=== PATIENT | female | born 1975 | race Caucasian/White ===

== ENCOUNTER 2021-09-16 17:53 | Emergency (ER) | payer OTHER, SELFPAY ==
--- NOTE | ~2021-09-16 | US_ITS ---
EXAMINATION: US ABDOMEN LIMITED CLINICAL INFORMATION: Right upper quadrant epigastric pain. COMPARISON: No recent TECHNIQUE: Real-time imaging of the right upper quadrant abdominal viscera. FINDINGS: PANCREAS: The head and body are normal. The tail is not visualized. LIVER: The liver is normal in size. The liver contour is normal. There is diffuse increased liver parenchymal echogenicity, consistent with hepatic steatosis. No focal hepatic lesion. There is no intrahepatic biliary duct dilatation seen. GALLBLADDER: The gallbladder is physiologically distended. Multiple mobile gallstones are present. No evidence of gallbladder wall thickening or pericholecystic fluid. COMMON BILE DUCT: Normal in caliber measuring 0.5 cm in diameter. RIGHT KIDNEY: There is a 0.7cm nonobstructing calculus in the lower pole. No hydronephrosis or focal parenchymal lesions. The kidney measures 11.2 cm in maximum dimension. FREE FLUID: None. US/US abdomen limited IMPRESSION: 1. 0.7 right lower pole kidney nonobstructing renal calculus. 2. Cholelithiasis. 3. Hepatic steatosis.
[2021-09-16 17:57] VITALS: BP 152/105; BP 204/154; PULSE 115; PULSE 130; RESP 18; TEMP 36.6; O2SAT 95; O2SAT 96; BMI 41.5
--- NOTE | 2021-09-16 18:04 | ECG_ITS ---
Test Reason : EPI GASTRIC Blood Pressure : / mmHG Vent. Rate : 108 BPM Atrial Rate : 108 BPM P-R Int : 130 ms QRS Dur : 082 ms QT Int : 354 ms P-R-T Axes : 031 043 066 degrees QTc Int : 474 ms Sinus tachycardia Nonspecific T wave abnormality Abnormal ECG No previous ECGs available Referred By: Shaniqua Naranjo Electronically Signed By:Gage Jaramillo
--- NOTE | 2021-09-16 18:15 | ED.ABDPAIN ---
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 It started after she ate a chicken finger, equatorial guinean fries and had 2 sips of an alcoholic beverage. The pain is intense, sharp and came on suddenly. She reports having loose stools for 4 days prior. She has nausea but has not vomited. No fever or chills. No GI bleeding. She ran out of her antidepressants 4-5 days ago and has been unable to get refills from her psychiatrist. MD elicited complaint: abdominal pain Pertinent past history: none Onset (ago): minute(s) (30) Pain Consistency: constant Location: epigastric Severity: severe Pain scale (0-10): 8 Quality: stabbing and sharp Radiation: RUQ Migration to: no migration Exacerbating factors: eating Relieving factors: medication (give Fentanyl 100 mcg en route along with 4 mg IV zofran ) Associated symptoms: nausea and diarrhea Related Data Previous Rx's Medication Instructions Recorded hydrocodone 5 mg-acetaminophen 325 1 tab PO TID PRN #7 tab 09/16/21 mg tablet ondansetron 4 mg disintegrating 4 mg PO Q8H PRN #7 tab 09/16/21 tablet sertraline 100 mg tablet 200 mg PO DAILY #30 tab 09/16/21 trazodone 300 mg tablet 300 mg PO BEDTIME #14 tab 09/16/21 Allergies Allergy/AdvReac Type Severity Reaction Status Date / Time morphine [MORPHINE] Allergy Intermediate STOMACH Verified 09/16/21 18:06 UPSET pregabalin [From LYRICA] Allergy Intermediate UNKNOWN Verified 09/16/21 18:06 sumatriptan [From IMITREX] Allergy Unknown UNKNOWN Verified 09/16/21 18:06 zolmitriptan [From ZOMIG] Allergy Unknown UNKNOWN Verified 09/16/21 18:06 From ZELNORM Allergy Intermediate UNKNOWN Uncoded 09/16/21 18:06 From IMITREX Allergy Unknown UNKNOWN Uncoded 09/16/21 18:06 Review of Systems Review of Systems Constitutional: No Fever, No Chills ENT/Mouth: No sore throat, No Rhinorrhea, No Swallowing Difficulty Cardiovascular: No Chest Pain, No SOB, No Orthopnea, No Edema Respiratory: No Cough, No Sputum, No Wheezing, No dyspnea Gastrointestinal: + Nausea, No Vomiting, + Diarrhea, + abdominal Pain, No Hematochezia, No Melena Genitourinary: No Dysuria, No Urinary Frequency, No Hematuria Musculoskeletal: No joint pain, No Myalgias Skin: No Skin Lesions, No rash Neuro: No Weakness, No Numbness, No Dizziness, No Headache Psych: + Anxiety/Panic, No Depression Heme/Lymph: No Bruising, No Lymphadenopathy, No bleeding Endocrine: No Polyuria, No Polydipsia PMFSH Social History Social History Advance Directives: No Advance Directives Information Provided: No Physical Exam ED Vital Signs: Vital Signs - 24 hr 09/16/21 17:57 09/16/21 20:27 Temperature 97.8 F Pulse Rate 115 H 93 Respiratory Rate 18 20 Blood Pressure 152/105 H 160/87 H Pulse Oximetry 95 96 BMI result Body Mass Index 41.5 Appearance: Alert. Oriented X3. Appears to be in pain Eyes: Pupils equal, round and reactive to light. ENT: Pharynx normal. Neck: Normal inspection. Neck supple. CVS: Normal heart rate and rhythm. Pulses normal. Respiratory: No respiratory distress. Breath sounds normal. Abdomen: Obese, Soft with moderate epigastric and RUQ tenderness w/ guarding, no rebound. normal +BS x4 Skin: Skin warm and dry. Normal skin color. Normal skin turgor. No rashes. Extremities: No lower extremity edema. Neuro: Oriented X 3. Grossly normal, nonfocal. Procedures EJ/Peripheral Line Arm L: Time Out Performed: No Skin Cleansed in Sterile Fashion: Yes Size (gauge): 20 IV Secured and Dressing Applied: Yes Patient Tolerated Procedure: well Course Course Course Narrative: 45 y/o female with history of HHT, HTN, depression who comes in via EMS with acute onset of epigastric and RUQ pain that started 30 mins [employer]. +tenderness on exam. Concern for biliary colic vs acute cholecystitis. Will get RUQ U/S and lab workup. IV Dilaudid ordered for ongoing severe pain after EMS gave Fentanyl. Will reassess. Reevaluation(s) Reevaluation #1: LFTs normal. Normal WBC. Troponin negative. Some flipped t-waves on her EKG with no ST segment elevation or depression. She continued to c/o RUQ pain after 0.5 mg IV dilaudid, another dose ordered. Will reassess. Reevaluation #2: US showing gallstones with no evidence acute cholecystitis. There is also a kidney stone 0.7 cm in the right kidney, no hydronephrosis. Unlikely kidney stone is causing her pain. She most likely has biliary colic due to her gallstones. Her pain is improved after Dilaudid. She is tolerating p.o.. Patient is asking for refills on her psychiatric medications sertraline and trazodone. She is in the middle of getting a new psychiatrist as her previous 1 left [facility] and her PCP will not give her her psychiatric medications. Will restart her sertraline at half dose today given she has not taken in 4-5 days. Comfortable giving her a short supply of these medications as she is actively trying to establish care elsewhere. Stable for discharge home with outpatient follow-up. Will refer to a General surgery for evaluation of possible cholecystectomy. MDM - Abdominal Pain Medical Records Attestation: I reviewed the patient's medical records. Lab Data Attestation: I reviewed the patient's lab results. Result diagrams: 09/16/21 18:54 09/16/21 18:54 Labs: Lab Results 09/16/21 09/16/21 09/16/21 Range/Units 18:28 18:54 18:54 WBC 7.6 (4.8-10.8) X10*3/uL RBC 4.94 (4.20-5.50) X10*6/uL Hgb 14.2 (12.0-16.0) g/dl Hct 43.1 (37.0-47.0) % MCV 87.2 (80.0-98.0) fL MCH 28.7 (27.0-33.0) pg MCHC 32.9 (31.0-35.0) g/dl RDW 13.1 (11.0-16.0) % Plt Count 197 (160-400) X10*3/uL MPV 11.2 (9.4-12.3) fL Immature Gran % (Auto) 0.3 (0.0-0.4) % Neut % (Auto) 62.8 (45-73) % Lymph % (Auto) 24.5 (20-40) % Zavala % (Auto) 10.2 (2-11) % Eos % (Auto) 1.7 (0-4) % Baso % (Auto) 0.5 (0-2) % Lymph # (Auto) 1.9 (1.2-4.9) X10*3/uL Zavala # (Auto) 0.8 (0.1-1.2) X10*3/uL Eos # (Auto) 0.1 (0.0-0.4) X10*3/uL Baso # (Auto) 0.0 (0.0-0.2) X10*3/uL Abs Immat Gran (auto) 0.02 (0.00-0.03) X10*3/uL Absolute Neuts (auto) 4.8 (2.0-8.3) x10*3/uL Absolute Nucleated RBC 0.000 (0.0-0.012) X10*3/uL Nucleated RBC % (auto) 0.0 (0.0-0.2) /100WBC Sodium 141 (135-145) mmol/L Potassium 3.9 (3.3-5.1) mmol/L Chloride 108 (96-108) mmol/L Carbon Dioxide 23 (22-29) mmol/L Anion Gap 14 (12-20) BUN 13 (9-16) mg/dL Creatinine 0.89 (0.5-1.4) mg/dL Estim Creat Clear Calc 99.2 Estimated GFR > 60 Random Glucose 102 (60-115) mg/dL Lactic Acid (0.5-2.0) mmol/L Calcium 9.8 (8.4-10.2) mg/dL Magnesium 2.1 (1.6-2.6) mg/dL Total Bilirubin 0.5 (0.0-1.0) mg/dL Direct Bilirubin 0.2 (0.0-0.5) mg/dL AST 18 (5-31) U/L ALT 18 (0-31) U/L Alkaline Phosphatase 78 (39-117) U/L Troponin I High Sens (<3.5-17.0) ng/L Total Protein 7.8 (6.5-8.0) g/dL Albumin 4.6 (3.5-5.0) g/dL Lipase 22 (8-78) U/L COVID-19 (GAIL) Negative (Negative) COVID-19 Clin Com See Note 09/16/21 09/16/21 Range/Units 18:54 18:54 WBC (4.8-10.8) X10*3/uL RBC (4.20-5.50) X10*6/uL Hgb (12.0-16.0) g/dl Hct (37.0-47.0) % MCV (80.0-98.0) fL MCH (27.0-33.0) pg MCHC (31.0-35.0) g/dl RDW (11.0-16.0) % Plt Count (160-400) X10*3/uL MPV (9.4-12.3) fL Immature Gran % (Auto) (0.0-0.4) % Neut % (Auto) (45-73) % Lymph % (Auto) (20-40) % Zavala % (Auto) (2-11) % Eos % (Auto) (0-4) % Baso % (Auto) (0-2) % Lymph # (Auto) (1.2-4.9) X10*3/uL Zavala # (Auto) (0.1-1.2) X10*3/uL Eos # (Auto) (0.0-0.4) X10*3/uL Baso # (Auto) (0.0-0.2) X10*3/uL Abs Immat Gran (auto) (0.00-0.03) X10*3/uL Absolute Neuts (auto) (2.0-8.3) x10*3/uL Absolute Nucleated RBC (0.0-0.012) X10*3/uL Nucleated RBC % (auto) (0.0-0.2) /100WBC Sodium (135-145) mmol/L Potassium (3.3-5.1) mmol/L Chloride (96-108) mmol/L Carbon Dioxide (22-29) mmol/L Anion Gap (12-20) BUN (9-16) mg/dL Creatinine (0.5-1.4) mg/dL Estim Creat Clear Calc Estimated GFR Random Glucose (60-115) mg/dL Lactic Acid 2.1 H* (0.5-2.0) mmol/L Calcium (8.4-10.2) mg/dL Magnesium (1.6-2.6) mg/dL Total Bilirubin (0.0-1.0) mg/dL Direct Bilirubin (0.0-0.5) mg/dL AST (5-31) U/L ALT (0-31) U/L Alkaline Phosphatase (39-117) U/L Troponin I High Sens < 3.5 (<3.5-17.0) ng/L Total Protein (6.5-8.0) g/dL Albumin (3.5-5.0) g/dL Lipase (8-78) U/L COVID-19 (GAIL) (Negative) COVID-19 Clin Com ECG Data Attestation: I personally reviewed and interpreted this ECG as follows: ECG interpretation date: 09/16/21 ECG interpretation time: 19:41 Prior ECG tracings: not available for review Interpretation: Sinus tachycardia, heart rate 108 beats per minute, nonspecific T-wave abnormality with T-wave inversions in V3 through V6. No ST segment elevations or depressions. Critical Care Time Critical Care Time Critical Care Time: Yes Total Critical Care Time: 35 Attestation: I have personally provided critical care time exclusive of time spent on separately billable procedures. Time includes review of lab data, radiology results, multiple doses of IV narcotics and frequent bedside re-evaluation, and monitoring for potential decompensation. Intervention performed as documented. Discharge Plan Discharge Clinical Impression: Gallstones Patient Disposition: Home, Self-Care Instructions: Biliary Colic (ED), Gallstones (ED) Additional Instructions: Your ultrasound showed gallstones as well as 1 kidney stone in your kidney. Your kidney itself had no swelling so the kidney stone is less likely causing your pain. Recommend dietary modifications for gallstones - no fatty or greasy foods, no dairy. Follow up with General Surgery for evaluation of possible gallbladder removal. Take the prescribed medications as directed - do not drive after taking the pain medication, it can make you drowsy. If you develop new or worsening symptoms call 911 or come back to the ER for further evaluation. Prescriptions: New hydrocodone-acetaminophen 5-325 mg tablet 1 tab PO TID PRN (Reason: severe pain (scale score 7-10)) Qty: 7 0RF ondansetron 4 mg tablet,disintegrating 4 mg PO Q8H PRN (Reason: nausea and vomiting) Qty: 7 0RF sertraline 100 mg tablet 200 mg PO DAILY Qty: 30 0RF trazodone 300 mg tablet 300 mg PO BEDTIME Qty: 14 0RF
[2021-09-16] MEDS: HYDROmorphone HCl 0.5 MG/0.5 ML SYRINGE IVPUSH (18:16)
[2021-09-16 19:03] LABS: MANUAL DIFF FLAG NO
[2021-09-16 19:05] LABS: Basophils Percent Auto 0.5 % (0-2); Eosinophils Absolute Auto 0.1 X10*3/uL (0.0-0.4); Eosinophils Percent Auto 1.7 % (0-4); Hematocrit 43.1 % (37.0-47.0); Hemoglobin 14.2 g/dl (12.0-16.0); Imm Gran Abs Auto 0.02 X10*3/uL (0.00-0.03); Imm Gran Pct Auto 0.3 % (0.0-0.4); Lymphocytes Absolute Auto 1.9 X10*3/uL (1.2-4.9); Lymphocytes Percent Auto 24.5 % (20-40); Mean Corpuscular HGB Conc 32.9 g/dl (31.0-35.0); Mean Corpuscular Hemoglobin 28.7 pg (27.0-33.0); Mean Corpuscular Volume 87.2 fL (80.0-98.0); Mean Platelet Volume 11.2 fL (9.4-12.3); Monocytes Absolute Auto 0.8 X10*3/uL (0.1-1.2); Monocytes Percent Auto 10.2 % (2-11); Neutrophils Absolute Auto 4.8 x10*3/uL (2.0-8.3); Neutrophils Percent Auto 62.8 % (45-73); Platelet Count 197 X10*3/uL (160-400); Red Blood Count 4.94 X10*6/uL (4.20-5.50); Red Cell Distribution Width 13.1 % (11.0-16.0); White Blood Count 7.6 X10*3/uL (4.8-10.8)
[2021-09-16 19:14] LABS: COVID-19 Test Negative (Negative); IDNOW Serial# 9DB6401D
[2021-09-16 19:26] LABS: Alanine Aminotransferase 18 U/L (0-31); Albumin Level 4.6 g/dL (3.5-5.0); Alkaline Phosphatase 78 U/L (39-117); Anion Gap 14 (12-20); Aspartate Amino Transferase 18 U/L (5-31); Bilirubin Direct 0.2 mg/dL (0.0-0.5); Bilirubin Total 0.5 mg/dL (0.0-1.0); Blood Urea Nitrogen 13 mg/dL (9-16); Calcium 9.8 mg/dL (8.4-10.2); Carbon Dioxide 23 mmol/L (22-29); Chloride 108 mmol/L (96-108); Creatinine Clr Calc Pharmacy 99.2; Estimated Glomerular Filt Rate > 60; Glucose Random 102 mg/dL (60-115); Lipase 22 U/L (8-78); Magnesium 2.1 mg/dL (1.6-2.6); Potassium 3.9 mmol/L (3.3-5.1); Sodium 141 mmol/L (135-145); Total Protein 7.8 g/dL (6.5-8.0)
[2021-09-16 19:28] LABS: Troponin-I High Sensitivity < 3.5 ng/L (<3.5-17.0)
[2021-09-16 19:35] LABS: Lactic Acid 2.1 mmol/L (0.5-2.0)
[2021-09-16] MEDS: 0.9 % Sodium Chloride 1,000 ML 999 ML IVCONT (19:47)
[2021-09-16] MEDS: HYDROmorphone HCl 1 MG/ML SYRINGE 0.5 MG IVPUSH (19:49)
[2021-09-16 20:27] VITALS: BP 160/87; PULSE 93; RESP 20; O2SAT 96
[2021-09-16] MEDS: Sertraline HCL 100 MG TABLET PO (20:59)
[2021-09-16] MEDS: traZODone HCL 100 MG TABLET PO (20:59)
[2021-09-16] MEDS: Ketorolac Tromethamine 30 MG/ML VIAL IVPUSH (21:01)
[2021-09-16 21:02] LABS: Reflex Lactate? Lactic Acid Added
[2021-09-16 21:12] VITALS: BP 174/69; PULSE 97; RESP 18; TEMP 36.8; O2SAT 94
[2021-09-16 21:37] LABS: ~Lactic Acid-LAB USE ONLY 1.2 mmol/L (0.5-2.0)
== END 2021-09-16 21:39 | disposition home or self-care (01) ==
PROVIDERS: Physician Assistant; Emergency Provider Emergency Medicine
DX: K80.70 Calculus of gallbladder and bile duct without cholecystitis without obstruction (principal); R10.13 Epigastric pain; N20.0 Calculus of kidney; R00.0 Tachycardia, unspecified; K76.0 Fatty (change of) liver, not elsewhere classified; Z20.822 Contact with and (suspected) exposure to COVID-19
CPT/HCPCS: 36415; 76705; 80048; 80076; 83605; 83690; 83735; 84484; 85025; 87635; 93005; 96361; 96374; 96375; 96376; 99284; J1170; J1885

== ENCOUNTER 2022-04-04 16:36 | Emergency (ER) | payer OTHER, SELFPAY ==
--- OUTSIDE RECORDS SUMMARY | 2022-04-04 18:28 | XMS_ITS | Continuity of Care Document ---
:1975 Author Organization [facility] Address [address] [place] [address]- Care Team Providers Name Role Phone Jam Del Valle Primary Care Physician [id number] Date(s): 09/29/21 - 11/11/21 [facility] [address] [place] [address]- Attending Physician: Oscar Davison MD Allergies, Adverse Reactions, Alerts Substance Reaction Severity Status morphine n/v Active Zomig chest pain Active Imitrex chest pain Active Zelnorm heart palpitations Active Lyrica difficulty breathing Active Medications amLODIPine 5 mg oral tablet 5 mg, 1, tablet, By Mouth, Daily, take one tablet daily, # 30 tablet, Refills 0, Tot. Refills 0, Maintenance, 11/02/21 10:03:00 EDT, Route to Pharmacy Electronically, [facility] #[id number], Partial fill upon patient request if the prescription i... Start Date: 11/02/21 Stop Date: 12/02/21 Status: OrderedbuPROPion 100 mg/12 hours (SR) oral tablet, extended release 1 tablet = 100 mg, By Mouth, 2 times a day, # 60 tablet, 0 Refills, Maintenance, 09/29/21 14:06:00 EDT, ER Tablet, [facility] #[id number], Partial fill upon patient request if the prescription is for a schedule II opioid drug., 165, cm, 09/29/21... Start Date: 09/29/21 Status: OrderedclonazePAM 0.5 mg oral tablet 1 tablet = 0.5 mg, By Mouth, Daily at bedtime, PRN Anxiety, 0 Refills, Maintenance, 04/13/15 11:12:29 Start Date: 04/13/15 Status: Orderedlisinopril 20 mg oral tablet 30 mg, 1.5, tablet, By Mouth, Daily, # 45 tablet, Refills 3, Tot. Refills 3, Maintenance, 09/29/21 14:07:00 EDT, Route to Pharmacy Electronically, [facility] #[id number], Partial fill upon patientrequest if the prescription is for a schedule II... Start Date: 09/29/21 Stop Date: 01/27/22 Status: OrderedtraZODone 100 mg oral tablet 300 mg, 3, tablet, By Mouth, Daily at bedtime, 2-3 tablets by mouth at bedtime daily., # 90 tablet, Refills 3, Tot. Refills 3, Maintenance, 09/29/21 14:52:00 EDT, Route to Pharmacy Electronically, [facility] #[id number], Partial fill upon patient... Start Date: 09/29/21 Stop Date: 01/27/22 Status: OrderedZoloft 100 mg oral tablet 2 tablet = 200 mg, By Mouth, Daily, # 60 tablet, 3 Refills, Maintenance, 09/29/21 14:09:00 EDT, Tablet, [facility] #[id number], Partial fill upon patient request if the prescription is for a schedule II opioid drug., 165, cm, 09/29/21 13:35:00 ED... 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
--- OUTSIDE RECORDS SUMMARY | 2022-04-04 18:28 | XMS_ITS | Continuity of Care Document ---
:1975 Author Organization [facility] Address [address] [place] [address]- Care Team Providers Name Role Phone Jma Del Valle Primary Care Physician Encounter [facility] Date(s): 01/25/22 - 02/24/22 [facility] [address] [place] [address] [place] [address]- Attending Physician: Bre Cervantes Admitting Physician: Bre Cervantes Referring Physician: AdmtrBre Allergies, Adverse Reactions, Alerts Substance Reaction Severity Status morphine n/v Active Zomig chest pain Active Lyrica difficulty breathing Active Imitrex chest pain Active Zelnorm heart palpitations Active Medications amLODIPine 10 mg oral tablet 1 tablet = 10 mg, By Mouth, Daily, pt will stop amlodipine 5 mg and increase to amlodipine 10 mg daily, # 90 tablet, 0 Refills, Maintenance, 01/25/22 15:24:00 EDT, Tablet, [facility] #[id number], Partial fill upon patient request if the prescript... Start Date: 01/25/22 Status: OrderedamLODIPine 5 mg oral tablet 5 mg, 1, tablet, By Mouth, Daily, take one tablet daily will not refill until further followup, # 30tablet, Refills 0, Tot. Refills 0, Maintenance, 01/20/22 9:29:00 EDT, Route to Pharmacy Electronically, [facility] #[id number], Partial fill u... Start Date: 01/20/22 Stop Date: 02/19/22 Status: OrderedbuPROPion 100 mg/12 hours (SR) oral tablet, extended release 1 tablet = 100 mg, By Mouth, 2 times a day, will not refill until further followup, # 60 tablet, 0 Refills, Maintenance, 01/20/22 9:30:00 EDT, ER Tablet, [facility] #[id number], Partial fill upon patient request if the prescription is for a sched... Start Date: 01/20/22 Status: OrderedclonazePAM 0.5 mg oral tablet 1 tablet = 0.5 mg, By Mouth, Daily at bedtime, PRN Anxiety, 0 Refills, Maintenance, 04/13/15 11:12:29 Start Date: 04/13/15 Status: Orderedlisinopril 20 mg oral tablet 30 mg, 1.5, tablet, By Mouth, Daily, will not refill until further followup, # 45 tablet, Refills 3,Tot. Refills 3, Maintenance, 01/27/22 14:07:00 EDT, Route to Pharmacy Electronically, [facility] #[id number], Partial fill upon patient request i... Start Date: 01/27/22 Stop Date: 05/27/22 Status: OrderedtraZODone 100 mg oral tablet 300 mg, 3, tablet, By Mouth, Daily at bedtime, 2-3 tablets by mouth at bedtime daily., # 90 tablet, Refills 2, Tot. Refills 2, Maintenance, 01/19/22 15:39:00 EDT, Route to Pharmacy Electronically, [facility] #[id number], Partial fill upon patient... Start Date: 01/19/22 Stop Date: 04/19/22 Status: OrderedZoloft 100 mg oral tablet 2 tablet = 200 mg, By Mouth, Daily, will not refill until further followup, # 60 tablet, 3 Refills, Maintenance, 01/27/22 14:09:00 EDT, Tablet, [facility] #[id number], Partial fill upon patient request if the prescription is for a schedule II opi... 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 History of kidney Confirmed Active stones Hypertension Confirmed Active IBS - Irritable bowel Confirmed Active syndrome Insomnia Confirmed Active Melasma Confirmed Active Menorrhagia Confirmed Active Migraine Confirmed Active Pulmonary Confirmed Active arteriovenous aneurysm Seasonal allergic Confirmed Active rhinitis Severe obesity Confirmed Active Arteriovenous Confirmed Active malformation Social History Social History Type Response Smoking Status Never smoker entered on: 03/15/15 Sex Patient Care team information PersonnelName: Jam Del Valle Address: Address: [address] [place] [id number]
--- OUTSIDE RECORDS SUMMARY | 2022-04-04 18:28 | XMS_ITS | Continuity of Care Document ---
:1975 Author Organization [facility] Address [address] [place] [address]- Care Team Providers Name Role Phone Jam Del Valle Primary Care Physician [id number] Date(s): 09/06/21 - 10/30/21 [facility] [address] [place] [address]- Attending Physician: Jam Del Valle Allergies, Adverse Reactions, Alerts Substance Reaction Severity Status morphine n/v Active Zomig chest pain Active Imitrex chest pain Active Zelnorm heart palpitations Active Lyrica difficulty breathing Active Medications amLODIPine 5 mg oral tablet 5 mg, 1, tablet, By Mouth, Daily, # 30 tablet, Refills 3, Tot. Refills 3, Maintenance, 09/29/21 14:04:00 EDT, Route to Pharmacy Electronically, [facility] #[id number], Partial fill upon patient request if the prescription is for a schedule II opi... Start Date: 09/29/21 Stop Date: 01/27/22 Status: OrderedbuPROPion 100 mg/12 hours (SR) oral tablet, extended release 1 tablet = 100 mg, By Mouth, 2 times a day, # 60 tablet, 0 Refills, Maintenance, 09/29/21 14:06:00 EDT, ER Tablet, [facility] #[id number], Partial fill upon patient request if the [...] 09/29/21 14:07:00 EDT, Route to Pharmacy Electronically, [facility] #[id number], Partial fill upon patientrequest if the prescription is for a schedule II... Start Date: 09/29/21 Stop Date: 01/27/22 Status: OrderedtraZODone 100 mg oral tablet 300 mg, 3, tablet, By Mouth, Daily at bedtime, 2-3 tablets by mouth at bedtime daily., # 90 tablet, Refills 3, Tot. Refills 3, Maintenance, 09/29/21 14:52:00 EDT, Route to Pharmacy Electronically, [facility] #[id number], Partial fill upon patient... Start Date: 09/29/21 Stop Date: 01/27/22 Status: OrderedZoloft 100 mg oral tablet 2 tablet = 200 mg, By Mouth, Daily, # 60 tablet, 3 Refills, Maintenance, 09/29/21 14:09:00 EDT, Tablet, [facility] #[id number], Partial fill upon patient request if the [...]
--- OUTSIDE RECORDS SUMMARY | 2022-04-04 18:28 | XMS_ITS | Continuity of Care Document ---
:1975 Author Organization [facility] Address [address] [place] [address]- Care Team Providers Name Role Phone Jam Del Valle Primary Care Physician Encounter [facility] Date(s): 01/19/22 - 02/18/22 [facility] [address] [place] [address]- Encounter Diagnosis Anxiety disorder (Discharge Diagnosis) - 01/20/22 Allergies, Adverse Reactions, Alerts Substance Reaction Severity Status morphine n/v Active Zomig chest pain Active Imitrex chest pain Active Zelnorm heart palpitations Active Lyrica difficulty breathing Active Medications amLODIPine 10 mg oral tablet 1 tablet = 10 mg, By Mouth, Daily, pt will stop amlodipine 5 mg and increase to amlodipine 10 mg daily, # 90 tablet, 0 Refills, Maintenance, 01/25/22 15:24:00 EDT, Tablet, [facility] #[id number], Partial fill upon patient request if the prescript... Start Date: 01/25/22 Status: OrderedamLODIPine 5 mg oral tablet 5 mg, 1, tablet, By Mouth, Daily, take one tablet daily will not refill until further followup, # 30tablet, Refills 0, Tot. Refills 0, Maintenance, 01/20/22 9:29:00 EDT, Route to Pharmacy Electronically, [facility] #[id number], Partial fill u... Start Date: 01/20/22 Stop Date: 02/19/22 Status: OrderedbuPROPion 100 mg/12 hours (SR) oral tablet, extended release 1 tablet = 100 mg, By Mouth, 2 times a day, will not refill until further followup, # 60 tablet, 0 Refills, Maintenance, 01/20/22 9:30:00 EDT, ER Tablet, [facility] #[id number], Partial fill upon patient request if the [...] 01/27/22 14:07:00 EDT, Route to Pharmacy Electronically, [facility] #[id number], Partial fill upon patient request i... Start Date: 01/27/22 Stop Date: 05/27/22 Status: OrderedtraZODone 100 mg oral tablet 300 mg, 3, tablet, By Mouth, Daily at bedtime, 2-3 tablets by mouth at bedtime daily., # 90 tablet, Refills 2, Tot. Refills 2, Maintenance, 01/19/22 15:39:00 EDT, Route to Pharmacy Electronically, [facility] #[id number], Partial fill upon patient... Start Date: 01/19/22 Stop Date: 04/19/22 Status: OrderedZoloft 100 mg oral tablet 2 tablet = 200 mg, By Mouth, Daily, will not refill until further followup, # 60 tablet, 3 Refills, Maintenance, 01/27/22 14:09:00 EDT, Tablet, [facility] #[id number], Partial fill upon patient request if the [...] obesity Confirmed Active Arteriovenous Confirmed Active malformation Diagnosis Diagnosis Type Effective Dates Health Status Clinical In formant Service Anxiety disorder Discharge 01/20/22 Non-Specified Diagnosis Social History Social History Type Response Smoking Status Never smoker entered on: 03/15/15 Sex Patient Care team information PersonnelName: Jam Del Valle Address: Address: [address] [place] [id number]
--- OUTSIDE RECORDS SUMMARY | 2022-04-04 18:28 | XMS_ITS | Continuity of Care Document ---
:1975 Author Organization [facility] Address [address] [place] [address]- Care Team Providers Name Role Phone Jam Del Valle Primary Care Physician [id number] Date(s): 11/02/21 - 12/03/21 [facility] [address] [place] [address]- Attending Physician: Oscar Davison MD Allergies, Adverse [...] 11/02/21 10:03:00 EDT, Route to Pharmacy Electronically, [facility] #[id number], Partial fill upon patient request if the prescription i... Start Date: 11/02/21 Stop Date: 12/02/21 Status: OrderedbuPROPion 100 mg/12 hours (SR) oral tablet, extended release 1 tablet = 100 mg, By Mouth, 2 times a day, # 60 tablet, 0 Refills, Maintenance, 09/29/21 14:06:00 EDT, ER Tablet, [facility] #[id number], Partial fill upon patient request if the [...] 09/29/21 14:07:00 EDT, Route to Pharmacy Electronically, [facility] #[id number], Partial fill upon patientrequest if the prescription is for a schedule II... Start Date: 09/29/21 Stop Date: 01/27/22 Status: OrderedtraZODone 100 mg oral tablet 300 mg, 3, tablet, By Mouth, Daily at bedtime, 2-3 tablets by mouth at bedtime daily., # 90 tablet, Refills 3, Tot. Refills 3, Maintenance, 09/29/21 14:52:00 EDT, Route to Pharmacy Electronically, [facility] #[id number], Partial fill upon patient... Start Date: 09/29/21 Stop Date: 01/27/22 Status: OrderedZoloft 100 mg oral tablet 2 tablet = 200 mg, By Mouth, Daily, # 60 tablet, 3 Refills, Maintenance, 09/29/21 14:09:00 EDT, Tablet, [facility] #[id number], Partial fill upon patient request if the [...]
--- OUTSIDE RECORDS SUMMARY | 2022-04-04 18:28 | XMS_ITS | Continuity of Care Document ---
:1975 Author Organization [facility] Address [address] [place] [address]- Care Team Providers Name Role Phone Jam Del Valle Primary Care Physician [phone] [id number] Date(s): 11/02/21 - 12/02/21 [facility] [address] [place] [address]- [place] Allergies, Adverse Reactions, Alerts Substance Reaction Severity Status morphine n/v Active Zomig chest pain Active Imitrex chest pain Active Zelnorm heart palpitations Active Lyrica difficulty breathing Active Medications amLODIPine 5 mg oral tablet 5 mg, 1, tablet, By Mouth, Daily, take one tablet daily, # 30 tablet, Refills 0, Tot. Refills 0, Maintenance, 11/02/21 10:03:00 EDT, Route to Pharmacy Electronically, [facility] #[id number], Partial fill upon patient request if the prescription i... Start Date: 11/02/21 Stop Date: 12/02/21 Status: OrderedbuPROPion 100 mg/12 hours (SR) oral tablet, extended release 1 tablet = 100 mg, By Mouth, 2 times a day, # 60 tablet, 0 Refills, Maintenance, 09/29/21 14:06:00 EDT, ER Tablet, [facility] #[id number], Partial fill upon patient request if the [...] 09/29/21 14:07:00 EDT, Route to Pharmacy Electronically, [facility] #[id number], Partial fill upon patientrequest if the prescription is for a schedule II... Start Date: 09/29/21 Stop Date: 01/27/22 Status: OrderedtraZODone 100 mg oral tablet 300 mg, 3, tablet, By Mouth, Daily at bedtime, 2-3 tablets by mouth at bedtime daily., # 90 tablet, Refills 3, Tot. Refills 3, Maintenance, 09/29/21 14:52:00 EDT, Route to Pharmacy Electronically, [facility] #[id number], Partial fill upon patient... Start Date: 09/29/21 Stop Date: 01/27/22 Status: OrderedZoloft 100 mg oral tablet 2 tablet = 200 mg, By Mouth, Daily, # 60 tablet, 3 Refills, Maintenance, 09/29/21 14:09:00 EDT, Tablet, [facility] #[id number], Partial fill upon patient request if the [...]
--- OUTSIDE RECORDS SUMMARY | 2022-04-04 18:28 | XMS_ITS | Continuity of Care Document ---
:1975 Author Organization [facility] Address [address] [place] [id number]- Care Team Providers Name Role Phone Jam Del Valle Primary Care Physician Encounter [facility] NBR [id number] Date(s): 10/03/21 - 11/02/21 [facility] [address] [place] [address]- [place] Allergies, Adverse Reactions, Alerts Substance Reaction Severity Status morphine n/v Active Zomig chest pain Active Imitrex chest pain Active Zelnorm heart palpitations Active Lyrica difficulty breathing Active Medications amLODIPine 5 mg oral tablet 5 mg, 1, tablet, By Mouth, Daily, take one tablet daily, # 30 tablet, Refills 0, Tot. Refills 0, Maintenance, 11/02/21 10:03:00 EDT, Route to Pharmacy Electronically, [facility] #[id number], Partial fill upon patient request if the prescription i... Start Date: 11/02/21 Stop Date: 12/02/21 Status: OrderedbuPROPion 100 mg/12 hours (SR) oral tablet, extended release 1 tablet = 100 mg, By Mouth, 2 times a day, # 60 tablet, 0 Refills, Maintenance, 09/29/21 14:06:00 EDT, ER Tablet, [facility] #[id number], Partial fill upon patient request if the [...] 09/29/21 14:07:00 EDT, Route to Pharmacy Electronically, [facility] #[id number], Partial fill upon patientrequest if the prescription is for a schedule II... Start Date: 09/29/21 Stop Date: 01/27/22 Status: OrderedtraZODone 100 mg oral tablet 300 mg, 3, tablet, By Mouth, Daily at bedtime, 2-3 tablets by mouth at bedtime daily., # 90 tablet, Refills 3, Tot. Refills 3, Maintenance, 09/29/21 14:52:00 EDT, Route to Pharmacy Electronically, [facility] #[id number], Partial fill upon patient... Start Date: 09/29/21 Stop Date: 01/27/22 Status: OrderedZoloft 100 mg oral tablet 2 tablet = 200 mg, By Mouth, Daily, # 60 tablet, 3 Refills, Maintenance, 09/29/21 14:09:00 EDT, Tablet, [facility] #[id number], Partial fill upon patient request if the [...]
--- OUTSIDE RECORDS SUMMARY | 2022-04-04 18:28 | XMS_ITS | Continuity of Care Document ---
:1975 Author Organization [facility] Address [address] [place] [id number]- Care Team Providers Name Role Phone Jam Del Valle Primary Care Physician [phone] Encounter [facility] NBR [id number] Date(s): 09/29/21 - 10/06/21 [facility] [address] [place] [address]- Encounter Diagnosis UTI symptoms (Discharge Diagnosis) - 09/29/21 History of kidney stones (Discharge Diagnosis) - 09/29/21 Hypertension (Discharge Diagnosis) - 09/29/21 Anxiety disorder (Discharge Diagnosis) - 09/29/21 History of depression (Discharge Diagnosis) - 09/29/21 Insomnia (Discharge Diagnosis) - 09/29/21 Arteriovenous malformation (Discharge Diagnosis) - 09/29/21 Attending Physician: Jam Del Valle Allergies, Adverse Reactions, Alerts Substance Reaction Severity Status morphine n/v Active Zomig chest pain Active Lyrica difficulty breathing Active Zelnorm heart palpitations Active Imitrex chest pain Active Medications amLODIPine 5 mg oral tablet 5 mg, 1, tablet, By Mouth, Daily, # 30 tablet, Refills 3, Tot. Refills 3, Maintenance, 09/29/21 14:04:00 EDT, Route to Pharmacy Electronically, [facility] #[id number], Partial fill upon patient request if the prescription is for a schedule II opi... Start Date: 09/29/21 Stop Date: 01/27/22 Status: OrderedbuPROPion 100 mg/12 hours (SR) oral tablet, extended release 1 tablet = 100 mg, By Mouth, 2 times a day, # 60 tablet, 0 Refills, Maintenance, 09/29/21 14:06:00 EDT, ER Tablet, [facility] #[id number], Partial fill upon patient request if the [...] 09/29/21 14:07:00 EDT, Route to Pharmacy Electronically, [facility] #[id number], Partial fill upon patientrequest if the prescription is for a schedule II... Start Date: 09/29/21 Stop Date: 01/27/22 Status: OrderedMacrobid macrocrystals-monohydrate 100 mg oral capsule 1 capsule = 100 mg, By Mouth, 2 times a day, for 10 days, # 20 capsule, 0 Refills, Acute 10/09/21 13:57:00 EDT, 09/29/21 13:57:00 EDT, Capsule, [facility] #[id number], Partial fill upon patient request if the prescription is for a schedule II opi... Start Date: 09/29/21 Stop Date: 10/09/21 Status: OrderedtraZODone 100 mg oral tablet 300 mg, 3, tablet, By Mouth, Daily at bedtime, 2-3 tablets by mouth at bedtime daily., # 90 tablet, Refills 3, Tot. Refills 3, Maintenance, 09/29/21 14:52:00 EDT, Route to Pharmacy Electronically, [facility] #[id number], Partial fill upon patient... Start Date: 09/29/21 Stop Date: 01/27/22 Status: OrderedZoloft 100 mg oral tablet 2 tablet = 200 mg, By Mouth, Daily, # 60 tablet, 3 Refills, Maintenance, 09/29/21 14:09:00 EDT, Tablet, [facility] #[id number], Partial fill upon patient request if the [...] Active Severe obesity(Confirmed) Active Arteriovenous malformation(Confirmed) Active Diagnosis Diagnosis Type Effective Dates Health Clinical Infor mant Status Service UTI symptoms Discharge 09/29/21 Diagnosis History of kidney Discharge 09/29/21 stones Diagnosis Hypertension Discharge 09/29/21 Diagnosis Anxiety disorder Discharge 09/29/21 Diagnosis History of Discharge 09/29/21 depression Diagnosis Insomnia Discharge 09/29/21 Diagnosis Arteriovenous Discharge 09/29/21 malformation Diagnosis Vital Signs Most recent to oldest [Reference Range]: 1 2 Height 165 cm 165 cm (09/29/21 1:35 PM) (09/29/21 1:27 PM) Weight 125 kg (09/29/21 1:27 PM) Oxygen Saturation [94-100 %] 94 % (09/29/21 1:27 PM) Pulse Rate [55-90 bpm] 107 bpm *H* (09/29/21 1:27 PM) Body Mass Index [18.5-24.99] 45.91 *>HHI* (09/29/21 1:27 PM) Blood Pressure [90-138/55-84 mm Hg] 168/108 mm Hg 176/ 112 mm Hg *H* *H* (09/29/21 1:35 PM) (09/29/21 1:27 PM) Respiratory Rate [16-30 br/min] 18 br/min (09/29/21 1:27 PM) Temperature [96.8-100.4 DegF] 98.6 DegF (09/29/21 1:27 PM) Blood pressure sites Arm, left Arm, left (09/29/21 1:35 PM) (09/29/21 1:27 PM) Social History Social History Type Response Smoking Status Never smoker entered on: 03/15/15 Sex
--- OUTSIDE RECORDS SUMMARY | 2022-04-04 18:28 | XMS_ITS | Continuity of Care Document ---
:1975 Author Organization [facility] Address [address] [place] [address]- Care Team Providers Name Role Phone Jam Del Valle Primary Care Physician [phone] Encounter [facility] NBR [id number] Date(s): 11/03/21 - 12/03/21 [facility] [address] [place] [address]- Attending Physician: Bre Cervantes Admitting Physician: AdmBre duke Referring Physician: AdmtrBre Allergies, Adverse Reactions, Alerts Substance Reaction Severity Status morphine n/v Active Zomig chest pain Active Lyrica difficulty breathing Active Imitrex chest pain Active Zelnorm heart palpitations Active Medications amLODIPine 5 mg oral tablet 5 mg, 1, tablet, By Mouth, Daily, take one tablet daily, # 30 tablet, Refills 0, Tot. Refills 0, Maintenance, 11/02/21 10:03:00 EDT, Route to Pharmacy Electronically, [facility] #[id number], Partial fill upon patient request if the prescription i... Start Date: 11/02/21 Stop Date: 12/02/21 Status: OrderedbuPROPion 100 mg/12 hours (SR) oral tablet, extended release 1 tablet = 100 mg, By Mouth, 2 times a day, # 60 tablet, 0 Refills, Maintenance, 09/29/21 14:06:00 EDT, ER Tablet, [facility] #[id number], Partial fill upon patient request if the [...] 09/29/21 14:07:00 EDT, Route to Pharmacy Electronically, [facility] #[id number], Partial fill upon patientrequest if the prescription is for a schedule II... Start Date: 09/29/21 Stop Date: 01/27/22 Status: OrderedtraZODone 100 mg oral tablet 300 mg, 3, tablet, By Mouth, Daily at bedtime, 2-3 tablets by mouth at bedtime daily., # 90 tablet, Refills 3, Tot. Refills 3, Maintenance, 09/29/21 14:52:00 EDT, Route to Pharmacy Electronically, [facility] #[id number], Partial fill upon patient... Start Date: 09/29/21 Stop Date: 01/27/22 Status: OrderedZoloft 100 mg oral tablet 2 tablet = 200 mg, By Mouth, Daily, # 60 tablet, 3 Refills, Maintenance, 09/29/21 14:09:00 EDT, Tablet, [facility] #[id number], Partial fill upon patient request if the [...]
--- OUTSIDE RECORDS SUMMARY | 2022-04-04 18:28 | XMS_ITS | Continuity of Care Document ---
:1975 Author Organization [facility] Address [address] [place] [address]- Care Team Providers Name Role Phone Jam Del Valle Primary Care Physician [facility] [id number] Date(s): 10/31/21 - 11/30/21 [facility] [address] [place] [id number]- [place] Allergies, Adverse Reactions, Alerts Substance Reaction Severity Status morphine n/v Active Zomig chest pain Active Imitrex chest pain Active Zelnorm heart palpitations Active Lyrica difficulty breathing Active Medications amLODIPine 5 mg oral tablet 5 mg, 1, tablet, By Mouth, Daily, take one tablet daily, # 30 tablet, Refills 0, Tot. Refills 0, Maintenance, 11/02/21 10:03:00 EDT, Route to Pharmacy Electronically, [facility] #[id number], Partial fill upon patient request if the prescription i... Start Date: 11/02/21 Stop Date: 12/02/21 Status: OrderedbuPROPion 100 mg/12 hours (SR) oral tablet, extended release 1 tablet = 100 mg, By Mouth, 2 times a day, # 60 tablet, 0 Refills, Maintenance, 09/29/21 14:06:00 EDT, ER Tablet, [facility] #[id number], Partial fill upon patient request if the [...] 09/29/21 14:07:00 EDT, Route to Pharmacy Electronically, [facility] #[id number], Partial fill upon patientrequest if the prescription is for a schedule II... Start Date: 09/29/21 Stop Date: 01/27/22 Status: OrderedtraZODone 100 mg oral tablet 300 mg, 3, tablet, By Mouth, Daily at bedtime, 2-3 tablets by mouth at bedtime daily., # 90 tablet, Refills 3, Tot. Refills 3, Maintenance, 09/29/21 14:52:00 EDT, Route to Pharmacy Electronically, [facility] #[id number], Partial fill upon patient... Start Date: 09/29/21 Stop Date: 01/27/22 Status: OrderedZoloft 100 mg oral tablet 2 tablet = 200 mg, By Mouth, Daily, # 60 tablet, 3 Refills, Maintenance, 09/29/21 14:09:00 EDT, Tablet, [facility] #[id number], Partial fill upon patient request if the [...]
== END 2022-04-04 19:02 | disposition left against medical advice (07) ==
PROVIDERS: Emergency Provider Emergency Medicine
DX: R10.10 Upper abdominal pain, unspecified (principal)

== ENCOUNTER 2022-04-12 07:50 | Day surgery (SDC) | payer OTHER, SELFPAY ==
[2022-04-12] VITALS (18 sets, daily range): BP systolic 132–163; BP diastolic 80–97; PULSE 101–130; RESP 12–20; TEMP 36.8–38.1; O2SAT 92–97; BMI 43.9
--- NOTE | ~2022-04-12 | FL_ITS ---
EXAMINATION: XR FLUOROSCOPY WITH IMAGES CLINICAL INFORMATION: Urinary tract calculi, right hydronephrosis. COMPARISON: CT abdomen and pelvis 04/12/2022. TECHNIQUE: Fluoroscopy Supervised By: Dr. Leandro Hyatt. Fluoroscopy Time: 17 seconds. Cumulative Dose: 8.75 mGy. Images: 4. FINDINGS: There is guidewire seen in the right urinary tract. Subsequent images show lower right ureteral stent in position. FL/FL guidance in OR IMPRESSION: Fluoroscopy for urologic procedure.
--- NOTE | ~2022-04-12 | CT_ITS ---
EXAMINATION: CT ABDOMEN AND PELVIS WITH CONTRAST CLINICAL INFORMATION: Right upper quadrant right flank pain. Possible pyelonephritis. History renal calculi. COMPARISON: Ultrasound abdomen Limited 09/16/2021, CT abdomen and pelvis noncontrast 10/30/2014. TECHNIQUE: Multidetector volumetric images were obtained from the superior aspect of the liver through the pubic symphysis following administration 85 mL of Omnipaque 350 intravenous contrast. Sagittal and coronal reformatted images were obtained on the technologist's workstation. Oral contrast: No This CT examination was performed using dose optimization techniques as appropriate, variously including the following: *Automated exposure control *Adjustment of mA and/or kV according to patient size (this includes techniques or standardized protocols for targeted exams where dose is matched to indication/reason for exam; i.e. extremities or head) *Use of iterative reconstruction technique DLP: 1042 mGy-cm FINDINGS: LUNG BASES: The visualized lung bases are unremarkable. LIVER, GALLBLADDER, AND BILIARY TREE: The liver is normal in size, shape, and attenuation. No focal hepatic lesion or biliary ductal dilatation is present. The gallbladder is unremarkable with no evidence of radiopaque gallstones, gallbladder wall thickening, or obvious pericholecystic inflammatory changes. PANCREAS: Unremarkable. SPLEEN: Mild splenomegaly, sagittal dimension 14.2, similar to prior CT 2015. ADRENAL GLANDS: Unremarkable. KIDNEYS AND URETERS: Right: There is right hydronephrosis and hydroureter secondary to a 6 mm calculus right pelvic ureter, approximately 5 cm proximal to the bladder, 581 HU attenuation. There is an 8 x 4 mm nonobstructing right lower pole intrarenal calculus, 708 HU and 14 cm from the flank. Mild right perinephric stranding is present. Left: Left kidney shows no hydronephrosis or hydroureter or perinephric stranding. There are punctate nonobstructing calculi left upper pole and left lower pole both under 3 mm. BLADDER: Unremarkable. GASTROINTESTINAL TRACT: No bowel obstruction or focal inflammatory changes in bowel or mesentery. Moderate stool throughout colon. Appendix not seen with certainty. No inflammatory changes around cecum or terminal ileum. No ascites or fluid collection. No pneumatosis or free air. ABDOMINAL WALL: No significant hernia is appreciated. LYMPH NODES: No lymphadenopathy. VASCULAR: Unremarkable. PELVIC VISCERA: Unremarkable. OSSEOUS STRUCTURES: No acute bony abnormality. Degenerative disc changes lumbosacral junction. CT/CT abdomen pelvis w IV con IMPRESSION: 1. Right hydronephrosis and hydroureter secondary to a 6 mm calculus right pelvic ureter, approximately 5 cm proximal to the bladder. Mild perinephric stranding. 2. Bilateral nonobstructing intrarenal calculi. 3. No bowel obstruction or inflammatory changes in bowel or mesentery. No ascites or fluid collection.
[2022-04-12 08:29] LABS: UPreg QC Valid YES; Urine Pregnancy NEGATIVE (NEGATIVE)
[2022-04-12 08:30] LABS: Appearance Urine Clear; Color Urine Yellow; Glucose Urine UA Negative (Negative); Leukocyte Esterase Urine Large (3+) (Negative); Nitrite Urine Negative (Negative); PH 7.5 (5.0-9.0); UMIC TRIGGER UACC YES; Urine Blood Trace (Negative); Urine Ketones Negative (Negative); Urine Protein Trace mg/dL (Neg-Trace)
[2022-04-12 08:33] LABS: Bacteria Urine None Seen (None Seen); Hyaline Casts Urine 0-2 /LPF (0-2); Squamous Epithelial Cell Urine 0-2 /HPF (0-2); UACC Culture Trigger YES; WBC Urine >50 /HPF (0-5)
[2022-04-12 09:07] LABS: Influenza A PCR NEGATIVE (Negative); Influenza B PCR NEGATIVE (Negative); Resp Syncy Virus RNA Qual PCR NEGATIVE (Negative); SARS COV2 PCR INHOUSE NEGATIVE (Negative)
[2022-04-12 09:15] LABS: MANUAL DIFF FLAG NO
[2022-04-12 09:17] LABS: Basophils Percent Auto 0.4 % (0-2); Eosinophils Absolute Auto 0.2 X10*3/uL (0.0-0.4); Eosinophils Percent Auto 1.7 % (0-4); Hematocrit 39.2 % (37.0-47.0); Hemoglobin 12.8 g/dl (12.0-16.0); Imm Gran Abs Auto 0.02 X10*3/uL (0.00-0.03); Imm Gran Pct Auto 0.2 % (0.0-0.4); Lymphocytes Absolute Auto 0.8 X10*3/uL (1.2-4.9); Lymphocytes Percent Auto 8.1 % (20-40); Mean Corpuscular HGB Conc 32.7 g/dl (31.0-35.0); Mean Corpuscular Hemoglobin 29.4 pg (27.0-33.0); Mean Corpuscular Volume 89.9 fL (80.0-98.0); Mean Platelet Volume 10.9 fL (9.4-12.3); Monocytes Absolute Auto 0.7 X10*3/uL (0.1-1.2); Monocytes Percent Auto 7.9 % (2-11); Neutrophils Absolute Auto 7.5 x10*3/uL (2.0-8.3); Neutrophils Percent Auto 81.7 % (45-73); Platelet Count 164 X10*3/uL (160-400); Red Blood Count 4.36 X10*6/uL (4.20-5.50); Red Cell Distribution Width 13.1 % (11.0-16.0); White Blood Count 9.2 X10*3/uL (4.8-10.8)
[2022-04-12 09:27] LABS: Lactic Acid 0.7 mmol/L (0.5-2.0)
--- NOTE | 2022-04-12 09:28 | PC.NURSE ---
patient a&ox3, c/o 7-11/30 rt flank pain, vitals stable, awaiting provider orders, will continue to monitor.
[2022-04-12 09:32] LABS: Alanine Aminotransferase 13 U/L (0-31); Albumin Level 4.5 g/dL (3.5-5.0); Alkaline Phosphatase 80 U/L (39-117); Anion Gap 12 (12-20); Aspartate Amino Transferase 15 U/L (5-31); Bilirubin Total 0.6 mg/dL (0.0-1.0); Blood Urea Nitrogen 10 mg/dL (9-16); Calcium 9.3 mg/dL (8.4-10.2); Carbon Dioxide 26 mmol/L (22-29); Chloride 104 mmol/L (96-108); Creatinine Clr Calc Pharmacy 87.5; Estimated Glomerular Filt Rate 57; Glucose Random 114 mg/dL (60-115); Potassium 4.3 mmol/L (3.3-5.1); Sodium 138 mmol/L (135-145); Total Protein 7.2 g/dL (6.5-8.0)
--- NOTE | 2022-04-12 09:38 | ED.ABDPAIN ---
HPI - Abdominal Pain General Chief Complaint: Abdominal Pain Stated Complaint: R Side Pain Time Seen by Provider: 04/12/22 08:45 Source: patient Mode of arrival: ambulatory History of Present Illness HPI narrative: 46-year-old female presents with significant right flank pain that radiates down into the right groin area and has worsened with initially experiencing a urinary frequency and now has associated nausea but denies any vomiting and has had chills. Patient denies any shortness of breath, chest pain/palpitations Related Data Previous Rx's Medication Instructions Recorded hydrocodone 5 mg-acetaminophen 325 1 tab PO TID PRN severe pain 09/16/21 mg tablet (scale score 7-10) #7 tabs ondansetron 4 mg disintegrating 4 mg PO Q8H PRN nausea and 09/16/21 tablet vomiting #7 tabs sertraline 100 mg tablet 200 mg PO DAILY #30 tabs 09/16/21 trazodone 300 mg tablet 300 mg PO BEDTIME #14 tabs 09/16/21 hydrocodone 5 mg-acetaminophen 325 1 tab PO Q4-6H PRN pain #7 tabs 09/17/21 mg tablet Allergies Allergy/AdvReac Type Severity Reaction Status Date / Time morphine [MORPHINE] Allergy Intermediate STOMACH Verified 09/16/21 18:06 UPSET pregabalin [From LYRICA] Allergy Intermediate UNKNOWN Verified 09/16/21 18:06 sumatriptan [From IMITREX] Allergy Unknown UNKNOWN Verified 09/16/21 18:06 zolmitriptan [From ZOMIG] Allergy Unknown UNKNOWN Verified 09/16/21 18:06 From ZELNORM Allergy Intermediate UNKNOWN Uncoded 09/16/21 18:06 From IMITREX Allergy Unknown UNKNOWN Uncoded 09/16/21 18:06 Review of Systems Review of Systems Pertinent positives and negatives as stated in HPI 10 point review of systems otherwise negative. [facility] Past Medical History Source: nursing notes reviewed Medical History Depression Hypertension Kidney stone Migraines Pulmonary arteriovenous malformation Surgical History H/O lithotripsy H/O: hysterectomy History of ankle surgery History of appendectomy Social History Social History Alcohol intake: current Alcohol intake frequency: holidays/special occasions only Smoked in Last 30 Days: No Use of substances other than those prescribed or required for medical reasons: No Advance Directives: No Patient : No Physical Exam ED Vital Signs: Vital Signs - 24 hr 04/12/22 08:01 04/12/22 09:27 04/12/22 11:30 Temperature 98.6 F 98.9 F 99.2 F Pulse Rate 130 H 113 H 114 H Respiratory Rate 18 20 20 Blood Pressure 150/81 H 150/91 H 139/97 H Pulse Oximetry 95 96 96 Oxygen Delivery Method Room Air Room Air Room Air 04/12/22 13:50 Temperature 99.1 F Pulse Rate 105 H Respiratory Rate 18 Blood Pressure 163/87 H Pulse Oximetry 94 Oxygen Delivery Method Room Air BMI result Body Mass Index 43.9 VITAL SIGNS: Reviewed. GENERAL: Well developed, well nourished, in no acute distress. HEAD: Normocephalic/atraumatic EYES: PERRLA, EOMI EARS: Ext canals without abnormality OROPHARYNX: no oral lesions noted, posterior pharynx clear LUNGS: Normal breath sounds. No adventitious sounds or accessory muscle use. SpO2<96> CARDIOVASCULAR: Regular rate and rhythm without noted murmurs ABDOMEN: Soft, non-tender, non-distended with bowel sounds, right CVA tenderness MUSCULOSKELETAL: No tenderness, deformities, or effusions noted on gross inspection. EXTREMITIES: No cyanosis, clubbing or edema. SKIN: Inspection of the skin reveals no rashes NEUROLOGIC: Alert and oriented x 4. Strength and sensation to light touch were grossly intact x 4. Course Reevaluation(s) Reevaluation #1: Patient continues to be in pain, 0.5 mg of Dilaudid administered and I placed a consultation with Urology since I a got for official CT scan which demonstrates hydro with 6 mm stone in mid right ureter. Time: 14:20 Reevaluation #2: I discussed the case with Urology who confirms that patient needs a stent and will be an add on for the OR tonight. I made the patient NPO and start her on maintenance IV fluids. Time: 15:11 Medical Decision Making Medical Decision Making MDM Narrative: 46-year-old female with history and clinical presentation of right flank pain and a positive history of renal colic, I see no documentation regarding cholecystectomy. Differential Diagnosis Differential Diagnoses: The differential diagnosis associated with the presentation includes Renal colic, cholecystitis, pancreatitis Consult Healthcare Provider Management of the patient was discussed with: Medical Record Administrator See course for conversation Lab Data MDM Lab Attestation statement: I reviewed the patient's lab results. Urinalysis demonstrates WBC greater than 50 with no squamous epithelial cells. Result Diagrams: 04/12/22 09:10 04/12/22 09:10 Labs: Lab Results 04/12/22 04/12/22 04/12/22 Range/Units 08:10 08:10 08:10 WBC (4.8-10.8) X10*3/uL RBC (4.20-5.50) X10*6/uL Hgb (12.0-16.0) g/dl Hct (37.0-47.0) % MCV (80.0-98.0) fL MCH (27.0-33.0) pg MCHC (31.0-35.0) g/dl RDW (11.0-16.0) % Plt Count (160-400) X10*3/uL MPV (9.4-12.3) fL Immature Gran % (Auto) (0.0-0.4) % Neut % (Auto) (45-73) % Lymph % (Auto) (20-40) % Collier % (Auto) (2-11) % Eos % (Auto) (0-4) % Baso % (Auto) (0-2) % Lymph # (Auto) (1.2-4.9) X10*3/uL Collier # (Auto) (0.1-1.2) X10*3/uL Eos # (Auto) (0.0-0.4) X10*3/uL Baso # (Auto) (0.0-0.2) X10*3/uL Abs Immat Gran (auto) (0.00-0.03) X10*3/uL Absolute Neuts (auto) (2.0-8.3) x10*3/uL Absolute Nucleated RBC (0.0-0.012) X10*3/uL Nucleated RBC % (auto) (0.0-0.2) /100WBC Sodium (135-145) mmol/L Potassium (3.3-5.1) mmol/L Chloride (96-108) mmol/L Carbon Dioxide (22-29) mmol/L Anion Gap (12-20) BUN (9-16) mg/dL Creatinine (0.5-1.4) mg/dL Estim Creat Clear Calc Estimated GFR Random Glucose (60-115) mg/dL Lactic Acid (0.5-2.0) mmol/L Calcium (8.4-10.2) mg/dL Total Bilirubin (0.0-1.0) mg/dL AST (5-31) U/L ALT (0-31) U/L Alkaline Phosphatase (39-117) U/L Total Protein (6.5-8.0) g/dL Albumin (3.5-5.0) g/dL Urine Color Yellow Urine Appearance Clear Urine pH 7.5 (5.0-9.0) Ur Specific Stanton 1.010 (1.005-1.025) Urine Protein Trace (Neg-Trace) mg/dL Urine Glucose (UA) Negative (Negative) mg/dL Urine Ketones Negative (Negative) mg/dL Urine Blood Trace H (Negative) Urine Nitrite Negative (Negative) Ur Leukocyte Esterase Large (3+) H (Negative) Urine RBC 3-5 H (0-2) /HPF Urine WBC >50 H (0-5) /HPF Ur Squamous Epith Cells 0-2 (0-2) /HPF Urine Bacteria None Seen (None Seen) Hyaline Casts 0-2 (0-2) /LPF Urine Test NEGATIVE (NEGATIVE) Influenza Type A (PCR) NEGATIVE (Negative) Influenza Type B (PCR) NEGATIVE (Negative) RSV RNA Qual (PCR) NEGATIVE (Negative) SARS-CoV-2 RNA (RT-PCR) NEGATIVE (Negative) 04/12/22 04/12/22 04/12/22 Range/Units 09:10 09:10 09:10 WBC 9.2 (4.8-10.8) X10*3/uL RBC 4.36 (4.20-5.50) X10*6/uL Hgb 12.8 (12.0-16.0) g/dl Hct 39.2 (37.0-47.0) % MCV 89.9 (80.0-98.0) fL MCH 29.4 (27.0-33.0) pg MCHC 32.7 (31.0-35.0) g/dl RDW 13.1 (11.0-16.0) % Plt Count 164 (160-400) X10*3/uL MPV 10.9 (9.4-12.3) fL Immature Gran % (Auto) 0.2 (0.0-0.4) % Neut % (Auto) 81.7 H (45-73) % Lymph % (Auto) 8.1 L (20-40) % Collier % (Auto) 7.9 (2-11) % Eos % (Auto) 1.7 (0-4) % Baso % (Auto) 0.4 (0-2) % Lymph # (Auto) 0.8 L (1.2-4.9) X10*3/uL Collier # (Auto) 0.7 (0.1-1.2) X10*3/uL Eos # (Auto) 0.2 (0.0-0.4) X10*3/uL Baso # (Auto) 0.0 (0.0-0.2) X10*3/uL Abs Immat Gran (auto) 0.02 (0.00-0.03) X10*3/uL Absolute Neuts (auto) 7.5 (2.0-8.3) x10*3/uL Absolute Nucleated RBC 0.000 (0.0-0.012) X10*3/uL Nucleated RBC % (auto) 0.0 (0.0-0.2) /100WBC Sodium 138 (135-145) mmol/L Potassium 4.3 (3.3-5.1) mmol/L Chloride 104 (96-108) mmol/L Carbon Dioxide 26 (22-29) mmol/L Anion Gap 12 (12-20) BUN 10 (9-16) mg/dL Creatinine 1.03 (0.5-1.4) mg/dL Estim Creat Clear Calc 87.5 Estimated GFR 57 Random Glucose 114 (60-115) mg/dL Lactic Acid 0.7 (0.5-2.0) mmol/L Calcium 9.3 (8.4-10.2) mg/dL Total Bilirubin 0.6 (0.0-1.0) mg/dL AST 15 (5-31) U/L ALT 13 (0-31) U/L Alkaline Phosphatase 80 (39-117) U/L Total Protein 7.2 (6.5-8.0) g/dL Albumin 4.5 (3.5-5.0) g/dL Urine Color Urine Appearance Urine pH (5.0-9.0) Ur Specific Stanton (1.005-1.025) Urine Protein (Neg-Trace) mg/dL Urine Glucose (UA) (Negative) mg/dL Urine Ketones (Negative) mg/dL Urine Blood (Negative) Urine Nitrite (Negative) Ur Leukocyte Esterase (Negative) Urine RBC (0-2) /HPF Urine WBC (0-5) /HPF Ur Squamous Epith Cells (0-2) /HPF Urine Bacteria (None Seen) Hyaline Casts (0-2) /LPF Urine Test (NEGATIVE) Influenza Type A (PCR) (Negative) Influenza Type B (PCR) (Negative) RSV RNA Qual (PCR) (Negative) SARS-CoV-2 RNA (RT-PCR) (Negative) Radiology Impression Discussion of test interpretation with radiology: I have reviewed the radiologist's reading. Medications Administered Discontinued Medications Generic Name Dose Route Start Last Admin Trade Name Fidel PRN Reason Stop Dose Admin Fentanyl 25 mcg 04/12/22 12:42 04/12/22 12:54 Fentanyl Citrate/Pf 100 Mcg/2 Ml Vial IVPUSH 04/12/22 12:43 25 mcg ONCE ONE Administration Protocol Hydromorphone HCl 0.5 mg 04/12/22 14:10 04/12/22 14:15 Hydromorphone Hcl 0.5 Mg/0.5 Ml Syringe IVPUSH 04/12/22 14:11 0.5 mg ONCE ONE Administration Protocol Sodium Chloride 1,000 mls @ 999 mls/hr 04/12/22 09:45 04/12/22 14:04 Ns IV 04/12/22 10:45 Infused .Q1H1M MARIANGEL Infusion Sodium Chloride 1,000 mls @ 999 mls/hr 04/12/22 11:45 04/12/22 14:04 Ns IV 04/12/22 12:45 Infused .Q1H1M MARIANGEL Infusion Iohexol 100 ml 04/12/22 13:13 04/12/22 13:14 Iohexol 350 Mg/Ml 100 Ml Infus..Btl IV 04/12/22 13:14 85 ml ONCE ONE Administration Ketorolac Tromethamine 15 mg 04/12/22 09:43 04/12/22 11:58 Ketorolac Tromethamine 30 Mg/Ml Vial IVPUSH 04/12/22 09:44 15 mg ONCE ONE Administration Ondansetron HCl 4 mg 04/12/22 14:08 04/12/22 14:15 Ondansetron Hcl 4 Mg/2 Ml Vial IVPUSH 04/12/22 14:09 4 mg ONCE ONE Administration Critical Care Time Critical Care Time Critical Care Time: Yes Total Critical Care Time: 30 Attestation: I personally attest to this time spent taking care of the patient. Discharge Plan Discharge Clinical Impression: Obstructed, uropathy, Hydronephrosis, Renal colic Patient Disposition: Admitted As Inpatient Prescriptions: No Action hydrocodone-acetaminophen 5-325 mg tablet 1 tab PO TID PRN (Reason: severe pain (scale score 7-10)) Qty: 7 0RF ondansetron 4 mg tablet,disintegrating 4 mg PO Q8H PRN (Reason: nausea and vomiting) Qty: 7 0RF sertraline 100 mg tablet 200 mg PO DAILY Qty: 30 0RF trazodone 300 mg tablet 300 mg PO BEDTIME Qty: 14 0RF hydrocodone-acetaminophen 5-325 mg tablet 1 tab PO Q4-6H PRN (Reason: pain) Qty: 7 0RF
--- NOTE | 2022-04-12 11:01 | PC.NURSE ---
this nurse had attempted to obtain iv access, pt has poor access, nursing program manager candy has attempted as well without success, provider was notified as pt is unable to get ct scan until she has access, ultrasound trained RN- jeevan will attempt to get access. will continue to monitor.
--- NOTE | 2022-04-12 11:31 | PC.NURSE ---
patient a&ox3, pt c/o 12/31 rt flank pain, vitals otherwise stable, pt awaiting US guided IV.
[2022-04-12] MEDS: Ketorolac Tromethamine 30 MG/ML VIAL 15 MG IVPUSH (11:58)
[2022-04-12] MEDS: 0.9 % Sodium Chloride 1,000 ML 999 ML IV ×2 (11:59)
--- NOTE | 2022-04-12 12:03 | PC.NURSE ---
ultrasound guided iv inserted, second set of blood cultures obtained, pt medicated per order, will continue to monitor
--- NOTE | 2022-04-12 12:42 | PC.NURSE ---
pt c/o 12/31 pain states her medication has not worked, provider notified
[2022-04-12] MEDS: fentaNYL citrate/PF 100 MCG/2 ML VIAL 25 MCG IVPUSH (12:54)
--- NOTE | 2022-04-12 12:56 | PC.NURSE ---
pt medicated per order
--- NOTE | 2022-04-12 13:04 | PC.NURSE ---
ivf continue to run
[2022-04-12] MEDS: iohexoL 350 MG/ML 100 ML INFUS..BTL IV (13:14)
--- NOTE | 2022-04-12 14:04 | PC.NURSE ---
patient a&ox3, vss, pt states her pain initially decreased to a 6/10 with the medication, pt states it is now at an 8. will notify provider.
[2022-04-12] MEDS: HYDROmorphone HCl 0.5 MG/0.5 ML SYRINGE IVPUSH ×3 (14:15→19:33)
[2022-04-12] MEDS: ondansetron HCL 4 MG/2 ML VIAL IVPUSH (14:15)
--- NOTE | 2022-04-12 14:18 | PC.NURSE ---
pt medicated for 11/30 rt flank pain
[2022-04-12] MEDS: 0.9 % Sodium Chloride 1,000 ML 125 ML IVCONT (15:39)
--- NOTE | 2022-04-12 15:40 | PC.NURSE ---
patient a&ox3, ivf started per order, pt states her pain is 7/10 to rt flank/back at this time, pt given warm blankets per her request, call pérez within reach, will continue to monitor
--- NOTE | 2022-04-12 16:06 | PHA.MEDREC ---
Pharmacy Consult ? Medication Reconciliation Pharmacy has completed the medication reconciliation. Pt able to name all medications and strengths, noted she takes everything at night.
--- NOTE | 2022-04-12 16:22 | P.CNUR_ITS ---
History of Present Illness Consult details Consult date: 04/12/22 Narrative: Consulting complaint : Distal right ureteric stone with hydroureteronephrosis Lizabeth is a 46-year-old female Presents to emergency room with persistent right-sided flank pain and nausea Denies vomiting or chills, shortness of breath, dysuria hematuria CT Scan - There is right hydronephrosis and hydroureter secondary to a 6 mm calculus right pelvic ureter, approximately 5 cm proximal to the bladder, 581 HU at tenuation. There is an 8 x 4 mm nonobstructing right lower pole intrarenal calculus, 708 HU and 14 cm from the flank. Mild right perinephric stranding is present. Recommend ureteroscopy with laser lithotripsy on right side Review of Systems Constitutional: Constitutional: Reports as per HPI and Reports no additional constitutional complaints Cardiovascular: Cardiovascular: Reports as per HPI and Reports no additional cardiovascular complaints Respiratory: Respiratory: Reports as per HPI and Reports no additional respiratory complaints Gastrointestinal: Gastrointestinal: Reports as per HPI and Reports no additional gastrointestinal complaints Genitourinary: Genitourinary: Reports as per HPI Musculoskeletal: Musculoskeletal: Reports no additional musculoskeletal complaints and Reports as per HPI Neurologic: Reports system reviewed and no additional complaints, except as documented and Reports as per HPI PMFSH Past Medical History Medical History Depression Hypertension Kidney stone Migraines Pulmonary arteriovenous malformation Surgical History Surgical History H/O lithotripsy H/O: hysterectomy History of ankle surgery History of appendectomy Social History Social History Alcohol intake: current Alcohol intake frequency: holidays/special occasions only Smoked in Last 30 Days: No Use of substances other than those prescribed or required for medical reasons: No Advance Directives: No Patient : No Meds Allergies Allergy/AdvReac Type Severity Reaction Status Date / Time morphine [MORPHINE] Allergy Intermediate STOMACH Verified 09/16/21 18:06 UPSET pregabalin [From LYRICA] Allergy Intermediate UNKNOWN Verified 09/16/21 18:06 sumatriptan [From IMITREX] Allergy Unknown UNKNOWN Verified 09/16/21 18:06 zolmitriptan [From ZOMIG] Allergy Unknown UNKNOWN Verified 09/16/21 18:06 From ZELNORM Allergy Intermediate UNKNOWN Uncoded 09/16/21 18:06 From IMITREX Allergy Unknown UNKNOWN Uncoded 09/16/21 18:06 Active Medications: Current Medications Sodium Chloride (Ns) 1,000 mls @ 125 mls/hr IVCONT .Q8H MARIANGEL Last Admin: 04/12/22 15:39 Dose: 125 mls/hr Home Medications Medication Instructions Recorded Confirmed Last Taken Type amlodipine 10 mg tablet 1 tab PO BEDTIME 04/12/22 04/12/22 04/11/22 History lisinopril 20 mg tablet 1.5 tab PO BEDTIME 04/12/22 04/12/22 04/11/22 History sertraline 100 mg tablet 200 mg PO BEDTIME 04/12/22 04/12/22 04/11/22 History Physical Exam Vital Signs: Vital Signs: Last Vital Signs Temp 98.3 F 04/12/22 16:00 Pulse 114 H 04/12/22 16:00 Resp 16 04/12/22 16:00 BP 154/82 H 04/12/22 16:00 Pulse Ox 96 04/12/22 16:00 O2 Del Method 04/12/22 16:00 BMI result Body Mass Index 43.9 Const: General: cooperative, healthy appearing, comfortable and no acute distress Orientation/consciousness: patient oriented x3 HEENT: Face and sinus: Yes normal facial exam Mouth: moist mucous membranes Neck: Neck: Yes normal visual inspection, Yes full ROM and Yes trachea midline Chest: Chest palpation & inspection: normal inspection of the chest Resp: Effort & Inspection: normal respiratory effort, able to speak in complete sentences and no respiratory distress GI: Inspection: Yes normal to inspection Back/Spine/Pelvis: Cervical Spine: normal cervical lordosis Thoracic/Lumbar Spine: thoracic and lumbar spine normal to inspection Skin: General skin exam: no rashes or lesions noted Neuro: General: patient oriented x3, tone normal and moves all extremities Extrem: General: Yes normal to inspection and Yes capillary refill normal Results Labs Result diagrams: 04/12/22 09:10 04/12/22 09:10 Labs: Abnormal lab results 04/12/22 04/12/22 Range/Units 08:10 09:10 Neut % (Auto) 81.7 H (45-73) % Lymph % (Auto) 8.1 L (20-40) % Lymph # (Auto) 0.8 L (1.2-4.9) X10*3/uL Urine Blood Trace H (Negative) Ur Leukocyte Esterase Large (3+) H (Negative) Urine RBC 3-5 H (0-2) /HPF Urine WBC >50 H (0-5) /HPF Short CBC 04/12/22 Range/Units 09:10 WBC 9.2 (4.8-10.8) X10*3/uL Hgb 12.8 (12.0-16.0) g/dl Hct 39.2 (37.0-47.0) % Plt Count 164 (160-400) X10*3/uL BMP 04/12/22 09:10 Sodium 138 Potassium 4.3 Chloride 104 Carbon Dioxide 26 BUN 10 Creatinine 1.03 Calcium 9.3 Liver Function 04/12/22 Range/Units 09:10 Total Bilirubin 0.6 (0.0-1.0) mg/dL AST 15 (5-31) U/L ALT 13 (0-31) U/L Alkaline Phosphatase 80 (39-117) U/L Albumin 4.5 (3.5-5.0) g/dL Urine 04/12/22 04/12/22 Range/Units 08:10 08:10 Urine Color Yellow Urine Appearance Clear Urine pH 7.5 (5.0-9.0) Ur Specific Chandler 1.010 (1.005-1.025) Urine Protein Trace (Neg-Trace) mg/dL Urine Glucose (UA) Negative (Negative) mg/dL Urine Test NEGATIVE (NEGATIVE) All other labs normal. Assessment and Plan (1) Renal colic: Status: Acute (2) Hydronephrosis: Status: Acute Plan Ureteroscopy We discussed the nature of the decision and reasonable alternatives for perfor jessica ureteroscopy. Options such as medical therapy were discussed. Interventions include chemical dissolution, ESWL, ureteroscopy with laser lithotripsy and stent placement, PCNL. The relative uncertainties and benefits related to each alternate procedure were adequately discussed. General surgical risks including, but not limited to - pain, bleeding, infection, myocardial infarction, pulmonary embolus, deep vein thrombosis and cerebrovascular accident which may result in further hospitalization were discussed. Full disclosure of the procedure as well as all major risks, benefits and compl ications were discussed including but not limited to damage to the urethra, bladder and kidney infection, damage to the ureter, stent migration or malposition, scarring to the renal pelvis, remnant stone fragments, subsequent stone passage with need for secondary procedures. The overall secondary pr ocedure rate is approximately 10-15%. The overall clearance rate is approximately 90-95%. Success of the procedure in the short-term does not necessarily guarantee that long-term success will be maintained. Suitable follow up will need to be maintained. The patient showed understanding of discussion and wishes to proceed with - cystoscopy, retrograde, ureteroscopy, possible lithotripsy/stone basketing and stent on the right side Time Spent With Patient Time: Total time managing care of this patient today ____ minutes. Procedures Date of Service Date of Service: 04/12/22
--- NOTE | 2022-04-12 17:01 | HO.ANESPROP2 ---
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 at [facility] [place] few years ago , Obesity PMFSH Active Problems Active Problems: All Active Problems (Updated 04/12/22 @ 15:35 by Goldie Ceron MD) Obstructed, uropathy (Acute) Hydronephrosis (Acute) Renal colic (Acute) Past Medical History Medical History Depression Hypertension Kidney stone Migraines Pulmonary arteriovenous malformation Functional capacity: independent ambulation Family History Family history of problems with anesthesia: No Surgical History Surgical History H/O lithotripsy H/O: hysterectomy History of ankle surgery History of appendectomy History of Problems with Anesthesia: No Social History Social History Alcohol intake: current Alcohol intake frequency: holidays/special occasions only Smoked in Last 30 Days: No Use of substances other than those prescribed or required for medical reasons: No Advance Directives: No Patient : No Meds Allergies Allergy/AdvReac Type Severity Reaction Status Date / Time morphine [MORPHINE] Allergy Intermediate STOMACH Verified 09/16/21 18:06 UPSET pregabalin [From LYRICA] Allergy Intermediate UNKNOWN Verified 09/16/21 18:06 sumatriptan [From IMITREX] Allergy Unknown UNKNOWN Verified 09/16/21 18:06 zolmitriptan [From ZOMIG] Allergy Unknown UNKNOWN Verified 09/16/21 18:06 From ZELNORM Allergy Intermediate UNKNOWN Uncoded 09/16/21 18:06 From IMITREX Allergy Unknown UNKNOWN Uncoded 09/16/21 18:06 Active Medications: Current Medications Sodium Chloride (Ns) 1,000 mls @ 125 mls/hr IVCONT .Q8H MARIANGEL Last Admin: 04/12/22 15:39 Dose: 125 mls/hr Pharmacy Consult (Consult Rx Perform Med Rec) 1 each MISCELLANE ONCE PRN PRN Reason: Consult order Home Medications Medication Instructions Recorded Confirmed Last Taken Type amlodipine 10 mg tablet 1 tab PO BEDTIME 04/12/22 04/12/22 04/11/22 History lisinopril 20 mg tablet 1.5 tab PO BEDTIME 1204/12/22 04/11/22 History sertraline 100 mg tablet 200 mg PO BEDTIME 04/12/22 04/12/22 04/11/22 History Exam Exam Date and Time: April 12, 20221700 Height,Weight and Vital Signs: Height 5 ft 5 in Weight 119.8 kg Last Vital Signs Temp 98.3 F 04/12/22 16:00 Pulse 114 H 04/12/22 16:00 Resp 16 04/12/22 16:00 BP 154/82 H 04/12/22 16:00 Pulse Ox 96 04/12/22 16:00 O2 Del Method 04/12/22 16:00 Pertinent Lab Results Pertinent Lab Results: Laboratory Tests 04/12/22 04/12/22 04/12/22 08:10 08:10 08:10 WBC RBC Hgb Hct MCV MCH MCHC RDW Plt Count MPV Immature Gran % (Auto) Neut % (Auto) Lymph % (Auto) [place] % (Auto) Eos % (Auto) Baso % (Auto) Lymph # (Auto) [place] # (Auto) Eos # (Auto) Baso # (Auto) Abs Immat Gran (auto) Absolute Neuts (auto) Absolute Nucleated RBC Nucleated RBC % (auto) Sodium Potassium Chloride Carbon Dioxide Anion Gap BUN Creatinine Estim Creat Clear Calc Estimated GFR Random Glucose Lactic Acid Calcium Total Bilirubin AST ALT Alkaline Phosphatase Total Protein Albumin Urine Color Yellow Urine Appearance Clear Urine pH 7.5 Ur Specific [place] 1.010 Urine Protein Trace Urine Glucose (UA) Negative Urine Ketones Negative Urine Blood Trace H Urine Nitrite Negative Ur Leukocyte Esterase Large (3+) H Urine RBC 3-5 H Urine WBC >50 H Ur Squamous Epith Cells 0-2 Urine Bacteria None Seen Hyaline Casts 0-2 Urine Test NEGATIVE Influenza Type A (PCR) NEGATIVE Influenza Type B (PCR) NEGATIVE RSV RNA Qual (PCR) NEGATIVE SARS-CoV-2 RNA (RT-PCR) NEGATIVE 04/12/22 04/12/22 04/12/22 09:10 09:10 09:10 WBC 9.2 RBC 4.36 Hgb 12.8 Hct 39.2 MCV 89.9 MCH 29.4 MCHC 32.7 RDW 13.1 Plt Count 164 MPV 10.9 Immature Gran % (Auto) 0.2 Neut % (Auto) 81.7 H Lymph % (Auto) 8.1 L [place] % (Auto) 7.9 Eos % (Auto) 1.7 Baso % (Auto) 0.4 Lymph # (Auto) 0.8 L [place] # (Auto) 0.7 Eos # (Auto) 0.2 Baso # (Auto) 0.0 Abs Immat Gran (auto) 0.02 Absolute Neuts (auto) 7.5 Absolute Nucleated RBC 0.000 Nucleated RBC % (auto) 0.0 Sodium 138 Potassium 4.3 Chloride 104 Carbon Dioxide 26 Anion Gap 12 BUN 10 Creatinine 1.03 Estim Creat Clear Calc 87.5 Estimated GFR 57 Random Glucose 114 Lactic Acid 0.7 Calcium 9.3 Total Bilirubin 0.6 AST 15 ALT 13 Alkaline Phosphatase 80 Total Protein 7.2 Albumin 4.5 Urine Color Urine Appearance Urine pH Ur Specific [place] Urine Protein Urine Glucose (UA) Urine Ketones Urine Blood Urine Nitrite Ur Leukocyte Esterase Urine RBC Urine WBC Ur Squamous Epith Cells Urine Bacteria Hyaline Casts Urine Test Influenza Type A (PCR) Influenza Type B (PCR) RSV RNA Qual (PCR) SARS-CoV-2 RNA (RT-PCR) Airway Mallampati Class: IV (narrow mouth opening ) TM Dist: <=3cm Neck ROM: Full Loose/Missing/Broken Teeth: Yes (poor dentition ) Heart: Sinus tacycardia Lungs: distant breath sounds Assessment and Plan Assessment Anesthesia Assessment: Anesthesia Plan Discussed and Chart Reviewed Final Anesthetic Review Family History of Problems with Anesthesia: No History of Problems with Anesthesia: No NPO: Yes ASA Class: III and Emergency Final Preanesthetic Review: Meds/Allgs Chart Reviewed, Consent Obtained/Reviewed and Anes Risks/Benef Reviewed Patient Risk: High Procedure Risk: Intermediate Anesthetic Plan Anesthetic Plan: GA Disposition: Standard PACU
--- NOTE | 2022-04-12 17:12 | MHC.SHP ---
Pre-Procedural Eval Section A Date of Service: 04/12/22 The patient is an INPATIENT: No Changes since office visit: No Cold of Flu in the past 2 weeks, No New Medical Problems, No Changes in Medication and No Patient answered all questions The History & Physical has been completed within 30 days and I have reviewed it.: Yes Section B Chief Complaint: R Side Pain Details of Present Illness: distal right ureteric stone Relevant Family History (Specify if Yes): No Relevant Social History: None Present Medications: see Short Stay Collaborative assessment Medical History: No relevant PMH History of Previous Operations: Relevant previous surgery/procedure and date(s) Allergies: Allergies Allergy/AdvReac Type Severity Reaction Status Date / Time morphine [MORPHINE] Allergy Intermediate STOMACH Verified 09/16/21 18:06 UPSET pregabalin [From LYRICA] Allergy Intermediate UNKNOWN Verified 09/16/21 18:06 sumatriptan [From IMITREX] Allergy Unknown UNKNOWN Verified 09/16/21 18:06 zolmitriptan [From ZOMIG] Allergy Unknown UNKNOWN Verified 09/16/21 18:06 From ZELNORM Allergy Intermediate UNKNOWN Uncoded 09/16/21 18:06 From IMITREX Allergy Unknown UNKNOWN Uncoded 09/16/21 18:06 Review of Systems Sugical H&P ROS: Negative: Constitution, Cardiovascular, Respiratory, Neurological, Psychiatric, Hem-Onc, Allergic/Immunologic, Gastrointestinal, Genitourinary, Musculoskeletal, Integumentary, Endocrine and Eyes/Ears/Nose/Throat Exam Surgical H&P Exam: Normal: HEENT, Normal: Heart, Normal: Lungs, Normal: Extremities, Normal: Abdomen, Normal: Skin and Normal: Neurological Plan Diagnosis/Plan: Unchanged (cysto, right retro, USR, laser, stent placement) I have reviewed the history and physical and performed a pertinent physical examination on my patient. No changes have occurred unless specified. Time Spent With Patient Time: Total time managing care of this patient today ____ minutes.
--- NOTE | 2022-04-12 17:53 | P.OP_ITS ---
Operative Note Operative Note Date of Service: 04/12/22 Narrative: PreOperative Diagnosis: Distal right ureteric stone with hydronephrosis Post Operative Diagnosis: distal right ureteric stone with hydronephrosis Procedure: - cystoscopy, right retrograde - right dilatation of ureteric orifice under fluoroscopy - right ureteroscopy, laser lithotripsy, stone basketing - right stent placement Surgeon: Dr Leandro Hyatt Anesthesia: General Indications for procedure: distal right ureteric stone with hydronephrosis persistent pain unable to tolerate oral intake. 8 mm distal stone on CT Procedure: After informed consent was verified patient was brought to the operating placed in supine position. Anesthesia was administered per protocol. Patient was placed in modified dorsal lithotomy position and prepped and draped in a sterile fashion. Safety pause time-out and side of surgery confirmed. Antibiotics co nfirmed. A 22 Slovenian cystoscope was inserted per urethra. Bladder was normal in its entirety. Both ureteric orifices were in normal position. The right ureteric orifice was cannulated and a retrograde examination was performed. filling defects seen proximally 8 cm from the UVJ . A Sensor guidewire was placed up to the level of the renal pelvis under fluoroscopy. The rigid cystoscope was removed. A Jamel dilator was placed over the Sensor guidewire and used to dilate the ureteric orifice under fluoroscopy. The dilator was removed. The semi rigid ureteral scope was placed alongside the Sensor guidewire. stone was encountered within the right ureter. Using a 350 micron holmium laser the stone was broken into small pieces. Using a sure catch basket these pieces were removed from the ureter using multiple passes. A 6 Sloven[place] by Twenty-six cm double-J stent was placed into the renal pelvis and bladder under a combination of fluoroscopy and direct visualization. The bladder was emptied. The patient tolerated the procedure well and was extubated in the operating room, and transferred in stable condition to the recovery area. Pathology: stones Drains: 6 [place] by 26 cm double-J stent for 5 ft 5 female.
--- NOTE | 2022-04-12 18:35 | PC.NURSE ---
Dr. Cho and anesthesia made aware of patients vital signs.
[2022-04-12] MEDS: Phenazopyridine HCL 100 MG TABLET PO (19:11)
[2022-04-12] MEDS: traMADoL HCL 50 MG TABLET PO (19:11)
[2022-04-18 19:24] LABS: Stone Source RIGHT URETERAL STONE
== END 2022-04-12 20:15 | disposition home or self-care (01) ==
LOC: HO.ED 16:50 → HO.SSS 17:29
PROVIDERS: Emergency Provider Student in an Organized Health Care Education/Training Program; Visit Provider Urology
PROC: (CPT 52356; principal; 2022-04-12 16:30)
DX: N13.2 Hydronephrosis with renal and ureteral calculous obstruction (principal); Z87.442 Personal history of urinary calculi; N23 Unspecified renal colic; I10 Essential (primary) hypertension; Q25.72 Congenital pulmonary arteriovenous malformation; Z79.899 Other long term (current) drug therapy; Z88.8 Allergy status to other drugs, medicaments and biological substances; Z20.828 Contact with and (suspected) exposure to other viral communicable diseases
CPT/HCPCS: 52356; 52352; 0241U; 36415; 74177; 80053; 81001; 81025; 82365; 83605; 85025; 87040; 87077; 87086; 87186; 87205; 88300; 96361; 96374; 96375; 96376; 99285; C1758; C1769; C2617; J0131; J1170; J1885; J1956; J2405; J3010; Q9967

== ENCOUNTER → 2022-04-20 10:11 | Outpatient (BNVA) | payer OTHER, SELFPAY | PROVIDERS: Visit Provider Urology | DX: N20.0 Calculus of kidney (principal) ==

== ENCOUNTER 2022-05-01 10:21 | Day surgery (SDC) | payer OTHER, SELFPAY ==
[2022-04-26 14:41] VITALS: BMI 45.8
--- NOTE | 2022-04-27 14:07 | HO.ANESPROP2 ---
HPI - Anesthesia Eval Consult details Narrative: 46yo F for Right Cystoscopy, Ureteroroscopy, Retro, Laser,with poss stent exchange pulmonary AV malformation s/p repair [place] [facility] [place] s/p cysto etc 03/2022 with GA-LMA 5 PMFSH Active Problems Active Problems: All Active Problems (Updated 04/26/22 @ 15:27 by Vania Leos, RN) Obstructed, uropathy (Acute) Hydronephrosis (Acute) Renal colic (Acute) Nephrolithiasis (Acute) Past Medical History Medical History ADD (attention deficit disorder) Depression Hereditary hemorrhagic telangiectasia Hypertension IBS (irritable bowel syndrome) Kidney stone Migraines Pulmonary arteriovenous malformation Family History Family history of problems with anesthesia: No Surgical History Surgical History H/O lithotripsy H/O: hysterectomy History of ankle surgery History of appendectomy Hx of cystoscopy History of Problems with Anesthesia: No Social History Social History Household Members Other:: mother Are you a primary daycare worker to a significant other at home: No Do you presently have visiting nurse or other home services: No Alcohol intake: unknown Patient Tobacco Use Status: Never used Tobacco Meds Allergies Allergy/AdvReac Type Severity Reaction Status Date / Time pregabalin [From LYRICA] Allergy Severe Difficulty Verified 05/03/22 10:30 Breathing sumatriptan [From IMITREX] Allergy Severe Chest Pain Verified 05/03/22 10:30 zolmitriptan [From ZOMIG] Allergy Severe Chest Pain Verified 05/03/22 10:30 morphine [MORPHINE] Allergy Intermediate STOMACH Verified 05/03/22 10:30 UPSET From ZELNORM Allergy Severe Palpitation Uncoded 04/26/22 14:32 s Home Medications Medication Instructions Recorded Confirmed Last Taken Type amlodipine 10 mg tablet 1 tab PO BEDTIME 04/12/22 04/26/22 04/11/22 History lisinopril 20 mg tablet 1.5 tab PO BEDTIME 04/12/22 04/26/22 04/11/22 History sertraline 100 mg tablet 200 mg PO BEDTIME 04/12/22 04/26/2222 History Exam Exam Date and Time: April 27, 2022 1407 Height,Weight and Vital Signs: Height 5 ft 5 in Weight 125 kg Pertinent Lab Results Pertinent Lab Results: Laboratory Tests 04/12/22 04/12/22 04/12/22 08:10 08:10 08:10 WBC RBC Hgb Hct MCV MCH MCHC RDW Plt Count MPV Immature Gran % (Auto) Neut % (Auto) Lymph % (Auto) [place] % (Auto) Eos % (Auto) Baso % (Auto) Lymph # (Auto) [place] # (Auto) Eos # (Auto) Baso # (Auto) Abs Immat Gran (auto) Absolute Neuts (auto) Absolute Nucleated RBC Nucleated RBC % (auto) Sodium Potassium Chloride Carbon Dioxide Anion Gap BUN Creatinine Estim Creat Clear Calc Estimated GFR Random Glucose Lactic Acid Calcium Total Bilirubin AST ALT Alkaline Phosphatase Total Protein Albumin Urine Color Yellow Urine Appearance Clear Urine pH 7.5 Ur Specific [place] 1.010 Urine Protein Trace Urine Glucose (UA) Negative Urine Ketones Negative Urine Blood Trace H Urine Nitrite Negative Ur Leukocyte Esterase Large (3+) H Urine RBC 3-5 H Urine WBC >50 H Ur Squamous Epith Cells 0-2 Urine Bacteria None Seen Hyaline Casts 0-2 Urine Test NEGATIVE Influenza Type A (PCR) NEGATIVE Influenza Type B (PCR) NEGATIVE RSV RNA Qual (PCR) NEGATIVE SARS-CoV-2 RNA (RT-PCR) NEGATIVE 04/12/22 04/12/22 04/12/22 09:10 09:10 09:10 WBC 9.2 RBC 4.36 Hgb 12.8 Hct 39.2 MCV 89.9 MCH 29.4 MCHC 32.7 RDW 13.1 Plt Count 164 MPV 10.9 Immature Gran % (Auto) 0.2 Neut % (Auto) 81.7 H Lymph % (Auto) 8.1 L [place] % (Auto) 7.9 Eos % (Auto) 1.7 Baso % (Auto) 0.4 Lymph # (Auto) 0.8 L [place] # (Auto) 0.7 Eos # (Auto) 0.2 Baso # (Auto) 0.0 Abs Immat Gran (auto) 0.02 Absolute Neuts (auto) 7.5 Absolute Nucleated RBC 0.000 Nucleated RBC % (auto) 0.0 Sodium 138 Potassium 4.3 Chloride 104 Carbon Dioxide 26 Anion Gap 12 BUN 10 Creatinine 1.03 Estim Creat Clear Calc 87.5 Estimated GFR 57 Random Glucose 114 Lactic Acid 0.7 Calcium 9.3 Total Bilirubin 0.6 AST 15 ALT 13 Alkaline Phosphatase 80 Total Protein 7.2 Albumin 4.5 Urine Color Urine Appearance Urine pH Ur Specific [place] Urine Protein Urine Glucose (UA) Urine Ketones Urine Blood Urine Nitrite Ur Leukocyte Esterase Urine RBC Urine WBC Ur Squamous Epith Cells Urine Bacteria Hyaline Casts Urine Test Influenza Type A (PCR) Influenza Type B (PCR) RSV RNA Qual (PCR) SARS-CoV-2 RNA (RT-PCR) Narrative Narrative: EKG 08/2021 Vent. Rate : 108 BPM ? ? Atrial Rate : 108 BPM ?? P-R Int : 130 ms? QRS Dur : 082 ms ? ? QT Int : 354 ms ? ? ? P-R-T Axes : 031 043 066 degrees ?? QTc Int : 474 ms ? Sinus tachycardia Nonspecific T wave abnormality Abnormal ECG No previous ECGs available Assessment and Plan Assessment Anesthesia Assessment: Chart Reviewed Final Anesthetic Review Family History of Problems with Anesthesia: No History of Problems with Anesthesia: No
[2022-05-01] VITALS (15 sets, daily range): BP systolic 123–191; BP diastolic 87–109; PULSE 74–109; RESP 13–22; TEMP 36.6; O2SAT 95–99; BMI 40.9
--- NOTE | ~2022-05-01 | FL_ITS ---
EXAMINATION: XR FLUOROSCOPY WITH IMAGES CLINICAL INFORMATION: Urinary tract calculi COMPARISON: CT abdomen and pelvis 05/03/2022 TECHNIQUE: Fluoroscopy Supervised By: Dr. Leandro Hyatt. Fluoroscopy Time: 9 seconds. Cumulative Dose: 4.29 mGy. Images: 3. FINDINGS: There is a guidewire in the right urinary tract. Proximal and catheter/stent seen in the overlying the right renal fossa. FL/FL guidance in OR IMPRESSION: Fluoroscopy for urologic procedures.
--- NOTE | 2022-05-01 12:49 | HO.ANESPROP2 ---
[facility] Active Problems Active Problems: All Active Problems (Updated 04/28/22 @ 00:03 by Background Daemon) Nephrolithiasis (Acute) Past Medical History Medical History (Updated 04/28/22 @ 00:03 by Background Daemon) ADD (attention deficit disorder) Depression Hereditary hemorrhagic telangiectasia Hypertension IBS (irritable bowel syndrome) Kidney stone Migraines Pulmonary arteriovenous malformation Family History Family history of problems with anesthesia: No Surgical History Surgical History (Updated 04/26/22 @ 15:26 by Vania Leos RN) H/O lithotripsy H/O: hysterectomy History of ankle surgery History of appendectomy Hx of cystoscopy History of Problems with Anesthesia: No Social History Social History Household Members Other:: mother Are you a primary inpatient care manager rn to a significant other at home: No Do you presently have visiting nurse or other home services: No Alcohol intake: current Alcohol intake frequency: holidays/special occasions only Patient Tobacco Use Status: Never used Tobacco Use of substances other than those prescribed or required for medical reasons: No Have you been hit, kicked, punched, or otherwise hurt by someone within the past year? If so, by whom?: No Are you DNR?: No Advance Directives: No Advance Directives Information Provided: Yes Advance Directives on File: No Recently lost weight without trying: Unsure Nutrition Risks: No Nutritional Risk Patient : No : No Poor oral hygiene: No Meds Allergies Allergy/AdvReac Type Severity Reaction Status Date / Time pregabalin [From LYRICA] Allergy Severe Difficulty Verified 04/26/22 14:32 Breathing sumatriptan [From IMITREX] Allergy Severe Chest Pain Verified 04/26/22 14:32 zolmitriptan [From ZOMIG] Allergy Severe Chest Pain Verified 04/26/22 14:32 morphine [MORPHINE] Allergy Intermediate STOMACH Verified 04/26/22 14:32 UPSET From ZELNORM Allergy Severe Palpitation Uncoded 04/26/22 14:32 s Active Medications: Current Medications Lactated Ringer's (Lr) 1,000 mls @ 100 mls/hr IVCONT .Q10H [facility] Home Medications Medication Instructions Recorded Confirmed Last Taken Type amlodipine 10 mg tablet 1 tab PO BEDTIME 04/12/22 04/26/22 04/11/22 History lisinopril 20 mg tablet 1.5 tab PO BEDTIME 04/12/22 04/26/22 04/11/22 History sertraline 100 mg tablet 200 mg PO BEDTIME 04/12/22 04/26/22 04/11/22 History Exam Exam Date and Time: May 01, 2022 1249 Height,Weight and Vital Signs: Height 5 ft 5 in Weight 111.584 kg Last Vital Signs Temp 97.9 F 05/01/22 12:31 Pulse 93 05/01/22 12:31 Resp 18 05/01/22 12:31 BP 123/88 05/01/22 12:31 Pulse Ox 99 05/01/22 12:31 O2 Del Method 05/01/22 12:31 Airway Mallampati Class: III Neck ROM: Full Assessment and Plan Assessment Anesthesia Assessment: Anesthesia Plan Discussed and Chart Reviewed Final Anesthetic Review Family History of Problems with Anesthesia: No History of Problems with Anesthesia: No NPO: Yes ASA Class: II Final Preanesthetic Review: No Changes in Pt Med Stat, Meds/Allgs Chart Reviewed, Consent Obtained/Reviewed and Anes Risks/Benef Reviewed Patient Risk: Intermediate Procedure Risk: Intermediate Anesthetic Plan Anesthetic Plan: GA Disposition: Standard PACU
[2022-05-01] MEDS: Lactated Ringers 1,000 ML 100 ML IVCONT (13:00)
--- NOTE | 2022-05-01 14:13 | MHC.SHP ---
Pre-Procedural Eval Section A Date of Service: 05/01/22 Section B Chief Complaint: Calculus of kidney Details of Present Illness: right renal stone Relevant Family History (Specify if Yes): No Relevant Social History: None Present Medications: see Short Stay Collaborative assessment Medical History: No relevant PMH History of Previous Operations: Relevant previous surgery/procedure and date(s) Allergies: Allergies Allergy/AdvReac Type Severity Reaction Status Date / Time pregabalin [From LYRICA] Allergy Severe Difficulty Verified 04/26/22 14:32 Breathing sumatriptan [From IMITREX] Allergy Severe Chest Pain Verified 04/26/22 14:32 zolmitriptan [From ZOMIG] Allergy Severe Chest Pain Verified 04/26/22 14:32 morphine [MORPHINE] Allergy Intermediate STOMACH Verified 04/26/22 14:32 UPSET From ZELNORM Allergy Severe Palpitation Uncoded 04/26/22 14:32 s Review of Systems Sugical H&P ROS: Negative: Constitution, Cardiovascular, Respiratory, Neurological, Psychiatric, Hem-Onc, Allergic/Immunologic, Gastrointestinal, Genitourinary, Musculoskeletal, Integumentary, Endocrine and Eyes/Ears/Nose/Throat Exam Surgical H&P Exam: Normal: HEENT, Normal: Heart, Normal: Lungs, Normal: Extremities, Normal: Abdomen, Normal: Skin and Normal: Neurological Plan Diagnosis/Plan: Unchanged ( cystoscopy, right stent removal, right ureteroscopy with laser lithotripsy and stone basket) I have reviewed the history and physical and performed a pertinent physical examination on my patient. No changes have occurred unless specified. Time Spent With Patient Time: Total time managing care of this patient today ____ minutes.
--- NOTE | 2022-05-01 14:40 | MHC.SHP ---
Pre-Procedural Eval Section A Date of Service: 05/01/22 The patient is an INPATIENT: No Section B Chief Complaint: Calculus of kidney Allergies: Allergies Allergy/AdvReac Type Severity Reaction Status Date / Time pregabalin [From LYRICA] Allergy Severe Difficulty Verified 04/26/22 14:32 Breathing sumatriptan [From IMITREX] Allergy Severe Chest Pain Verified 04/26/22 14:32 zolmitriptan [From ZOMIG] Allergy Severe Chest Pain Verified 04/26/22 14:32 morphine [MORPHINE] Allergy Intermediate STOMACH Verified 04/26/22 14:32 UPSET From ZELNORM Allergy Severe Palpitation Uncoded 04/26/22 14:32 s Plan I have reviewed the history and physical and performed a pertinent physical examination on my patient. No changes have occurred unless specified. Time Spent With Patient Time: Total time managing care of this patient today ____ minutes.
--- NOTE | 2022-05-01 15:52 | W.PM.OPN ---
Operative Note Operative Note Date of Service: 05/01/22 Narrative: PreOperative Diagnosis: right renal stone Post Operative Diagnosis: right renal stone with indwelling right renal stent Procedure: - cystoscopy, removal right renal stent - right ureteroscopy, laser lithotripsy, stone basketing Surgeon: Dr Leandro Hyatt Anesthesia: General Indications for procedure: 8 mm right renal stone. Had prior distal ureteric stone which was previously treated and right stent is in place. Plan for stent removal with treatment of right renal stone Procedure: After informed consent was verified patient was brought to the operating placed in supine position. Anesthesia was administered per protocol. Patient was placed in modified dorsal lithotomy position and prepped and draped in a sterile fashion. Safety pause time-out and side of surgery confirmed. Antibiotics confirmed. 22 [place] cystoscope was inserted per urethra. Bladder was normal in its entirety. Both ureteric orifices were in normal position. stent emerging from right renal orifice. Stent was grasped and removed. Cystoscope replaced. A Sensor guidewire was placed up to the level of the renal pelvis under fluoroscopy. The rigid cystoscope was removed and the inner cannula of ureteric access sheath was used under fluoroscopy to dilate the ureteric orifice. The vacuum ureteric access sheath was placed and the inner cannula with access wire removed. The digital flexible ureteral scope was placed. stone was encountered in the lower pole. Using a 0 tip basket we attempted to grasp stone so it could be moved. We were unable to get to the stone. Using a 272 micron holmium laser fiber we were able to break the stone into a major fragment into smaller fragments. Major fragment was then positioned with the basket in the upper pole. This was then broken to small pieces using the dusting settings. The 0 tip basket was then used to remove approximately 6 fragments. The renal pelvis was washed free. At the completion of the ston procedure a Decision was made not to leave a stent. The sheath and flexible ureteral scope was removed. The bladder was emptied. The patient tolerated the procedure well and was extubated in the operating room, and transferred in stable condition to the recovery area. 3 month follow-up with renal ultrasound Pathology: Stones Drains: none
[2022-05-01] MEDS: fentaNYL citrate/PF 100 MCG/2 ML VIAL 50 MCG IVPUSH ×4 (16:16→17:15)
[2022-05-01] MEDS: Phenazopyridine HCL 100 MG TABLET PO (16:17)
[2022-05-01] MEDS: oxyCODONE HCl Immed Release 5 MG TABLET PO (16:58)
[2022-05-01] MEDS: Ketorolac Tromethamine 15 MG/ML VIAL IVPUSH (17:17)
[2022-05-05 21:09] LABS: Stone Source RENAL STONE
== END 2022-05-01 18:29 | disposition home or self-care (01) ==
PROVIDERS: Visit Provider Urology
PROC: (CPT 52353; principal; 2022-05-01 12:20)
DX: N20.0 Calculus of kidney (principal); Z87.442 Personal history of urinary calculi; Z46.6 Encounter for fitting and adjustment of urinary device; I10 Essential (primary) hypertension; G43.909 Migraine, unspecified, not intractable, without status migrainosus; Q25.72 Congenital pulmonary arteriovenous malformation; Z79.899 Other long term (current) drug therapy; Z88.8 Allergy status to other drugs, medicaments and biological substances
CPT/HCPCS: 52353; 52352; 82365; 88300; C1758; C1769; J0131; J1170; J1885; J1956; J2250; J2405; J3010; Q9967

== ENCOUNTER 2022-05-03 10:14 | Emergency (ER) | payer OTHER, SELFPAY ==
--- NOTE | 2022-05-03 | ECG_ITS ---
Test Reason : ABD PAIN Blood Pressure : / mmHG Vent. Rate : 124 BPM Atrial Rate : 124 BPM P-R Int : 118 ms QRS Dur : 076 ms QT Int : 292 ms P-R-T Axes : 040 020 122 degrees QTc Int : 419 ms Sinus tachycardia Nonspecific ST and T wave abnormality Abnormal ECG When compared with ECG of 16-SEP-2021 18:03, No significant change was found Referred By: Generic ED Physician Electronically Signed By:Gage Jaramillo
--- NOTE | ~2022-05-03 | CT_ITS ---
EXAMINATION: CT ABDOMEN AND PELVIS WITHOUT CONTRAST CLINICAL INFORMATION: Right-sided abdominal pain COMPARISON: CT abdomen and pelvis 04/12/2022 TECHNIQUE: Multidetector volumetric imaging was performed from the superior aspect of the liver through the pubic symphysis. Sagittal and coronal reformatted images were obtained on the technologist's workstation. This CT examination was performed using dose optimization techniques as appropriate, variously including the following: *Automated exposure control *Adjustment of mA and/or kV according to patient size (this includes techniques or standardized protocols for targeted exams where dose is matched to indication/reason for exam; i.e. extremities or head) *Use of iterative reconstruction technique DLP: 1266 mGy-cm FINDINGS: LUNG BASES: Minimal bibasilar atelectasis. LIVER, GALLBLADDER, AND BILIARY TREE: Liver is enlarged measuring 19.2 cm in craniocaudal dimension. Normal hepatic attenuation. No liver lesion or biliary ductal dilation. The gallbladder is unremarkable with no evidence of radiopaque gallstones, gallbladder wall thickening, or obvious pericholecystic inflammatory changes. PANCREAS: Unremarkable. SPLEEN: Unremarkable. ADRENAL GLANDS: Unremarkable. KIDNEYS AND URETERS: Both kidneys contain a few small nonobstructing calculi, largest measuring up to 3 mm in size. Minimal fullness of the right renal collecting system and right ureter. No significant hydronephrosis. No ureteral calculi. No renal lesion. No perinephric stranding or collection. BLADDER: Decompressed, but grossly unremarkable. GASTROINTESTINAL TRACT: No dilated bowel loops or bowel wall thickening. Moderate amount of formed stool in the right transverse colon. Appendix is not definitely seen. No inflammatory change at the base of the cecum. No free air or ascites. ABDOMINAL WALL: Small fat-containing umbilical hernia. LYMPH NODES: No lymphadenopathy. VASCULAR: Normal caliber abdominal aorta. Mild vascular calcifications. PELVIC VISCERA: The patient appears to be status post hysterectomy. No free pelvic fluid. OSSEOUS STRUCTURES: No acute fracture or suspicious osseous lesion. Moderate degenerative disc disease at L5-S1. CT/CT abdomen pelvis wo IV con IMPRESSION: 1. No evidence of acute appendicitis or other acute intra-abdominal process. 2. Small nonobstructing bilateral renal calculi. No ureteral calculi. The previously seen right distal ureteral calculus is no longer identified. 3. Minimal residual asymmetric fullness/dilation of the right renal collecting system and right ureter. 4. Mild hepatomegaly.
--- NOTE | ~2022-05-03 | US_ITS ---
EXAMINATION: US ABDOMEN LIMITED CLINICAL INFORMATION: Right upper quadrant pain. COMPARISON: CT abdomen pelvis 04/12/2022, ultrasound abdomen 09/16/2021 TECHNIQUE: Real-time imaging of the right upper quadrant abdominal viscera. FINDINGS: PANCREAS: Pancreas could not be seen as it was obscured by bowel gas. LIVER: Liver is mildly enlarged at 17.3 cm in greatest dimension and demonstrates increased echogenicity consistent with hepatic steatosis. The liver contour is normal. No focal hepatic lesion. There is no intrahepatic biliary duct dilatation seen. GALLBLADDER: The gallbladder is quite distended measuring 10 cm in length. Gallstones are present the largest measuring just under 1.4 cm. No wall thickening or pericholecystic fluid. On July to ascertain if Sanderson's sign is positive as the patient complained of overall constant pain. COMMON BILE DUCT: Normal in caliber measuring 0.5 cm in diameter. RIGHT KIDNEY: Normal. No hydronephrosis. No renal calculi or focal parenchymal lesions. The kidney measures 10.1 cm in maximum dimension. FREE FLUID: None. US/US abdomen limited IMPRESSION: 1. Enlarged fatty liver. 2. Cholelithiasis with gallbladder distention but no wall thickening or pericholecystic fluid.
--- NOTE | ~2022-05-03 | XR_ITS ---
EXAMINATION: XR CHEST CLINICAL INFORMATION: Shortness of breath COMPARISON: 07/28/2019 TECHNIQUE: 2 views of the chest were obtained. FINDINGS: The large AV malformation in the right upper lobe seen on the 07/28/2019 study is barely visible and embolic devices are present in the region of the malformation. Heart size normal. No evidence of CHF. No infiltrates or pleural effusions are seen. XR/XR chest 2V IMPRESSION: No acute intrathoracic disease. Large right upper lobe AV malformation has significantly decreased in size status post status post embolization
[2022-05-03 10:26] VITALS: BP 105/64; PULSE 143; RESP 21; TEMP 36.7; O2SAT 90; BMI 25.0
[2022-05-03 11:06] LABS: MANUAL DIFF FLAG NO
[2022-05-03 11:13] LABS: Basophils Percent Auto 0.3 % (0-2); Eosinophils Absolute Auto 0.1 X10*3/uL (0.0-0.4); Eosinophils Percent Auto 0.8 % (0-4); Hematocrit 38.9 % (37.0-47.0); Hemoglobin 12.3 g/dl (12.0-16.0); Imm Gran Abs Auto 0.04 X10*3/uL (0.00-0.03); Imm Gran Pct Auto 0.4 % (0.0-0.4); Lymphocytes Absolute Auto 0.5 X10*3/uL (1.2-4.9); Mean Corpuscular HGB Conc 31.6 g/dl (31.0-35.0); Mean Corpuscular Hemoglobin 28.8 pg (27.0-33.0); Mean Corpuscular Volume 91.1 fL (80.0-98.0); Mean Platelet Volume 10.8 fL (9.4-12.3); Monocytes Absolute Auto 0.6 X10*3/uL (0.1-1.2); Monocytes Percent Auto 7.1 % (2-11); Neutrophils Absolute Auto 7.8 x10*3/uL (2.0-8.3); Neutrophils Percent Auto 85.4 % (45-73); Platelet Count 181 X10*3/uL (160-400); Red Blood Count 4.27 X10*6/uL (4.20-5.50); Red Cell Distribution Width 13.9 % (11.0-16.0); White Blood Count 9.1 X10*3/uL (4.8-10.8)
--- NOTE | 2022-05-03 11:17 | PC.NURSE ---
Per pt Baseline SPo2 is 86-92% ra.
[2022-05-03] MEDS: fentaNYL citrate/PF 100 MCG/2 ML VIAL 25 MCG IVPUSH (11:25)
[2022-05-03 11:26] LABS: IDNOW Serial# 9DB6401D; Influenza A Negative (Negative); Influenza B2 Negative (Negative)
[2022-05-03 11:27] LABS: COVID-19 Test Negative (Negative); IDNOW Serial# BCCEAD1C
[2022-05-03 11:34] LABS: D Dimer High Sensitivity < 150 NG/ML
--- NOTE | 2022-05-03 11:35 | ED_ITS ---
HPI - Abdominal Pain General Chief Complaint: Abdominal Pain Stated Complaint: sent by doctor for kidney stone Time Seen by Provider: 05/03/22 10:39 Source: patient Mode of arrival: ambulatory History of Present Illness HPI narrative: 46-year-old female with a history renal colic presents with onset right upper quadrant/flank pain since last night with nausea, chills but no fevers or vomiting. Patient also denies any diarrhea and states that she has been unable to urinate since early this morning. Related Data Home Medications Medication Instructions Recorded Confirmed amlodipine 10 mg tablet 1 tab PO BEDTIME 04/12/22 04/26/22 lisinopril 20 mg tablet 1.5 tab PO BEDTIME 04/12/22 04/26/22 sertraline 100 mg tablet 200 mg PO BEDTIME 04/12/22 04/26/22 Previous Rx's Medication Instructions Recorded trazodone 300 mg tablet 300 mg PO BEDTIME #14 tabs 09/16/21 tamsulosin 0.4 mg capsule 0.4 mg PO BEDTIME 14 days #14 caps 04/12/22 levofloxacin 500 mg tablet 500 mg PO DAILY 10 days #10 tabs 04/19/22 naproxen 500 mg tablet 500 mg PO BID PRN pain 7 days #14 05/01/22 tabs phenazopyridine 100 mg tablet 100 mg PO TID PRN Spasm 4 days #12 05/01/22 (Pyridium) tabs tamsulosin 0.4 mg capsule 0.4 mg PO BEDTIME 14 days #14 caps 05/01/22 oxycodone-acetaminophen 5 mg-325 1 tab PO Q8H PRN pain 7 days #7 05/02/22 mg tablet (Percocet) tabs ondansetron HCl 4 mg tablet 4 mg PO Q8H PRN nausea and 05/03/22 vomiting #10 tabs Allergies Allergy/AdvReac Type Severity Reaction Status Date / Time pregabalin [From LYRICA] Allergy Severe Difficulty Verified 05/03/22 10:30 Breathing sumatriptan [From IMITREX] Allergy Severe Chest Pain Verified 05/03/22 10:30 zolmitriptan [From ZOMIG] Allergy Severe Chest Pain Verified 05/03/22 10:30 morphine [MORPHINE] Allergy Intermediate STOMACH Verified 05/03/22 10:30 UPSET From ZELNORM Allergy Severe Palpitation Uncoded 04/26/22 14:32 s Review of Systems Review of Systems Pertinent positives and negatives as stated in HPI PMFSH Past Medical History Source: nursing notes reviewed Medical History ADD (attention deficit disorder) Depression Hereditary hemorrhagic telangiectasia Hypertension IBS (irritable bowel syndrome) Kidney stone Migraines Pulmonary arteriovenous malformation Surgical History H/O lithotripsy H/O: hysterectomy History of ankle surgery History of appendectomy Hx of cystoscopy Social History Social History Household Members Other:: mother Are you a primary career development counselor to a significant other at home: No Do you presently have visiting nurse or other home services: No Alcohol intake: unknown Patient Tobacco Use Status: Never used Tobacco Physical Exam ED Vital Signs: Vital Signs - 24 hr 05/03/22 10:26 05/03/22 12:00 05/03/22 13:13 Temperature 98.0 F 98.8 F Pulse Rate 143 H 123 H 121 H Respiratory Rate 21 H 16 18 Blood Pressure 105/64 105/66 104/68 Pulse Oximetry 90 L 92 Oxygen Delivery Method Room Air Room Air 05/03/22 14:00 05/03/22 16:18 Temperature 99.8 F Pulse Rate 120 H 114 H Respiratory Rate 16 12 Blood Pressure 148/78 H Pulse Oximetry 92 92 Oxygen Delivery Method Room Air Room Air BMI result Body Mass Index 25.0 VITAL SIGNS: Reviewed. GENERAL: Well developed, well nourished, in moderate to severe distress. HEAD: Normocephalic/atraumatic EYES: PERRLA, EOMI EARS: Ext canals without abnormality OROPHARYNX: no oral lesions noted, posterior pharynx clear LUNGS: Normal breath sounds, tachypnea but no wheeze/rhonchi/rales SpO2<90> this has improved to 93% CARDIOVASCULAR: Tachycardic rate and rhythm without noted murmurs, no JVD or lower extremity edema. ABDOMEN: Soft, tenderness in the right upper quadrant, non-distended with bowel sounds. MUSCULOSKELETAL: No tenderness, deformities, or effusions noted on gross inspection. EXTREMITIES: No cyanosis, clubbing or edema. SKIN: Inspection of the skin reveals no rashes NEUROLOGIC: Alert and oriented x 4. Strength and sensation to light touch were grossly intact x 4. Medical Decision Making Medical Decision Making MDM Narrative: 46-year-old female who presents with right upper quadrant/flank pain suspicious for possible renal colic, however patient is noted to be significantly tachycardic and was noted to be 90% oxygenation on room air in triage which has mildly improved to 93% but patient has no chronic respiratory issues raising concerns for alternative etiology such as PE. Will order labs, pain medications, EKG and imaging studies to ascertain gallbladder versus renal colic and the possibility PE. 1706: I reviewed the entire workup and my interpretation is that patient has back pain related abdominal discomfort and/or possible residual discomfort from urologic procedure. There is no evidence of acute bacterial infection, no anemia, D-dimer is undetectable, patient has an JANAE but has received IV fluids and will repeat BMP. Viral testing is negative and patient's heart rate and oxygenation have gradually improved. Chest x-ray negative for any acute find ings. All results discussed with the patient at bedside and on repeat BMP she will be discharged home in stable condition. Signed out to JAJA Andres. Differential Diagnosis Please see the discussion above Lab Data Please see the discussion above 05/03/22 11:01 05/03/22 11:01 Labs: Lab Results 05/03/22 05/03/22 05/03/22 Range/Units 11:01 11:01 11:01 WBC 9.1 (4.8-10.8) X10*3/uL RBC 4.27 (4.20-5.50) X10*6/uL Hgb 12.3 (12.0-16.0) g/dl Hct 38.9 (37.0-47.0) % MCV 91.1 (80.0-98.0) fL MCH 28.8 (27.0-33.0) pg MCHC 31.6 (31.0-35.0) g/dl RDW 13.9 (11.0-16.0) % Plt Count 181 (160-400) X10*3/uL MPV 10.8 (9.4-12.3) fL Immature Gran % (Auto) 0.4 (0.0-0.4) % Neut % (Auto) 85.4 H (45-73) % Lymph % (Auto) 6.0 L (20-40) % Christian % (Auto) 7.1 (2-11) % Eos % (Auto) 0.8 (0-4) % Baso % (Auto) 0.3 (0-2) % Lymph # (Auto) 0.5 L (1.2-4.9) X10*3/uL Christian # (Auto) 0.6 (0.1-1.2) X10*3/uL Eos # (Auto) 0.1 (0.0-0.4) X10*3/uL Baso # (Auto) 0.0 (0.0-0.2) X10*3/uL Abs Immat Gran (auto) 0.04 H (0.00-0.03) X10*3/uL Absolute Neuts (auto) 7.8 (2.0-8.3) x10*3/uL Absolute Nucleated RBC 0.000 (0.0-0.012) X10*3/uL Nucleated RBC % (auto) 0.0 (0.0-0.2) /100WBC D-Dimer High Sensitivty < 150 NG/ML Sodium 138 (135-145) mmol/L Potassium 4.0 (3.3-5.1) mmol/L Chloride 106 (96-108) mmol/L Carbon Dioxide 20 L (22-29) mmol/L Anion Gap 16 (12-20) BUN 19 H (9-16) mg/dL Creatinine 2.11 H (0.5-1.4) mg/dL Estim Creat Clear Calc 29.6 Estimated GFR 25 Random Glucose 156 H (60-115) mg/dL Calcium 9.2 (8.4-10.2) mg/dL Total Bilirubin 0.4 (0.0-1.0) mg/dL Direct Bilirubin 0.2 (0.0-0.5) mg/dL AST 31 (5-31) U/L ALT 32 H (0-31) U/L Alkaline Phosphatase 96 (39-117) U/L Total Protein 7.2 (6.5-8.0) g/dL Albumin 4.3 (3.5-5.0) g/dL Lipase 24 (8-78) U/L COVID-19 (GAIL) (Negative) COVID-19 Clin Com Influenza Type A (TONY) (Negative) Influenza Type B (TONY) (Negative) Influenza A & B Note 05/03/22 05/03/22 Range/Units 11:01 11:01 WBC (4.8-10.8) X10*3/uL RBC (4.20-5.50) X10*6/uL Hgb (12.0-16.0) g/dl Hct (37.0-47.0) % MCV (80.0-98.0) fL MCH (27.0-33.0) pg MCHC (31.0-35.0) g/dl RDW (11.0-16.0) % Plt Count (160-400) X10*3/uL MPV (9.4-12.3) fL Immature Gran % (Auto) (0.0-0.4) % Neut % (Auto) (45-73) % Lymph % (Auto) (20-40) % Christian % (Auto) (2-11) % Eos % (Auto) (0-4) % Baso % (Auto) (0-2) % Lymph # (Auto) (1.2-4.9) X10*3/uL Christian # (Auto) (0.1-1.2) X10*3/uL Eos # (Auto) (0.0-0.4) X10*3/uL Baso # (Auto) (0.0-0.2) X10*3/uL Abs Immat Gran (auto) (0.00-0.03) X10*3/uL Absolute Neuts (auto) (2.0-8.3) x10*3/uL Absolute Nucleated RBC (0.0-0.012) X10*3/uL Nucleated RBC % (auto) (0.0-0.2) /100WBC D-Dimer High Sensitivty NG/ML Sodium (135-145) mmol/L Potassium (3.3-5.1) mmol/L Chloride (96-108) mmol/L Carbon Dioxide (22-29) mmol/L Anion Gap (12-20) BUN (9-16) mg/dL Creatinine (0.5-1.4) mg/dL Estim Creat Clear Calc Estimated GFR Random Glucose (60-115) mg/dL Calcium (8.4-10.2) mg/dL Total Bilirubin (0.0-1.0) mg/dL Direct Bilirubin (0.0-0.5) mg/dL AST (5-31) U/L ALT (0-31) U/L Alkaline Phosphatase (39-117) U/L Total Protein (6.5-8.0) g/dL Albumin (3.5-5.0) g/dL Lipase (8-78) U/L COVID-19 (GAIL) Negative (Negative) COVID-19 Clin Com See Note Influenza Type A (TONY) Negative (Negative) Influenza Type B (TONY) Negative (Negative) Influenza A & B Note See Note Independent Interpretation I performed an independent interpretation of an: EKG Interpretation: Sinus tachycardia, HR-124, no STEMI, CA/QRS/QTC is within normal limits. Radiology Impression Radiologist Impression: My interpretation is in agreement with radiology's impression imaging study. External Record Review External record reviewed: Outpatient record and Prior outpatient labs Medications Administered Generic Name Dose Route Start Last Admin Trade Name Freq PRN Reason Stop Dose Admin Sodium Chloride 1,000 mls @ 999 mls/hr 05/03/22 17:15 05/03/22 17:23 Ns IV 05/03/22 18:15 999 mls/hr .Q1H1M MARIANGEL Administration Discontinued Medications Generic Name Dose Route Start Last Admin Trade Name Freq PRN Reason Stop Dose Admin Fentanyl 25 mcg 05/03/22 11:14 05/03/22 11:25 Fentanyl Citrate/Pf 100 Mcg/2 Ml Vial IVPUSH 05/03/22 11:15 25 mcg ONCE ONE Administration Protocol Hydromorphone HCl 0.25 mg 05/03/22 12:40 05/03/22 12:49 Hydromorphone Hcl 0.5 Mg/0.5 Ml Syringe IVPUSH 05/03/22 12:41 0.25 mg ONCE ONE Administration Protocol Hydromorphone HCl 0.25 mg 05/03/22 14:16 05/03/22 14:50 Hydromorphone Hcl 0.5 Mg/0.5 Ml Syringe IVPUSH 05/03/22 14:17 0.25 mg ONCE ONE Administration Protocol Critical Care Time Critical Care Time Critical Care Time: Yes Total Critical Care Time: 45 Attestation: I personally attest to this time spent taking care of the patient. Discharge Plan Discharge Clinical Impression: Right flank pain, JANAE (acute kidney injury) Patient Disposition: Home, Self-Care Instructions: Flank Pain (ED) Additional Instructions: 1. Resume all home medications as prescribed. Recommend [id number] Tylenol/ibuprofen as needed for pain control. 2. Please follow-up with urology and your primary care provider in the next 1-2 days. Return to the ER for any worsening symptoms. Prescriptions: New ondansetron HCl 4 mg tablet 4 mg PO Q8H PRN (Reason: nausea and vomiting) Qty: 10 0RF No Action levofloxacin 500 mg tablet 500 mg PO DAILY 10 Days Qty: 10 0RF oxycodone-acetaminophen [Percocet] 5-325 mg tablet 1 tab PO Q8H PRN (Reason: pain) 7 Days Qty: 7 0RF Rx Instructions: Partial Fill upon patient request. trazodone 300 mg tablet 300 mg PO BEDTIME Qty: 14 0RF tamsulosin 0.4 mg capsule 0.4 mg PO BEDTIME 14 Days Qty: 14 0RF phenazopyridine [Pyridium] 100 mg tablet 100 mg PO TID PRN (Reason: Spasm) 4 Days Qty: 12 0RF naproxen 500 mg tablet 500 mg PO BID PRN (Reason: pain) 7 Days Qty: 14 0RF lisinopril 20 mg tablet 1.5 tab PO BEDTIME amlodipine 10 mg tablet 1 tab PO BEDTIME sertraline 100 mg tablet 200 mg PO BEDTIME tamsulosin 0.4 mg capsule 0.4 mg PO BEDTIME 14 Days Qty: 14 0RF Referrals: Jam Cárdenas PA [Primary Care Provider] -
[2022-05-03 11:49] LABS: Alanine Aminotransferase 32 U/L (0-31); Albumin Level 4.3 g/dL (3.5-5.0); Anion Gap 16 (12-20); Aspartate Amino Transferase 31 U/L (5-31); Bilirubin Direct 0.2 mg/dL (0.0-0.5); Bilirubin Total 0.4 mg/dL (0.0-1.0); Blood Urea Nitrogen 19 mg/dL (9-16); Calcium 9.2 mg/dL (8.4-10.2); Carbon Dioxide 20 mmol/L (22-29); Chloride 106 mmol/L (96-108); Creatinine Clr Calc Pharmacy 29.6; Estimated Glomerular Filt Rate 25; Glucose Random 156 mg/dL (60-115); Lipase 24 U/L (8-78); Sodium 138 mmol/L (135-145); Total Protein 7.2 g/dL (6.5-8.0)
[2022-05-03 11:58] LABS: Alkaline Phosphatase 96 U/L (39-117)
[2022-05-03 12:00] VITALS: BP 105/66; PULSE 123; RESP 16
[2022-05-03] MEDS: HYDROmorphone HCl 0.5 MG/0.5 ML SYRINGE 0.25 MG IVPUSH ×2 (12:49→14:50)
[2022-05-03 13:13] VITALS: BP 104/68; PULSE 121; RESP 18; TEMP 37.1; O2SAT 92
[2022-05-03 14:00] VITALS: PULSE 120; RESP 16; O2SAT 92
--- NOTE | 2022-05-03 14:24 | PC.NURSE ---
pt to ct at this time.
[2022-05-03 16:18] VITALS: BP 148/78; PULSE 114; RESP 12; TEMP 37.7; O2SAT 92
[2022-05-03] MEDS: 0.9 % Sodium Chloride 1,000 ML 999 ML IV (17:23)
[2022-05-03 18:41] LABS: Anion Gap 13 (12-20); Blood Urea Nitrogen 15 mg/dL (9-16); Calcium 8.7 mg/dL (8.4-10.2); Carbon Dioxide 21 mmol/L (22-29); Chloride 108 mmol/L (96-108); Creatinine Clr Calc Pharmacy 50.1; Estimated Glomerular Filt Rate 46; Glucose Random 104 mg/dL (60-115); Potassium 4.2 mmol/L (3.3-5.1); Sodium 138 mmol/L (135-145)
== END 2022-05-03 19:15 | disposition home or self-care (01) ==
PROVIDERS: Emergency Provider Student in an Organized Health Care Education/Training Program; PCP Physician Assistant Medical
DX: R10.11 Right upper quadrant pain (principal); N17.9 Acute kidney failure, unspecified; R30.0 Dysuria; Z79.899 Other long term (current) drug therapy; Z20.828 Contact with and (suspected) exposure to other viral communicable diseases; Z20.822 Contact with and (suspected) exposure to COVID-19
CPT/HCPCS: 36415; 51798; 71046; 74176; 76705; 80048; 80076; 83690; 85025; 85379; 87502; 87635; 93005; 96361; 96374; 96375; 96376; 99284; 99285; J1170; J3010

== ENCOUNTER 2022-07-14 13:29 | Outpatient (REF) | payer OTHER, SELFPAY ==
--- NOTE | ~2022-07-14 | US_ITS ---
EXAMINATION: US RETROPERITONEAL LIMITED (RENAL ONLY) CLINICAL INFORMATION: Calculus of kidney. COMPARISON: CT abdomen and pelvis and ultrasound abdomen limited 05/03/2022. Ultrasound abdomen limited 09/16/2021. TECHNIQUE: Real-time imaging of the kidneys. FINDINGS: RIGHT KIDNEY: 10.0 x 4.6 x 6.3 cm (SAG x AP x TRV). The kidney is normal in size, contour, and echogenicity. Renal cortical thickness is normal. No focal parenchymal lesions or hydronephrosis. There is a 5 x 4 mm lower pole echogenic focus consistent with a nonobstructing stone. LEFT KIDNEY: 12.3 x 4.5 x 4.8 cm (SAG x AP x TRV). The kidney is normal in size, contour, and echogenicity. Renal cortical thickness is normal. No calculi or focal parenchymal lesions. No hydronephrosis. ADDITIONAL FINDINGS: Incidental note made of cholelithiasis. US/US renal BI IMPRESSION: Nonobstructing 5 mm right lower pole renal calculus. More calculi including some left-sided calculi were seen on the prior CT scan
== END 2022-07-14 13:30 | disposition home or self-care (01) ==
LOC: HO.US 13:29
PROVIDERS: Visit Provider Urology
DX: N20.0 Calculus of kidney (principal)
CPT/HCPCS: 76775

== ENCOUNTER → 2022-08-02 14:05 | Outpatient (BNVA) | payer OTHER, SELFPAY | PROVIDERS: PCP Physician Assistant Medical; Visit Provider Urology | DX: Z13.89 Encounter for screening for other disorder (principal) ==

== ENCOUNTER 2023-11-01 00:33 | Emergency (ER) | payer OTHER, SELFPAY ==
[2023-11-01] VITALS (12 sets, daily range): BP systolic 130–178; BP diastolic 72–98; PULSE 80–105; RESP 14–28; TEMP 36.6–37.3; O2SAT 83–93; BMI 45.3
--- NOTE | ~2023-11-01 | NM_ITS ---
EXAMINATION: HIDA scan with CCK. CLINICAL INFORMATION: Right upper quadrant pain. COMPARISON: Ultrasound of abdomen and CT scan abdomen November 01, 2023 TECHNIQUE: 5 mCi of technetium 99m mebrofenin was administered and imaging obtained over the right upper quadrant through 60 minutes. 2.5 mcg cholecystokinin given intravenously over 30 minutes with imaging of the right upper quadrant. FINDINGS: The isotope is taken up by the liver and is normally excreted Into the biliary tree by about 4 minutes. Activity evident within the gallbladder by 8 minutes. Activity progressively flows into the gallbladder and the bowel through the 60 minutes. Cholecystokinin was then injected. Images obtained over 30 minutes show normal gallbladder ejection fraction. Ejection fraction at 10 minutes is 81%. Ejection fraction at 20 minutes is 93%. Ejection fraction at 30 minutes is 95%. NM/NM hepatobiliary w pharm IMPRESSION: Normal HIDA scan, normal visualization of gallbladder. Normal gallbladder ejection fraction. No evidence of biliary dyskinesia.
--- NOTE | ~2023-11-01 | US_ITS ---
EXAMINATION: US PELVIS CLINICAL INFORMATION: Right lower quadrant pain COMPARISON: CT abdomen pelvis 10/02/2023 TECHNIQUE: Ultrasound of the pelvis is performed using both transabdominal probes only. The patient was unable to cooperate for an endovaginal scanning. FINDINGS: Uterus: The uterus is surgically absent. Adnexa: The left ovary is surgically absent. The right ovary measures 4.5 x 5.3 x 3.6 cm for a volume of 45 mL which includes a 2.4 x 3.0 x 3.6 cm benign simple appearing ovarian cyst corresponding to the ovarian cyst seen on the CT scan earlier today. Normal arterial and venous flow is seen to the right ovary. No free fluid is seen. US/US pelvic complete IMPRESSION: 1. Status post hysterectomy and left oophorectomy. 2. Benign-appearing 3.6 cm right ovarian cyst. No follow-up is needed.
--- NOTE | ~2023-11-01 | XR_ITS ---
EXAMINATION: XR CHEST CLINICAL INFORMATION: Pain. COMPARISON: Chest radiograph dated 05/03/2022. Chest radiograph dated 07/28/2019. TECHNIQUE: 2 views of the chest were obtained. FINDINGS: The heart is normal in size. There is no consolidation within either lung. The known AV malformation in the right mid lung remains unchanged in appearance. Embolic material is present within the region of the malformation, unchanged in appearance. No pleural effusion. No pneumothorax. No acute osseous abnormality. XR/XR chest 2V IMPRESSION: Stable appearance of the heart and lungs. No active disease.
--- NOTE | ~2023-11-01 | US_ITS ---
EXAMINATION: US PELVIS CLINICAL INFORMATION: Right lower quadrant pain COMPARISON: CT abdomen pelvis 10/02/2023 TECHNIQUE: Ultrasound of the pelvis is performed using both transabdominal probes only. The patient was unable to cooperate for an endovaginal scanning. FINDINGS: Uterus: The uterus is surgically absent. Adnexa: The left ovary is surgically absent. The right ovary measures 4.5 x 5.3 x 3.6 cm for a volume of 45 mL which includes a 2.4 x 3.0 x 3.6 cm benign simple appearing ovarian cyst corresponding to the ovarian cyst seen on the CT scan earlier today. Normal arterial and venous flow is seen to the right ovary. No free fluid is seen. US/US pelvic ovarian doppler IMPRESSION: 1. Status post hysterectomy and left oophorectomy. 2. Benign-appearing 3.6 cm right ovarian cyst. No follow-up is needed.
--- NOTE | ~2023-11-01 | CT_ITS ---
EXAMINATION: CT ABDOMEN AND PELVIS WITHOUT CONTRAST CLINICAL INFORMATION: Flank pain. History of stones. COMPARISON: Renal ultrasound from 07/14/2022. Abdomen CT from 05/03/2022. TECHNIQUE: Multidetector volumetric imaging was performed from the superior aspect of the liver through the pubic symphysis. Sagittal and coronal reformatted images were obtained on the technologist's workstation. This CT examination was performed using dose optimization techniques as appropriate, variously including the following: *Automated exposure control *Adjustment of mA and/or kV according to patient size (this includes techniques or standardized protocols for targeted exams where dose is matched to indication/reason for exam; i.e. extremities or head) *Use of iterative reconstruction technique DLP: 1119 mGy-cm FINDINGS: No acute abnormalities in the lung bases. There is an old tortuous vessel in the medial basal segment right lower lobe. This could represent a venous varix or arteriovenous malformation. Obese body habitus and mild hepatomegaly. Liver has density in the range of 33-40 Hounsfield units consistent with steatosis. There appears to be a small 0.7 cm cyst in the posterior right hepatic lobe. Gallbladder is unremarkable on this CT imaging exam, although gallstones were present on ultrasound from 05/03/2022. No dilated bile ducts. Minimal pneumobilia in the left lobe. Query if there is any remote history of sphincterotomy. Pancreas is normal. Mild splenomegaly; spleen measures up to 14 cm maximum dimension. Adrenal glands are normal. Kidneys are normal in size. There appears to be a punctate calyceal stone of the mid right kidney. 0.5 cm calyceal stone in the right lower pole is too small for acquisition of a reliable density measurement. It has a stable appearance compared to 05/03/2022. It has a density of at least 1050 Hounsfield units, maximum pixel value of 1253 Hounsfield units, and this is seen approximately 15.6 cm deep from the skin surface at the posterior axillary line. The right ureter is grossly normal. No ureteral calculi. No hydroureter or hydronephrosis. The left kidney is normal in size. Small 0.3 cm calyceal stone is present in the left upper pole and this is too small for acquisition of a reliable density measurement. The maximum pixel value is approximately 840 Hounsfield units and this stone is located approximately 15.3 cm deep from the skin surface at the posterior axillary line. The left ureter is unremarkable. No ureteral stones, hydroureter or hydronephrosis. Urinary bladder is normal. No dilated bowel loops. The appendix is not definitively seen. No inflammatory changes in the right lower quadrant. No abdominal free fluid or free air. There is atherosclerotic calcification of the abdominal aorta without aneurysm. No pathologic sized lymph nodes in the abdomen or pelvis. Status post hysterectomy. 4 cm cyst of the right ovary has a simple appearance. No follow-up imaging recommended (if asymptomatic). No pelvic free fluid. No acute osseous abnormality. At L5-S1, chronic severe loss of disc height, vacuum disc phenomenon, endplate sclerosis, disc bulge and vertebral osteophyte formation. CT/CT abdomen pelvis wo IV con IMPRESSION: * No acute imaging abnormalities. Obese body habitus, hepatic steatosis and mild hepatosplenomegaly. * Bilateral nephrolithiasis. However, no evidence of ureteral stones or hydroureteronephrosis. * There appears to be minimal pneumobilia in the left lobe of the liver. Query if there is any remote history of sphincterotomy. * Abnormal tortuous vessel in the medial basal segment of the right lower lobe could represent an arteriovenous malformation. * 4 cm cyst of the right ovary has a simple appearance. No follow-up imaging recommended (if asymptomatic).
--- NOTE | ~2023-11-01 | US_ITS ---
EXAMINATION: US ABDOMEN LIMITED CLINICAL INFORMATION: Right upper quadrant pain. COMPARISON: Ultrasound exam from 07/14/2022. Abdomen CT from 11/01/2023. TECHNIQUE: Real-time imaging of the right upper quadrant abdominal viscera. remote sensing technologist reports examination limited by patient body habitus. FINDINGS: PANCREAS: The pancreatic tail is obscured by bowel gas. The visualized pancreas is normal. LIVER: Normal. GALLBLADDER: The gallbladder is physiologically distended and has a few calculi. No gallbladder wall thickening or pericholecystic fluid. COMMON BILE DUCT: Normal in caliber measuring 0.6 cm diameter. RIGHT KIDNEY: Not visualized/evaluated. FREE FLUID: None. US/US abdomen limited IMPRESSION: * No acute sonographic abnormalities in the right upper quadrant. * Cholelithiasis without evidence of cholecystitis or biliary tract obstruction.
[2023-11-01 01:10] LABS: Basophils Percent Auto 0.3 % (0-2); Eosinophils Absolute Auto 0.3 X10*3/uL (0.0-0.4); Eosinophils Percent Auto 2.3 % (0-4); Hematocrit 40.1 % (37.0-47.0); Imm Gran Abs Auto 0.03 X10*3/uL (0.00-0.03); Imm Gran Pct Auto 0.3 % (0.0-0.4); Lymphocytes Absolute Auto 1.2 X10*3/uL (1.2-4.9); Lymphocytes Percent Auto 11.5 % (20-40); MANUAL DIFF FLAG NO; Mean Corpuscular HGB Conc 32.4 g/dl (31.0-35.0); Mean Corpuscular Hemoglobin 29.4 pg (27.0-33.0); Mean Corpuscular Volume 90.7 fL (80.0-98.0); Mean Platelet Volume 10.9 fL (9.4-12.3); Monocytes Absolute Auto 0.6 X10*3/uL (0.1-1.2); Monocytes Percent Auto 5.4 % (2-11); Neutrophils Absolute Auto 8.6 x10*3/uL (2.0-8.3); Neutrophils Percent Auto 80.2 % (45-73); Platelet Count 206 X10*3/uL (160-400); Red Blood Count 4.42 X10*6/uL (4.20-5.50); Red Cell Distribution Width 15.4 % (11.0-16.0); White Blood Count 10.7 X10*3/uL (4.8-10.8)
[2023-11-01 01:22] LABS: Anion Gap 14 (12-20); Blood Urea Nitrogen 24 mg/dL (9-16); Calcium 9.4 mg/dL (8.4-10.2); Carbon Dioxide 21 mmol/L (22-29); Chloride 107 mmol/L (96-108); Creatinine Clr Calc Pharmacy 43.5; Estimated Glomerular Filt Rate 26; Glucose Random 137 mg/dL (60-115); Potassium 4.3 mmol/L (3.3-5.1); Sodium 138 mmol/L (135-145)
[2023-11-01 04:26] LABS: Appearance Urine Cloudy; Color Urine Yellow; Glucose Urine UA Negative (Negative); Leukocyte Esterase Urine Negative (Negative); Nitrite Urine Negative (Negative); PH 5.5 (5.0-9.0); Specific Gravity - Urine 1.025 (1.005-1.025); UMIC TRIGGER UACC YES; Urine Blood Negative (Negative); Urine Ketones Negative (Negative); Urine Protein 30 (1+) mg/dL (Neg-Trace)
[2023-11-01 04:34] LABS: Bacteria Urine 3+ (None Seen); Calcium Oxalate Crystals Urine Present; Hyaline Casts Urine >20 /LPF (0-2); RBC Urine 0-2 /HPF (0-2); WBC Urine 0-5 /HPF (0-5)
--- NOTE | 2023-11-01 06:49 | ED_ITS ---
HPI - General Adult General Chief complaint: Abdominal Pain Stated complaint: Kidney Stones Time Seen by Provider: 11/01/23 06:33 Source: patient Mode of arrival: ambulatory Limitations: no limitations History of Present Illness ED Provider: Kim Black PA-C HPI narrative: The patient is a 48 year old assigned at female with a PMHx of IBS, ADD, kidney stones (H/o lithotripsy and ureteral stents), depression, HTN, migraines, pulmonary arteriovenous malformation presents to the ER due to severe RLQ pain that radiates to RUQ and towards umbilicus with right sided flank pain since 11:30 pm last night. States that the pain has been constant and 9/10. Reports that she was sleeping and constantly woke up due to the urge to urinate. Denies dysuria, hematuria, fever, chills. Feels nauseous, had one episode of vomiting last night, and diarrhea for the past few days. Denies constipation. She also has a headache for couple weeks. Denies dizziness, vision changes, chest pain, palpitations, and dyspnea. Related Data Home Medications ?Medication ?Instructions ?Recorded ?Confirmed amlodipine 10 mg tablet 1 tab PO BEDTIME 04/12/22 08/02/22 lisinopril 20 mg tablet 1.5 tab PO BEDTIME 04/12/22 08/02/22 sertraline 100 mg tablet 200 mg PO BEDTIME 04/12/22 08/02/22 bupropion HCl 100 mg tablet,12 hr 100 mg PO BID 08/02/22 08/02/22 sustained-release sertraline 50 mg tablet 50 mg PO DAILY 08/02/22 08/02/22 trazodone 100 mg tablet 0 mg PO 08/02/22 08/02/22 Previous Rx's ?Medication ?Instructions ?Recorded trazodone 300 mg tablet 300 mg PO BEDTIME #14 tabs 09/16/21 levofloxacin 500 mg tablet 500 mg PO DAILY 10 days #10 tabs 04/19/22 naproxen 500 mg tablet 500 mg PO BID PRN pain 7 days #14 05/01/22 tabs oxycodone-acetaminophen 5 mg-325 1 tab PO Q8H PRN pain 7 days #7 05/02/22 mg tablet (Percocet) tabs ondansetron HCl 4 mg tablet 4 mg PO Q8H PRN nausea and 05/03/22 vomiting #10 tabs phenazopyridine 100 mg tablet 100 mg PO TID PRN Spasm 7 days #20 05/09/22 (Pyridium) tabs Allergies Allergy/AdvReac Type Severity Reaction Status Date / Time pregabalin [From LYRICA] Allergy Severe Difficulty Verified 11/01/23 00:47 Breathing sumatriptan [From IMITREX] Allergy Severe Chest Pain Verified 11/01/23 00:47 zolmitriptan [From ZOMIG] Allergy Severe Chest Pain Verified 11/01/23 00:47 morphine [MORPHINE] Allergy Intermediate STOMACH Verified 11/01/23 00:47 UPSET From ZELNORM Allergy Severe Palpitation Uncoded 11/01/23 00:47 s Review of Systems 2 Constitutional: Constitutional: Reports no additional constitutional complaints, Denies chills, Denies fever(s) and Denies night sweats Eyes: Eyes: Reports no additional eye complaints, Denies blurry vision, Denies change in vision, Denies diplopia, Denies eye discharge, Denies loss of vision and Denies eye pain ENT: Denies dizziness Cardiovascular: Cardiovascular: Reports no additional cardiovascular complaints, Denies chest pain, Denies lightheadedness, Denies Loss of Consciousness and Denies dyspnea Respiratory: Respiratory: Reports no additional respiratory complaints and Denies dyspnea Gastrointestinal: Gastrointestinal: Reports no additional gastrointestinal complaints, Reports abdominal pain, Denies melena, Denies hematochezia, Denies change in bowel habits, Denies change in stool character, Denies constipation and Reports diarrhea Genitourinary: Genitourinary: Denies hematuria, Denies urinary frequency, Denies dysuria, Denies urinary incontinence, Denies urinary hesitancy and Reports urinary urgency Musculoskeletal: Musculoskeletal: Reports no additional musculoskeletal complaints, Denies numbness and Denies tingling Neurologic: Denies dizziness, Denies loss of vision, Denies numbness and Denies tingling Psychiatric: Psychiatric: Reports no additional psychiatric complaints Endocrine: Endocrine: Reports no additional endocrine complaints Hematologic/Lymphatic: Hematologic/Lymphatic: Reports no additional hematologic/lymphatic complaints Allergic/Immunologic: Allergic/Immunologic: Reports no additional allergic/immunologic complaints PMFSH Past Medical History Attestation statement: The following information was validated with the patient. Source: old records reviewed and nursing notes reviewed Medical History IBS (irritable bowel syndrome) Hereditary hemorrhagic telangiectasia ADD (attention deficit disorder) Kidney stone Depression Hypertension Migraines Pulmonary arteriovenous malformation Surgical History Hx of cystoscopy H/O lithotripsy History of ankle surgery History of appendectomy H/O: hysterectomy Social History Social History Household Members Other:: mother Are you a primary field care manager to a significant other at home: No Do you presently have visiting nurse or other home services: No Alcohol intake: unknown Patient Tobacco Use Status: Never used Tobacco Smoked in Last 30 Days: No Use of substances other than those prescribed or required for medical reasons: No Advance Directives: No Advance Directives Information Provided: Yes Do you have a plan to hurt others: No Plan Patient : No Physical Exam ED Vital Signs: Vital Signs - 24 hr 11/01/23 00:44 11/01/23 05:25 11/01/23 07:30 Temperature 98.5 F 98.4 F 98.8 F Pulse Rate 88 85 80 Respiratory Rate 18 18 18 Blood Pressure 154/90 H 149/72 H 155/85 H Pulse Oximetry 93 92 93 Oxygen Delivery Method Room Air Room Air Room Air 11/01/23 08:00 11/01/23 10:21 11/01/23 12:14 Temperature 97.8 F 98.0 F Pulse Rate 89 93 Respiratory Rate 17 19 14 Blood Pressure 143/76 H 130/78 Pulse Oximetry 92 92 Oxygen Delivery Method Room Air Room Air 11/01/23 14:00 Temperature 99.1 F Pulse Rate 105 H Respiratory Rate 28 H Blood Pressure 158/92 H Pulse Oximetry 89 L Oxygen Delivery Method Room Air BMI result Body Mass Index 45.3 Const General: cooperative, no acute distress, alert and awake Nutritional Appearance: well nourished Orientation/consciousness: patient oriented x3 Limitations: no limitations HENMT Head: Yes normal to inspection and Yes atraumatic Ears: hearing grossly normal bilaterally and external ears normal General nose exam: Normal external nose present, no nasal discharge noted and no epistaxis Face and sinus: Yes normal facial exam, No abrasion and No laceration Mouth: Normal oral and palatal mucosa present, no drooling and no muffled voice Eyes General: appearance normal, both eyes and all related structures Periorbital: periorbital findings normal Eyelids: Yes eyelids normal Conjunctivae: conjunctivae normal Pupils: Equal, round and reactive pupils present EOM: EOMs intact bilaterally Neck Neck: Yes normal visual inspection, Yes full ROM and Yes no lymphadenopathy Chest Chest palpation & inspection: normal inspection of the chest Resp Effort & Inspection: normal respiratory effort and able to speak in complete sentences Auscultation: clear to auscultation bilaterally Cardio Rate: regular rate Rhythm: regular rhythm GI Inspection: Yes normal to inspection Palpation (GI): Soft to palpation, Tenderness to palpation present (GI), no guarding and No Rebound tenderness present Auscultation: normal bowel sounds Neuro General: patient oriented x3 and moves all extremities Cranial nerves: Yes Equal, round and reactive pupils present Cognition (Neuro): normal cognition Extrem General: Yes normal to inspection, Yes full ROM and Yes capillary refill normal Psych Appearance: grossly normal Mental Status: mental status grossly normal Affect: normal affect Attitude: cooperative Thought process: Normal thought process present Thought content: Normal thought content present Insight: Good insight present (Psych) Medications Administered Discontinued Medications Generic Name Dose Route Start Last Admin Trade Name Freq PRN Reason Stop Dose Admin Hydromorphone HCl 1 mg 11/01/23 08:24 11/01/23 09:12 Hydromorphone Hcl 1 Mg/Ml Syringe IVPUSH 11/01/23 08:25 1 mg ONCE ONE Administration Protocol Hydromorphone HCl 1 mg 11/01/23 13:49 11/01/23 13:57 Hydromorphone Hcl 1 Mg/Ml Syringe IVPUSH 11/01/23 13:50 1 mg ONCE ONE Administration Protocol Sodium Chloride 1,000 mls @ 999 mls/hr 11/01/23 07:00 11/01/23 09:46 Ns IV 11/01/23 08:00 Infused .Q1H1M MARIANGEL Infusion Ketorolac Tromethamine 15 mg 11/01/23 06:50 11/01/23 07:46 Ketorolac Tromethamine 15 Mg/Ml Vial IVPUSH 11/01/23 06:51 15 mg ONCE ONE Administration Ondansetron HCl 4 mg 11/01/23 06:50 11/01/23 07:46 Ondansetron Hcl 4 Mg/2 Ml Vial IVPUSH 11/01/23 06:51 4 mg ONCE ONE Administration Ondansetron HCl 4 mg 11/01/23 14:07 11/01/23 14:35 Ondansetron Hcl 4 Mg/2 Ml Vial IVPUSH 11/01/23 14:08 4 mg ONCE ONE Administration Medical Decision Making Medical Decision Making [facility] Narrative: The patient is a 48 year old assigned at female with a PMHx of IBS, ADD, kidney stones (H/o lithotripsy and ureteral stents), depression, HTN, migraines, pulmonary arteriovenous malformation, appendectomy and hysterectomy presents to the ER due to severe RLQ pain that radiates to RUQ and towards umbilicus with right sided flank pain since 11:30 pm last night. On arrival to the ER, the patient is hemodynamically stable. Examination portrays a soft abd, obese, normal bowel sounds, diffuse severe tenderness to palpation, right upper and lower quadrant abdominal tenderness to palpation, no ecchymosis. Heme labs are unremarkable, CMP portrays elevated BUN 24 and creatine of 2.06 otherwise, unremarkable. Patient had a non-contrast CT scan of the abdomen/pelvis done that showed minimal pneumobilia of the left liver lobe as well as a known AVM of the right lower lung lobe, and a right sided 4cm ovarian cyst. I obtained an US of the RUQ which showed cholelithiasis without cholecystitis. Given the patient's pain, I consulted with general surgery for concern of an acute courtney not found on imaging. They evaluated the patient and recommended a HIDA scan. If negative, patient will not be considered a surgical case. Given patient's history of a necrotizing ovarian cyst, will also obtain a pelvic US. Patient will be signed out to the evening JEFF pending imaging reads. Differential Diagnosis Differential Diagnoses: The differential diagnosis associated with the presentation includes nephrolithiasis, hydronephrosis, pyelonephritis, cystitis, cholecystitis, choledocolithiasis, ovarian torsion, necortizing ovarian cyst Admission/Observation Consideration of admission/observation: Escalation of care including admission/observation considered Patient's disposition will be determined after imaging results. Consult Healthcare Provider Management of the patient was discussed with: Roll Forming Supervisor (spoke to the surgical team as noted in the MDM Rationale portion of this note.) Lab Data [facility] Lab Attestation statement: I reviewed the patient's lab results. My interpretation of these results are in the MDM Rationale portion of this note. 11/01/23 01:02 11/01/23 01:02 Labs: Lab Results 11/01/23 11/01/23 Range/Units 01:02 04:14 WBC 10.7 (4.8-10.8) X10*3/uL RBC 4.42 (4.20-5.50) X10*6/uL Hgb 13.0 (12.0-16.0) g/dl Hct 40.1 (37.0-47.0) % MCV 90.7 (80.0-98.0) fL MCH 29.4 (27.0-33.0) pg MCHC 32.4 (31.0-35.0) g/dl RDW 15.4 (11.0-16.0) % Plt Count 206 (160-400) X10*3/uL MPV 10.9 (9.4-12.3) fL Immature Gran % (Auto) 0.3 (0.0-0.4) % Neut % (Auto) 80.2 H (45-73) % Lymph % (Auto) 11.5 L (20-40) % Dukes % (Auto) 5.4 (2-11) % Eos % (Auto) 2.3 (0-4) % Baso % (Auto) 0.3 (0-2) % Lymph # (Auto) 1.2 (1.2-4.9) X10*3/uL Dukes # (Auto) 0.6 (0.1-1.2) X10*3/uL Eos # (Auto) 0.3 (0.0-0.4) X10*3/uL Baso # (Auto) 0.0 (0.0-0.2) X10*3/uL Abs Immat Gran (auto) 0.03 (0.00-0.03) X10*3/uL Absolute Neuts (auto) 8.6 H (2.0-8.3) x10*3/uL Absolute Nucleated RBC 0.000 (0.0-0.012) X10*3/uL Nucleated RBC % (auto) 0.0 (0.0-0.2) /100WBC Sodium 138 (135-145) mmol/L Potassium 4.3 (3.3-5.1) mmol/L Chloride 107 (96-108) mmol/L Carbon Dioxide 21 L (22-29) mmol/L Anion Gap 14 (12-20) BUN 24 H (9-16) mg/dL Creatinine 2.06 H (0.5-1.4) mg/dL Estim Creat Clear Calc 43.5 Estimated GFR 26 Random Glucose 137 H (60-115) mg/dL Calcium 9.4 D (8.4-10.2) mg/dL Total Bilirubin 0.3 (0.0-1.0) mg/dL Direct Bilirubin 0.1 (0.0-0.5) mg/dL AST 13 (5-31) U/L ALT 8 (0-31) U/L Alkaline Phosphatase 96 (39-117) U/L Total Protein 7.9 (6.5-8.0) g/dL Albumin 4.6 (3.5-5.0) g/dL Urine Color Yellow Urine Appearance Cloudy Urine pH 5.5 (5.0-9.0) Ur Specific [place] 1.025 (1.005-1.025) Urine Protein 30 (1+) H (Neg-Trace) mg/dL Urine Glucose (UA) Negative (Negative) mg/dL Urine Ketones Negative (Negative) mg/dL Urine Blood Negative (Negative) Urine Nitrite Negative (Negative) Ur Leukocyte Esterase Negative (Negative) Urine RBC 0-2 (0-2) /HPF Urine WBC 0-5 (0-5) /HPF Ur Squamous Epith Cells 11-20 (0-2) /HPF Calcium Oxalate Crystal Present Urine Bacteria 3+ (None Seen) Hyaline Casts >20 (0-2) /LPF Independent Interpretation I performed an independent interpretation of an: Ultrasound and CT Scan Interpretation: My interpretation is in agreement with the radiologist's impression of these imaging studies. - EXAMINATION: CT ABDOMEN AND PELVIS WITHOUT CONTRAST CLINICAL INFORMATION: Flank pain. History of stones. COMPARISON: Renal ultrasound from 07/14/2022. Abdomen CT from 05/03/2022. TECHNIQUE: Multidetector volumetric imaging was performed from the superior aspect of the liver through the pubic symphysis. Sagittal and coronal reformatted images were obtained on the technologist's workstation. This CT examination was performed using dose optimization techniques as appropriate, variously including the following: *Automated exposure control *Adjustment of mA and/or kV according to patient size (this includes techniques or standardized protocols for targeted exams where dose is matched to indication/reason for exam; i.e. extremities or head) *Use of iterative reconstruction technique DLP: 1119 mGy-cm FINDINGS: No acute abnormalities in the lung bases. There is an old tortuous vessel in the medial basal segment right lower lobe. This could represent a venous varix or arteriovenous malformation. Obese body habitus and mild hepatomegaly. Liver has density in the range of 33-40 Hounsfield units consistent with steatosis. There appears to be a small 0.7 cm cyst in the posterior right hepatic lobe. Gallbladder is unremarkable on this CT imaging exam, although gallstones were present on ultrasound from 05/03/2022. No dilated bile ducts. Minimal pneumobilia in the left lobe. Query if there is any remote history of sphincterotomy. Pancreas is normal. Mild splenomegaly; spleen measures up to 14 cm maximum dimension. Adrenal glands are normal. Kidneys are normal in size. There appears to be a punctate calyceal stone of the mid right kidney. 0.5 cm calyceal stone in the right lower pole is too small for acquisition of a reliable density measurement. It has a stable appearance compared to 05/03/2022. It has a density of at least 1050 Hounsfield units, maximum pixel value of 1253 Hounsfield units, and this is seen approximately 15.6 cm deep from the skin surface at the posterior axillary line. The right ureter is grossly normal. No ureteral calculi. No hydroureter or hydronephrosis. The left kidney is normal in size. Small 0.3 cm calyceal stone is present in the left upper pole and this is too small for acquisition of a reliable density measurement. The maximum pixel value is approximately 840 Hounsfield units and this stone is located approximately 15.3 cm deep from the skin surface at the posterior axillary line. The left ureter is unremarkable. No ureteral stones, hydroureter or hydronephrosis. Urinary bladder is normal. No dilated bowel loops. The appendix is not definitively seen. No inflammatory changes in the right lower quadrant. No abdominal free fluid or free air. There is atherosclerotic calcification of the abdominal aorta without aneurysm. No pathologic sized lymph nodes in the abdomen or pelvis. Status post hysterectomy. 4 cm cyst of the right ovary has a simple appearance. No follow-up imaging recommended (if asymptomatic). No pelvic free fluid. No acute osseous abnormality. At L5-S1, chronic severe loss of disc height, vacuum disc phenomenon, endplate sclerosis, disc bulge and vertebral osteophyte formation. CT/CT abdomen pelvis wo IV con IMPRESSION: * No acute imaging abnormalities. Obese body habitus, hepatic steatosis and mild hepatosplenomegaly. * Bilateral nephrolithiasis. However, no evidence of ureteral stones or hydroureteronephrosis. * There appears to be minimal pneumobilia in the left lobe of the liver. Query if there is any remote history of sphincterotomy. * Abnormal tortuous vessel in the medial basal segment of the right lower lobe could represent an arteriovenous malformation. * 4 cm cyst of the right ovary has a simple appearance. No follow-up imaging recommended (if asymptomatic). Dictated By: Justin Kohli MD Signed By: Electronically signed by Justin Kohli MD 11/01/23 0909 - EXAMINATION: US ABDOMEN LIMITED CLINICAL INFORMATION: Right upper quadrant pain. COMPARISON: Ultrasound exam from 07/14/2022. Abdomen CT from 11/01/2023. TECHNIQUE: Real-time imaging of the right upper quadrant abdominal viscera. certified neurodiagnostic technologist reports examination limited by patient body habitus. FINDINGS: PANCREAS: The pancreatic tail is obscured by bowel gas. The visualized pancreas is normal. LIVER: Normal. GALLBLADDER: The gallbladder is physiologically distended and has a few calculi. No gallbladder wall thickening or pericholecystic fluid. COMMON BILE DUCT: Normal in caliber measuring 0.6 cm diameter. RIGHT KIDNEY: Not visualized/evaluated. FREE FLUID: None. US/US abdomen limited IMPRESSION: * No acute sonographic abnormalities in the right upper quadrant. * Cholelithiasis without evidence of cholecystitis or biliary tract obstruction. Dictated By: Justin Kohli MD Signed By: Electronically signed by Justin Kohli MD 11/01/23 1152 Radiology Impression Discussion of test interpretation with radiology: I have reviewed the radiologist's reading. Critical Care Time Critical Care Time Critical Care Time: Yes Total Critical Care Time: 38 Attestation: I spent 38 minutes of Critical Care Time with this patient. This does not include time spent on separately reported billable procedures. Discharge Plan Discharge Clinical Impression: Abdominal pain Patient Disposition: Still a Patient Prescriptions: No Action levofloxacin 500 mg tablet 500 mg PO DAILY 10 Days Qty: 10 0RF oxycodone-acetaminophen [Percocet] 5-325 mg tablet 1 tab PO Q8H PRN (Reason: pain) 7 Days Qty: 7 0RF Rx Instructions: Partial Fill upon patient request. phenazopyridine [Pyridium] 100 mg tablet 100 mg PO TID PRN (Reason: Spasm) 7 Days Qty: 20 0RF trazodone 300 mg tablet 300 mg PO BEDTIME Qty: 14 0RF naproxen 500 mg tablet 500 mg PO BID PRN (Reason: pain) 7 Days Qty: 14 0RF lisinopril 20 mg tablet 1.5 tab PO BEDTIME amlodipine 10 mg tablet 1 tab PO BEDTIME sertraline 100 mg tablet 200 mg PO BEDTIME ondansetron HCl 4 mg tablet 4 mg PO Q8H PRN (Reason: nausea and vomiting) Qty: 10 0RF trazodone 100 mg tablet 0 mg PO bupropion HCl 100 mg tablet sustained-release 12 hr 100 mg PO BID sertraline 50 mg tablet 50 mg PO DAILY Print Language: Georgian
[2023-11-01] MEDS: 0.9 % Sodium Chloride 1,000 ML 999 ML IV ×2 (07:46→18:04)
[2023-11-01] MEDS: Ketorolac Tromethamine 15 MG/ML VIAL IVPUSH (07:46)
[2023-11-01] MEDS: ondansetron HCL 4 MG/2 ML VIAL IVPUSH ×2 (07:46→14:35)
[2023-11-01] MEDS: HYDROmorphone HCl 1 MG/ML SYRINGE IVPUSH ×2 (09:12→13:57)
[2023-11-01 09:41] LABS: Alanine Aminotransferase 8 U/L (0-31); Albumin Level 4.6 g/dL (3.5-5.0); Alkaline Phosphatase 96 U/L (39-117); Aspartate Amino Transferase 13 U/L (5-31); Bilirubin Direct 0.1 mg/dL (0.0-0.5); Bilirubin Total 0.3 mg/dL (0.0-1.0); Total Protein 7.9 g/dL (6.5-8.0)
--- NOTE | 2023-11-01 14:31 | PM.CNGS ---
History of Present Illness Consult details Consult date: 11/01/23 Requesting physician: Kim Black Narrative: The patient is a 48 year old female with PMH of nephrolithiasis, depression, HTN, pulmonary AVM who presented to the ED with complaints of abdominal pain. The pain started last night and awoke her out of sleep. She reports the pain is most significant in the RLQ/right flank and wraps around her back and into her RUQ. The pain has been sharp and constant. She vomited once last night. Due to the severity of the pain she presented to the ED for evaluation. She reports a history of gallstones and one gallbladder attack diagnosed at [facility] [place] however this feels significantly different. She had diarrhea a few days ago. She denies sick contacts, new meds. She denies fever, chills, constipation, dysuria, hematuria. Work up in the ED included CBC, BMP, LFTs which was significant for an elevated BUN/Cr. CT scan abd pelvis and ABD US were obtained which showed gallstones without pericholecystitic fluid or wall thickening. There was note of minimal pneumobilia in the left lobe of the liver and 4 cm cyst of the right ovary. She has a history of appendectomy about 30 years ago and hysterectomy with unilateral oophorectomy. Shes been passing flatus and having normal bowel movements. Review of Systems Constitutional: Constitutional: Denies chills and Denies fever(s) ENT: Denies dizziness Cardiovascular: Cardiovascular: Denies chest pain and Denies dyspnea Respiratory: Respiratory: Denies cough and Denies dyspnea Gastrointestinal: Gastrointestinal: Reports as per HPI Genitourinary: Genitourinary: Denies hematuria, Denies dysuria and Denies vaginal discharge Integumentary/Breasts: Skin/Breast: Denies rash and Denies jaundice Neurologic: Denies dizziness PMFSH Past Medical History Medical History ADD (attention deficit disorder) Depression Hereditary hemorrhagic telangiectasia Hypertension IBS (irritable bowel syndrome) Kidney stone Migraines Pulmonary arteriovenous malformation Surgical History Surgical History H/O lithotripsy H/O: hysterectomy History of ankle surgery History of appendectomy Hx of cystoscopy Social History Social History Household Members Other:: mother Are you a primary anesthesiologist and critical care to a significant other at home: No Do you presently have visiting nurse or other home services: No Alcohol intake: unknown Patient Tobacco Use Status: Never used Tobacco Smoked in Last 30 Days: No Use of substances other than those prescribed or required for medical reasons: No Advance Directives: No Advance Directives Information Provided: Yes Do you have a plan to hurt others: No Plan Patient : No Meds Allergies Allergy/AdvReac Type Severity Reaction Status Date / Time pregabalin [From LYRICA] Allergy Severe Difficulty Verified 11/01/23 00:47 Breathing sumatriptan [From IMITREX] Allergy Severe Chest Pain Verified 11/01/23 00:47 zolmitriptan [From ZOMIG] Allergy Severe Chest Pain Verified 11/01/23 00:47 morphine [MORPHINE] Allergy Intermediate STOMACH Verified 11/01/23 00:47 UPSET From ZELNORM Allergy Severe Palpitation Uncoded 11/01/23 00:47 s Home Medications ?Medication ?Instructions ?Recorded ?Confirmed ?Last Taken ?Type amlodipine 10 mg tablet 1 tab PO BEDTIME 04/12/22 08/02/22 04/11/22 History lisinopril 20 mg tablet 1.5 tab PO BEDTIME 04/12/22 08/02/22 04/11/22 History sertraline 100 mg tablet 200 mg PO BEDTIME 04/12/22 08/02/22 04/11/22 History bupropion HCl 100 mg tablet,12 hr 100 mg PO BID 08/02/22 08/02/22 Unknown History sustained-release sertraline 50 mg tablet 50 mg PO DAILY 08/02/22 08/02/22 Unknown History trazodone 100 mg tablet 0 mg PO 08/02/22 08/02/22 Unknown History Physical Exam Vital Signs: Vital Signs: Last Vital Signs Temp 99.1 F 11/01/23 14:00 Pulse 105 H 11/01/23 14:00 Resp 28 H 11/01/23 14:00 BP 158/92 H 11/01/23 14:00 Pulse Ox 89 L 11/01/23 14:00 O2 Del Method Room Air 11/01/23 14:00 BMI result Body Mass Index 45.3 Const: Other: uncomfortable appearing General: alert Orientation/consciousness: patient oriented x3 Resp: Effort & Inspection: normal respiratory effort GI: Inspection: No distended and Yes obesity Palpation (GI): Soft to palpation, Tenderness to palpation present (GI) (mild diffuse tenderness, moderate RLQ and RUQ tenderness ), no guarding and not rigid Percussion: Yes normal to percussion Skin: General skin exam: rashes and/or lesions noted and no jaundice Neuro: General: patient oriented x3 and moves all extremities Results Labs 11/01/23 01:02 11/01/23 01:02 Labs: Abnormal lab results 11/01/23 11/01/23 Range/Units 01:02 04:14 Neut % (Auto) 80.2 H (45-73) % Lymph % (Auto) 11.5 L (20-40) % Absolute Neuts (auto) 8.6 H (2.0-8.3) x10*3/uL Carbon Dioxide 21 L (22-29) mmol/L BUN 24 H (9-16) mg/dL Creatinine 2.06 H (0.5-1.4) mg/dL Random Glucose 137 H (60-115) mg/dL Urine Protein 30 (1+) H (Neg-Trace) mg/dL Short CBC 11/01/23 Range/Units 01:02 WBC 10.7 (4.8-10.8) X10*3/uL Hgb 13.0 (12.0-16.0) g/dl Hct 40.1 (37.0-47.0) % Plt Count 206 (160-400) X10*3/uL BMP 11/01/23 01:02 Sodium 138 Potassium 4.3 Chloride 107 Carbon Dioxide 21 L BUN 24 H Creatinine 2.06 H Calcium 9.4 D Liver Function 11/01/23 Range/Units 01:02 Total Bilirubin 0.3 (0.0-1.0) mg/dL Direct Bilirubin 0.1 (0.0-0.5) mg/dL AST 13 (5-31) U/L ALT 8 (0-31) U/L Alkaline Phosphatase 96 (39-117) U/L Albumin 4.6 (3.5-5.0) g/dL Urine 11/01/23 Range/Units 04:14 Urine Color Yellow Urine Appearance Cloudy Urine pH 5.5 (5.0-9.0) Ur Specific [place] 1.025 (1.005-1.025) Urine Protein 30 (1+) H (Neg-Trace) mg/dL Urine Glucose (UA) Negative (Negative) mg/dL All other labs normal. Imaging Abdomen CT scan report/results: report reviewed and image reviewed Assessment and Plan (1) Abdominal pain: Status: Acute Plan 48 year old female PMH of nephrolithiasis, depression, HTN, pulmonary AVM with acute onset RLQ abdominal pain. General surgery was consulted for possible acute cholecystitis however clinical picture and exam is not suggestive of this. She is mildly tender diffusely with increased in the RLQ and RUQ but no peritoneal signs. She has a history of appendectomy. Imaging not suggestive of acute cholecystitis and shows no acute pathology. Furthermore she has no leukocytosis. There is small amount of pneumobilia and she denies hx of ERCP but LFTs are normal. Unclear etiology of pain. Given the RUQ tenderness, recommend obtaining HIDA scan to r/o acute cholecystitis. If negative, no surgical intervention needed. Procedures Date of Service Date of Service: 11/01/23
--- NOTE | 2023-11-01 15:54 | PC.NURSE ---
pt off unit to hida scan
--- NOTE | 2023-11-01 16:42 | PC.NURSE ---
[facility] INFORMED THIS RN THAT PT WAS HAVING A LOT OF ANXIETY R/T RLQ PAIN AND BACK PAIN WHILE GETTING SCAN, THIS RN REQUESTED ATIVAN FROM PROVIDER AND ADMINISTERED 1MG IVP aTIVAN IN [facility]
[2023-11-01] MEDS: LORazepam 2 MG/ML VIAL 1 MG IVPUSH (16:43)
--- NOTE | 2023-11-01 18:40 | PC.NURSE ---
previous O2 sat 88% - this RN went to assess pt and she was sleeping, woke pt to place o2 probe on finger, o2 reading 83%, placed pt on 3L NC. pt reports having a pulmonary AVM and having normally low O2 but not that low . pt presents with no complaints of SOB or chest pain, David WILKINSON made aware - CXR ordered
== END 2023-11-01 19:55 | disposition home or self-care (01) ==
PROVIDERS: Physician Assistant Medical; Emergency Provider Emergency Medicine
DX: R10.31 Right lower quadrant pain (principal); R10.11 Right upper quadrant pain; N20.0 Calculus of kidney; N83.201 Unspecified ovarian cyst, right side; F41.9 Anxiety disorder, unspecified; Z90.710 Acquired absence of both cervix and uterus; Z79.899 Other long term (current) drug therapy; I10 Essential (primary) hypertension; Z87.442 Personal history of urinary calculi
CPT/HCPCS: 36415; 71046; 74176; 76705; 76856; 78227; 80048; 80076; 81001; 85025; 93975; 96361; 96374; 96375; 96376; 99285; A9537; J1170; J1885; J2060; J2405; J2805

== ENCOUNTER → 2023-11-01 06:27 | Outpatient (BNV) | payer OTHER, SELFPAY | PROVIDERS: Emergency Provider Emergency Medicine; Visit Provider Physician Assistant Surgical | DX: R10.9 Unspecified abdominal pain (principal) | CPT/HCPCS: 99283 ==

== ENCOUNTER 2023-11-02 15:30 | Inpatient (IN) | payer OTHER, SELFPAY ==
--- NOTE | ~2023-11-02 | XR_ITS ---
EXAMINATION: XR HIP, LEFT CLINICAL INFORMATION: Pain. COMPARISON: CT abdomen/pelvis 11/01/2023. TECHNIQUE: Two views of the left hip. FINDINGS: No acute fracture or subluxation. 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 Symmetric SI joints. Pubic symphysis and pelvic rim are maintained. No significant soft tissue abnormality. XR/XR hip LT min 2V IMPRESSION: 1. No acute fracture or subluxation. 2. 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
--- NOTE | ~2023-11-02 | US_ITS ---
EXAMINATION: ULTRASOUND RENAL WITH DOPPLER CLINICAL INFORMATION: Hypertension COMPARISON: Renal ultrasound 07/14/2022. TECHNIQUE: Real-time grayscale, color Doppler, and duplex Doppler evaluation of the kidneys and renal vasculature was performed. FINDINGS: RENAL MEASUREMENTS: Right: 12.0 x 6.0 x 5.9 cm (Sag x AP x TV) Left: 11.7 x 5.6 x 5.8 cm (Sag x AP x TV) The renal parenchyma appears normal. 6 mm nonobstructing calculus in the right lower pole. No hydronephrosis. DOPPLER INTERROGATION: AORTA: Mid aorta: 99 cm/sec RIGHT MAIN RENAL ARTERY: Proximal: 83 cm/sec Mid: 89 cm/sec Distal: 46 cm/sec LEFT MAIN RENAL ARTERY: Proximal: 144 cm/sec Mid: 69 cm/sec Distal: 30 cm/sec RENAL-AORTIC RATIO (RAR): Right: 0.9 Left: 1.5 SEGMENTAL RESISTIVE INDICES: Right: 0.69-0.74 Left: 0.71-0.77 RENAL VEINS: Right: Patent with normal waveform. Left: Patent with normal waveform. US/US renal doppler IMPRESSION: No evidence of hemodynamically significant renal artery stenosis. Nonobstructing 6 mm calculus in the right lower kidney. No hydronephrosis.
--- NOTE | ~2023-11-02 | MR_ITS ---
EXAMINATION: MR ANGIOGRAPHY ABDOMEN WITHOUT AND WITH CONTRAST CLINICAL INFORMATION: Evaluate for ischemic colitis. COMPARISON: CT abdomen and pelvis on 11/08/2023. TECHNIQUE: MR angiography of the abdomen following the administration of 20 mL Gadavist. FINDINGS: Limited evaluation of the abdominal solid organs demonstrates wall thickening of the ascending colon and possibly the distal descending colon, though this area is not completely imaged. The aorta is normal in caliber. No evidence of atherosclerotic disease. Patient motion limits evaluation of patency aside from the aorta and proximal mesenteric vessels which are all patent. MR/MR angio abdomen wo/w con IMPRESSION: 1. Limited evaluation of the abdomen demonstrates wall thickening of the ascending colon and possibly the distal descending colon, though this area is not completely imaged. 2. No evidence of hemodynamically significant stenosis of the abdominal aorta or proximal mesenteric vessels.
--- NOTE | ~2023-11-02 | US_ITS ---
EXAMINATION: US ABDOMEN LIMITED CLINICAL INFORMATION: Elevated LFTs.. COMPARISON: Ultrasound abdomen November 01, 2023 TECHNIQUE: Real-time imaging of the right upper quadrant abdominal viscera.: Doppler exam used. FINDINGS: PANCREAS: Obscured by bowel gas LIVER: Right lower liver measures 19 cm superior-inferior. The liver contour is normal. There is diffuse increased liver parenchymal echogenicity, consistent with hepatic steatosis. No focal hepatic lesion. There is no intrahepatic biliary duct dilatation seen. GALLBLADDER: Gallstones within the gallbladder. No gallbladder wall thickening or pericholecystic fluid. Negative ultrasound Sanderson's sign. COMMON BILE DUCT: Normal in caliber measuring 0.4 cm in diameter. RIGHT KIDNEY: Normal. No hydronephrosis. No renal calculi or focal parenchymal lesions. The kidney measures 10.8 cm in maximum dimension. FREE FLUID: None. US/US abdomen limited IMPRESSION: 1. Cholelithiasis. No acute change of gallbladder wall. No bile duct dilatation. 2. Diffuse fatty change of liver.
--- NOTE | ~2023-11-02 | US_ITS ---
EXAMINATION: ULTRASOUND RENAL WITH DOPPLER CLINICAL INFORMATION: Hypertension COMPARISON: Renal ultrasound 07/14/2022. TECHNIQUE: Real-time grayscale, color Doppler, and duplex Doppler evaluation of the kidneys and renal vasculature was performed. FINDINGS: RENAL MEASUREMENTS: Right: 12.0 x 6.0 x 5.9 cm (Sag x AP x TV) Left: 11.7 x 5.6 x 5.8 cm (Sag x AP x TV) The renal parenchyma appears normal. 6 mm nonobstructing calculus in the right lower pole. No hydronephrosis. DOPPLER INTERROGATION: AORTA: Mid aorta: 99 cm/sec RIGHT MAIN RENAL ARTERY: Proximal: 83 cm/sec Mid: 89 cm/sec Distal: 46 cm/sec LEFT MAIN RENAL ARTERY: Proximal: 144 cm/sec Mid: 69 cm/sec Distal: 30 cm/sec RENAL-AORTIC RATIO (RAR): Right: 0.9 Left: 1.5 SEGMENTAL RESISTIVE INDICES: Right: 0.69-0.74 Left: 0.71-0.77 RENAL VEINS: Right: Patent with normal waveform. Left: Patent with normal waveform. US/US renal BI IMPRESSION: No evidence of hemodynamically significant renal artery stenosis. Nonobstructing 6 mm calculus in the right lower kidney. No hydronephrosis.
--- NOTE | ~2023-11-02 | CT_ITS ---
EXAMINATION: CT ABDOMEN AND PELVIS WITHOUT CONTRAST CLINICAL INFORMATION: Abdominal pain/rectal bleeding, diarrhea COMPARISON: CT abdomen pelvis 05/03/2022 TECHNIQUE: Multidetector volumetric imaging was performed from the superior aspect of the liver through the pubic symphysis. Sagittal and coronal reformatted images were obtained on the technologist's workstation. This CT examination was performed using dose optimization techniques as appropriate, variously including the following: *Automated exposure control *Adjustment of mA and/or kV according to patient size (this includes techniques or standardized protocols for targeted exams where dose is matched to indication/reason for exam; i.e. extremities or head) *Use of iterative reconstruction technique DLP: 1563 mGy-cm FINDINGS: Evaluation of solid organs, vascular structures, and bowel wall limited in the absence of intravenous contrast. LUNG BASES: Posterior basilar right lower lobe intrapulmonary arteriovenous malformation. Lung bases otherwise unremarkable. LIVER AND BILIARY TREE: Unremarkable. GALLBLADDER: Unremarkable. PANCREAS: Unremarkable. SPLEEN: Unremarkable. ADRENAL GLANDS: Unremarkable. KIDNEYS AND URETERS: Nonobstructing bilateral renal calculi, measuring up to 7 mm at the right inferior pole and 3 mm at the left superior pole. No hydronephrosis.. GASTROINTESTINAL TRACT: Mild long segment circumferential wall thickening extending from the cecum through the ascending colon to the hepatic flexure, with mild pericolonic fat stranding. No extraluminal fluid collections or gas identified. High density intraluminal material measuring to 200 HU within the cecum and proximal ascending colon on noncontrast images (series 3, image 57). Scattered other small foci of high density material throughout the bowel, including the small bowel left midabdomen (series 3, image 58), and within loops of ileum in the right lower abdomen (series 3, image 52). VASCULAR: Mild aortoiliac calcific atherosclerosis. LYMPH NODES: No lymphadenopathy. PERITONEUM: No ascites. BLADDER: Unremarkable. PELVIC VISCERA: Status post hysterectomy. Right adnexal 4.4 cm simple appearing cystic lesion, unchanged from 11/01/2023 for which, if patient is asymptomatic, no follow-up imaging is recommended. ABDOMINAL AND PELVIC WALL: Unremarkable. OSSEOUS STRUCTURES: Redemonstrated moderate to severe L5-S1 disc space height loss with endplate osteophytes and vacuum phenomenon. CT/CT abdomen pelvis wo IV con IMPRESSION: 1. Mild long segment circumferential wall thickening extending from the cecum through the ascending colon to the hepatic flexure, with mild pericolonic fat stranding, suspicious for colitis, which may be infectious or inflammatory. 2. Limited assessment for active GI bleeding in the absence of intravenous contrast, though no definite evidence identified. High density intraluminal material within the cecum, proximal ascending colon, and scattered in loops of small bowel, favored to represent ingested material, as it would be denser than expected for acute blood product. 3. Incidental posterior basilar right lower lobe intrapulmonary arteriovenous malformation/fistula.
[2023-11-02 15:35] VITALS: BP 176/127; PULSE 87; O2SAT 94
--- NOTE | 2023-11-02 15:36 | ED.ABDPAIN ---
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 Mother noted patient was not answering her phone she went to patient's house and she was overdosed on a recliner. EMS gave intranasal Narcan 4 mg with good response. Patient reports she took the prescribed pain medicine that she was given here yesterday unclear how many she took because she was having significant right lower quadrant pain w/o radiation of pain. Also having severe left sided hip pain. She reports she has never had pain like this in the past. Reports no si or hi but does report severe pain that is not tollerable. Denies nausea, vomiting, headache, vision changes, dizziness, weakness, cp, sob Related Data Home Medications ?Medication ?Instructions ?Recorded ?Confirmed sertraline 100 mg tablet 200 mg PO DAILY 04/12/22 11/02/23 bupropion HCl 100 mg tablet,12 hr 100 mg PO BID 08/02/22 11/02/23 sustained-release Previous Rx's ?Medication ?Instructions ?Recorded trazodone 300 mg tablet 300 mg PO BEDTIME #14 tabs 09/16/21 oxycodone 5 mg tablet 5 mg PO Q6H PRN severe pain (scale 11/01/23 score 7-10) #12 tabs Allergies Allergy/AdvReac Type Severity Reaction Status Date / Time pregabalin [From LYRICA] Allergy Severe Difficulty Verified 11/02/23 15:44 Breathing sumatriptan [From IMITREX] Allergy Severe Chest Pain Verified 11/02/23 15:44 zolmitriptan [From ZOMIG] Allergy Severe Chest Pain Verified 11/02/23 15:44 morphine [MORPHINE] Allergy Intermediate STOMACH Verified 11/02/23 15:44 UPSET From ZELNORM Allergy Severe Palpitation Uncoded 11/01/23 00:47 s Review of Systems Review of Systems Yes all other systems are reviewed and are negative [facility] Past Medical History Attestation statement: The following information was validated with the patient. Source: old records reviewed and nursing notes reviewed Medical History (Updated 11/02/23 @ 23:36 by Zulema Allred MD) Morbid obesity IBS (irritable bowel syndrome) Hereditary hemorrhagic telangiectasia ADD (attention deficit disorder) Kidney stone Depression Hypertension Migraines Pulmonary arteriovenous malformation Surgical History Hx of cystoscopy H/O lithotripsy History of ankle surgery History of appendectomy H/O: hysterectomy Social History Social History Household Members Other:: mother Are you a primary child caregiver private home to a significant other at home: No Do you presently have visiting nurse or other home services: No Alcohol intake: unknown Patient Tobacco Use Status: Never used Tobacco Advance Directives: No Advance Directives Information Provided: No Do you have a plan to hurt others: No Plan Physical Exam ED Vital Signs: Vital Signs - 24 hr 11/02/23 15:42 11/02/23 17:44 11/02/23 18:00 Temperature 97.4 F 97.8 F Pulse Rate 87 83 86 Respiratory Rate 16 10 L 10 L Blood Pressure 107/69 119/66 140/77 H Pulse Oximetry 96 92 91 L Oxygen Delivery Method Room Air Room Air Room Air 11/02/23 20:28 Temperature 98.2 F Pulse Rate 93 Respiratory Rate 17 Blood Pressure 188/91 H Pulse Oximetry 92 Oxygen Delivery Method Room Air BMI result Body Mass Index 45.7 vss Appearance: Alert.? Oriented X3.? No acute distress.? Head: Normocephalic, atraumatic, no step-offs or deformities Eyes: Pupils equal, round and reactive to light.? Neck: Normal inspection.? Neck supple.? CVS: Normal heart rate and rhythm.? Pulses normal.? Respiratory: No respiratory distress.? Breath sounds normal.? Abdomen: Soft and RLQ pain on palpation.? Skin: Skin warm and dry.? Normal skin color.? Normal skin turgor.? Extremities: No lower extremity edema.? No calf ttp. 5/5 strength to bilateral upper and lower extremities Neuro: Oriented X 3.? No motor deficit.? No sensory deficit. CN 2-12 intact Course Reevaluation(s) Reevaluation #1: Noted significant JANAE yesterday, added CPK, acetaminophen, salicylates. Repeat labs are pending. Signed out to Dr. Caicedo. If JANAE still present I suspect patient to be admitted. Time: 16:10 Reevaluation #2: I received sign-out on this patient - accidental overdose on oxycodone and received 4 mg of intranasal Narcan with good effect - patient found to have JANAE yesterday when she presented for pain secondary to ovarian cyst - pending lab work Time: 16:17 Reevaluation #3: poison control contacted due to elevated LFTs and concerns for acetominophen toxicity - recommended Mag level at awaiting acetaminophen level Due to significantly elevated LFTs I ordered acetylcysteine for patient Time: 16:59 Additional Reevaluation(s): I spoke with Dr. Harden from GI who agreed with acetylcysteine administration and recommended admission for serial LFT checks Poison control called back and recommended continuation of acetylcysteine Patient admitted to medicine I spoke with pharmacist who ordered last dose of acetylcysteine Consultations Consultation #1: Gastroenterology Medical Decision Making Medical Decision Making MDM Narrative: 48-year-old female presents status post unintentional overdose likely on Percocet. Reports she took it due to severe right lower quadrant abdominal pain. Was seen here in this emergency department yesterday. Also complaing of left hip pain today. Upon chart review it appears as though patient had the following tests done with the listed results: - CT abdomen and pelvis: CT/CT abdomen pelvis wo IV con IMPRESSION: * No acute imaging abnormalities. Obese body habitus, hepatic steatosis and mild hepatosplenomegaly. * Bilateral nephrolithiasis. However, no evidence of ureteral stones or hydroureteronephrosis. * There appears to be minimal pneumobilia in the left lobe of the liver. Query if there is any remote history of sphincterotomy. * Abnormal tortuous vessel in the medial basal segment of the right lower lobe could represent an arteriovenous malformation. * 4 cm cyst of the right ovary has a simple appearance. No follow-up imaging recommended (if asymptomatic). -US abdomen : US/US abdomen limited IMPRESSION: * No acute sonographic abnormalities in the right upper quadrant. * Cholelithiasis without evidence of cholecystitis or biliary tract obstruction. -ultrasound pelvic ovarian Doppler: US/US pelvic ovarian doppler IMPRESSION: 1. Status post hysterectomy and left oophorectomy. 2. Benign-appearing 3.6 cm right ovarian cyst. No follow-up is needed. -NM Hepatobilliary w/ pharm: IMPRESSION: Normal HIDA scan, normal visualization of gallbladder. Normal gallbladder ejection fraction. No evidence of biliary dyskinesia. -Chest xray: XR/XR chest 2V IMPRESSION: Stable appearance of the heart and lungs. No active disease. On exam patient has significant discomfort to the right lower quadrant. History and physical exam concerning for ovarian cyst versus viral illness versus musculoskeletal pain. Unlikely acute abdomen obstruction, cholecystitis, cholangitis, pancreatitis, diverticulitis or necrotizing infection. I do not suspect ectopic or torsion. Hip pain likely osteoarthritis unlikely fracture, dislocation, necrosis. Plan- labs, urine Differential Diagnosis Differential Diagnoses: The differential diagnosis associated with the presentation includes History and physical exam concerning for ovarian cyst versus viral illness versus musculoskeletal pain. Unlikely acute abdomen obstruction, cholecystitis, cholangitis, pancreatitis, diverticulitis or necrotizing infection. I do not suspect ectopic or torsion. Hip pain likely osteoarthritis unlikely fracture, dislocation, necrosis. Given elevated LFTs there are also concerns for acetaminophen toxicity, liver failure Admission/Observation Consideration of admission/observation: Escalation of care including admission/observation considered Consult Healthcare Provider Management of the patient was discussed with: Non Licensed Operator Lab Data MDM Lab Attestation statement: I reviewed the patient's lab results. 11/02/23 16:00 11/02/23 19:52 Labs: Lab Results 11/02/23 11/02/23 11/02/23 Range/Units 16:00 19:52 19:58 WBC 14.4 H (4.8-10.8) X10*3/uL RBC 4.44 (4.20-5.50) X10*6/uL Hgb 13.0 (12.0-16.0) g/dl Hct 41.4 (37.0-47.0) % MCV 93.2 (80.0-98.0) fL MCH 29.3 (27.0-33.0) pg MCHC 31.4 (31.0-35.0) g/dl RDW 15.0 (11.0-16.0) % Plt Count 222 (160-400) X10*3/uL MPV 10.8 (9.4-12.3) fL Immature Gran % (Auto) Cancelled Neut % (Auto) Cancelled Lymph % (Auto) Cancelled [place] % (Auto) Cancelled Eos % (Auto) Cancelled Baso % (Auto) Cancelled Lymph # (Auto) Cancelled [place] # (Auto) Cancelled Eos # (Auto) Cancelled Baso # (Auto) Cancelled Abs Immat Gran (auto) Cancelled Absolute Neuts (auto) Cancelled Absolute Nucleated RBC 0.000 (0.0-0.012) X10*3/uL Nucleated RBC % (auto) 0.0 (0.0-0.2) /100WBC Neutrophils % (Manual) 82 H (45-73) % Band Neutrophils % 9 H (3-5) % Lymphocytes % (Manual) 2 L (20-40) % Monocytes % (Manual) 5 (2-11) % Metamyelocytes % 2 % Abs Neuts (Manual) 13.1 H (2.0-8.3) X10*3/uL Lymphocytes # (Manual) 0.3 L (1.2-4.9) X10*3/uL Monocytes # (Manual) 0.7 (0.1-1.2) X10*3/uL Metamyelocytes # 0.3 X10*3/uL Platelet Estimate NORMAL (NORMAL) Plt Morphology Comment NORMAL RBC Morphology NOTED Polychromasia 1+ (0-2) /OIF Tear Drop Cells 1+ (0-2) /OIF Henley Cells 1+ (0-2) /OIF Smear Tech's Comments MANUAL DIFF PT Cancelled INR Cancelled APTT Cancelled VBG pH 7.25 L (7.32-7.43) VBG pCO2 45 mmHg VBG pO2 39 mmHg VBG HCO3 20 L (22-26) mmol/L VBG O2 Saturation 62.0 % VBG Base Excess -6.6 mmol/L Sodium 140 144 (135-145) mmol/L Potassium 5.5 H D 4.8 (3.3-5.1) mmol/L Chloride 108 111 H (96-108) mmol/L Carbon Dioxide 22 22 (22-29) mmol/L Anion Gap 16 16 (12-20) BUN 16 19 H (9-16) mg/dL Creatinine 1.72 H 1.50 H (0.5-1.4) mg/dL Estim Creat Clear Calc 52.4 60.1 Estimated GFR 32 37 Random Glucose 153 H 130 H (60-115) mg/dL Lactic Acid 1.2 (0.5-2.0) mmol/L Calcium 8.9 8.2 L D (8.4-10.2) mg/dL Magnesium 2.3 (1.6-2.6) mg/dL Total Bilirubin 1.1 H 0.5 (0.0-1.0) mg/dL AST 1794 H > 4202 H (5-31) U/L ALT 1263 H 2582 H (0-31) U/L Alkaline Phosphatase 94 84 (39-117) U/L Ammonia 104 H (13-55) umol/L Total Creatine Kinase 66 (26-140) U/L Total Protein 7.4 7.1 (6.5-8.0) g/dL Albumin 4.1 3.9 (3.5-5.0) g/dL Lipase 19 (8-78) U/L Beta HCG, Quant < 2 < 2 mIU/mL Urine Color Urine Appearance Urine pH (5.0-9.0) Ur Specific [place] (1.005-1.025) Urine Protein (Neg-Trace) mg/dL Urine Glucose (UA) (Negative) mg/dL Urine Ketones (Negative) mg/dL Urine Blood (Negative) Urine Nitrite (Negative) Ur Leukocyte Esterase (Negative) Urine RBC (0-2) /HPF Urine WBC (0-5) /HPF Ur Squamous Epith Cells (0-2) /HPF Urine Bacteria (None Seen) Hyaline Casts (0-2) /LPF Ur Random Sodium mmol/L Ur Random Potassium mmol/L Ur Random Chloride mmol/L Salicylates < 5.0 L (15-30) mg/dL Urine Opiates Screen (Not Detect) Ur Buprenorphine Scrn (Not Detect) ng/mL Ur Oxycodone Screen (Not Detect) ng/mL Urine Methadone Screen (Not Detect) ng/mL Urine Fentanyl Screen (Not Detect) Acetaminophen 6 (<30) mcg/mL Ur Barbiturates Screen (Not Detect) Ur Phencyclidine Scrn (Not Detect) Ur Amphetamines Screen (Not Detect) U Benzodiazepines Scrn (Not Detect) Urine Cocaine Screen (Not Detect) U Marijuana (THC) Screen (Not Detect) 11/02/23 Range/Units 21:22 WBC (4.8-10.8) X10*3/uL RBC (4.20-5.50) X10*6/uL Hgb (12.0-16.0) g/dl Hct (37.0-47.0) % MCV (80.0-98.0) fL MCH (27.0-33.0) pg MCHC (31.0-35.0) g/dl RDW (11.0-16.0) % Plt Count (160-400) X10*3/uL MPV (9.4-12.3) fL Immature Gran % (Auto) Neut % (Auto) Lymph % (Auto) [place] % (Auto) Eos % (Auto) Baso % (Auto) Lymph # (Auto) [place] # (Auto) Eos # (Auto) Baso # (Auto) Abs Immat Gran (auto) Absolute Neuts (auto) Absolute Nucleated RBC (0.0-0.012) X10*3/uL Nucleated RBC % (auto) (0.0-0.2) /100WBC Neutrophils % (Manual) (45-73) % Band Neutrophils % (3-5) % Lymphocytes % (Manual) (20-40) % Monocytes % (Manual) (2-11) % Metamyelocytes % % Abs Neuts (Manual) (2.0-8.3) X10*3/uL Lymphocytes # (Manual) (1.2-4.9) X10*3/uL Monocytes # (Manual) (0.1-1.2) X10*3/uL Metamyelocytes # X10*3/uL Platelet Estimate (NORMAL) Plt Morphology Comment RBC Morphology Polychromasia /OIF Tear Drop Cells /OIF [place] Cells /OIF Smear Tech's Comments PT INR APTT VBG pH (7.32-7.43) VBG pCO2 mmHg VBG pO2 mmHg VBG HCO3 (22-26) mmol/L VBG O2 Saturation % VBG Base Excess mmol/L Sodium (135-145) mmol/L Potassium (3.3-5.1) mmol/L Chloride (96-108) mmol/L Carbon Dioxide (22-29) mmol/L Anion Gap (12-20) BUN (9-16) mg/dL Creatinine (0.5-1.4) mg/dL Estim Creat Clear Calc Estimated GFR Random Glucose (60-115) mg/dL Lactic Acid (0.5-2.0) mmol/L Calcium (8.4-10.2) mg/dL Magnesium (1.6-2.6) mg/dL Total Bilirubin (0.0-1.0) mg/dL AST (5-31) U/L ALT (0-31) U/L Alkaline Phosphatase (39-117) U/L Ammonia (13-55) umol/L Total Creatine Kinase (26-140) U/L Total Protein (6.5-8.0) g/dL Albumin (3.5-5.0) g/dL Lipase (8-78) U/L Beta HCG, Quant mIU/mL Urine Color Dark Yellow Urine Appearance Turbid Urine pH 5.5 (5.0-9.0) Ur Specific [place] 1.015 (1.005-1.025) Urine Protein 300 (3+) H (Neg-Trace) mg/dL Urine Glucose (UA) Negative (Negative) mg/dL Urine Ketones Trace (Negative) mg/dL Urine Blood Large (3+) H (Negative) Urine Nitrite Negative (Negative) Ur Leukocyte Esterase Trace H (Negative) Urine RBC 6-10 H (0-2) /HPF Urine WBC 11-20 H (0-5) /HPF Ur Squamous Epith Cells >20 (0-2) /HPF Urine Bacteria 2+ (None Seen) Hyaline Casts >20 (0-2) /LPF Ur Random Sodium 75.0 mmol/L Ur Random Potassium 55.2 mmol/L Ur Random Chloride 79.0 mmol/L Salicylates (15-30) mg/dL Urine Opiates Screen Not Detected (Not Detect) Ur Buprenorphine Scrn Not Detected (Not Detect) ng/mL Ur Oxycodone Screen Not Detected (Not Detect) ng/mL Urine Methadone Screen Not Detected (Not Detect) ng/mL Urine Fentanyl Screen POSITIVE H (Not Detect) Acetaminophen (<30) mcg/mL Ur Barbiturates Screen Not Detected (Not Detect) Ur Phencyclidine Scrn Not Detected (Not Detect) Ur Amphetamines Screen Not Detected (Not Detect) U Benzodiazepines Scrn Not Detected (Not Detect) Urine Cocaine Screen Not Detected (Not Detect) U Marijuana (THC) Screen Not Detected (Not Detect) Independent Interpretation I performed an independent interpretation of an: Plain X-Ray, Ultrasound and CT Scan Interpretation: Reviewed all imaging from yesterday Radiology Impression Discussion of test interpretation with radiology: I have reviewed the radiologist's reading. External Record Review External record reviewed: Office record, Outpatient record, Prior outpatient labs, Prior outpatient radiology and Outside ED record Prescription Management I considered prescription management with: Pain Medication (currently taking percoet ) Chronic Conditions Patient?s care impacted by: Hypertension and Other (obesity, ovarian cyst, ibs, add, kidney stones, migranes, depression, ) Medications Administered Generic Name Dose Route Start Last Admin Trade Name Freq PRN Reason Stop Dose Admin Enoxaparin Sodium 40 mg 11/02/23 22:00 11/02/23 22:41 Enoxaparin Sodium 40 Mg/0.4 Ml Syringe SUBCUT 40 mg Q24H MARIANGEL Administration Lactated Ringer's 1,000 mls @ 125 mls/hr 11/02/23 22:00 11/02/23 23:22 Lr IVCONT 125 mls/hr .Q8H MARIANGEL Administration Discontinued Medications Generic Name Dose Route Start Last Admin Trade Name Freq PRN Reason Stop Dose Admin Sodium Chloride 1,000 mls @ 999 mls/hr 11/02/23 16:00 11/02/23 19:00 Ns IV 11/02/23 17:00 Infused .Q1H1M MARIANGEL Infusion Sodium Chloride 1,000 mls @ 999 mls/hr 11/02/23 16:00 11/02/23 21:01 Ns IV 11/02/23 17:00 Infused .Q1H1M MARIANGEL Infusion Acetylcysteine 15,000 mg/ 275 mls @ 275 mls/hr 11/02/23 17:30 11/02/23 19:47 Dextrose IV 11/02/23 18:29 Infused ONCE ONE Infusion Acetylcysteine 5,000 mg/ 525 mls @ 125 mls/hr 11/02/23 19:33 11/02/23 20:17 Dextrose IV 11/02/23 23:47 125 mls/hr ONCE ONE Administration Ketorolac Tromethamine 30 mg 11/02/23 21:53 11/02/23 22:41 Ketorolac Tromethamine 30 Mg/Ml Vial IVPUSH 11/02/23 21:54 30 mg ONCE STA Administration Pantoprazole Sodium 40 mg 11/02/23 21:53 11/02/23 22:41 Pantoprazole Sodium 40 Mg/10 Ml Vial IVPUSH 11/02/23 21:54 40 mg ONCE STA Administration Discharge Plan Discharge Clinical Impression: Abdominal pain Qualifiers: Abdominal location: right upper quadrant Qualified Code(s): R10.11 - Right upper quadrant pain Drug overdose Qualifiers: Encounter type: initial encounter Injury intent: undetermined intent Qualified Code(s): T50.904A - Poisoning by unspecified drugs, medicaments and biological substances, undetermined, initial encounter Patient Disposition: Admitted As Inpatient
[2023-11-02 15:42] VITALS: BP 107/69; PULSE 87; RESP 16; TEMP 36.3; O2SAT 96; BMI 45.7
--- NOTE | 2023-11-02 16:04 | PC.NURSE ---
IV established, labs obtained and sent. patient unable to lay on her back d/t left hip pain. refusing rectal temperature at this time
[2023-11-02 16:08] LABS: Hematocrit 41.4 % (37.0-47.0); Mean Corpuscular HGB Conc 31.4 g/dl (31.0-35.0); Mean Corpuscular Hemoglobin 29.3 pg (27.0-33.0); Mean Corpuscular Volume 93.2 fL (80.0-98.0); Mean Platelet Volume 10.8 fL (9.4-12.3); Platelet Count 222 X10*3/uL (160-400); Red Blood Count 4.44 X10*6/uL (4.20-5.50); White Blood Count 14.4 X10*3/uL (4.8-10.8)
[2023-11-02 16:20] LABS: Alanine Aminotransferase 1263 U/L (0-31); Albumin Level 4.1 g/dL (3.5-5.0); Alkaline Phosphatase 94 U/L (39-117); Anion Gap 16 (12-20); Aspartate Amino Transferase 1794 U/L (5-31); Bilirubin Total 1.1 mg/dL (0.0-1.0); Blood Urea Nitrogen 16 mg/dL (9-16); Calcium 8.9 mg/dL (8.4-10.2); Carbon Dioxide 22 mmol/L (22-29); Chloride 108 mmol/L (96-108); Creatinine Clr Calc Pharmacy 52.4; Estimated Glomerular Filt Rate 32; Glucose Random 153 mg/dL (60-115); Lipase 19 U/L (8-78); Potassium 5.5 mmol/L (3.3-5.1); Sodium 140 mmol/L (135-145); Total Protein 7.4 g/dL (6.5-8.0)
[2023-11-02 16:30] LABS: HCG Quantitative < 2 mIU/mL
[2023-11-02] MEDS: 0.9 % Sodium Chloride 1,000 ML 999 ML IV ×2 (16:36→19:42)
--- NOTE | 2023-11-02 16:36 | PC.NURSE ---
parents at bedside, mom reports she is the one who found her. states that she spoke to her approx 10 am this morning and found her on the ground foaming at the mouth at approx 1500 unable to arouse her when she called PD.
[2023-11-02 16:52] LABS: SLIDE REVIEW MANUAL DIFF
--- NOTE | 2023-11-02 16:53 | ECG_ITS ---
Test Reason : TOX EVAL Blood Pressure : / mmHG Vent. Rate : 083 BPM Atrial Rate : 083 BPM P-R Int : 134 ms QRS Dur : 082 ms QT Int : 414 ms P-R-T Axes : 012 057 005 degrees QTc Int : 486 ms Normal sinus rhythm Nonspecific T wave changes Prolonged QT Abnormal ECG When compared with ECG of 03-MAY-2022 11:07, Vent. rate has decreased BY 41 BPM T wave inversion now evident in Inferior leads T wave inversion no longer evident in Lateral leads Referred By: Blaine Caicedo Electronically Signed By:Gage Jaramillo
[2023-11-02 16:54] LABS: Acetaminophen LAB 6 mcg/mL (<30); Salicylate < 5.0 mg/dL (15-30)
--- NOTE | 2023-11-02 16:56 | PC.NURSE ---
spoke with poison control who recommend pt/inr and magnesium, will follow up in approx an hour for results
[2023-11-02 17:01] LABS: Band Neutrophils Percent 9 % (3-5); Lymphocytes Absolute Manual 0.3 X10*3/uL (1.2-4.9); Lymphocytes Percent Manual 2 % (20-40); Metamyelocytes Absolute 0.3 X10*3/uL; Metamyelocytes Percent 2 %; Monocytes Absolute Manual 0.7 X10*3/uL (0.1-1.2); Monocytes Percent Manual 5 % (2-11); Neutrophils Absolute Manual 13.1 X10*3/uL (2.0-8.3); Neutrophils Percent Manual 82 % (45-73)
[2023-11-02 17:02] LABS: RBC Morphology NOTED
[2023-11-02 17:03] LABS: Burr Cells 1+ (0-2) /OIF; Tear Drop Cells 1+ (0-2) /OIF
[2023-11-02 17:04] LABS: Polychromasia 1+ (0-2) /OIF
[2023-11-02 17:05] LABS: Platelet Estimate NORMAL (NORMAL); Platelet Morphology Comment NORMAL
--- NOTE | 2023-11-02 17:42 | PC.NURSE ---
patient states that she also has been taking tylenol to help with pain control, unsure of amount or dose. states that she feels fine, is requesting water.
[2023-11-02 17:44] VITALS: BP 119/66; PULSE 83; RESP 10; O2SAT 92
[2023-11-02 18:00] VITALS: BP 140/77; PULSE 86; RESP 10; TEMP 36.6; O2SAT 91
[2023-11-02] MEDS: Acetylcysteine 15,000 MG in Dextrose 5 % 200 ML 275 MG IV (18:07)
--- NOTE | 2023-11-02 19:08 | PC.NURSE ---
per poison control, total of 3 bags acetylcysteine to be given first bag 50mg/kg in 500mL d5w over 4 hours second bag 200mg/kg in 1000mL d5w over 16 hours
--- NOTE | 2023-11-02 19:48 | PC.NURSE ---
CALLED PHARMACY THEY WILL BRING MEDICATION
[2023-11-02 20:06] LABS: VBG Base Excess -6.6 mmol/L; VBG HCO3 20 mmol/L (22-26); VBG pCO2 45 mmHg; VBG pH 7.25 (7.32-7.43); VBG pO2 39 mmHg
[2023-11-02 20:06] LABS: Venous Blood Gas Refer to POC result
[2023-11-02 20:15] LABS: Ammonia 104 umol/L (13-55)
[2023-11-02] MEDS: Acetylcysteine 5,000 MG in Dextrose 5 % 500 ML 125 MG IV (20:17)
[2023-11-02 20:18] LABS: Lactic Acid 1.2 mmol/L (0.5-2.0)
[2023-11-02 20:27] LABS: Albumin Level 3.9 g/dL (3.5-5.0); Alkaline Phosphatase 84 U/L (39-117); Anion Gap 16 (12-20); Bilirubin Total 0.5 mg/dL (0.0-1.0); Blood Urea Nitrogen 19 mg/dL (9-16); Calcium 8.2 mg/dL (8.4-10.2); Carbon Dioxide 22 mmol/L (22-29); Chloride 111 mmol/L (96-108); Creatinine Clr Calc Pharmacy 60.1; Estimated Glomerular Filt Rate 37; Glucose Random 130 mg/dL (60-115); Potassium 4.8 mmol/L (3.3-5.1); Sodium 144 mmol/L (135-145); Total Protein 7.1 g/dL (6.5-8.0)
[2023-11-02 20:28] VITALS: BP 188/91; PULSE 93; RESP 17; TEMP 36.8; O2SAT 92
[2023-11-02 20:28] LABS: Magnesium 2.3 mg/dL (1.6-2.6)
[2023-11-02 20:31] LABS: HCG Quantitative < 2 mIU/mL
[2023-11-02 20:42] LABS: Aspartate Amino Transferase > 4202 U/L (5-31)
[2023-11-02 20:43] LABS: Alanine Aminotransferase 2582 U/L (0-31)
--- NOTE | 2023-11-02 21:24 | PC.NURSE ---
spoke to poison control would like 3rd dose to be run at 12.5 mcg/kg/hr - 200 mg/kg in 1L of D5W TO RUN OVER 16 HOURS
[2023-11-02 21:31] LABS: Appearance Urine Turbid; Color Urine Dark Yellow; Glucose Urine UA Negative (Negative); Leukocyte Esterase Urine Trace (Negative); Nitrite Urine Negative (Negative); PH 5.5 (5.0-9.0); Specific Gravity - Urine 1.015 (1.005-1.025); UMIC TRIGGER UACC YES; Urine Blood Large (3+) (Negative); Urine Ketones Trace mg/dL (Negative); Urine Protein 300 (3+) mg/dL (Neg-Trace)
[2023-11-02 21:37] LABS: Potassium Urine Random 55.2 mmol/L
[2023-11-02 21:45] LABS: Bacteria Urine 2+ (None Seen); Hyaline Casts Urine >20 /LPF (0-2); Squamous Epithelial Cell Urine >20 /HPF (0-2); UACC Culture Trigger YES
[2023-11-02 21:46] LABS: Amphetamine Screen Urine Not Detected (Not Detect); Barbiturates, Urine Not Detected (Not Detect); Benzodiazepines Screen Urine Not Detected (Not Detect); Buprenorphine Scr Not Detected (Not Detect); Cannabinoid Screen Urine Not Detected (Not Detect); Cocaine Screen Urine Not Detected (Not Detect); Fentanyl, urine POSITIVE (Not Detect); Opiate Screen Urine Not Detected (Not Detect); Oxycodone Screen Urine Not Detected (Not Detect); Phencyclidine Screen Urine Not Detected (Not Detect)
--- NOTE | 2023-11-02 22:18 | PHA.MEDREC ---
Pharmacy Consult ? Medication Reconciliation Pharmacy has completed the medication reconciliation. Spoke to patient to confirm med list. Patient states she is no longer taking Amlodipine 10 mg at bedtime, Lisinopril 30 mg daily, Naproxen 500 mg bid prn, Ondansetron 4 mg q 8 h prn, and Phenazopyridine 100 mg tid. Patient states she was Taking Oxycodone 5 mg q 6 h prior to visit.
[2023-11-02 22:23] VITALS: BP 176/95; PULSE 90; RESP 18; TEMP 36.8; O2SAT 92
--- NOTE | 2023-11-02 22:26 | P.HPHOSP_ITS ---
History of Present Illness Date of Service: 11/02/23 Attending physician on admission: Zulema Allred Chief Complaint: Persistent right upper quadrant pain Lizabeth Cardenas is a 48 years old woman with past medical history significant for obesity, hypertension, nephrolithiasis, hysterectomy, left oophorectomy, pulmonary AVM and mood disorder presents to the emergency department for 2nd time for persistent right upper quadrant pain over the last few days associated with watery diarrhea that has been going on since Sunday. She also have nausea and vomiting. Patient mentioned that she attended a libertarian on Sunday. People who also attended the libertarian also has been having diarrhea. She reported suggestive fever. Yesterday at the emergency department she had an extensive GI evaluation including HIDA scan, abdominal CT scan and pelvic ultrasound. These studies were remarkable for cholelithiasis without cholecystitis and right ovary cyst. Her blood workup was unremarkable including LFTs. The patient was subsequently discharged home with a prescription for oxycodone. Patient denied alcohol abuse, illicit drug use or tobacco smoking. Today, around 3 PM, patient was found by her mother unconscious in her recliner. Mother noted foamy saliva, and coming out of the patient's mouth. No seizure- like activity was reported. Mother called EMS for assistance who treated her with Narcan with good response. Patient denied overdose with oxycodone or any suicide attempt. She also denied taking an overdose of acetaminophen but is not quite sure. She believes she only took 4 tablets in the last 24 hours. In the ED today, she was found stable vital signs. Her blood workup was remarkable for marked transaminitis, minimal evaluation of bilirubin and normal alk-phos. There is also leukocytosis of 14.4. Hemoglobin and platelets remain normal. Venous gas: pH of 7.24, pCO2 45 and bicarb 20. Her creatinine is 1.72 (yesterday it was 2.06) and BUN 19. AST is > 4,202, ALT 2,582, bilirubin 1.1 --> 0.5 and alk-phos of 84. Ammonia is 104. Total CK, lipase and albumin are normal. His urine drug screen is positive for fentanyl. Acetaminophen level 6. Abdominal ultrasound showed cholelithiasis without cholecystitis, no CBD dilatation and hepatic steatosis changes. ECG showed normal rate and rhythm, heart rate 83 bpm, prolonged QT 486 milliseconds no acute ischemic changes. ED tx: Mucomyst IV per poison control recommendations, NS 1 L bolus. Review of Systems 2 Review of Systems: All 12 systems were reviewed and normal except as noted in HPI. [facility] Medical History (Updated 11/02/23 @ 23:36 by Zulema Allred MD) Morbid obesity IBS (irritable bowel syndrome) Hereditary hemorrhagic telangiectasia ADD (attention deficit disorder) Kidney stone Depression Hypertension Migraines Pulmonary arteriovenous malformation Surgical History Hx of cystoscopy H/O lithotripsy History of ankle surgery History of appendectomy H/O: hysterectomy Social History Household Members Other:: mother Are you a primary critical care registered nurse to a significant other at home: No Do you presently have visiting nurse or other home services: No Alcohol intake: unknown Patient Tobacco Use Status: Never used Tobacco Advance Directives: No Advance Directives Information Provided: No Do you have a plan to hurt others: No Plan Meds Allergies Allergy/AdvReac Type Severity Reaction Status Date / Time pregabalin [From LYRICA] Allergy Severe Difficulty Verified 11/02/23 15:44 Breathing sumatriptan [From IMITREX] Allergy Severe Chest Pain Verified 11/02/23 15:44 zolmitriptan [From ZOMIG] Allergy Severe Chest Pain Verified 11/02/23 15:44 morphine [MORPHINE] Allergy Intermediate STOMACH Verified 11/02/23 15:44 UPSET From ZELNORM Allergy Severe Palpitation Uncoded 11/01/23 00:47 s Active Medications: Current Medications Enoxaparin Sodium (Enoxaparin Sodium 40 Mg/0.4 Ml Syringe) 40 mg SUBCUT Q24H MARIANGEL Acetylcysteine 5,000 mg/ (Dextrose) 525 mls @ 125 mls/hr IV ONCE ONE Stop: 11/02/23 23:47 Last Admin: 11/02/23 20:17 Dose: 125 mls/hr Lactated Ringer's (Lr) 1,000 mls @ 125 mls/hr IVCONT .Q8H MARIANGEL Acetylcysteine 10,000 mg/ (Dextrose) 1,050 mls @ 62.5 mls/hr IV ONCE ONE Stop: 11/03/23 15:01 Ibuprofen (Ibuprofen 400 Mg Tablet) 400 mg PO Q6H PRN PRN Reason: Pain, Severe (Pain Scale 7-10) Melatonin (Melatonin 3 Mg Tablet) 6 mg PO BEDTIME PRN PRN Reason: Insomnia Ondansetron HCl (Ondansetron Hcl 4 Mg/2 Ml Vial) 4 mg IVPUSH Q8H PRN PRN Reason: Nausea and Vomiting Sodium Chloride (0.9 % Sodium Chloride Flush 3 Ml Syringe) 3 ml IVFLUSH QSHIFT [facility] Home Medications ?Medication ?Instructions ?Recorded ?Confirmed ?Last Taken ?Type sertraline 100 mg tablet 200 mg PO DAILY 04/12/22 11/02/23 10/31/23 History bupropion HCl 100 mg tablet,12 hr 100 mg PO BID 08/02/22 11/02/23 10/31/23 History sustained-release Physical Exam 2 Vital Signs and Narrative: Vital Signs: Last Vital Signs Temp 98.3 F 11/02/23 22:23 Pulse 90 11/02/23 22:23 Resp 18 11/02/23 22:23 BP 176/95 H 11/02/23 22:23 Pulse Ox 92 11/02/23 22:23 O2 Del Method Room Air 11/02/23 22:23 BMI result Body Mass Index 45.7 Constitutional - Awake and Alert, No apparent distress. Looks uncomfortable due to pain. Obese. Cooperative. Pleasant. HEENT - PERRL, EOMI Heart - S1S2, RRR, No edema Lungs - Normal lung expansion, Normal respiratory effort, No respiratory distress, CTA bilaterally Abdomen - NT / ND; +BS; No rebound or guarding Extremities - no calf tenderness bilaterally, no swelling Musculoskeletal - Normal inspection, normal ROM Skin - Warm/Dry Neurological - Alert & oriented x3. No focal weakness grossly noted. Normal speech. Psychological - Depression affect Results Labs 11/02/23 16:00 11/02/23 19:52 Labs: Laboratory Results - last 24 hr 11/02/23 11/02/23 11/02/23 16:00 19:52 19:58 MCV 93.2 MCH 29.3 MCHC 31.4 RDW 15.0 Plt Count 222 MPV 10.8 Immature Gran % (Auto) Cancelled Neut % (Auto) Cancelled Lymph % (Auto) Cancelled [place] % (Auto) Cancelled Eos % (Auto) Cancelled Baso % (Auto) Cancelled Lymph # (Auto) Cancelled [place] # (Auto) Cancelled Eos # (Auto) Cancelled Baso # (Auto) Cancelled Abs Immat Gran (auto) Cancelled Absolute Neuts (auto) Cancelled Absolute Nucleated RBC 0.000 Nucleated RBC % (auto) 0.0 Neutrophils % (Manual) 82 H Band Neutrophils % 9 H Lymphocytes % (Manual) 2 L Monocytes % (Manual) 5 Metamyelocytes % 2 Abs Neuts (Manual) 13.1 H Lymphocytes # (Manual) 0.3 L Monocytes # (Manual) 0.7 Metamyelocytes # 0.3 Platelet Estimate NORMAL Plt Morphology Comment NORMAL RBC Morphology NOTED Polychromasia 1+ (0-2) Tear Drop Cells 1+ (0-2) [place] Cells 1+ (0-2) Smear Tech's Comments MANUAL DIFF VBG pH 7.25 L VBG pCO2 45 VBG pO2 39 VBG HCO3 20 L VBG O2 Saturation 62.0 VBG Base Excess -6.6 Anion Gap 16 16 Estim Creat Clear Calc 52.4 60.1 Estimated GFR 32 37 Random Glucose 153 H 130 H Lactic Acid 1.2 Calcium 8.9 8.2 L D Magnesium 2.3 Total Bilirubin 1.1 H 0.5 AST 1794 H > 4202 H ALT 1263 H 2582 H Alkaline Phosphatase 94 84 Ammonia 104 H Total Creatine Kinase 66 Total Protein 7.4 7.1 Albumin 4.1 3.9 Lipase 19 Beta HCG, Quant < 2 < 2 Urine Color Urine Appearance Urine pH Ur Specific [place] Urine Protein Urine Glucose (UA) Urine Ketones Urine Blood Urine Nitrite Ur Leukocyte Esterase Urine RBC Urine WBC Ur Squamous Epith Cells Urine Bacteria Hyaline Casts Ur Random Sodium Ur Random Potassium Ur Random Chloride Salicylates < 5.0 L Urine Opiates Screen Ur Buprenorphine Scrn Ur Oxycodone Screen Urine Fentanyl Screen Acetaminophen 6 Ur Barbiturates Screen Ur Phencyclidine Scrn Ur Amphetamines Screen U Benzodiazepines Scrn Urine Cocaine Screen U Marijuana (THC) Screen 11/02/23 21:22 MCV MCH MCHC RDW Plt Count MPV Immature Gran % (Auto) Neut % (Auto) Lymph % (Auto) [place] % (Auto) Eos % (Auto) Baso % (Auto) Lymph # (Auto) [place] # (Auto) Eos # (Auto) Baso # (Auto) Abs Immat Gran (auto) Absolute Neuts (auto) Absolute Nucleated RBC Nucleated RBC % (auto) Neutrophils % (Manual) Band Neutrophils % Lymphocytes % (Manual) Monocytes % (Manual) Metamyelocytes % Abs Neuts (Manual) Lymphocytes # (Manual) Monocytes # (Manual) Metamyelocytes # Platelet Estimate Plt Morphology Comment RBC Morphology Polychromasia Tear Drop Cells [place] Cells Smear Tech's Comments VBG pH VBG pCO2 VBG pO2 VBG HCO3 VBG O2 Saturation VBG Base Excess Anion Gap Estim Creat Clear Calc Estimated GFR Random Glucose Lactic Acid Calcium Magnesium Total Bilirubin AST ALT Alkaline Phosphatase Ammonia Total Creatine Kinase Total Protein Albumin Lipase Beta HCG, Quant Urine Color Dark Yellow Urine Appearance Turbid Urine pH 5.5 Ur Specific [place] 1.015 Urine Protein 300 (3+) H Urine Glucose (UA) Negative Urine Ketones Trace Urine Blood Large (3+) H Urine Nitrite Negative Ur Leukocyte Esterase Trace H Urine RBC 6-10 H Urine WBC 11-20 H Ur Squamous Epith Cells >20 Urine Bacteria 2+ Hyaline Casts >20 Ur Random Sodium 75.0 Ur Random Potassium 55.2 Ur Random Chloride 79.0 Salicylates Urine Opiates Screen Not Detected Ur Buprenorphine Scrn Not Detected Ur Oxycodone Screen Not Detected Urine Fentanyl Screen POSITIVE H Acetaminophen Ur Barbiturates Screen Not Detected Ur Phencyclidine Scrn Not Detected Ur Amphetamines Screen Not Detected U Benzodiazepines Scrn Not Detected Urine Cocaine Screen Not Detected U Marijuana (THC) Screen Not Detected Imaging Radiologist's Impressions: Impressions Hip X-Ray 11/02/23 16:05 IMPRESSION: 1. No acute fracture or subluxation. 2. 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 Abdomen Ultrasound 11/02/23 18:09 IMPRESSION: 1. Cholelithiasis. No acute change of gallbladder wall. No bile duct dilatation. 2. Diffuse fatty change of liver. Assessment and Plan (1) Drug overdose: Qualifiers: Encounter type: initial encounter Injury intent: undetermined intent Q ualified Code(s): T50.904A - Poisoning by unspecified drugs, medicaments and biological substances, undetermined, initial encounter Status: Acute (2) Abdominal pain: Qualifiers: Abdominal location: right upper quadrant Qualified Code(s): R10.11 - Right upper quadrant pain Status: Acute (3) Nausea vomiting and diarrhea: Status: Acute (4) Transaminitis: Status: Acute (5) JANAE (acute kidney injury): Status: Acute (6) Prolonged QT interval: Status: Acute Plan Lizabeth Cardenas is a 48 years old woman admitted with: * Elevated transaminase, normal bilirubin and alk-phos, RUQ pain, nausea, vomiting and diarrhea. ?Acetaminophen and/or oxycodone overdose (however, patient denied this). Urine drug screen positive for fentanyl (but negative to opiate or oxycodone; and other drugs). Shock/hypoxic liver after possible event of hypotension secondary to overdose? Admit to hospitalist service. Start IV fluids. Check hepatitis panel and GI panel (food poisoning?). Continue Mucomyst IV over 60 minutes hours per poison control recommendations. Continue to monitor Tylenol levels and LFTs service 6 hours. Check LDH and total CK Check INR. GI consult. * Acute kidney injury. Hypoperfusion due to possible hypotension? Start IV fluids. Continue to monitor renal function. Avoid nephrotoxic agents. * Decreased level of consciousness, resolved. Venous blood gases remarkable for respiratory acidosis. Suspecting depressed respiratory drive to oxycodone? Fentanyl use? Possible underlying obstructive sleep apnea due to obesity. Recheck venous gas. * Essential hypertension. Not currently taking antihypertensive meds. Continue to monitor BP. * Mood disorder. Sertraline, trazodone bupropion on hold due to prolonged QT (mild) and inability transaminases. * Obesity; class III. BMI 45.7 kg/m2. Weight loss. * History of pulmonary AVM. s/p portal vein embolization in 2019. DVT prophylaxis: Lovenox Code status: Full Patient will need hospitalization for at least 2 midnights for elevated transaminase, abdominal pain and possible acetaminophen overdose management with IV fluids, IV Mucomyst, further investigation and evaluation by subspecialty. Quality Stroke Does the patient have a stroke diagnosis?: No VTE Prior VTE?: No VTE Risk Level:: Medical - moderate - high VTE Device Contraindication: N/A - Device Ordered VTE Drug Contraindication: N/A - Med Ordered
[2023-11-02] MEDS: Enoxaparin Sodium 40 MG/0.4 ML SYRINGE SUBCUT (22:41)
[2023-11-02] MEDS: Pantoprazole Sodium 40 MG/10 ML VIAL IVPUSH (22:41)
[2023-11-02] MEDS: Ketorolac Tromethamine 30 MG/ML VIAL IVPUSH (22:41)
[2023-11-02 22:59] LABS: Methadone Screen, Urine Not Detected (Not Detect)
[2023-11-02 23:07] LABS: Venous Blood Gas Refer to POC result
[2023-11-02 23:08] LABS: VBG Base Excess -6.3 mmol/L; VBG HCO3 19 mmol/L (22-26); VBG pCO2 36 mmHg; VBG pH 7.32 (7.32-7.43); VBG pO2 63 mmHg
[2023-11-02 23:17] LABS: INTERNATIONAL NORM RATIO 1.2 (0.9-1.1); Prothrombin Time 15.1 SEC (11.1-13.3)
[2023-11-02] MEDS: Lactated Ringers 1,000 ML 125 ML IVCONT (23:22)
[2023-11-02 23:24] LABS: Partial Thromboplastin Time 29.4 SEC (26.0-36.8)
[2023-11-03] VITALS (13 sets, daily range): BP systolic 146–205; BP diastolic 79–110; PULSE 81–101; RESP 14–18; TEMP 36.8–37.3; O2SAT 90–95
[2023-11-03] MEDS: Acetylcysteine 10,000 MG in Dextrose 5 % 1,000 ML 62.5 MG IV ×2 (01:47→10:50)
[2023-11-03 02:18] LABS: Acetaminophen LAB < 3 mcg/mL (<30); Alanine Aminotransferase 2350 U/L (0-31); Albumin Level 3.6 g/dL (3.5-5.0); Alkaline Phosphatase 87 U/L (39-117); Anion Gap 19 (12-20); Aspartate Amino Transferase > 4202 U/L (5-31); Bilirubin Total 0.3 mg/dL (0.0-1.0); Blood Urea Nitrogen 25 mg/dL (9-16); Calcium 8.4 mg/dL (8.4-10.2); Carbon Dioxide 15 mmol/L (22-29); Chloride 110 mmol/L (96-108); Creatinine Clr Calc Pharmacy 47.7; Estimated Glomerular Filt Rate 28; Glucose Random 133 mg/dL (60-115); Potassium 4.7 mmol/L (3.3-5.1); Sodium 139 mmol/L (135-145); Total Protein 6.9 g/dL (6.5-8.0)
[2023-11-03] MEDS: Labetalol HCL 100 MG/20 ML VIAL 10 MG IVPUSH ×2 (03:08→07:25)
[2023-11-03] MEDS: amLODIPine Besylate 5 MG TABLET PO (04:11)
--- NOTE | 2023-11-03 04:56 | PC.NURSE ---
Pt A&Ox3, technical account representative reported patient's BP @ 2:25am 201/110- second check 207/100. Pt reports having a headache no chest pain-or in other areas. Notified , Labetatol 10mg and Norvasc 5mg administered BP taken at 4:44am 182/ 105. Patient reports KLEIN went away a little, I feel a little better Notified ordered to recheck BP in 2 hrs. will continue monitoring patient.
[2023-11-03] MEDS: diphenhydrAMINE HCL 50 MG/ML VIAL IVPUSH (06:18)
[2023-11-03] MEDS: hydrALAZINE HCl 25 MG TABLET PO ×2 (07:16→15:45)
[2023-11-03] MEDS: Lactated Ringers 1,000 ML 125 ML IVCONT ×3 (07:22→23:39)
[2023-11-03 08:02] LABS: MANUAL DIFF FLAG NO
[2023-11-03 08:09] LABS: Basophils Percent Auto 0.3 % (0-2); Eosinophils Percent Auto 0.1 % (0-4); Hematocrit 35.9 % (37.0-47.0); Hemoglobin 11.6 g/dl (12.0-16.0); Imm Gran Abs Auto 0.14 X10*3/uL (0.00-0.03); Imm Gran Pct Auto 1.2 % (0.0-0.4); Lymphocytes Absolute Auto 1.1 X10*3/uL (1.2-4.9); Lymphocytes Percent Auto 9.6 % (20-40); Mean Corpuscular HGB Conc 32.3 g/dl (31.0-35.0); Mean Corpuscular Hemoglobin 29.1 pg (27.0-33.0); Monocytes Absolute Auto 0.7 X10*3/uL (0.1-1.2); Monocytes Percent Auto 6.1 % (2-11); Neutrophils Absolute Auto 9.6 x10*3/uL (2.0-8.3); Neutrophils Percent Auto 82.7 % (45-73); Red Blood Count 3.99 X10*6/uL (4.20-5.50); Red Cell Distribution Width 14.6 % (11.0-16.0); White Blood Count 11.7 X10*3/uL (4.8-10.8)
[2023-11-03 08:39] LABS: Acetaminophen LAB < 3 mcg/mL (<30)
[2023-11-03 08:40] LABS: Alanine Aminotransferase 2100 U/L (0-31); Albumin Level 3.7 g/dL (3.5-5.0); Alkaline Phosphatase 90 U/L (39-117); Anion Gap 18 (12-20); Aspartate Amino Transferase > 4202 U/L (5-31); Bilirubin Total 0.4 mg/dL (0.0-1.0); Blood Urea Nitrogen 29 mg/dL (9-16); Calcium 8.2 mg/dL (8.4-10.2); Carbon Dioxide 17 mmol/L (22-29); Chloride 108 mmol/L (96-108); Creatinine Clr Calc Pharmacy 40.2; Estimated Glomerular Filt Rate 23; Glucose Random 113 mg/dL (60-115); Sodium 139 mmol/L (135-145); Total Protein 6.6 g/dL (6.5-8.0)
[2023-11-03 09:43] LABS: Mean Platelet Volume 11.6 fL (9.4-12.3); Platelet Count 126 X10*3/uL (160-400)
--- NOTE | 2023-11-03 10:01 | PC.NURSE ---
transferred from overflow, nsr on monitor, reports abd pain and headache, message sent to provider
[2023-11-03 10:03] LABS: INTERNATIONAL NORM RATIO 1.1 (0.9-1.1); Prothrombin Time 13.6 SEC (11.1-13.3)
--- NOTE | 2023-11-03 10:03 | PC.NURSE ---
provider placed pt on tele, pt moving back to main ed for tele monitoring. charge aware, report given
--- NOTE | 2023-11-03 10:28 | HO.SUDE ---
Attempted to engage pt in SUDE but she declined. Mother was at bedside. Pt also declined me leaving resource folder. I gave report to pt's nurse Dottie and left resource folder along with my contact information with her in the case that pt. changes her mind.
[2023-11-03 10:31] LABS: Gamma Glutamyl Transpeptidase 102 U/L (7-33)
[2023-11-03] MEDS: Morphine Sulfate 2 MG/ML CARTRIDGE IVPUSH ×3 (10:50→20:35)
--- NOTE | 2023-11-03 11:01 | P.PNIM_ITS ---
Subjective Subjective Date of Service: 11/03/23 Interval History: seen and examined reports headache and lower abd pain related to her ovarian cyst states that she did not intentionally overdose Review of Systems Negative except HPI/interval history. Physical Exam 2 Vital Signs: Vital Signs: Last Vital Signs Temp 98.6 F 11/03/23 06:56 Pulse 91 11/03/23 08:33 Resp 16 11/03/23 08:33 BP 157/83 H 11/03/23 08:33 Pulse Ox 92 11/03/23 08:33 O2 Del Method Room Air 11/03/23 08:33 BMI result Body Mass Index 45.7 Const: Other: General - no acute distress, appears comfortable Cardiovascular - regular rate and rhythm, S1-S2 Lungs - normal respiratory effort, clear to auscultation bilaterally, no wheezing Abdomen - soft, nontender, no rebound or guarding; no asterixis Extremities - no edema bilaterally Neuro - awake and alert, no focal deficits Objective Data Active Medications Amlodipine Besylate (Amlodipine Besylate 5 Mg Tablet) 5 mg PO DAILY [facility]; Protocol Last Admin: 11/03/23 04:11 Dose: 5 mg Documented By: LOYDA Enoxaparin Sodium (Enoxaparin Sodium 40 Mg/0.4 Ml Syringe) 40 mg SUBCUT Q24H [facility]ANGEL Last Admin: 11/02/23 22:41 Dose: 40 mg Documented By: MARIA VICTORIA Hydralazine HCl (Hydralazine Hcl 25 Mg Tablet) 25 mg PO TID [facility]; Protocol Last Admin: 11/03/23 07:16 Dose: 25 mg Documented By: LOYDA Lactated Ringer's (Lr) 1,000 mls @ 125 mls/hr IVCONT .Q8H [facility]EL Last Admin: 11/03/23 07:22 Dose: 125 mls/hr Documented By: LOYDA Acetylcysteine 10,000 mg/ (Dextrose) 800 mls @ 62.5 mls/hr IV ONCE ONE Stop: 11/03/23 22:17 Last Admin: 11/03/23 10:50 Dose: 62.5 mls/hr Documented By: YAMILEX Melatonin (Melatonin 3 Mg Tablet) 6 mg PO BEDTIME PRN PRN Reason: Insomnia Morphine Sulfate (Morphine Sulfate 2 Mg/Ml Cartridge) 2 mg IVPUSH Q6H PRN; Protocol PRN Reason: Pain, Severe (Pain Scale 7-10) Last Admin: 11/03/23 10:50 Dose: 2 mg Documented By: YAMILEX Ondansetron HCl (Ondansetron Hcl 4 Mg/2 Ml Vial) 4 mg IVPUSH Q8H PRN PRN Reason: Nausea and Vomiting Sodium Chloride (0.9 % Sodium Chloride Flush 3 Ml Syringe) 3 ml IVFLUSH QSHIFT [facility]EL Last Admin: 11/03/23 06:56 Dose: Not Given Documented By: LOYDA Non-Admin Reason: IV Running Labs 11/03/23 07:54 11/03/23 07:54 Labs: Laboratory Results - last 24 hr 11/02/23 11/02/23 11/02/23 16:00 19:52 19:58 MCV 93.2 MCH 29.3 MCHC 31.4 RDW 15.0 Plt Count 222 MPV 10.8 Immature Gran % (Auto) Cancelled Neut % (Auto) Cancelled Lymph % (Auto) Cancelled [place] % (Auto) Cancelled Eos % (Auto) Cancelled Baso % (Auto) Cancelled Lymph # (Auto) Cancelled [place] # (Auto) Cancelled Eos # (Auto) Cancelled Baso # (Auto) Cancelled Abs Immat Gran (auto) Cancelled Absolute Neuts (auto) Cancelled Absolute Nucleated RBC 0.000 Nucleated RBC % (auto) 0.0 Neutrophils % (Manual) 82 H Band Neutrophils % 9 H Lymphocytes % (Manual) 2 L Monocytes % (Manual) 5 Metamyelocytes % 2 Abs Neuts (Manual) 13.1 H Lymphocytes # (Manual) 0.3 L Monocytes # (Manual) 0.7 Metamyelocytes # 0.3 Platelet Estimate NORMAL Plt Morphology Comment NORMAL RBC Morphology NOTED Polychromasia 1+ (0-2) Tear Drop Cells 1+ (0-2) [place] Cells 1+ (0-2) Smear Tech's Comments MANUAL DIFF Hold Purple Top PT Cancelled INR Cancelled APTT Cancelled VBG pH 7.25 L VBG pCO2 45 VBG pO2 39 VBG HCO3 20 L VBG O2 Saturation 62.0 VBG Base Excess -6.6 Anion Gap 16 16 Estim Creat Clear Calc 52.4 60.1 Estimated GFR 32 37 Random Glucose 153 H 130 H Lactic Acid 1.2 Calcium 8.9 8.2 L D Magnesium 2.3 Total Bilirubin 1.1 H 0.5 GGT AST 1794 H > 4202 H ALT 1263 H 2582 H Alkaline Phosphatase 94 84 Ammonia 104 H Lactate Dehydrogenase Total Creatine Kinase 66 Total Protein 7.4 7.1 Albumin 4.1 3.9 Lipase 19 Beta HCG, Quant < 2 < 2 Hold Red Top Urine Color Urine Appearance Urine pH Ur Specific [place] Urine Protein Urine Glucose (UA) Urine Ketones Urine Blood Urine Nitrite Ur Leukocyte Esterase Urine RBC Urine WBC Ur Squamous Epith Cells Urine Bacteria Hyaline Casts Ur Random Sodium Ur Random Potassium Ur Random Chloride Salicylates < 5.0 L Urine Opiates Screen Ur Buprenorphine Scrn Ur Oxycodone Screen Urine Methadone Screen Urine Fentanyl Screen Acetaminophen 6 Ur Barbiturates Screen Ur Phencyclidine Scrn Ur Amphetamines Screen U Benzodiazepines Scrn Urine Cocaine Screen U Marijuana (THC) Screen 11/02/23 11/02/23 11/02/23 21:22 22:56 23:00 MCV MCH MCHC RDW Plt Count MPV Immature Gran % (Auto) Neut % (Auto) Lymph % (Auto) [place] % (Auto) Eos % (Auto) Baso % (Auto) Lymph # (Auto) [place] # (Auto) Eos # (Auto) Baso # (Auto) Abs Immat Gran (auto) Absolute Neuts (auto) Absolute Nucleated RBC Nucleated RBC % (auto) Neutrophils % (Manual) Band Neutrophils % Lymphocytes % (Manual) Monocytes % (Manual) Metamyelocytes % Abs Neuts (Manual) Lymphocytes # (Manual) Monocytes # (Manual) Metamyelocytes # Platelet Estimate Plt Morphology Comment RBC Morphology Polychromasia Tear Drop Cells [place] Cells Smear Tech's Comments Hold Purple Top SEE NOTE PT 15.1 H INR 1.2 H APTT 29.4 VBG pH 7.32 VBG pCO2 36 VBG pO2 63 VBG HCO3 19 L VBG O2 Saturation 89.0 VBG Base Excess -6.3 Anion Gap Estim Creat Clear Calc Estimated GFR Random Glucose Lactic Acid Calcium Magnesium Total Bilirubin GGT AST ALT Alkaline Phosphatase Ammonia Lactate Dehydrogenase > 78168 H Total Creatine Kinase 1157 H Total Protein Albumin Lipase Beta HCG, Quant Hold Red Top See Note Urine Color Dark Yellow Urine Appearance Turbid Urine pH 5.5 Ur Specific [place] 1.015 Urine Protein 300 (3+) H Urine Glucose (UA) Negative Urine Ketones Trace Urine Blood Large (3+) H Urine Nitrite Negative Ur Leukocyte Esterase Trace H Urine RBC 6-10 H Urine WBC 11-20 H Ur Squamous Epith Cells >20 Urine Bacteria 2+ Hyaline Casts >20 Ur Random Sodium 75.0 Ur Random Potassium 55.2 Ur Random Chloride 79.0 Salicylates Urine Opiates Screen Not Detected Ur Buprenorphine Scrn Not Detected Ur Oxycodone Screen Not Detected Urine Methadone Screen Not Detected Urine Fentanyl Screen POSITIVE H Acetaminophen Ur Barbiturates Screen Not Detected Ur Phencyclidine Scrn Not Detected Ur Amphetamines Screen Not Detected U Benzodiazepines Scrn Not Detected Urine Cocaine Screen Not Detected U Marijuana (THC) Screen Not Detected 11/03/23 11/03/23 11/03/23 01:20 07:54 09:53 MCV 90.0 MCH 29.1 MCHC 32.3 RDW 14.6 Plt Count 126 L D MPV 11.6 Immature Gran % (Auto) 1.2 H Neut % (Auto) 82.7 H Lymph % (Auto) 9.6 L [place] % (Auto) 6.1 Eos % (Auto) 0.1 Baso % (Auto) 0.3 Lymph # (Auto) 1.1 L [place] # (Auto) 0.7 Eos # (Auto) 0.0 Baso # (Auto) 0.0 Abs Immat Gran (auto) 0.14 H Absolute Neuts (auto) 9.6 H Absolute Nucleated RBC 0.000 Nucleated RBC % (auto) 0.0 Neutrophils % (Manual) Band Neutrophils % Lymphocytes % (Manual) Monocytes % (Manual) Metamyelocytes % Abs Neuts (Manual) Lymphocytes # (Manual) Monocytes # (Manual) Metamyelocytes # Platelet Estimate Plt Morphology Comment RBC Morphology Polychromasia Tear Drop Cells [place] Cells Smear Tech's Comments Hold Purple Top PT 13.6 H INR 1.1 APTT VBG pH VBG pCO2 VBG pO2 VBG HCO3 VBG O2 Saturation VBG Base Excess Anion Gap 19 18 Estim Creat Clear Calc 47.7 40.2 Estimated GFR 28 23 Random Glucose 133 H 113 Lactic Acid Calcium 8.4 8.2 L Magnesium Total Bilirubin 0.3 0.4 GGT 102 H AST > 4202 H > 4202 H ALT 2350 H 2100 H Alkaline Phosphatase 87 90 Ammonia Lactate Dehydrogenase Total Creatine Kinase Total Protein 6.9 6.6 Albumin 3.6 3.7 Lipase Beta HCG, Quant Hold Red Top Urine Color Urine Appearance Urine pH Ur Specific [place] Urine Protein Urine Glucose (UA) Urine Ketones Urine Blood Urine Nitrite Ur Leukocyte Esterase Urine RBC Urine WBC Ur Squamous Epith Cells Urine Bacteria Hyaline Casts Ur Random Sodium Ur Random Potassium Ur Random Chloride Salicylates Urine Opiates Screen Ur Buprenorphine Scrn Ur Oxycodone Screen Urine Methadone Screen Urine Fentanyl Screen Acetaminophen < 3 < 3 Ur Barbiturates Screen Ur Phencyclidine Scrn Ur Amphetamines Screen U Benzodiazepines Scrn Urine Cocaine Screen U Marijuana (THC) Screen Microbiology Microbiology Results: Microbiology 11/02/23 Unknown Urine Culture - Preliminary Urine clean catch - Clean Catch Midstream Culture too young to evaluate. Assessment and Plan (1) JANAE (acute kidney injury): Status: Acute (2) Acute liver failure: Status: Acute Plan 48 yo F with admitted for 1. Acute liver failure question related to tylenol - on mucomyst protocol per poison control recs GI consulted monitor LFTs and coags + cbc -- will repeat this afternoon check CPK 2. JANAE SCr continues to rise will repeat chem later today check CPK continue IVF, may need to involve nephrology if continues to rise 3. Decreased level of consciousness like related to overdose now resolved 4. HTN significantly elevated and s/p IV meds at the time of admission now improved and baseline antihypertensives 5. Obesity, class III diet and weight loss is encouraged 6. Hx of pulmonary avm s/p ablation in 2019 Full Code DVT pptx -- stop lovenox for now (platelets dropping and will need monitoring of INR) Quality Stroke Does the patient have a stroke diagnosis?: No VTE Prior VTE?: No VTE Risk Level:: Medical - moderate - high VTE Device Contraindication: N/A - Device Ordered VTE Drug Contraindication: N/A - Med Ordered
--- NOTE | 2023-11-03 12:45 | PC.NURSE ---
Patient arrived to floor at 12;45, upon arrival acetylcysteine was running at 62.5 ml/hr. There was a second order for acetylcysteine that had been discontinued that was still charted as running at 155 ml/hr. The discontinued ordered for 155 ml/hr was wasted in the MAR by this RN. Bag is currently running at 62.5 ml/hr
[2023-11-03] MEDS: ondansetron HCL 4 MG/2 ML VIAL IVPUSH (13:00)
--- NOTE | 2023-11-03 14:03 | CONS_ITS ---
DATE OF SERVICE: 11/03/2023 REFERRING PHYSICIAN: Zulema Allred MD REASON FOR CONSULTATION: Elevated liver function tests. HISTORY OF PRESENT ILLNESS: The patient is a pleasant 48-year-old woman, who was admitted to the hospital after presenting to the emergency department with complaints of right upper quadrant pain and watery diarrhea. The symptoms began several days prior to admission and she reports being at the event where other people had similar symptoms. She thought she might have had a fever, but did not have chills. She was seen in the emergency department the day before admission and had evaluation with HIDA scan, CT scan and pelvic ultrasound and lab work which showed cholelithiasis without cholecystitis and right ovary cyst. Initial liver function tests the day before admission were normal and the day of admission when she re-presented after being found by her mother unconscious at home, she was noted to have marked elevation in LFTs. She reports taking a pain pill, though she was given by a friend. She was given Narcan in the field and denied overdose of acetaminophen. In the emergency department her acetaminophen level was 6 and she was treated with Mucomyst. Tox screen was positive for fentanyl. Liver function tests were markedly elevated with transaminases in the thousands range, but normal total bilirubin and alkaline phosphatase. These have been persistently elevated, but her INR has improved and her ALT is starting to come down from 2500 to 2100. AST is still greater than 4000. GGT was obtained today, which was elevated at 102. She also had marked elevations of her LDH and CPK. PAST MEDICAL HISTORY: 1. Hypertension. 2. Nephrolithiasis. 3. Hysterectomy with left oophorectomy. 4. Pulmonary AVMs. 5. Mood disorder. 6. Depression. 7. Elevated BMI. 8. Irritable bowel syndrome. 9. Hereditary hemorrhagic telangiectasia. CURRENT MEDICATIONS: List is reviewed in the chart. ALLERGIES: MULTIPLE MEDICATION ALLERGIES ARE REVIEWED. FAMILY HISTORY: This is reviewed with the patient and is noncontributory. SOCIAL HISTORY: There is no current substance abuse prior to this episode by her report. She denies suicidal ideology. REVIEW OF SYSTEMS: SKIN: No pruritus. HEENT: Negative. CARDIOPULMONARY: She denies shortness of breath or chest pain. GASTROINTESTINAL: As above. GENITOURINARY: Negative. NEUROPSYCHIATRIC: Negative. PHYSICAL EXAMINATION: GENERAL: Shows a pleasant female, in no acute distress. VITAL SIGNS: Reviewed in electronic medical record and are stable. SKIN: Anicteric. HEENT shows no scleral icterus. NECK: Without lymphadenopathy or thyromegaly. LUNGS: Clear. HEART: Shows a regular rate and rhythm. S1, S2. No murmur. ABDOMEN: Soft without focal masses or tenderness. Bowel sounds are present. No organomegaly is noted. EXTREMITIES: Without edema. LABORATORY DATA AND IMAGING STUDIES: Reviewed. There is increased hepatic echogenicity on ultrasound consistent with hepatic steatosis. IMPRESSION: Elevated liver function tests. Her elevated liver function tests may be related to her underlying use of substances in the setting of fatty liver. There appears to be improvement in her transaminases, although the AST is still quite high. ALT seems to be improving. She has mild elevation of her GGT suggesting that there may be another source for this too and her elevated LDH and CPK suggests she may have some underlying rhabdomyolysis from being found unresponsive. I discussed with her the need to avoid substances and I would continue supportive care. She has been treated with Mucomyst for possible acetaminophen toxicity and I would continue supportive care with monitoring her transaminases as well as her INR. Thanks for asking me to see her. I will follow her in the hospital with you. MD ELIZABETH Paulino/NOLBERTO / [id number]
[2023-11-03 15:19] LABS: Hematocrit 34.3 % (37.0-47.0); Hemoglobin 11.3 g/dl (12.0-16.0); Mean Corpuscular HGB Conc 32.9 g/dl (31.0-35.0); Mean Corpuscular Volume 87.9 fL (80.0-98.0); Mean Platelet Volume 11.6 fL (9.4-12.3); Platelet Count 135 X10*3/uL (160-400); Red Cell Distribution Width 14.7 % (11.0-16.0); White Blood Count 10.6 X10*3/uL (4.8-10.8)
[2023-11-03 15:34] LABS: Alanine Aminotransferase 1915 U/L (0-31); Albumin Level 3.7 g/dL (3.5-5.0); Alkaline Phosphatase 97 U/L (39-117); Anion Gap 18 (12-20); Aspartate Amino Transferase 3242 U/L (5-31); Bilirubin Total 0.4 mg/dL (0.0-1.0); Blood Urea Nitrogen 30 mg/dL (9-16); Calcium 8.8 mg/dL (8.4-10.2); Carbon Dioxide 19 mmol/L (22-29); Chloride 107 mmol/L (96-108); Creatinine Clr Calc Pharmacy 37.9; Estimated Glomerular Filt Rate 22; Glucose Random 97 mg/dL (60-115); Potassium 3.8 mmol/L (3.3-5.1); Sodium 140 mmol/L (135-145); Total Protein 6.5 g/dL (6.5-8.0)
[2023-11-03 15:40] LABS: INTERNATIONAL NORM RATIO 1.1 (0.9-1.1); Prothrombin Time 13.2 SEC (11.1-13.3)
[2023-11-03 20:03] LABS: Alanine Aminotransferase 1716 U/L (0-31); Albumin Level 3.4 g/dL (3.5-5.0); Alkaline Phosphatase 93 U/L (39-117); Anion Gap 19 (12-20); Aspartate Amino Transferase 2409 U/L (5-31); Bilirubin Total 0.4 mg/dL (0.0-1.0); Blood Urea Nitrogen 32 mg/dL (9-16); Calcium 8.4 mg/dL (8.4-10.2); Carbon Dioxide 15 mmol/L (22-29); Chloride 110 mmol/L (96-108); Creatinine Clr Calc Pharmacy 35.1; Estimated Glomerular Filt Rate 20; Glucose Random 101 mg/dL (60-115); Potassium 4.2 mmol/L (3.3-5.1); Sodium 140 mmol/L (135-145); Total Protein 6.2 g/dL (6.5-8.0)
[2023-11-03] MEDS: 0.9 % Sodium Chloride Flush 3 ML SYRINGE IVFLUSH (20:30)
[2023-11-03] MEDS: hydrALAZINE HCl 50 MG TABLET PO ×2 (20:34→20:35)
[2023-11-04] VITALS (12 sets, daily range): BP systolic 134–201; BP diastolic 62–100; PULSE 81–96; RESP 17–20; TEMP 36.2–37.4; O2SAT 93–96
[2023-11-04] MEDS: Acetylcysteine 10,000 MG in Dextrose 5 % 1,000 ML 65.63 MG IV (00:44)
[2023-11-04] MEDS: Morphine Sulfate 2 MG/ML CARTRIDGE IVPUSH ×3 (01:01→10:33)
[2023-11-04] MEDS: 0.9 % Sodium Chloride Flush 3 ML SYRINGE IVFLUSH ×2 (01:01→23:35)
[2023-11-04] MEDS: amLODIPine Besylate 10 MG TABLET PO ×2 (01:30→20:24)
[2023-11-04 07:01] LABS: Hemoglobin 11.1 g/dl (12.0-16.0); Mean Corpuscular HGB Conc 33.6 g/dl (31.0-35.0); Mean Corpuscular Hemoglobin 29.8 pg (27.0-33.0); Mean Corpuscular Volume 88.5 fL (80.0-98.0); Mean Platelet Volume 11.6 fL (9.4-12.3); Platelet Count 123 X10*3/uL (160-400); Red Blood Count 3.73 X10*6/uL (4.20-5.50); Red Cell Distribution Width 14.6 % (11.0-16.0); White Blood Count 9.1 X10*3/uL (4.8-10.8)
[2023-11-04 07:11] LABS: Ammonia 84 umol/L (13-55)
[2023-11-04 07:20] LABS: Alanine Aminotransferase 1466 U/L (0-31); Albumin Level 3.6 g/dL (3.5-5.0); Alkaline Phosphatase 101 U/L (39-117); Anion Gap 18 (12-20); Aspartate Amino Transferase 1405 U/L (5-31); Bilirubin Total 0.6 mg/dL (0.0-1.0); Blood Urea Nitrogen 30 mg/dL (9-16); Calcium 8.6 mg/dL (8.4-10.2); Carbon Dioxide 17 mmol/L (22-29); Chloride 110 mmol/L (96-108); Creatinine Clr Calc Pharmacy 31.7; Estimated Glomerular Filt Rate 18; Glucose Random 111 mg/dL (60-115); Potassium 3.6 mmol/L (3.3-5.1); Sodium 141 mmol/L (135-145); Total Protein 6.4 g/dL (6.5-8.0)
[2023-11-04] MEDS: Lactated Ringers 1,000 ML 125 ML IVCONT (07:40)
[2023-11-04] MEDS: hydrALAZINE HCl 50 MG TABLET PO (08:45)
[2023-11-04] MEDS: ondansetron HCL 4 MG/2 ML VIAL IVPUSH ×2 (10:35→18:35)
--- NOTE | 2023-11-04 10:58 | P.PNIM_ITS ---
Subjective Subjective Date of Service: 11/04/23 Interval History: seen and examined still with right sided pain poor appetite Review of Systems Negative except HPI/interval history. Physical Exam 2 Vital Signs: Vital Signs: Last Vital Signs Temp 98.7 F 11/04/23 08:00 Pulse 90 11/04/23 08:00 Resp 18 11/04/23 08:00 BP 199/100 H 11/04/23 08:00 Pulse Ox 94 11/04/23 08:00 O2 Del Method Room Air 11/04/23 08:00 BMI result Body Mass Index 45.7 Const: Other: General - no acute distress, appears comfortable Cardiovascular - regular rate and rhythm, S1-S2 Lungs - normal respiratory effort, clear to auscultation bilaterally, no wheezing Abdomen - soft, RUQ TTP, no rebound or guarding; no asterixis Extremities - no edema bilaterally Neuro - awake and alert, no focal deficits Objective Data Active Medications Amlodipine Besylate (Amlodipine Besylate 10 Mg Tablet) 10 mg PO BEDTIME [facility]; Protocol Last Admin: 11/04/23 01:30 Dose: 10 mg Documented By: JULIO Hydralazine HCl (Hydralazine Hcl 50 Mg Tablet) 50 mg PO TID [facility]; Protocol Last Admin: 11/04/23 08:45 Dose: 50 mg Documented By: MICHELLE Lactated Ringer's (Lr) 1,000 mls @ 125 mls/hr IVCONT .Q8H [facility]ANGEL Last Admin: 11/04/23 07:40 Dose: 125 mls/hr Documented By: MICHELLE Acetylcysteine 10,000 mg/ (Dextrose) 1,050 mls @ 65.625 mls/hr IV ONCE ONE Stop: 11/04/23 15:44 Last Admin: 11/04/23 00:44 Dose: 65.63 mls/hr Documented By: JULIO Melatonin (Melatonin 3 Mg Tablet) 6 mg PO BEDTIME PRN PRN Reason: Insomnia Morphine Sulfate (Morphine Sulfate 2 Mg/Ml Cartridge) 2 mg IVPUSH Q4H PRN; Protocol PRN Reason: Pain, Severe (Pain Scale 7-10) Last Admin: 11/04/23 10:33 Dose: 2 mg Documented By: MICHELLE Ondansetron HCl (Ondansetron Hcl 4 Mg/2 Ml Vial) 4 mg IVPUSH Q8H PRN PRN Reason: Nausea and Vomiting Last Admin: 11/04/23 10:35 Dose: 4 mg Documented By: MICHELLE Sodium Chloride (0.9 % Sodium Chloride Flush 3 Ml Syringe) [facility] Last Admin: 11/04/23 01:01 Dose: 3 ml Documented By: JULIO Labs 11/04/23 06:43 11/04/23 06:43 Labs: Laboratory Results - last 24 hr 11/03/23 11/03/23 11/03/23 01:20 14:42 14:45 MCV 87.9 MCH 29.0 MCHC 32.9 RDW 14.7 Plt Count 135 L MPV 11.6 Absolute Nucleated RBC 0.000 Nucleated RBC % (auto) 0.0 PT 13.2 INR 1.1 Anion Gap 18 Estim Creat Clear Calc 37.9 Estimated GFR 22 Random Glucose 97 Calcium 8.8 D Total Bilirubin 0.4 AST 3242 H ALT 1915 H Alkaline Phosphatase 97 Ammonia Total Creatine Kinase 1399 H Total Protein 6.5 Albumin 3.7 11/03/23 11/04/23 19:23 06:43 MCV 88.5 MCH 29.8 MCHC 33.6 RDW 14.6 Plt Count 123 L MPV 11.6 Absolute Nucleated RBC 0.000 Nucleated RBC % (auto) 0.0 PT INR Anion Gap 19 18 Estim Creat Clear Calc 35.1 31.7 Estimated GFR 20 18 Random Glucose 101 111 Calcium 8.4 8.6 Total Bilirubin 0.4 0.6 AST 2409 H 1405 H ALT 1716 H 1466 H Alkaline Phosphatase 93 101 Ammonia 84 H Total Creatine Kinase Total Protein 6.2 L 6.4 L Albumin 3.4 L 3.6 Microbiology Microbiology Results: Microbiology 11/02/23 Unknown Urine Culture - Final Urine clean catch - Clean Catch Midstream Assessment and Plan (1) Acute liver failure: Status: Acute (2) JANAE (acute kidney injury): Status: Acute Plan 48 yo F with admitted for 1. Acute liver failure question related to tylenol - on mucomyst protocol per poison control recs d/w with poison control -- plan for repeat labs this afternoon and may need to continue mucomyst further pending results (typically continued until INR below 2, tylenol level negative, AST/ALT at half their peak) GI consult appreicated 2. JANAE SCr continues to rise; casts noted on initial UA -- ? ATN at this point continue IVF will consult nephrology 3. Decreased level of consciousness like related to overdose now resolved 4. HTN significantly elevated and s/p IV meds at the time of admission still significantly elevated -- d/w the patient, she was on lisinopril 40mg and norvasc 10mg, but has been intermittently complaint for now, continue norvasc, will uptitrate hydralazine to 75mg TID 5. Obesity, class III diet and weight loss is encouraged 6. Hx of pulmonary avm s/p ablation in 2019 7. Right sided abd pain initially felt secondary to recently diagnosed ovarian cyst, but pain is more pronounced in the RUQ; question related to her acute liver injury; otherwise, no evidence of a specific cause noted on imaging Full Code DVT pptx -- mechanical for now until liver stabilizes Quality Stroke Does the patient have a stroke diagnosis?: No VTE Prior VTE?: No VTE Risk Level:: Medical - moderate - high VTE Device Contraindication: N/A - Device Ordered VTE Drug Contraindication: N/A - Med Ordered
[2023-11-04] MEDS: HYDROmorphone HCl 0.5 MG/0.5 ML SYRINGE IVPUSH ×4 (12:24→23:36)
--- NOTE | 2023-11-04 12:25 | P.PNGI_ITS ---
Subjective Subjective Date of Service: 11/04/23 Interval History: some abd discomfort Critical Care Time (minutes): 0 Physical Exam 2 Vital Signs: Vital Signs: Last Vital Signs Temp 97.2 F 11/04/23 12:00 Pulse 93 11/04/23 12:00 Resp 18 11/04/23 12:00 BP 201/100 H 11/04/23 12:00 Pulse Ox 94 11/04/23 12:00 O2 Del Method Room Air 11/04/23 12:00 BMI result Body Mass Index 45.7 GI: Other: abdomen is soft and nontender Objective Data Labs 11/04/23 06:43 11/04/23 06:43 Labs: Laboratory Results - last 24 hr 11/03/23 11/03/23 11/03/23 14:42 14:45 19:23 WBC 10.6 RBC 3.90 L Hgb 11.3 L Hct 34.3 L MCV 87.9 MCH 29.0 MCHC 32.9 RDW 14.7 Plt Count 135 L MPV 11.6 Absolute Nucleated RBC 0.000 Nucleated RBC % (auto) 0.0 PT 13.2 INR 1.1 Sodium 140 140 Potassium 3.8 4.2 Chloride 107 110 H Carbon Dioxide 19 L 15 L Anion Gap 18 19 BUN 30 H 32 H Creatinine 2.38 H 2.57 H Estim Creat Clear Calc 37.9 35.1 Estimated GFR 22 20 Random Glucose 97 101 Calcium 8.8 D 8.4 Total Bilirubin 0.4 0.4 AST 3242 H 2409 H ALT 1915 H 1716 H Alkaline Phosphatase 97 93 Ammonia Total Protein 6.5 6.2 L Albumin 3.7 3.4 L 11/04/23 06:43 WBC 9.1 RBC 3.73 L Hgb 11.1 L Hct 33.0 L MCV 88.5 MCH 29.8 MCHC 33.6 RDW 14.6 Plt Count 123 L MPV 11.6 Absolute Nucleated RBC 0.000 Nucleated RBC % (auto) 0.0 PT INR Sodium 141 Potassium 3.6 Chloride 110 H Carbon Dioxide 17 L Anion Gap 18 BUN 30 H Creatinine 2.84 H Estim Creat Clear Calc 31.7 Estimated GFR 18 Random Glucose 111 Calcium 8.6 Total Bilirubin 0.6 AST 1405 H ALT 1466 H Alkaline Phosphatase 101 Ammonia 84 H Total Protein 6.4 L Albumin 3.6 Microbiology Microbiology Results: Microbiology 11/02/23 Unknown Urine clean catch - Clean Catch Midstream Urine Culture - Final Procedures Date of Service Date of Service: 11/04/23 Progress Note: A&P Assessment and plan (1) Transaminitis: Status: Acute Plan lfts improving continue supportive care Time Spent With Patient Time: Total time managing care of this patient today ____ minutes. Quality Stroke Does the patient have a stroke diagnosis?: No VTE Prior VTE?: No VTE Risk Level:: Medical - moderate - high VTE Device Contraindication: N/A - Device Ordered VTE Drug Contraindication: N/A - Med Ordered
[2023-11-04] MEDS: Lactated Ringers 1,000 ML 100 ML IVCONT (13:17)
[2023-11-04 13:23] LABS: INTERNATIONAL NORM RATIO 1.1 (0.9-1.1); Prothrombin Time 13.9 SEC (11.1-13.3)
[2023-11-04] MEDS: Labetalol HCL 100 MG/20 ML VIAL 10 MG IVPUSH (13:43)
[2023-11-04 13:54] LABS: Alanine Aminotransferase 1291 U/L (0-31); Albumin Level 3.6 g/dL (3.5-5.0); Alkaline Phosphatase 103 U/L (39-117); Anion Gap 17 (12-20); Aspartate Amino Transferase 951 U/L (5-31); Bilirubin Total 0.7 mg/dL (0.0-1.0); Blood Urea Nitrogen 29 mg/dL (9-16); Calcium 9.3 mg/dL (8.4-10.2); Carbon Dioxide 18 mmol/L (22-29); Chloride 110 mmol/L (96-108); Creatinine Clr Calc Pharmacy 33.7; Estimated Glomerular Filt Rate 19; Glucose Random 108 mg/dL (60-115); Potassium 3.6 mmol/L (3.3-5.1); Sodium 141 mmol/L (135-145); Total Protein 6.3 g/dL (6.5-8.0)
[2023-11-04] MEDS: hydrALAZINE HCl 25 MG TABLET 75 MG PO ×2 (15:05→20:22)
--- NOTE | 2023-11-04 15:16 | PM.EVENT ---
Event Note Date of Service: 11/04/23 Event Note: 48 yr old woman with JANAE over CKD Full consult to follow Time Spent With Patient Time: Total time managing care of this patient today ____ minutes.
--- NOTE | 2023-11-04 16:20 | MHC.CM.PN ---
PT REPORTS SHE LIVES WITH HER MOTHER AND IS INDEPENDENT WITH CARE SHE HAS NO DME AND NO SERVICES SHE SAYS HER PCP IS AT [facility], SHE DOES NOT KNOW THE NAME COPY OF HCP REQUESTED, SHE REPORTS HER MOTHER IS HER [facility] DCP: HOME NO SERVICES VIA PRIVATE TRANSPORT
[2023-11-05] VITALS (11 sets, daily range): BP systolic 146–200; BP diastolic 71–100; PULSE 88–107; RESP 18–20; TEMP 36.4–36.9; O2SAT 92–96
[2023-11-05] MEDS: Lactated Ringers 1,000 ML 100 ML IVCONT (01:23)
[2023-11-05] MEDS: HYDROmorphone HCl 0.5 MG/0.5 ML SYRINGE IVPUSH ×7 (02:23→21:26)
[2023-11-05] MEDS: Labetalol HCL 100 MG TABLET PO ×2 (04:01→20:31)
[2023-11-05 05:06] LABS: HBS Num1 0.12 mIU/mL (0-7.99); HBc Num1 0.24 S/CO (0.00-0.79); HBsAGNum1 0.36 S/CO (0.00-0.99); Hepatitis A Antibody IgM 0.11 Index (0-0.79); Hepatitis B Core Antibody Nonreactive (Nonreactive); Hepatitis B Surface Antigen Negative (Negative); ~HepC Num1 0.14 S/CO (0.00-0.79); ~Hepatitis A Antibody IgM Nonreactive (Nonreactive); ~Hepatitis B Surface Antibody NONREACTIVE (Nonreactive); ~Hepatitis C Antibody Nonreactive (Nonreactive)
--- NOTE | 2023-11-05 06:43 | PC.NURSE ---
Pt with elevated BP 200/94 and c/o headache. Dr Fraser notified, order for 100mg PO labetalol. Labetalol administered with positive effect, BP 151/71.
[2023-11-05 07:07] LABS: Hematocrit 33.4 % (37.0-47.0); Hemoglobin 11.3 g/dl (12.0-16.0); Mean Corpuscular HGB Conc 33.8 g/dl (31.0-35.0); Mean Corpuscular Hemoglobin 29.4 pg (27.0-33.0); Mean Platelet Volume 11.3 fL (9.4-12.3); Platelet Count 153 X10*3/uL (160-400); Red Blood Count 3.84 X10*6/uL (4.20-5.50); Red Cell Distribution Width 14.6 % (11.0-16.0); White Blood Count 7.2 X10*3/uL (4.8-10.8)
[2023-11-05 07:11] LABS: INTERNATIONAL NORM RATIO 1.1 (0.9-1.1); Prothrombin Time 13.7 SEC (11.1-13.3)
[2023-11-05 07:19] LABS: Alanine Aminotransferase 893 U/L (0-31); Albumin Level 3.5 g/dL (3.5-5.0); Alkaline Phosphatase 99 U/L (39-117); Anion Gap 15 (12-20); Aspartate Amino Transferase 326 U/L (5-31); Blood Urea Nitrogen 27 mg/dL (9-16); Calcium 9.1 mg/dL (8.4-10.2); Carbon Dioxide 20 mmol/L (22-29); Chloride 111 mmol/L (96-108); Creatinine Clr Calc Pharmacy 34.4; Estimated Glomerular Filt Rate 19; Glucose Random 106 mg/dL (60-115); Potassium 3.4 mmol/L (3.3-5.1); Sodium 143 mmol/L (135-145); Total Protein 6.2 g/dL (6.5-8.0)
[2023-11-05] MEDS: hydrALAZINE HCl 25 MG TABLET 75 MG PO ×3 (08:37→20:31)
--- NOTE | 2023-11-05 10:38 | HO.PM.IMPN ---
Subjective Subjective Date of Service: 11/05/23 Interval History: seen and examined still with right sided pain poor appetite Review of Systems Negative except HPI/interval history. Physical Exam Vital Signs: Vital Signs: Last Vital Signs Temp 97.5 F 11/05/23 07:50 Pulse 89 11/05/23 07:50 Resp 18 11/05/23 07:50 BP 180/80 H 11/05/23 07:50 Pulse Ox 94 11/05/23 07:50 O2 Del Method Room Air 11/05/23 07:50 BMI result Body Mass Index 45.7 Appearing in no acute distress lung sounds are clear to auscultation heart regular rate rhythm, clear S1, S2 positive bowel sounds, abdomen is soft, nontender neuro patient is alert x3, no focal deficits Objective Data Active Medications Amlodipine Besylate (Amlodipine Besylate 10 Mg Tablet) 10 mg PO BEDTIME [facility]; Protocol Last Admin: 11/04/23 20:24 Dose: 10 mg Documented By: LOYDA Hydralazine HCl (Hydralazine Hcl 25 Mg Tablet) 75 mg PO TID [facility]; Protocol Last Admin: 11/05/23 08:37 Dose: 75 mg Documented By: MALATHI Hydromorphone HCl (Hydromorphone Hcl 0.5 Mg/0.5 Ml Syringe) 0.5 mg IVPUSH Q3H PRN; Protocol PRN Reason: Pain, Severe (Pain Scale 7-10) Last Admin: 11/05/23 09:03 Dose: 0.5 mg Documented By: MALATHI Labetalol HCl (Labetalol Hcl 100 Mg Tablet) 100 mg PO BID [facility]; Protocol Last Admin: 11/05/23 04:01 Dose: 100 mg Documented By: ALETHEA Melatonin (Melatonin 3 Mg Tablet) 6 mg PO BEDTIME PRN PRN Reason: Insomnia Ondansetron HCl (Ondansetron Hcl 4 Mg/2 Ml Vial) 4 mg IVPUSH Q8H PRN PRN Reason: Nausea and Vomiting Last Admin: 11/04/23 18:35 Dose: 4 mg Documented By: MICHELLE Sodium Chloride (0.9 % Sodium Chloride Flush 3 Ml Syringe) [address] [facility] Last Admin: 11/05/23 08:36 Dose: Not Given Documented By: HO.PHANLYM Non-Admin Reason: IV Running Labs 11/05/23 06:46 11/05/23 06:46 Labs: Laboratory Results - last 24 hr 11/02/23 11/04/23 11/05/23 16:00 13:09 06:46 MCV 87.0 MCH 29.4 MCHC 33.8 RDW 14.6 Plt Count 153 L MPV 11.3 Absolute Nucleated RBC 0.000 Nucleated RBC % (auto) 0.0 PT 13.9 H 13.7 H INR 1.1 1.1 Anion Gap 17 15 Estim Creat Clear Calc 33.7 34.4 Estimated GFR 19 19 Random Glucose 108 106 Calcium 9.3 D 9.1 Total Bilirubin 0.7 1.0 AST 951 H 326 H ALT 1291 H 893 H Alkaline Phosphatase 103 99 Total Protein 6.3 L 6.2 L Albumin 3.6 3.5 Hepatitis A IgM Ab Nonreactive Hep Bs Antigen Negative Hep Bs Antibody NONREACTIVE Hep B Core Total Ab Nonreactive Hepatitis C Ab (EIA) Nonreactive Microbiology Microbiology Results: Microbiology 11/02/23 Unknown Urine Culture - Final Urine clean catch - Clean Catch Midstream Assessment and Plan (1) Acute liver failure: Status: Acute (2) JANAE (acute kidney injury): Status: Acute Plan 48 year old women admitted with Acute liver failure unlcear etiology at this time diff includes, tylenol, other substance, rhabdo, shock liver pt stated she took one fentanyl pill, but pt not clear with hx s/p mucomyst as per poison control AST/ALT trending down normal INR GI following JANAE, ATN creat slowly trending down continue IVF nephro consult HTN still significantly elevated, was on lisinopril 40mg and norvasc 10mg, but has been intermittently complaint for now, continue norvasc uptitrated hydralazine to 75mg TID check renal us with doppler to r/o EMMA Obesity, class III diet and weight loss is encouraged Decreased level of consciousness like related to overdose now resolved Hx of pulmonary avm s/p ablation in 2019 Right sided abd pain initially felt secondary to recently diagnosed ovarian cyst but pain is more pronounced in the RUQ question related to her acute liver injury; otherwise, no evidence of a specific cause noted on imaging Full Code DVT pptx mechanical for now until liver stabilizes Attending Dr. Matamoros Quality Stroke Does the patient have a stroke diagnosis?: No VTE Prior VTE?: No VTE Risk Level:: Medical - moderate - high VTE Device Contraindication: N/A - Device Ordered VTE Drug Contraindication: N/A - Med Ordered
--- NOTE | 2023-11-05 10:48 | MHC.CM.PN ---
Per ROUNDS discussion, Patient is not yet medically cleared for dc (monitoring LFTs); home is the goal and CM will continue to follow.
[2023-11-05] MEDS: Heparin Sodium,Porcine 5,000 UNIT/ML VIAL 5000 UNIT SUBCUT ×2 (11:15→22:07)
[2023-11-05 11:45] LABS: Adenovirus F 40/41 Not Detected (Not Detect.); Astrovirus Not Detected (Not Detect.); Campylobacter Not Detected (Not Detect.); Cryptosporidium Not Detected (Not Detect.); Cyclospora cayetanensis Not Detected (Not Detect.); E. coli EAEC Not Detected (Not Detect.); E. coli EPEC Not Detected (Not Detect.); E. coli ETEC Not Detected (Not Detect.); E. coli STEC Not Detected (Not Detect.); Entamoeba histolytica Not Detected (Not Detect.); Giardia lamblia Not Detected (Not Detect.); Norovirus GI/GII Not Detected (Not Detect.); Plesiomonas shigelloides Not Detected (Not Detect.); Rotavirus A Not Detected (Not Detect.); Salmonella Not Detected (Not Detect.); Sapovirus Not Detected (Not Detect.); Shigella sp./EIEC Not Detected (Not Detect.); Vibrio Not Detected (Not Detect.); Vibrio Cholerae Not Detected (Not Detect.); Yersinia enterocolitica Not Detected (Not Detect.)
--- NOTE | 2023-11-05 12:48 | MHC.RECOVRN ---
Received Addiction Medicine consult for substance use. Pt continues to decline meeting with Addiction/Recovery.
[2023-11-05] MEDS: 0.9 % Sodium Chloride Flush 3 ML SYRINGE IVFLUSH ×2 (14:55→20:31)
[2023-11-05] MEDS: hydrALAZINE HCl 20 MG/ML VIAL 10 MG IVPUSH (16:38)
--- NOTE | 2023-11-05 18:45 | P.CONNP_ITS ---
History of Present Illness Reason for Consult Consult date: 11/05/23 Chief Complaint Chief complaint: RUQ pain, elevated transaminitis, diarrhea History of Present Illness Narrative: Lizabeth Cardenas is a 48 year old with H/O obesity, hypertension, nephrolithiasis presentsedto the emergency department for 2nd time for persistent right upper quadrant pain over the last few days associated with watery diarrhea that has been going on since Sunday with associated nausea and vomiting. she had an extensive GI evaluation including HIDA scan, abdominal CT scan and pelvic ultrasound. These studies were remarkable for cholelithiasis without cholecystitis and right ovary cyst. Her blood workup was unremarkable including LFTs. The patient was subsequently discharged home with a prescription for oxycodone. Patient denied alcohol abuse, illicit drug use or tobacco smoking. At home around 3 PM, patient was found by her mother unconscious in her recliner. Mother noted foamy saliva, and coming out of the patient's mouth. No seizure-like activity was reported. Mother called EMS for assistance who treated her with Narcan with good response. Patient denied overdose with oxycodone or any suicide attempt. She also denied taking an overdose of acetaminophen but is not quite sure. She believes she only took 4 tablets.Her blood workup was remarkable for marked transaminitis, minimal evaluation of bilirubin and normal alk-phos. There is also leukocytosis of 14.4. Hemoglobin and platelets remain normal but had JANAE. His urine drug screen is positive for fentanyl. Acetaminophen level 6. Abdominal ultrasound showed cholelithiasis without cholecystitis, no CBD dilatation and hepatic steatosis changes. ECG showed normal rate and rhythm, heart rate 83 bpm, prolonged QT 486 milliseconds no acute ischemic changes. Mucomyst IV was given per poison control recommendations. Nephrology has been consulted to assist in her clinical care during her current hospital stay Review of Systems Review of Systems Yes all other systems are reviewed and are negative PMFSH Past Medical History Medical History (Updated 11/03/23 @ 11:18 by Juanjose Matamoros MD) Morbid obesity IBS (irritable bowel syndrome) Hereditary hemorrhagic telangiectasia ADD (attention deficit disorder) Kidney stone Depression Hypertension Migraines Pulmonary arteriovenous malformation Surgical History Surgical History Hx of cystoscopy H/O lithotripsy History of ankle surgery History of appendectomy H/O: hysterectomy Social History Social History Household Members: Family Household Members Other:: mother Housing: House Are you a primary college and career counselor to a significant other at home: No Do you presently have visiting nurse or other home services: No Alcohol intake: unknown Patient Tobacco Use Status: Never used Tobacco service: No Meds Allergies Allergy/AdvReac Type Severity Reaction Status Date / Time pregabalin [From LYRICA] Allergy Severe Difficulty Verified 11/02/23 15:44 Breathing sumatriptan [From IMITREX] Allergy Severe Chest Pain Verified 11/02/23 15:44 zolmitriptan [From ZOMIG] Allergy Severe Chest Pain Verified 11/02/23 15:44 morphine [MORPHINE] Allergy Intermediate STOMACH Verified 11/02/23 15:44 UPSET From ZELNORM Allergy Severe Palpitation Uncoded 11/01/23 00:47 s Active Medications: Current Medications Amlodipine Besylate (Amlodipine Besylate 10 Mg Tablet) 10 mg PO BEDTIME [facility]; Protocol Last Admin: 11/04/23 20:24 Dose: 10 mg Heparin Sodium (Porcine) (Heparin Sodium,Porcine 5,000 Unit/Ml Vial) 5,000 unit SUBCUT Q12H [facility] Last Admin: 11/05/23 11:15 Dose: 5,000 unit Hydralazine HCl (Hydralazine Hcl 25 Mg Tablet) 75 mg PO TID [facility]; Protocol Last Admin: 11/05/23 16:36 Dose: 75 mg Hydromorphone HCl (Hydromorphone Hcl 0.5 Mg/0.5 Ml Syringe) 0.5 mg IVPUSH Q3H PRN; Protocol PRN Reason: Pain, Severe (Pain Scale 7-10) Last Admin: 11/05/23 18:07 Dose: 0.5 mg Labetalol HCl (Labetalol Hcl 100 Mg Tablet) 100 mg PO BID [facility]; Protocol Last Admin: 11/05/23 04:01 Dose: 100 mg Melatonin (Melatonin 3 Mg Tablet) 6 mg PO BEDTIME PRN PRN Reason: Insomnia Ondansetron HCl (Ondansetron Hcl 4 Mg/2 Ml Vial) 4 mg IVPUSH Q8H PRN PRN Reason: Nausea and Vomiting Last Admin: 11/04/23 18:35 Dose: 4 mg Sodium Chloride (0.9 % Sodium Chloride Flush 3 Ml Syringe) 3 ml IVFLUSH QSHIFT [facility] Last Admin: 11/05/23 14:55 Dose: 3 ml Home Medications ?Medication ?Instructions ?Recorded ?Confirmed ?Last Taken ?Type sertraline 100 mg tablet 200 mg PO DAILY 04/12/22 11/02/23 10/31/23 History bupropion HCl 100 mg tablet,12 hr 100 mg PO BID 08/02/22 11/02/23 10/31/23 History sustained-release Physical Exam Vital Signs: Last Vital Signs Temp 97.8 F 11/05/23 17:46 Pulse 88 11/05/23 17:46 Resp 19 11/05/23 17:46 BP 170/80 H 11/05/23 17:46 Pulse Ox 96 11/05/23 17:46 O2 Del Method Room Air 11/05/23 17:46 BMI result Body Mass Index 45.7 Const General: no acute distress Eyes EOM: EOMs intact bilaterally Neck Neck: Yes supple Resp Auscultation: diminished lung sounds Cardio Rate: regular rate GI Palpation (GI): Soft to palpation Neuro General: moves all extremities Results Lab Results 11/05/23 06:46 11/05/23 06:46 Lab results: Chemistry 11/02/23 11/03/23 11/03/23 19:52 01:20 07:54 Sodium 144 139 139 Potassium 4.8 4.7 4.0 Carbon Dioxide 22 15 L 17 L BUN 19 H 25 H 29 H Creatinine 1.50 H 1.89 H 2.24 H Calcium 8.2 L D 8.4 8.2 L 11/03/23 11/03/23 11/04/23 14:45 19:23 06:43 Sodium 140 140 141 Potassium 3.8 4.2 3.6 Carbon Dioxide 19 L 15 L 17 L BUN 30 H 32 H 30 H Creatinine 2.38 H 2.57 H 2.84 H Calcium 8.8 D 8.4 8.6 11/04/23 11/05/23 13:09 06:46 Sodium 141 143 Potassium 3.6 3.4 Carbon Dioxide 18 L 20 L BUN 29 H 27 H Creatinine 2.68 H 2.62 H Calcium 9.3 D 9.1 Hematology 11/03/23 11/03/23 11/04/23 07:54 14:45 06:43 WBC 11.7 H 10.6 9.1 Hgb 11.6 L 11.3 L 11.1 L Plt Count 126 L D 135 L 123 L 11/05/23 06:46 WBC 7.2 Hgb 11.3 L Plt Count 153 L Urinalysis 11/02/23 21:22 Urine Color Dark Yellow Urine Appearance Turbid Urine pH 5.5 Ur Specific Hope 1.015 Urine Protein 300 (3+) H Urine Glucose (UA) Negative Urine Ketones Trace Urine Blood Large (3+) H Urine Nitrite Negative Ur Leukocyte Esterase Trace H Urine RBC 6-10 H Urine WBC 11-20 H Ur Squamous Epith Cells >20 Hyaline Casts >20 Assessment and Plan (1) JANAE (acute kidney injury): Status: Acute Plan JANAE likely due to tubular injury Serum creatinine not plateaued yet Work up in progress No indication for renal replacement May need renal biopsy if renal function worsen Labs AM; Shall closely follow up Procedures Date of Service Date of Service: 11/05/23
[2023-11-05] MEDS: amLODIPine Besylate 10 MG TABLET PO (20:31)
[2023-11-06] VITALS (9 sets, daily range): BP systolic 136–205; BP diastolic 78–100; PULSE 86–100; RESP 16–20; TEMP 36.1–37.1; O2SAT 94–96
[2023-11-06] MEDS: HYDROmorphone HCl 0.5 MG/0.5 ML SYRINGE IVPUSH ×8 (00:30→23:23)
[2023-11-06] MEDS: 0.9 % Sodium Chloride Flush 3 ML SYRINGE IVFLUSH ×3 (07:14→20:19)
[2023-11-06 07:15] LABS: Rheumatoid Factor < 13.0 IU/mL (<15.0)
[2023-11-06 07:17] LABS: Alanine Aminotransferase 606 U/L (0-31); Albumin Level 3.7 g/dL (3.5-5.0); Alkaline Phosphatase 101 U/L (39-117); Anion Gap 16 (12-20); Aspartate Amino Transferase 104 U/L (5-31); Bilirubin Direct 0.5 mg/dL (0.0-0.5); Bilirubin Total 1.1 mg/dL (0.0-1.0); Blood Urea Nitrogen 24 mg/dL (9-16); Calcium 9.1 mg/dL (8.4-10.2); Carbon Dioxide 20 mmol/L (22-29); Chloride 110 mmol/L (96-108); Creatinine Clr Calc Pharmacy 38.8; Estimated Glomerular Filt Rate 22; Glucose Random 107 mg/dL (60-115); Potassium 3.2 mmol/L (3.3-5.1); Sodium 143 mmol/L (135-145); Total Protein 6.5 g/dL (6.5-8.0)
[2023-11-06] MEDS: Labetalol HCL 100 MG TABLET PO ×2 (07:48→20:29)
[2023-11-06] MEDS: Potassium Chloride ER 20 MEQ TAB.ER.PRT 40 MEQ PO (07:48)
[2023-11-06] MEDS: hydrALAZINE HCl 25 MG TABLET 75 MG PO ×3 (07:49→20:29)
--- NOTE | 2023-11-06 09:16 | P.PNIM_ITS ---
Subjective Subjective Date of Service: 11/06/23 Interval History: seen and examined still with right sided pain poor appetite Review of Systems Negative except HPI/interval history. Physical Exam 2 Vital Signs: Vital Signs: Last Vital Signs Temp 97.9 F 11/06/23 07:39 Pulse 91 11/06/23 07:39 Resp 20 11/06/23 07:39 BP 140/78 H 11/06/23 07:39 Pulse Ox 95 11/06/23 07:39 O2 Del Method Room Air 11/06/23 07:39 BMI result Body Mass Index 45.7 Appearing in no acute distress lung sounds are clear to auscultation heart regular rate rhythm, clear S1, S2 positive bowel sounds, abdomen is soft, nontender neuro patient is alert x3, no focal deficits Objective Data Active Medications Amlodipine Besylate (Amlodipine Besylate 10 Mg Tablet) 10 mg PO BEDTIME [facility]; Protocol Last Admin: 11/05/23 20:31 Dose: 10 mg Documented By: TACHO Heparin Sodium (Porcine) (Heparin Sodium,Porcine 5,000 Unit/Ml Vial) 5,000 unit SUBCUT Q12H [facility] Last Admin: 11/05/23 22:07 Dose: 5,000 unit Documented By: TACHO Hydralazine HCl (Hydralazine Hcl 25 Mg Tablet) 75 mg PO TID [facility]; Protocol Last Admin: 11/06/23 07:49 Dose: 75 mg Documented By: MALATHI Hydromorphone HCl (Hydromorphone Hcl 0.5 Mg/0.5 Ml Syringe) 0.5 mg IVPUSH Q3H PRN; Protocol PRN Reason: Pain, Severe (Pain Scale 7-10) Last Admin: 11/06/23 07:14 Dose: 0.5 mg Documented By: MALATHI Labetalol HCl (Labetalol Hcl 100 Mg Tablet) 100 mg PO BID [facility]; Protocol Last Admin: 11/06/23 07:48 Dose: 100 mg Documented By: MALATHI Melatonin (Melatonin 3 Mg Tablet) 6 mg PO BEDTIME PRN PRN Reason: Insomnia Ondansetron HCl (Ondansetron Hcl 4 Mg/2 Ml Vial) 4 mg IVPUSH Q8H PRN PRN Reason: Nausea and Vomiting Last Admin: 11/04/23 18:35 Dose: 4 mg Documented By: MICHELLE Sodium Chloride (0.9 % Sodium Chloride Flush 3 Ml Syringe) 3 ml IVFLUSH QSHIFT [facility] Last Admin: 11/06/23 07:14 Dose: 3 ml Documented By: MALATHI Labs 11/05/23 06:46 11/06/23 06:29 Labs: Laboratory Results - last 24 hr 11/05/23 11/06/23 11/06/23 01:29 06:29 06:30 Hold Purple Top SEE NOTE Anion Gap 16 Estim Creat Clear Calc 38.8 Estimated GFR 22 Random Glucose 107 Calcium 9.1 Total Bilirubin 1.1 H Direct Bilirubin 0.5 AST 104 H ALT 606 H Alkaline Phosphatase 101 Total Protein 6.5 Albumin 3.7 Stl C. cayetanensis PCR Not Detected Stool Rotavirus A PCR Not Detected Stl Adenov F 40/41 PCR Not Detected Stool Astrovirus (PCR) Not Detected Stool Campylobacter PCR Not Detected Stool Cryptosporidium PCR Not Detected Stl Sh Tox Pr E STEC PCR Not Detected Stool E coli O157 PCR Not applicable Stl Enterotoxigenic E PCR Not Detected Stool EPEC (PCR) Not Detected Stool EAEC (PCR) Not Detected Stl E. histolytica PCR Not Detected Stool Giardia Lamblia PCR Not Detected Stl P. shigelloides PCR Not Detected Stool Salmonella PCR Not Detected Stool Sapovirus (PCR) Not Detected Stl Shigella/EIEC PCR Not Detected St Y.enterocolitica PCR Not Detected Stool Vibrio (PCR) Not Detected Stl Vibrio cholerae PCR Not Detected Stl Norovirus GI/GII PCR Not Detected Rheumatoid Factor < 13.0 Assessment and Plan (1) Acute liver failure: Status: Acute (2) JANAE (acute kidney injury): Status: Acute Plan 48 year old women admitted with Acute liver failure unclear etiology at this time diff includes, other substance, rhabdo, shock liver pt stated she took one fentanyl pill, but pt not clear with hx s/p mucomyst as per poison control AST/ALT trending down normal INR GI following immunology panel pending JANAE, ATN creat slowly trending down continue IVF nephro consult>no indication for renal replacement, renal biopsy if no improvment Right sided abd pain, chronic continues to have pain to ruq question related to her acute liver injury; otherwise, no evidence of a specific cause noted on any imaging will discuss with GI Hypokalemia replete and monitor HTN BP better, was on lisinopril 40mg (stopped due to janae) and norvasc 10mg, but has been intermittently compliant for now, continue norvasc hydralazine to 75mg TID check renal us with doppler to r/o EMMA Obesity, class III. BMI 45.7 diet and weight loss is encouraged Decreased level of consciousness like related to overdose now resolved Hx of pulmonary avm s/p ablation in 2019 Full Code DVT pptx heparin sc Attending Dr. Matamoros Quality Stroke Does the patient have a stroke diagnosis?: No VTE Prior VTE?: No VTE Risk Level:: Medical - moderate - high VTE Device Contraindication: N/A - Device Ordered VTE Drug Contraindication: N/A - Med Ordered
[2023-11-06] MEDS: Heparin Sodium,Porcine 5,000 UNIT/ML VIAL 5000 UNIT SUBCUT ×2 (10:57→22:24)
--- NOTE | 2023-11-06 12:14 | P.PNGI_ITS ---
Subjective Subjective Date of Service: 11/06/23 Interval History: c/o dairrhea and some r side pain Critical Care Time (minutes): 0 Physical Exam 2 Vital Signs: Vital Signs: Last Vital Signs Temp 97.9 F 11/06/23 07:39 Pulse 91 11/06/23 07:39 Resp 20 11/06/23 07:39 BP 140/78 H 11/06/23 07:39 Pulse Ox 95 11/06/23 07:39 O2 Del Method Room Air 11/06/23 07:39 BMI result Body Mass Index 45.7 Const: General: cooperative GI: Other: abdomen is soft and nontender Objective Data Labs 11/05/23 06:46 11/06/23 06:29 Labs: Laboratory Results - last 24 hr 11/06/23 11/06/23 06:29 06:30 Hold Purple Top SEE NOTE Sodium 143 Potassium 3.2 L Chloride 110 H Carbon Dioxide 20 L Anion Gap 16 BUN 24 H Creatinine 2.32 H Estim Creat Clear Calc 38.8 Estimated GFR 22 Random Glucose 107 Calcium 9.1 Total Bilirubin 1.1 H Direct Bilirubin 0.5 AST 104 H ALT 606 H Alkaline Phosphatase 101 Total Protein 6.5 Albumin 3.7 Rheumatoid Factor < 13.0 Microbiology Microbiology Results: Microbiology 11/02/23 Unknown Urine clean catch - Clean Catch Midstream Urine Culture - Final Procedures Date of Service Date of Service: 11/06/23 Progress Note: A&P Assessment and plan (1) Acute liver failure: Status: Acute Assessment and Plan: lifer function improving trial of bentyl for abd symptoms advance diet as tolerated Time Spent With Patient Time: Total time managing care of this patient today ____ minutes. Quality Stroke Does the patient have a stroke diagnosis?: No VTE Prior VTE?: No VTE Risk Level:: Medical - moderate - high VTE Device Contraindication: N/A - Device Ordered VTE Drug Contraindication: N/A - Med Ordered
--- NOTE | 2023-11-06 13:28 | P.PNNP_ITS ---
Subjective Subjective Date of Service: 11/06/23 Interval history: Events noted. All recent data reviewed; D/W hospitalist Physical Exam 2 Vital Signs: Vital Signs: Last Vital Signs Temp 96.9 F 11/06/23 12:00 Pulse 90 11/06/23 12:00 Resp 20 11/06/23 12:00 BP 160/100 H 11/06/23 12:00 Pulse Ox 95 11/06/23 12:00 O2 Del Method Room Air 11/06/23 12:00 BMI result Body Mass Index 45.7 Const: General: no acute distress Orientation/consciousness: patient oriented x3 Eyes: EOM: EOMs intact bilaterally Resp: Auscultation: diminished lung sounds Cardio: Rate: regular rate GI: Palpation (GI): Soft to palpation Neuro: General: patient oriented x3 and moves all extremities Objective Data Labs 11/05/23 06:46 11/06/23 06:29 Labs: Laboratory Results - last 24 hr 11/06/23 11/06/23 06:29 06:30 Hold Purple Top SEE NOTE Sodium 143 Potassium 3.2 L Chloride 110 H Carbon Dioxide 20 L Anion Gap 16 BUN 24 H Creatinine 2.32 H Estim Creat Clear Calc 38.8 Estimated GFR 22 Random Glucose 107 Calcium 9.1 Total Bilirubin 1.1 H Direct Bilirubin 0.5 AST 104 H ALT 606 H Alkaline Phosphatase 101 Total Protein 6.5 Albumin 3.7 Rheumatoid Factor < 13.0 Microbiology Microbiology Results: Microbiology 11/02/23 Unknown Urine clean catch - Clean Catch Midstream Urine Culture - Final Procedures Date of Service Date of Service: 11/06/23 Assessment & Plan Assessment and plan (1) JANAE (acute kidney injury): Status: Acute Plan JANAE likely due to tubular injury Serum creatinine plateaued Work up in progress No indication for renal replacement May need renal biopsy if renal function worsen Labs AM; Shall closely follow up Progress Note: Quality Stroke Does the patient have a stroke diagnosis?: No
[2023-11-06] MEDS: Dicyclomine HCl 10 MG CAPSULE 20 MG PO (17:06)
[2023-11-06] MEDS: amLODIPine Besylate 10 MG TABLET PO (20:30)
[2023-11-06] MEDS: Nystatin Ointment 15 GM TUBE 1 APPL TOPICAL (22:24)
[2023-11-07] VITALS: BP 165/78; PULSE 89; RESP 18; TEMP 36.7; O2SAT 96
[2023-11-07] MEDS: HYDROmorphone HCl 0.5 MG/0.5 ML SYRINGE IVPUSH ×7 (02:28→22:06)
[2023-11-07 03:45] VITALS: BP 182/75; PULSE 100; RESP 20; TEMP 36.3; O2SAT 95
[2023-11-07 07:06] LABS: Alanine Aminotransferase 384 U/L (0-31); Albumin Level 3.7 g/dL (3.5-5.0); Alkaline Phosphatase 92 U/L (39-117); Anion Gap 17 (12-20); Aspartate Amino Transferase 46 U/L (5-31); Bilirubin Direct 0.4 mg/dL (0.0-0.5); Bilirubin Total 0.9 mg/dL (0.0-1.0); Blood Urea Nitrogen 21 mg/dL (9-16); Calcium 8.8 mg/dL (8.4-10.2); Carbon Dioxide 20 mmol/L (22-29); Chloride 109 mmol/L (96-108); Creatinine Clr Calc Pharmacy 45.1; Estimated Glomerular Filt Rate 26; Glucose Random 103 mg/dL (60-115); Potassium 3.2 mmol/L (3.3-5.1); Sodium 143 mmol/L (135-145); Total Protein 6.4 g/dL (6.5-8.0)
[2023-11-07 07:54] VITALS: BP 160/80; PULSE 91; RESP 20; TEMP 36.2; O2SAT 97
[2023-11-07] MEDS: Dicyclomine HCl 10 MG CAPSULE 20 MG PO ×3 (08:05→15:46)
[2023-11-07] MEDS: hydrALAZINE HCl 25 MG TABLET 75 MG PO ×3 (08:05→20:24)
[2023-11-07] MEDS: Labetalol HCL 100 MG TABLET PO ×2 (08:05→20:24)
[2023-11-07] MEDS: Nystatin Ointment 15 GM TUBE 1 APPL TOPICAL ×2 (08:06→20:24)
[2023-11-07] MEDS: 0.9 % Sodium Chloride Flush 3 ML SYRINGE IVFLUSH ×3 (08:10→20:25)
--- NOTE | 2023-11-07 11:28 | P.PNIM_ITS ---
Subjective Subjective Date of Service: 11/07/23 Interval History: Being followed for elevated LFTs and right upper quadrant abdominal pain. Complaining of persistent right sided abdominal pain, chills and headache, denies not see a vomiting has not pain taking clear liquid diet, does feel hungry has been ambulating to bathroom unsteady gait, no acute events overnight. Review of Systems All other system are reviewed and are negative. Physical Exam 2 Vital Signs: Vital Signs: Last Vital Signs Temp 97.1 F 11/07/23 07:54 Pulse 91 11/07/23 07:54 Resp 20 11/07/23 07:54 BP 160/80 H 11/07/23 07:54 Pulse Ox 97 11/07/23 07:54 O2 Del Method Room Air 11/07/23 07:54 BMI result Body Mass Index 45.7 Const: Other: General awake alert x3, in no acute distress. Anicteric sclera Neck no JVD. CVS regular rate rhythm, Respiratory lungs clear to auscultation, no respiratory distress, no wheeze, no rhonchi. Gastrointestinal abdomen soft, mild right upper quadrant tenderness, bowel sounds audible, no guarding , no rigidity. Extremities no edema. Neuro non focal Skin no rash Psych appropriate affect Objective Data Active Medications Amlodipine Besylate (Amlodipine Besylate 10 Mg Tablet) 10 mg PO BEDTIME [facility]; Protocol Last Admin: 11/06/23 20:30 Dose: 10 mg Documented By: MELA Dicyclomine HCl (Dicyclomine Hcl 10 Mg Capsule) 20 mg PO TIDAC [facility] Last Admin: 11/07/23 08:05 Dose: 20 mg Documented By: MALATHI Heparin Sodium (Porcine) (Heparin Sodium,Porcine 5,000 Unit/Ml Vial) 5,000 unit SUBCUT Q12H [facility] Last Admin: 11/06/23 22:24 Dose: 5,000 unit Documented By: MELA Hydralazine HCl (Hydralazine Hcl 25 Mg Tablet) 75 mg PO TID [facility]; Protocol Last Admin: 11/07/23 08:05 Dose: 75 mg Documented By: MALATHI Hydromorphone HCl (Hydromorphone Hcl 0.5 Mg/0.5 Ml Syringe) 0.5 mg IVPUSH Q3H PRN; Protocol PRN Reason: Pain, Severe (Pain Scale 7-10) Last Admin: 11/07/23 09:44 Dose: 0.5 mg Documented By: MALATHI Labetalol HCl (Labetalol Hcl 100 Mg Tablet) 100 mg PO BID [facility]; Protocol Last Admin: 11/07/23 08:05 Dose: 100 mg Documented By: MALATHI Melatonin (Melatonin 3 Mg Tablet) 6 mg PO BEDTIME PRN PRN Reason: Insomnia Nystatin (Nystatin Ointment 15 Gm Tube) 1 appl TOPICAL BID [facility]; Protocol Last Admin: 11/07/23 08:06 Dose: 1 appl Documented By: MALATHI Ondansetron HCl (Ondansetron Hcl 4 Mg/2 Ml Vial) 4 mg IVPUSH Q8H PRN PRN Reason: Nausea and Vomiting Last Admin: 11/04/23 18:35 Dose: 4 mg Documented By: MICHELLE Sodium Chloride (0.9 % Sodium Chloride Flush 3 Ml Syringe) 3 ml IVFLUSH QSHIFT [facility] Last Admin: 11/07/23 08:10 Dose: 3 ml Documented By: MALATHI Labs 11/05/23 06:46 11/07/23 06:20 Labs: Laboratory Results - last 24 hr 11/07/23 06:20 Anion Gap 17 Estim Creat Clear Calc 45.1 Estimated GFR 26 Random Glucose 103 Calcium 8.8 Total Bilirubin 0.9 Direct Bilirubin 0.4 AST 46 H ALT 384 H Alkaline Phosphatase 92 Total Protein 6.4 L Albumin 3.7 Assessment and Plan (1) Acute liver failure: Status: Acute (2) JANAE (acute kidney injury): Status: Acute Plan 48 year old women admitted with Acute liver failure unclear etiology at this time diff includes, other substance, rhabdo, shock liver pt stated she took one fentanyl pill, but pt not clear with hx s/p mucomyst as per poison control AST/ALT gradually trending down normal INR immunology panel pending Seen by Dr. Harden he recommend to advance diet as tolerated and added Bentyl for abdominal symptoms Advance to regular diet recommend ambulation JANAE, ATN creat slowly trending down dc IVF nephro consult>no indication for renal replacement, outpatient renal follow-up Right sided abd pain, chronic continues to have pain to ruq question related to her acute liver injury; otherwise, no evidence of a specific cause noted on any imaging Hypokalemia replete and monitor HTN BP elevated on Norvasc 10 mg, labetalol 100 mg b.i.d. and hydralazine 75 mg t.i.d., was on lisinopril 40mg (stopped due to janae) renal us with doppler to r/o EMMA report pending Follow BP and adjust blood pressure medications Obesity, class III. BMI 45.7 diet and weight loss is encouraged Decreased level of consciousness like related to overdose now resolved Hx of pulmonary avm s/p ablation in 2019 Full Code DVT pptx heparin sc Patient need continued inpatient hospitalization for close monitoring of renal function and electrolytes, and waiting to tolerate diet Quality Stroke Does the patient have a stroke diagnosis?: No VTE Prior VTE?: No VTE Risk Level:: Medical - moderate - high VTE Device Contraindication: N/A - Device Ordered VTE Drug Contraindication: N/A - Med Ordered
[2023-11-07 11:43] VITALS: BP 160/70; PULSE 90; RESP 16; TEMP 36.7; O2SAT 95
--- NOTE | 2023-11-07 13:33 | P.PNNP_ITS ---
Subjective Subjective Date of Service: 11/07/23 Interval history: no acute events overnight. Serum creatinine improved Physical Exam 2 Vital Signs: Vital Signs: Last Vital Signs Temp 98.1 F 11/07/23 11:43 Pulse 90 11/07/23 11:43 Resp 16 11/07/23 11:43 BP 160/70 H 11/07/23 11:43 Pulse Ox 95 11/07/23 11:43 O2 Del Method Room Air 11/07/23 11:43 BMI result Body Mass Index 45.7 Const: General: no acute distress Orientation/consciousness: patient oriented x3 Eyes: EOM: EOMs intact bilaterally Neck: Neck: Yes supple Resp: Auscultation: diminished lung sounds Cardio: Rate: regular rate GI: Palpation (GI): Soft to palpation Neuro: General: patient oriented x3 and moves all extremities Objective Data Labs 11/05/23 06:46 11/07/23 06:20 Labs: Laboratory Results - last 24 hr 11/07/23 06:20 Sodium 143 Potassium 3.2 L Chloride 109 H Carbon Dioxide 20 L Anion Gap 17 BUN 21 H Creatinine 2.00 H Estim Creat Clear Calc 45.1 Estimated GFR 26 Random Glucose 103 Calcium 8.8 Total Bilirubin 0.9 Direct Bilirubin 0.4 AST 46 H ALT 384 H Alkaline Phosphatase 92 Total Protein 6.4 L Albumin 3.7 Microbiology Microbiology Results: Microbiology 11/02/23 Unknown Urine clean catch - Clean Catch Midstream Urine Culture - Final Procedures Date of Service Date of Service: 11/07/23 Assessment & Plan Assessment and plan (1) JANAE (acute kidney injury): Status: Acute Plan JANAE likely due to tubular injury Serum creatinine improved Work up in progress No indication for renal replacement Labs AM; Shall closely follow up Progress Note: Quality Stroke Does the patient have a stroke diagnosis?: No
[2023-11-07 15:39] LABS: Leukocytes Stool Qualitative NEGATIVE (NEGATIVE)
[2023-11-07 16:00] VITALS: BP 160/90; PULSE 82; RESP 16; TEMP 36.1; O2SAT 96
[2023-11-07 20:00] VITALS: BP 172/88; PULSE 88; RESP 22; TEMP 36.8; O2SAT 98
[2023-11-07] MEDS: amLODIPine Besylate 10 MG TABLET PO (20:24)
[2023-11-07] MEDS: Melatonin 3 MG TABLET 6 MG PO (22:11)
[2023-11-08] VITALS (7 sets, daily range): BP systolic 172–187; BP diastolic 68–87; PULSE 82–95; RESP 18–20; TEMP 36–36.8; O2SAT 95–97
[2023-11-08] MEDS: HYDROmorphone HCl 0.5 MG/0.5 ML SYRINGE IVPUSH ×6 (01:17→20:11)
[2023-11-08] MEDS: Loperamide HCl 2 MG CAPSULE PO (01:43)
[2023-11-08 07:29] LABS: Alanine Aminotransferase 258 U/L (0-31); Albumin Level 3.8 g/dL (3.5-5.0); Alkaline Phosphatase 86 U/L (39-117); Anion Gap 18 (12-20); Aspartate Amino Transferase 31 U/L (5-31); Bilirubin Direct 0.3 mg/dL (0.0-0.5); Bilirubin Total 0.8 mg/dL (0.0-1.0); Blood Urea Nitrogen 20 mg/dL (9-16); Carbon Dioxide 19 mmol/L (22-29); Chloride 107 mmol/L (96-108); Creatinine Clr Calc Pharmacy 47.2; Estimated Glomerular Filt Rate 28; Glucose Random 116 mg/dL (60-115); Sodium 141 mmol/L (135-145); Total Protein 6.4 g/dL (6.5-8.0)
[2023-11-08 07:34] LABS: Potassium 2.8 mmol/L (3.3-5.1)
[2023-11-08] MEDS: Potassium Chloride ER 20 MEQ TAB.ER.PRT 60 MEQ PO (08:12)
[2023-11-08] MEDS: hydrALAZINE HCl 25 MG TABLET 75 MG PO ×2 (08:13→20:08)
[2023-11-08] MEDS: Labetalol HCL 100 MG TABLET PO ×2 (08:13→20:08)
[2023-11-08] MEDS: Dicyclomine HCl 10 MG CAPSULE 20 MG PO ×2 (08:13→12:02)
[2023-11-08] MEDS: 0.9 % Sodium Chloride Flush 3 ML SYRINGE IVFLUSH ×2 (08:15→15:58)
[2023-11-08] MEDS: Nystatin Ointment 15 GM TUBE 1 APPL TOPICAL ×2 (08:15→20:21)
--- NOTE | 2023-11-08 09:01 | P.PNNP_ITS ---
Subjective Subjective Date of Service: 11/08/23 Interval history: no acute events overnight. Serum creatinine improved Physical Exam 2 Vital Signs: Vital Signs: Last Vital Signs Temp 98.2 F 11/08/23 07:57 Pulse 82 11/08/23 07:57 Resp 19 11/08/23 07:57 BP 172/84 H 11/08/23 07:57 Pulse Ox 97 11/08/23 07:57 O2 Del Method Room Air 11/08/23 07:57 BMI result Body Mass Index 45.7 Const: General: no acute distress Orientation/consciousness: patient oriented x3 Eyes: EOM: EOMs intact bilaterally Neck: Neck: Yes supple Resp: Auscultation: diminished lung sounds Cardio: Rate: regular rate GI: Palpation (GI): Soft to palpation Neuro: General: patient oriented x3 and moves all extremities Objective Data Labs 11/05/23 06:46 11/08/23 05:56 Labs: Laboratory Results - last 24 hr 11/07/23 11/08/23 12:34 05:56 Sodium 141 Potassium 2.8 L* Chloride 107 Carbon Dioxide 19 L Anion Gap 18 BUN 20 H Creatinine 1.91 H Estim Creat Clear Calc 47.2 Estimated GFR 28 Random Glucose 116 H Calcium 9.0 Total Bilirubin 0.8 Direct Bilirubin 0.3 AST 31 ALT 258 H Alkaline Phosphatase 86 Total Protein 6.4 L Albumin 3.8 Stool Leukocytes, Qual NEGATIVE Microbiology Microbiology Results: Microbiology 11/02/23 Unknown Urine clean catch - Clean Catch Midstream Urine Culture - Final Procedures Date of Service Date of Service: 11/08/23 Assessment & Plan Assessment and plan (1) JANAE (acute kidney injury): Status: Acute Plan JANAE likely due to tubular injury Serum creatinine improved No indication for renal replacement Shall closely follow up in the office if D/Jovan Progress Note: Quality Stroke Does the patient have a stroke diagnosis?: No
--- NOTE | 2023-11-08 10:36 | P.PNGI_ITS ---
Subjective Subjective Date of Service: 11/08/23 Interval History: c/o diarrhea Critical Care Time (minutes): 0 Physical Exam 2 Vital Signs: Vital Signs: Last Vital Signs Temp 98.2 F 11/08/23 07:57 Pulse 82 11/08/23 07:57 Resp 19 11/08/23 07:57 BP 172/84 H 11/08/23 07:57 Pulse Ox 97 11/08/23 07:57 O2 Del Method Room Air 11/08/23 07:57 BMI result Body Mass Index 45.7 GI: Other: abdomen is soft and nontender Objective Data Labs 11/05/23 06:46 11/08/23 05:56 Microbiology Microbiology Results: Microbiology 11/02/23 Unknown Urine clean catch - Clean Catch Midstream Urine Culture - Final Procedures Date of Service Date of Service: 11/08/23 Progress Note: A&P Assessment and plan (1) Acute liver failure: Status: Acute Assessment and Plan: liver tests improved stool testing negative advised imodium and probiotics for diarrhea outpatient colonoscopy to be arranged. Time Spent With Patient Time: Total time managing care of this patient today ____ minutes. Quality Stroke Does the patient have a stroke diagnosis?: No VTE Prior VTE?: No VTE Risk Level:: Medical - moderate - high VTE Device Contraindication: N/A - Device Ordered VTE Drug Contraindication: N/A - Med Ordered
[2023-11-08 10:59] LABS: Complement C3 107 mg/dL (83-193)
[2023-11-08] MEDS: Potassium Chloride ER 20 MEQ TAB.ER.PRT 40 MEQ PO (12:02)
[2023-11-08] MEDS: LORazepam 0.5 MG TABLET PO ×2 (13:06→21:07)
--- NOTE | 2023-11-08 13:09 | HO.PM.IMPN ---
Subjective Subjective Date of Service: 11/08/23 Interval History: Being followed for elevated LFTs, right upper quadrant abdominal pain and JANAE. Complaining of persistent diarrhea black color stool 3-4 per day, around 13:00 noted to have bright red blood per rectum, with persistent right upper quadrant and now left lower quadrant abdominal pain Denies fever, no chills complaining of decreased appetite, no prior history of rectal bleed, denies nausea, no vomiting, no hematemesis, not on NSAIDs. Feels anxious. Review of Systems All other systems are reviewed and negative. Physical Exam Vital Signs: Vital Signs: Last Vital Signs Temp 98.2 F 11/08/23 07:57 Pulse 82 11/08/23 07:57 Resp 19 11/08/23 07:57 BP 172/84 H 11/08/23 07:57 Pulse Ox 97 11/08/23 07:57 O2 Del Method Room Air 11/08/23 07:57 BMI result Body Mass Index 45.7 Const: Other: General awake alert x3, anxious, in no acute distress. Anicteric sclera Neck no JVD. CVS regular rate rhythm, Respiratory lungs clear to auscultation, no respiratory distress, no wheeze, no rhonchi. Gastrointestinal abdomen soft, right upper quadrant tenderness with palpation, left lower quadrant abdominal tenderness to palpation, no masses, bowel sounds audible, no guarding , no rigidity. Extremities no edema. Neuro non focal Skin no rash Psych anxious Objective Data Active Medications Amlodipine Besylate (Amlodipine Besylate 10 Mg Tablet) 10 mg PO BEDTIME [facility]; Protocol Last Admin: 11/07/23 20:24 Dose: 10 mg Documented By: MELA Dicyclomine HCl (Dicyclomine Hcl 10 Mg Capsule) 20 mg PO TIDAC [facility] Last Admin: 11/08/23 12:02 Dose: 20 mg Documented By: LEONOR Heparin Sodium (Porcine) (Heparin Sodium,Porcine 5,000 Unit/Ml Vial) 5,000 unit SUBCUT Q12H [facility] Last Admin: 11/08/23 12:05 Dose: Not Given Documented By: LEONOR Non-Admin Reason: Patient Refused Hydralazine HCl (Hydralazine Hcl 25 Mg Tablet) 75 mg PO TID [facility]; Protocol Last Admin: 11/08/23 08:13 Dose: 75 mg Documented By: LEONOR Hydromorphone HCl (Hydromorphone Hcl 0.5 Mg/0.5 Ml Syringe) 0.5 mg IVPUSH Q3H PRN; Protocol PRN Reason: Pain, Severe (Pain Scale 7-10) Last Admin: 11/08/23 12:01 Dose: 0.5 mg Documented By: LEONOR Labetalol HCl (Labetalol Hcl 100 Mg Tablet) 100 mg PO BID [facility]; Protocol Last Admin: 11/08/23 08:13 Dose: 100 mg Documented By: LEONOR Lorazepam (Lorazepam 0.5 Mg Tablet) 0.5 mg PO Q8H PRN PRN Reason: anxiety Last Admin: 11/08/23 13:06 Dose: 0.5 mg Documented By: LEONOR Melatonin (Melatonin 3 Mg Tablet) 6 mg PO BEDTIME PRN PRN Reason: Insomnia Last Admin: 11/07/23 22:11 Dose: 6 mg Documented By: MELA Nystatin (Nystatin Ointment 15 Gm Tube) 1 appl TOPICAL BID [facility]; Protocol Last Admin: 11/08/23 08:15 Dose: 1 appl Documented By: LEONOR Ondansetron HCl (Ondansetron Hcl 4 Mg/2 Ml Vial) 4 mg IVPUSH Q8H PRN PRN Reason: Nausea and Vomiting Last Admin: 11/04/23 18:35 Dose: 4 mg Documented By: MICHELLE Sodium Chloride (0.9 % Sodium Chloride Flush 3 Ml Syringe) [facility] Last Admin: 11/08/23 08:15 Dose: 3 ml Documented By: LEONOR Labs 11/05/23 06:46 11/08/23 12:46 Labs: Laboratory Results - last 24 hr 11/06/23 11/07/23 11/08/23 06:30 12:34 05:56 Anion Gap 18 Estim Creat Clear Calc 47.2 Estimated GFR 28 Random Glucose 116 H Calcium 9.0 Total Bilirubin 0.8 Direct Bilirubin 0.3 AST 31 ALT 258 H Alkaline Phosphatase 86 Total Protein 6.4 L Albumin 3.8 Stool Leukocytes, Qual NEGATIVE Complement C3 107 Complement C4 28 Assessment and Plan (1) Acute liver failure: Status: Acute (2) Abdominal pain: Status: Acute Plan 48 year old women admitted with Acute on chronic abdominal pain Persistent pain now in left lower quadrant as well as right upper quadrant with persistent diarrhea, black stools One episode of bright red blood per rectum Seen by RN no evidence of a specific cause noted on any imaging Due to rectal bleed and now left lower abdominal pain will obtain CT abdomen and pelvis without contrast Notified Dr. Harden Keep her NPO start IV fluids Follow CBC/BMP Acute liver failure unclear etiology at this time diff includes, other substance, rhabdo, shock liver pt stated she took one fentanyl pill, but pt not clear with hx s/p mucomyst as per poison control AST normalized/ALT gradually trending down normal INR immunology panel pending On regular diet but patient with poor by mouth intake, due to persistent diarrhea and bright red blood per rectum will make patient NPO. JANAE, ATN creat slowly trending down nephro consult>no indication for renal replacement, outpatient renal follow-up Hypokalemia Likely due to GI loss, replete and monitor HTN BP elevated on Norvasc 10 mg, labetalol 100 mg b.i.d. and hydralazine 75 mg t.i.d., was on lisinopril 40mg (stopped due to janae) renal us with doppler showed no renal artery stenosis Follow BP and adjust blood pressure medications Obesity, class III. BMI 45.7 diet and weight loss is encouraged Hx of pulmonary avm s/p ablation in 2019 Full Code. DVT pptx DC heparin due to GI bleed will place on compression boots Patient need continued inpatient hospitalization for close monitoring of renal function and electrolytes, and further workup for persistent abdominal pain black stools and bright red blood per rectum. Quality Stroke Does the patient have a stroke diagnosis?: No VTE Prior VTE?: No VTE Risk Level:: Medical - moderate - high VTE Device Contraindication: N/A - Device Ordered VTE Drug Contraindication: N/A - Med Ordered
[2023-11-08 13:21] LABS: Anion Gap 18 (12-20); Blood Urea Nitrogen 19 mg/dL (9-16); Calcium 8.9 mg/dL (8.4-10.2); Carbon Dioxide 17 mmol/L (22-29); Chloride 109 mmol/L (96-108); Creatinine Clr Calc Pharmacy 43.5; Estimated Glomerular Filt Rate 25; Glucose Random 118 mg/dL (60-115); Potassium 3.3 mmol/L (3.3-5.1); Sodium 141 mmol/L (135-145)
[2023-11-08] MEDS: Pantoprazole Sodium 40 MG/10 ML VIAL IVPUSH (14:09)
[2023-11-08] MEDS: KCl 20 mEq in 5 % Dex/Lact Rin 20 MEQ/1,000 ML IV.SOLN 80 MEQ IVCONT (14:09)
[2023-11-08 15:46] LABS: Hematocrit 34.1 % (37.0-47.0); Hemoglobin 11.6 g/dl (12.0-16.0); Mean Corpuscular Hemoglobin 29.1 pg (27.0-33.0); Mean Corpuscular Volume 85.5 fL (80.0-98.0); Mean Platelet Volume 11.2 fL (9.4-12.3); PLT CLUMP 1; Red Blood Count 3.99 X10*6/uL (4.20-5.50); Red Cell Distribution Width 14.8 % (11.0-16.0)
[2023-11-08 16:50] LABS: Platelet Count 169 X10*3/uL (160-400); White Blood Count 8.9 X10*3/uL (4.8-10.8)
[2023-11-08 20:04] LABS: Myeloperoxidase Antibody <1.0 AI; Proteinase 3 PR3 Antibodies <1.0 AI
[2023-11-08] MEDS: amLODIPine Besylate 10 MG TABLET PO (20:08)
[2023-11-09] VITALS (10 sets, daily range): BP systolic 133–180; BP diastolic 64–95; PULSE 79–99; RESP 17–20; TEMP 36.2–36.8; O2SAT 94–98
[2023-11-09] MEDS: KCl 20 mEq in 5 % Dex/Lact Rin 20 MEQ/1,000 ML IV.SOLN 80 MEQ IVCONT ×2 (04:01→17:37)
[2023-11-09] MEDS: LORazepam 0.5 MG TABLET PO ×3 (05:12→20:14)
[2023-11-09] MEDS: Pantoprazole Sodium 40 MG/10 ML VIAL IVPUSH (05:12)
[2023-11-09 06:58] LABS: Hematocrit 31.2 % (37.0-47.0); Hemoglobin 10.5 g/dl (12.0-16.0); Mean Corpuscular HGB Conc 33.7 g/dl (31.0-35.0); Mean Corpuscular Hemoglobin 29.4 pg (27.0-33.0); Mean Corpuscular Volume 87.4 fL (80.0-98.0); Mean Platelet Volume 11.2 fL (9.4-12.3); Platelet Count 172 X10*3/uL (160-400); Red Blood Count 3.57 X10*6/uL (4.20-5.50); Red Cell Distribution Width 15.3 % (11.0-16.0); White Blood Count 7.4 X10*3/uL (4.8-10.8)
[2023-11-09 07:05] LABS: INTERNATIONAL NORM RATIO 1.1 (0.9-1.1); Prothrombin Time 13.2 SEC (11.1-13.3)
[2023-11-09 07:42] LABS: Chloride 111 mmol/L (96-108); Potassium 3.4 mmol/L (3.3-5.1); Sodium 144 mmol/L (135-145)
[2023-11-09 07:43] LABS: Anion Gap 18 (12-20); Blood Urea Nitrogen 18 mg/dL (9-16); Calcium 8.6 mg/dL (8.4-10.2); Carbon Dioxide 18 mmol/L (22-29); Creatinine Clr Calc Pharmacy 46.8; Estimated Glomerular Filt Rate 28; Glucose Random 125 mg/dL (60-115)
[2023-11-09] MEDS: HYDROmorphone HCl 0.5 MG/0.5 ML SYRINGE IVPUSH ×5 (07:46→20:32)
[2023-11-09] MEDS: Dicyclomine HCl 10 MG CAPSULE 20 MG PO ×2 (07:47→10:41)
[2023-11-09] MEDS: Labetalol HCL 100 MG TABLET PO ×2 (07:47→20:15)
[2023-11-09] MEDS: 0.9 % Sodium Chloride Flush 3 ML SYRINGE IVFLUSH ×3 (07:47→20:15)
[2023-11-09] MEDS: hydrALAZINE HCl 25 MG TABLET 75 MG PO ×3 (07:47→20:14)
[2023-11-09] MEDS: Nystatin Ointment 15 GM TUBE 1 APPL TOPICAL (07:48)
[2023-11-09 10:33] LABS: IgA 250 mg/dL (47-310); IgG 854 mg/dL (600-1640); IgM 78 mg/dL (50-300)
--- NOTE | 2023-11-09 11:01 | MHC.CM.PN ---
EMR reviewed and per MD rounds, pt is not medically cleared for discharge due to ongoing management of GI bleed, and monitoring of renal function and electrolytes.
--- NOTE | 2023-11-09 13:02 | P.PNGI_ITS ---
Subjective Subjective Date of Service: 11/09/23 Interval History: c/o bloody stools and r side abd pain Critical Care Time (minutes): 0 Physical Exam 2 Vital Signs: Vital Signs: Last Vital Signs Temp 98.1 F 11/09/23 11:15 Pulse 79 11/09/23 11:15 Resp 20 11/09/23 11:15 BP 160/64 H 11/09/23 11:15 Pulse Ox 98 11/09/23 11:15 O2 Del Method Room Air 11/09/23 11:15 BMI result Body Mass Index 45.7 abdomen is soft and nontender Objective Data Labs 11/09/23 06:26 11/09/23 06:26 Labs: Laboratory Results - last 24 hr 11/06/23 11/08/23 11/08/23 06:30 12:46 15:38 WBC 8.9 RBC 3.99 L Hgb 11.6 L Hct 34.1 L MCV 85.5 MCH 29.1 MCHC 34.0 RDW 14.8 Plt Count 169 MPV 11.2 Absolute Nucleated RBC 0.000 Nucleated RBC % (auto) 0.0 PT INR Sodium 141 Potassium 3.3 Chloride 109 H Carbon Dioxide 17 L Anion Gap 18 BUN 19 H Creatinine 2.07 H Estim Creat Clear Calc 43.5 Estimated GFR 25 Random Glucose 118 H Calcium 8.9 IgG Total 854 IgA Total 250 IgM 78 SUZE Interpretation SEE NOTE Proteinase 3 (PR3) Ab <1.0 Myeloperoxidase Ab <1.0 11/09/23 11/09/23 06:25 06:26 WBC 7.4 RBC 3.57 L Hgb 10.5 L Hct 31.2 L MCV 87.4 MCH 29.4 MCHC 33.7 RDW 15.3 Plt Count 172 MPV 11.2 Absolute Nucleated RBC 0.000 Nucleated RBC % (auto) 0.0 PT 13.2 INR 1.1 Sodium 144 Potassium 3.4 Chloride 111 H Carbon Dioxide 18 L Anion Gap 18 BUN 18 H Creatinine 1.93 H Estim Creat Clear Calc 46.8 Estimated GFR 28 Random Glucose 125 H Calcium 8.6 IgG Total IgA Total IgM SUZE Interpretation Proteinase 3 (PR3) Ab Myeloperoxidase Ab Microbiology Microbiology Results: Microbiology 11/02/23 Unknown Urine clean catch - Clean Catch Midstream Urine Culture - Final Procedures Date of Service Date of Service: 11/09/23 Progress Note: A&P Assessment and plan (1) GI bleeding: Status: Acute Assessment and Plan: Discussed EGD and colonoscopy with Lizabeth for further evaluation of bleeding. She is added onto the OR schedule for sunday. If the bleeding stops and she is discharged, she should call the office on sunday to reschedule as an outpatient. Time Spent With Patient Time: Total time managing care of this patient today ____ minutes. Quality Stroke Does the patient have a stroke diagnosis?: No VTE Prior VTE?: No VTE Risk Level:: Medical - moderate - high VTE Device Contraindication: N/A - Device Ordered VTE Drug Contraindication: N/A - Med Ordered
[2023-11-09 13:53] LABS: Hematocrit 32.7 % (37.0-47.0); Hemoglobin 10.9 g/dl (12.0-16.0)
--- NOTE | 2023-11-09 14:49 | HO.PM.IMPN ---
Subjective Subjective Date of Service: 11/10/23 Interval History: Complaining of frequent bloody bowel movements, persistent right upper quadrant abdominal pain, left lower quadrant abdominal pain resolved, no nausea, no vomiting, no fevers, no chills no other acute events overnight. H&H dropped but above transfusion threshold. Review of Systems All other systems are reviewed and are negative. Physical Exam Vital Signs: Vital Signs: Last Vital Signs Temp 98.1 F 11/09/23 11:15 Pulse 79 11/09/23 11:15 Resp 20 11/09/23 11:15 BP 160/64 H 11/09/23 11:15 Pulse Ox 98 11/09/23 11:15 O2 Del Method Room Air 11/09/23 11:15 BMI result Body Mass Index 45.7 Const: Other: General awake alert x3, in no acute distress. Anicteric sclera Neck no JVD. CVS regular rate rhythm, Respiratory lungs clear to auscultation, no respiratory distress, no wheeze, no rhonchi. Gastrointestinal abdomen soft, right upper quadrant tenderness with palpation, no masses, bowel sounds audible, no guarding , no rigidity. Extremities no edema. Neuro non focal Skin no rash Psych anxious Objective Data Active Medications Amlodipine Besylate (Amlodipine Besylate 10 Mg Tablet) 10 mg PO BEDTIME [facility]; Protocol Last Admin: 11/08/23 20:08 Dose: 10 mg Documented By: BROOKLYN Dicyclomine HCl (Dicyclomine Hcl 10 Mg Capsule) 20 mg PO TIDAC [facility] Last Admin: 11/09/23 10:41 Dose: 20 mg Documented By: ELHAM Hydralazine HCl (Hydralazine Hcl 25 Mg Tablet) 75 mg PO TID [facility]; Protocol Last Admin: 11/09/23 13:55 Dose: 75 mg Documented By: ELHAM Hydromorphone HCl (Hydromorphone Hcl 0.5 Mg/0.5 Ml Syringe) 0.5 mg IVPUSH Q3H PRN; Protocol PRN Reason: Pain, Severe (Pain Scale 7-10) Last Admin: 11/09/23 13:55 Dose: 0.5 mg Documented By: ELHAM Potassium Cl/Dextrose/Lact Ringer's (Kcl 20 Meq In 5 % Dex/Lact Rin) 20 meq in 1,000 mls @ 80 mls/hr IVCONT .[id number] [facility] Last Admin: 11/09/23 04:01 Dose: 80 mls/hr Documented By: MESHA Labetalol HCl (Labetalol Hcl 100 Mg Tablet) 100 mg PO BID [facility]; Protocol Last Admin: 11/09/23 07:47 Dose: 100 mg Documented By: ELHAM Lorazepam (Lorazepam 0.5 Mg Tablet) 0.5 mg PO Q8H PRN PRN Reason: anxiety Last Admin: 11/09/23 12:42 Dose: 0.5 mg Documented By: ALISON Melatonin (Melatonin 3 Mg Tablet) 6 mg PO BEDTIME PRN PRN Reason: Insomnia Last Admin: 11/07/23 22:11 Dose: 6 mg Documented By: MELA Nystatin (Nystatin Ointment 15 Gm Tube) 1 appl TOPICAL BID [facility]; Protocol Last Admin: 11/09/23 07:48 Dose: 1 appl Documented By: ELHAM Ondansetron HCl (Ondansetron Hcl 4 Mg/2 Ml Vial) 4 mg IVPUSH Q8H PRN PRN Reason: Nausea and Vomiting Last Admin: 11/04/23 18:35 Dose: 4 mg Documented By: MICHELLE Pantoprazole Sodium (Pantoprazole Sodium 40 Mg/10 Ml Vial) 40 mg IVPUSH DAILY@0630 [facility] Last Admin: 11/09/23 05:12 Dose: 40 mg Documented By: MESHA Polyethylene Glycol/Electrolytes (Peg 3350/Na Sulf,Bicarb,Cl/Kcl 4,000 Ml Soln.Recon) 4,000 ml PO ONCE ONE Stop: 11/11/23 13:01 Sodium Chloride (0.9 % Sodium Chloride Flush 3 Ml Syringe) 3 ml IVFLUSH QSHIFT [facility] Last Admin: 11/09/23 13:59 Dose: 3 ml Documented By: ELHAM Labs 11/10/23 05:58 11/09/23 06:26 Labs: Laboratory Results - last 24 hr 11/06/23 11/08/23 11/09/23 06:30 15:38 06:25 MCV 85.5 MCH 29.1 MCHC 34.0 RDW 14.8 Plt Count 169 MPV 11.2 Absolute Nucleated RBC 0.000 Nucleated RBC % (auto) 0.0 PT 13.2 INR 1.1 Anion Gap Estim Creat Clear Calc Estimated GFR Random Glucose Calcium IgG Total 854 IgA Total 250 IgM 78 SUZE Interpretation SEE NOTE Proteinase 3 (PR3) Ab <1.0 Myeloperoxidase Ab <1.0 11/09/23 06:26 MCV 87.4 MCH 29.4 MCHC 33.7 RDW 15.3 Plt Count 172 MPV 11.2 Absolute Nucleated RBC 0.000 Nucleated RBC % (auto) 0.0 PT INR Anion Gap 18 Estim Creat Clear Calc 46.8 Estimated GFR 28 Random Glucose 125 H Calcium 8.6 IgG Total IgA Total IgM SUZE Interpretation Proteinase 3 (PR3) Ab Myeloperoxidase Ab Assessment and Plan (1) GI bleeding: Status: Acute (2) Acute liver failure: Status: Acute (3) JANAE (acute kidney injury): Status: Acute Plan 48 year old women admitted with Acute on chronic abdominal pain/acute GI bleed Persistent right upper quadrant abdominal pain, left lower quadrant pain resolved, had frequent bloody bowel movements this am, now more brown colored, no hematemesis ,no nausea, no vomiting. CT abdomen and pelvis without contrast showed mild long segment circumferential wall thickening extending from cecum through ascending colon to hepatic flexure with mild pericolonic fat stranding suspicious for infectious versus inflammatory colitis , no evidence of active GI bleed noted. Seen by Dr. Harden,plan is colonoscopy/upper endoscopy on Sunday Continue clear liquid diet/ivf. Follow CBC/BMP Acute liver failure unclear etiology at this time diff. includes, other substance, rhabdo, shock liver pt stated she took one fentanyl pill, but pt. not clear with hx s/p mucomyst as per poison control AST normalized/ALT gradually trending down normal INR immunology panel pending JANAE, ATN creat. slowly trending down nephro consult>no indication for renal replacement, outpatient renal follow-up Hypokalemia Likely due to GI loss, replete and monitor HTN BP elevated on Norvasc 10 mg, labetalol 100 mg b.i.d. and hydralazine 75 mg t.i.d., was on lisinopril 40mg (stopped due to janae) renal us with doppler showed no renal artery stenosis. Follow BP and adjust blood pressure medications Obesity, class III. BMI 45.7 diet and weight loss is encouraged Hx of pulmonary avm s/p ablation in 2019 Full Code. DVT pptx DC heparin due to GI bleed will place on compression boots Patient need continued inpatient hospitalization for close monitoring of renal function and electrolytes, and further workup for persistent abdominal pain black stools and bright red blood per rectum. Quality Stroke Does the patient have a stroke diagnosis?: No VTE Prior VTE?: No VTE Risk Level:: Medical - moderate - high VTE Device Contraindication: N/A - Device Ordered VTE Drug Contraindication: N/A - Med Ordered
--- NOTE | 2023-11-09 19:07 | P.PNNP_ITS ---
Subjective Subjective Date of Service: 11/09/23 Interval history: Complaining of frequent bloody bowel movements, persistent right upper quadrant abdominal pain, ;no nausea, no vomiting, no fevers, no chills no other acute events overnight. Physical Exam 2 Vital Signs: Vital Signs: Last Vital Signs Temp 97.9 F 11/09/23 17:35 Pulse 89 11/09/23 17:35 Resp 18 11/09/23 17:35 BP 180/89 H 11/09/23 17:35 Pulse Ox 98 11/09/23 17:35 O2 Del Method Room Air 11/09/23 17:35 BMI result Body Mass Index 45.7 Const: General: comfortable and no acute distress O rientation/consciousness: patient oriented x3 HEENT: Head: Yes normocephalic Mouth: Normal oral and palatal mucosa present Eyes: EOM: EOMs intact bilaterally Neck: Neck: Yes supple Resp: Auscultation: clear to auscultation bilaterally Cardio: Jugular venous distension: no JVD Rate: regular rate GI: Palpation (GI): Soft to palpation Auscultation: normal bowel sounds : General: Yes no CVA tenderness Back/Spine/Pelvis: Back: no CVA tenderness Skin: General skin exam: no rashes or lesions noted Neuro: General: patient oriented x3 and moves all extremities Extrem: General: Yes no pedal edema Objective Data Labs 11/09/23 13:45 11/09/23 06:26 Labs: Laboratory Results - last 24 hr 11/06/23 11/09/23 11/09/23 06:30 06:25 06:26 WBC 7.4 RBC 3.57 L Hgb 10.5 L Hct 31.2 L MCV 87.4 MCH 29.4 MCHC 33.7 RDW 15.3 Plt Count 172 MPV 11.2 Absolute Nucleated RBC 0.000 Nucleated RBC % (auto) 0.0 PT 13.2 INR 1.1 Sodium 144 Potassium 3.4 Chloride 111 H Carbon Dioxide 18 L Anion Gap 18 BUN 18 H Creatinine 1.93 H Estim Creat Clear Calc 46.8 Estimated GFR 28 Random Glucose 125 H Calcium 8.6 IgG Total 854 IgA Total 250 IgM 78 SUZE Interpretation SEE NOTE Proteinase 3 (PR3) Ab <1.0 Myeloperoxidase Ab <1.0 11/09/23 13:45 WBC RBC Hgb 10.9 L Hct 32.7 L MCV MCH MCHC RDW Plt Count MPV Absolute Nucleated RBC Nucleated RBC % (auto) PT INR Sodium Potassium Chloride Carbon Dioxide Anion Gap BUN Creatinine Estim Creat Clear Calc Estimated GFR Random Glucose Calcium IgG Total IgA Total IgM SUZE Interpretation Proteinase 3 (PR3) Ab Myeloperoxidase Ab Microbiology Microbiology Results: Microbiology 11/02/23 Unknown Urine clean catch - Clean Catch Midstream Urine Culture - Final Procedures Date of Service Date of Service: 11/09/23 Assessment & Plan Assessment and plan (1) JANAE (acute kidney injury): Status: Acute Plan JANAE likely due to tubular injury Serum creatinine improving No indication for renal replacement C/W current supportive care For EGD and colonoscopy Sunday Shall closely follow up in the office when D/Jovan Progress Note: Quality Stroke Does the patient have a stroke diagnosis?: No
[2023-11-09] MEDS: Melatonin 3 MG TABLET 6 MG PO (20:15)
[2023-11-09] MEDS: amLODIPine Besylate 10 MG TABLET PO (20:15)
[2023-11-09 20:27] LABS: Hematocrit 30.2 % (37.0-47.0); Hemoglobin 10.3 g/dl (12.0-16.0)
[2023-11-10] MEDS: HYDROmorphone HCl 0.5 MG/0.5 ML SYRINGE IVPUSH ×8 (03:03→23:44)
[2023-11-10 03:05] VITALS: BP 134/61; PULSE 82; RESP 18; TEMP 36; O2SAT 97
[2023-11-10] MEDS: Pantoprazole Sodium 40 MG/10 ML VIAL IVPUSH (06:09)
[2023-11-10] MEDS: KCl 20 mEq in 5 % Dex/Lact Rin 20 MEQ/1,000 ML IV.SOLN 80 MEQ IVCONT ×2 (06:12→18:07)
[2023-11-10] MEDS: LORazepam 0.5 MG TABLET PO ×2 (06:15→18:06)
[2023-11-10 06:28] LABS: Leptospira DNA Source URINE; Leptospira DNA, Qual RT-PCR NOT DETECTED
[2023-11-10 06:33] LABS: Hematocrit 29.2 % (37.0-47.0); Hemoglobin 9.8 g/dl (12.0-16.0)
[2023-11-10 07:52] VITALS: BP 166/77; PULSE 89; RESP 18; TEMP 36.4; O2SAT 96
[2023-11-10] MEDS: hydrALAZINE HCl 25 MG TABLET 75 MG PO ×3 (07:52→20:33)
[2023-11-10] MEDS: 0.9 % Sodium Chloride Flush 3 ML SYRINGE IVFLUSH ×3 (07:52→20:34)
[2023-11-10] MEDS: Labetalol HCL 100 MG TABLET PO ×2 (07:52→20:34)
[2023-11-10] MEDS: Nystatin Ointment 15 GM TUBE 1 APPL TOPICAL (10:13)
[2023-11-10] MEDS: oxyCODONE HCl Immed Release 5 MG TABLET PO ×3 (11:39→23:44)
[2023-11-10 11:51] VITALS: BP 177/85; PULSE 84; RESP 18; TEMP 36.1; O2SAT 96
--- NOTE | 2023-11-10 13:04 | HO.PM.IMPN ---
Subjective Subjective Date of Service: 11/10/23 Interval History: Being followed for JANAE/acute liver failure Had a bloody bowel movement again this morning, overnight had dark colored stools, denies lightheadedness or dizziness complaining of persistent right-sided abdominal pain, no fevers, no chills tolerating clear liquid diet receiving IV fluids. Review of Systems All other system reviewed and are negative. Physical Exam Vital Signs: Vital Signs: Last Vital Signs Temp 97.0 F 11/10/23 11:51 Pulse 84 11/10/23 11:51 Resp 18 11/10/23 11:51 BP 177/85 H 11/10/23 11:51 Pulse Ox 96 11/10/23 11:51 O2 Del Method Room Air 11/10/23 11:51 BMI result Body Mass Index 45.7 Const: Other: General awake alert x3, in no acute distress. Anicteric sclera Neck no JVD. CVS regular rate rhythm, Respiratory lungs clear to auscultation, no respiratory distress, no wheeze, no rhonchi. Gastrointestinal abdomen soft, right upper quadrant tenderness with palpation, no masses, bowel sounds audible, no guarding , no rigidity. Extremities no edema. Neuro non focal Skin no rash Psych anxious Objective Data Active Medications Amlodipine Besylate (Amlodipine Besylate 10 Mg Tablet) 10 mg PO BEDTIME [facility]; Protocol Last Admin: 11/09/23 20:15 Dose: 10 mg Documented By: HIRAL Hydralazine HCl (Hydralazine Hcl 25 Mg Tablet) 75 mg PO TID [facility]; Protocol Last Admin: 11/10/23 07:52 Dose: 75 mg Documented By: ELHAM Hydromorphone HCl (Hydromorphone Hcl 0.5 Mg/0.5 Ml Syringe) 0.5 mg IVPUSH Q3H PRN; Protocol PRN Reason: Pain, Severe (Pain Scale 7-10) Last Admin: 11/10/23 10:13 Dose: 0.5 mg Documented By: ELHAM Potassium Cl/Dextrose/Lact Ringer's (Kcl 20 Meq In 5 % Dex/Lact Rin) 20 meq in 1,000 mls @ 80 mls/hr IVCONT .[id number] [facility] Last Admin: 11/10/23 06:12 Dose: 80 mls/hr Documented By: HIRAL Labetalol HCl (Labetalol Hcl 100 Mg Tablet) 100 mg PO BID [facility]; Protocol Last Admin: 11/10/23 07:52 Dose: 100 mg Documented By: ELHAM Lorazepam (Lorazepam 0.5 Mg Tablet) 0.5 mg PO Q8H PRN PRN Reason: anxiety Last Admin: 11/10/23 06:15 Dose: 0.5 mg Documented By: HIRAL Melatonin (Melatonin 3 Mg Tablet) 6 mg PO BEDTIME PRN PRN Reason: Insomnia Last Admin: 11/09/23 20:15 Dose: 6 mg Documented By: HIRAL Nystatin (Nystatin Ointment 15 Gm Tube) 1 appl TOPICAL BID [facility]; Protocol Last Admin: 11/10/23 10:13 Dose: 1 appl Documented By: ELHAM Ondansetron HCl (Ondansetron Hcl 4 Mg/2 Ml Vial) 4 mg IVPUSH Q8H PRN PRN Reason: Nausea and Vomiting Last Admin: 11/04/23 18:35 Dose: 4 mg Documented By: MICHELLE Oxycodone HCl (Oxycodone Hcl Immed Release 5 Mg Tablet) 5 mg PO Q4H PRN PRN Reason: Pain, Moderate(Pain Scale 4-6) Last Admin: 11/10/23 11:39 Dose: 5 mg Documented By: ELHAM Pantoprazole Sodium (Pantoprazole Sodium 40 Mg/10 Ml Vial) 40 mg IVPUSH DAILY@0630 [facility] Last Admin: 11/10/23 06:09 Dose: 40 mg Documented By: HIRAL Polyethylene Glycol/Electrolytes (Peg 3350/Na Sulf,Bicarb,Cl/Kcl 4,000 Ml Soln.Recon) 4,000 ml PO ONCE ONE Stop: 11/11/23 13:01 Sodium Chloride (0.9 % Sodium Chloride Flush 3 Ml Syringe) [facility] Last Admin: 11/10/23 07:52 Dose: 3 ml Documented By: ELHAM Labs 11/10/23 05:58 11/09/23 06:26 Labs: Laboratory Results - last 24 hr 11/06/23 08:00 Leptospira Source URINE Leptospira DNA (PCR) NOT DETECTED Assessment and Plan (1) GI bleeding: Status: Acute (2) Acute liver failure: Status: Acute (3) JANAE (acute kidney injury): Status: Acute Plan 48 year old women admitted with Acute on chronic abdominal pain/acute GI bleed Overnight had dark colored stool, had 1 bright red blood per rectum this morning, no recurrent bleed since, Persistent right upper quadrant abdominal pain, no hematemesis ,no nausea, no vomiting. CT abdomen and pelvis 11/07 without contrast showed mild long segment circumferential wall thickening extending from cecum through ascending colon to hepatic flexure with mild pericolonic fat stranding suspicious for infectious versus inflammatory colitis , no evidence of active GI bleed noted. 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 Seen by Dr. Harden,plan is colonoscopy/upper endoscopy on Sunday Continue clear liquid diet/ivf/IV Protonix. Hematocrit dropped but above transfusion threshold, Follow CBC/BMP Acute liver failure unclear etiology at this time diff. includes, other substance, rhabdo, shock liver pt stated she took one fentanyl pill, but pt. not clear with hx s/p mucomyst as per poison control AST normalized/ALT gradually trending down normal INR immunology panel pending JANAE, ATN creat. slowly trending down nephro consult>no indication for renal replacement, outpatient renal follow-up Hypokalemia Likely due to GI loss, replete and monitor HTN BP elevated on Norvasc 10 mg, labetalol 100 mg b.i.d. and hydralazine 75 mg t.i.d., renal us with doppler showed no renal artery stenosis. Follow BP and adjust blood pressure medications Obesity, class III. BMI 45.7 diet and weight loss is encouraged Hx of pulmonary avm s/p ablation in 2019 History of depression on Zoloft 200 mg, trazodone 300 mg at bedtime and bupropion 100 mg twice daily for last 25 years currently medication on hold, will resume home medications low-dose. Full Code. DVT pptx DC heparin due to GI bleed will place on compression boots Patient need continued inpatient hospitalization for close monitoring of renal function and electrolytes, and further workup for persistent abdominal pain black stools and bright red blood per rectum. Quality Stroke Does the patient have a stroke diagnosis?: No VTE Prior VTE?: No VTE Risk Level:: Medical - moderate - high VTE Device Contraindication: N/A - Device Ordered VTE Drug Contraindication: N/A - Med Ordered
[2023-11-10] MEDS: buPROPion HCl XL 150 MG TAB.ER.24H PO (13:52)
[2023-11-10] MEDS: Sertraline HCL 100 MG TABLET PO (13:52)
[2023-11-10 16:00] VITALS: BP 170/68; PULSE 88; RESP 18; TEMP 36.4; O2SAT 98
[2023-11-10 16:10] LABS: Hematocrit 28.4 % (37.0-47.0); Hemoglobin 9.3 g/dl (12.0-16.0)
[2023-11-10 19:12] VITALS: BP 162/78; PULSE 86; RESP 18; TEMP 35.9; O2SAT 98
[2023-11-10] MEDS: amLODIPine Besylate 10 MG TABLET PO (20:34)
[2023-11-10] MEDS: traZODone HCL 100 MG TABLET 200 MG PO (20:34)
[2023-11-11] VITALS (11 sets, daily range): BP systolic 110–185; BP diastolic 58–89; PULSE 80–103; RESP 16–20; TEMP 36.1–36.8; O2SAT 94–97
[2023-11-11] MEDS: HYDROmorphone HCl 0.5 MG/0.5 ML SYRINGE IVPUSH ×6 (02:51→22:02)
[2023-11-11] MEDS: oxyCODONE HCl Immed Release 5 MG TABLET PO ×4 (04:20→20:00)
[2023-11-11] MEDS: LORazepam 0.5 MG TABLET PO ×2 (05:45→16:08)
[2023-11-11] MEDS: Pantoprazole Sodium 40 MG/10 ML VIAL IVPUSH (05:45)
[2023-11-11] MEDS: KCl 20 mEq in 5 % Dex/Lact Rin 20 MEQ/1,000 ML IV.SOLN 80 MEQ IVCONT ×2 (05:47→20:04)
[2023-11-11 08:23] LABS: Hematocrit 26.1 % (37.0-47.0); Hemoglobin 8.6 g/dl (12.0-16.0)
[2023-11-11 08:46] LABS: Anion Gap 13 (12-20); Blood Urea Nitrogen 11 mg/dL (9-16); Calcium 8.4 mg/dL (8.4-10.2); Carbon Dioxide 22 mmol/L (22-29); Chloride 112 mmol/L (96-108); Creatinine Clr Calc Pharmacy 51.9; Estimated Glomerular Filt Rate 31; Glucose Random 111 mg/dL (60-115); Potassium 3.1 mmol/L (3.3-5.1); Sodium 144 mmol/L (135-145)
[2023-11-11] MEDS: hydrALAZINE HCl 25 MG TABLET 75 MG PO ×3 (09:28→20:00)
[2023-11-11] MEDS: 0.9 % Sodium Chloride Flush 3 ML SYRINGE IVFLUSH ×3 (09:28→20:01)
[2023-11-11] MEDS: Sertraline HCL 100 MG TABLET PO (09:28)
[2023-11-11] MEDS: buPROPion HCl XL 150 MG TAB.ER.24H PO (09:28)
[2023-11-11] MEDS: Labetalol HCL 100 MG TABLET PO ×2 (09:28→22:01)
[2023-11-11] MEDS: Nystatin Ointment 15 GM TUBE 1 APPL TOPICAL ×2 (09:31→20:01)
--- NOTE | 2023-11-11 12:15 | P.PNIM_ITS ---
Subjective Subjective Date of Service: 11/11/23 Interval History: Being followed for GI bleed/acute liver injury and JANAE Complaining of persistent abdominal pain and recurrent episodes of rectal bleed, on clear liquid diet with poor by mouth intake, no fevers, no chills, remains hemodynamically stable, hematocrit dropped 26.1. Review of Systems All other systems are reviewed and are negative. Physical Exam 2 Vital Signs: Vital Signs: Last Vital Signs Temp 97.0 F 11/11/23 10:58 Pulse 103 H 11/11/23 10:58 Resp 16 11/11/23 10:58 BP 110/64 11/11/23 10:58 Pulse Ox 97 11/11/23 10:58 O2 Del Method Room Air 11/11/23 10:58 BMI result Body Mass Index 45.7 Const: Other: General awake alert x3, in no acute distress. Anicteric sclera Neck no JVD. CVS regular rate rhythm, Respiratory lungs clear to auscultation, no respiratory distress, no wheeze, no rhonchi. Gastrointestinal abdomen soft,mild right sided tenderness with palpation, no masses, bowel sounds audible, no guarding , no rigidity. Extremities no edema. Neuro non focal Skin no rash Psych appropriate affect Objective Data Active Medications Amlodipine Besylate (Amlodipine Besylate 10 Mg Tablet) 10 mg PO BEDTIME [facility]; Protocol Last Admin: 11/10/23 20:34 Dose: 10 mg Documented By: HIRAL Bupropion HCl (Bupropion Hcl Xl 150 Mg Tab.Er.24h) 150 mg PO DAILY [facility] Last Admin: 11/11/23 09:28 Dose: 150 mg Documented By: ELHAM Hydralazine HCl (Hydralazine Hcl 25 Mg Tablet) 75 mg PO TID [facility]; Protocol Last Admin: 11/11/23 09:28 Dose: 75 mg Documented By: ELHAM Hydromorphone HCl (Hydromorphone Hcl 0.5 Mg/0.5 Ml Syringe) 0.5 mg IVPUSH Q3H PRN; Protocol PRN Reason: Pain, Severe (Pain Scale 7-10) Last Admin: 11/11/23 09:28 Dose: 0.5 mg Documented By: ELHAM Potassium Cl/Dextrose/Lact Ringer's (Kcl 20 Meq In 5 % Dex/Lact Rin) 20 meq in 1,000 mls @ 80 mls/hr IVCONT .[id number] [facility] Last Admin: 11/11/23 05:47 Dose: 80 mls/hr Documented By: HIRAL Labetalol HCl (Labetalol Hcl 100 Mg Tablet) 100 mg PO BID [facility]; Protocol Last Admin: 11/11/23 09:28 Dose: 100 mg Documented By: ELHAM Lorazepam (Lorazepam 0.5 Mg Tablet) 0.5 mg PO Q8H PRN PRN Reason: anxiety Last Admin: 11/11/23 05:45 Dose: 0.5 mg Documented By: HIRAL Melatonin (Melatonin 3 Mg Tablet) 6 mg PO BEDTIME PRN PRN Reason: Insomnia Last Admin: 11/09/23 20:15 Dose: 6 mg Documented By: HIRAL Nystatin (Nystatin Ointment 15 Gm Tube) 1 appl TOPICAL BID [facility]; Protocol Last Admin: 11/11/23 09:31 Dose: 1 appl Documented By: ELHAM Ondansetron HCl (Ondansetron Hcl 4 Mg/2 Ml Vial) 4 mg IVPUSH Q8H PRN PRN Reason: Nausea and Vomiting Last Admin: 11/04/23 18:35 Dose: 4 mg Documented By: MICHELLE Oxycodone HCl (Oxycodone Hcl Immed Release 5 Mg Tablet) 5 mg PO Q4H PRN PRN Reason: Pain, Moderate(Pain Scale 4-6) Last Admin: 11/11/23 10:45 Dose: 5 mg Documented By: ELHAM Pantoprazole Sodium (Pantoprazole Sodium 40 Mg/10 Ml Vial) 40 mg IVPUSH DAILY@0630 [facility] Last Admin: 11/11/23 05:45 Dose: 40 mg Documented By: HIRAL Polyethylene Glycol/Electrolytes (Peg 3350/Na Sulf,Bicarb,Cl/Kcl 4,000 Ml Soln.Recon) 4,000 ml PO ONCE ONE Stop: 11/11/23 13:01 Sertraline HCl (Sertraline Hcl 100 Mg Tablet) 100 mg PO DAILY [facility] Last Admin: 11/11/23 09:28 Dose: 100 mg Documented By: ELHAM Sodium Chloride (0.9 % Sodium Chloride Flush 3 Ml Syringe) 3 ml IVFLUSH QSHIFT [facility] Last Admin: 11/11/23 09:28 Dose: 3 ml Documented By: ELHAM Trazodone HCl (Trazodone Hcl 100 Mg Tablet) 200 mg PO BEDTIME [facility] Last Admin: 11/10/23 20:34 Dose: 200 mg Documented By: HIRAL Labs 11/11/23 08:03 11/11/23 08:03 Labs: Laboratory Results - last 24 hr 11/11/23 11/11/23 08:03 09:36 Anion Gap 13 Estim Creat Clear Calc 51.9 Estimated GFR 31 Random Glucose 111 Calcium 8.4 Crossmatch See Detail Assessment and Plan (1) GI bleeding: Status: Acute (2) Acute liver failure: Status: Acute (3) JANAE (acute kidney injury): Status: Acute Plan 48 year old women admitted with Acute on chronic abdominal pain/acute GI bleed Ongoing rectal bleed and right upper quadrant abdominal pain, no hematemesis ,no nausea, no vomiting. CT abdomen and pelvis 11/07 without contrast showed mild long segment circumferential wall thickening extending from cecum through ascending colon to hepatic flexure with mild pericolonic fat stranding suspicious for infectious versus inflammatory colitis , no evidence of active GI bleed noted. 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 Hematocrit dropped will transfuse 1 unit of packed RBC Seen by Dr. Harden,plan is colonoscopy/upper endoscopy on Sunday Continue clear liquid diet/ivf/IV Protonix. NPO after midnight Follow CBC/BMP Acute liver failure unclear etiology at this time diff. includes, other substance, rhabdo, shock liver pt stated she took one fentanyl pill, but pt. not clear with hx s/p mucomyst as per poison control AST normalized/ALT gradually trending down normal INR immunology panel pending JANAE, ATN creat. slowly trending down nephro consult>no indication for renal replacement, outpatient renal follow-up Hypokalemia Likely due to GI loss, replete and monitor HTN on Norvasc 10 mg, labetalol 100 mg b.i.d. and hydralazine 75 mg t.i.d., renal us with doppler showed no renal artery stenosis. Follow BP and adjust blood pressure medications Obesity, class III. BMI 45.7 diet and weight loss is encouraged Hx of pulmonary avm s/p ablation in 2019 History of depression on Zoloft 200 mg, trazodone 300 mg at bedtime and bupropion 100 mg twice daily for last 25 years currently medication on hold, will resume home medications low-dose. Full Code. DVT pptx on compression boots Patient need continued inpatient hospitalization for close monitoring of renal function and electrolytes, and further workup for persistent abdominal pain, and bright red blood per rectum. Quality Stroke Does the patient have a stroke diagnosis?: No VTE Prior VTE?: No VTE Risk Level:: Medical - moderate - high VTE Device Contraindication: N/A - Device Ordered VTE Drug Contraindication: N/A - Med Ordered
[2023-11-11] MEDS: Potassium Chloride/H20 10 MEQ/100 ML PIGGYBACK 100 MEQ IV (12:45)
[2023-11-11] MEDS: Potassium Chloride ER 20 MEQ TAB.ER.PRT 40 MEQ PO (14:26)
[2023-11-11] MEDS: PEG 3350/Na Sulf,Bicarb,Cl/KCL 4,000 ML SOLN.RECON 4000 ML PO (16:08)
[2023-11-11] MEDS: amLODIPine Besylate 10 MG TABLET PO (20:00)
[2023-11-11] MEDS: traZODone HCL 100 MG TABLET 200 MG PO (22:02)
[2023-11-12] VITALS (14 sets, daily range): BP systolic 133–180; BP diastolic 67–91; PULSE 85–98; RESP 15–21; TEMP 36.1–37.4; O2SAT 93–96
[2023-11-12] MEDS: HYDROmorphone HCl 0.5 MG/0.5 ML SYRINGE IVPUSH ×5 (03:43→19:28)
[2023-11-12] MEDS: Pantoprazole Sodium 40 MG/10 ML VIAL IVPUSH (05:38)
[2023-11-12] MEDS: LORazepam 0.5 MG TABLET PO ×2 (05:38→14:09)
[2023-11-12 07:29] LABS: Hematocrit 29.5 % (37.0-47.0); Hemoglobin 9.9 g/dl (12.0-16.0); Mean Corpuscular HGB Conc 33.6 g/dl (31.0-35.0); Mean Corpuscular Hemoglobin 29.6 pg (27.0-33.0); Mean Corpuscular Volume 88.1 fL (80.0-98.0); Mean Platelet Volume 11.3 fL (9.4-12.3); Platelet Count 156 X10*3/uL (160-400); Red Blood Count 3.35 X10*6/uL (4.20-5.50); Red Cell Distribution Width 14.7 % (11.0-16.0); White Blood Count 6.8 X10*3/uL (4.8-10.8)
[2023-11-12] MEDS: Sertraline HCL 100 MG TABLET PO (07:39)
[2023-11-12] MEDS: buPROPion HCl XL 150 MG TAB.ER.24H PO (07:39)
[2023-11-12] MEDS: hydrALAZINE HCl 25 MG TABLET 75 MG PO ×3 (07:39→20:39)
[2023-11-12] MEDS: Nystatin Ointment 15 GM TUBE 1 APPL TOPICAL ×2 (07:40→20:51)
[2023-11-12] MEDS: 0.9 % Sodium Chloride Flush 3 ML SYRINGE IVFLUSH ×2 (07:40→14:10)
[2023-11-12] MEDS: Labetalol HCL 100 MG TABLET PO ×2 (07:40→20:38)
[2023-11-12] MEDS: KCl 20 mEq in 5 % Dex/Lact Rin 20 MEQ/1,000 ML IV.SOLN 80 MEQ IVCONT (07:43)
[2023-11-12 07:46] LABS: Alanine Aminotransferase 65 U/L (0-31); Albumin Level 3.7 g/dL (3.5-5.0); Alkaline Phosphatase 63 U/L (39-117); Anion Gap 16 (12-20); Aspartate Amino Transferase 19 U/L (5-31); Bilirubin Direct 0.3 mg/dL (0.0-0.5); Bilirubin Total 0.8 mg/dL (0.0-1.0); Blood Urea Nitrogen 11 mg/dL (9-16); Calcium 8.7 mg/dL (8.4-10.2); Carbon Dioxide 22 mmol/L (22-29); Chloride 111 mmol/L (96-108); Creatinine Clr Calc Pharmacy 48.7; Estimated Glomerular Filt Rate 29; Glucose Random 99 mg/dL (60-115); Potassium 3.2 mmol/L (3.3-5.1); Sodium 146 mmol/L (135-145); Total Protein 6.2 g/dL (6.5-8.0)
[2023-11-12] MEDS: oxyCODONE HCl Immed Release 5 MG TABLET PO ×2 (12:34→20:44)
--- NOTE | 2023-11-12 13:11 | MHC.CM.PN ---
EMR reviewed and per MD rounds, pt is not medically cleared for discharge due to ongoing management of abdominal pain, and monitoring of renal function and electrolytes.
--- NOTE | 2023-11-12 14:53 | HO.PM.IMPN ---
Subjective Subjective Date of Service: 11/13/23 Interval History: Being followed for dairrhea/bloody stools with drop in H&H. NPO today for colonoscopy, status post 1 unit of packed RBC hematocrit stable, feels tired due to multiple stools overnight, denies headache, no dizziness , no other acute events overnight. Review of Systems All other system reviewed and are negative Physical Exam Vital Signs: Vital Signs: Last Vital Signs Temp 99.3 F 11/12/23 14:40 Pulse 92 11/12/23 14:40 Resp 16 11/12/23 14:40 BP 156/83 H 11/12/23 14:40 Pulse Ox 95 11/12/23 14:40 O2 Del Method Room Air 11/12/23 14:40 BMI result Body Mass Index 45.7 Const: Other: General awake alert x3, in no acute distress. Anicteric sclera Neck no JVD. CVS regular rate rhythm, Respiratory lungs clear to auscultation, no respiratory distress, no wheeze, no rhonchi. Gastrointestinal abdomen soft,mild diffuse abdominal tenderness with palpation,tenderness RLQ, no masses, bowel sounds audible, no guarding , no rigidity. Extremities no edema. Neuro non focal Skin no rash Psych appropriate affect Objective Data Active Medications Amlodipine Besylate (Amlodipine Besylate 10 Mg Tablet) 10 mg PO BEDTIME [facility]; Protocol Last Admin: 11/11/23 20:00 Dose: 10 mg Documented By: RICHAR Bupropion HCl (Bupropion Hcl Xl 150 Mg Tab.Er.24h) 150 mg PO DAILY [facility] Last Admin: 11/12/23 07:39 Dose: 150 mg Documented By: ELHAM Hydralazine HCl (Hydralazine Hcl 25 Mg Tablet) 75 mg PO TID [facility]; Protocol Last Admin: 11/12/23 14:09 Dose: 75 mg Documented By: ELHAM Hydromorphone HCl (Hydromorphone Hcl 0.5 Mg/0.5 Ml Syringe) 0.5 mg IVPUSH Q3H PRN; Protocol PRN Reason: Pain, Severe (Pain Scale 7-10) Last Admin: 11/12/23 14:09 Dose: 0.5 mg Documented By: ELHAM Potassium Cl/Dextrose/Lact Ringer's (Kcl 20 Meq In 5 % Dex/Lact Rin) 20 meq in 1,000 mls @ 80 mls/hr IVCONT .[id number] [facility] Last Admin: 11/12/23 07:43 Dose: 80 mls/hr Documented By: ELHAM Labetalol HCl (Labetalol Hcl 100 Mg Tablet) 100 mg PO BID [facility]; Protocol Last Admin: 11/12/23 07:40 Dose: 100 mg Documented By: ELHAM Lorazepam (Lorazepam 0.5 Mg Tablet) 0.5 mg PO Q8H PRN PRN Reason: anxiety Last Admin: 11/12/23 14:09 Dose: 0.5 mg Documented By: ELHAM Melatonin (Melatonin 3 Mg Tablet) 6 mg PO BEDTIME PRN PRN Reason: Insomnia Last Admin: 11/09/23 20:15 Dose: 6 mg Documented By: HIRAL Nystatin (Nystatin Ointment 15 Gm Tube) 1 appl TOPICAL BID [facility]; Protocol Last Admin: 11/12/23 07:40 Dose: 1 appl Documented By: ELHAM Ondansetron HCl (Ondansetron Hcl 4 Mg/2 Ml Vial) 4 mg IVPUSH Q8H PRN PRN Reason: Nausea and Vomiting Last Admin: 11/04/23 18:35 Dose: 4 mg Documented By: MICHELLE Oxycodone HCl (Oxycodone Hcl Immed Release 5 Mg Tablet) 5 mg PO Q4H PRN PRN Reason: Pain, Moderate(Pain Scale 4-6) Last Admin: 11/12/23 12:34 Dose: 5 mg Documented By: ELHAM Pantoprazole Sodium (Pantoprazole Sodium 40 Mg/10 Ml Vial) 40 mg IVPUSH DAILY@0630 [facility] Last Admin: 11/12/23 05:38 Dose: 40 mg Documented By: RICHAR Sertraline HCl (Sertraline Hcl 100 Mg Tablet) 100 mg PO DAILY [facility] Last Admin: 11/12/23 07:39 Dose: 100 mg Documented By: ELHAM Sodium Chloride (0.9 % Sodium Chloride Flush 3 Ml Syringe) 3 ml IVFLUSH QSHIFT [facility] Last Admin: 11/12/23 14:10 Dose: 3 ml Documented By: ELHAM Trazodone HCl (Trazodone Hcl 100 Mg Tablet) 200 mg PO BEDTIME [facility] Last Admin: 11/11/23 22:02 Dose: 200 mg Documented By: RICHAR Labs 11/13/23 05:46 11/13/23 05:45 Labs: Laboratory Results - last 24 hr 11/11/23 11/12/23 09:36 07:21 MCV 88.1 MCH 29.6 MCHC 33.6 RDW 14.7 Plt Count 156 L MPV 11.3 Absolute Nucleated RBC 0.000 Nucleated RBC % (auto) 0.0 Anion Gap 16 Estim Creat Clear Calc 48.7 Estimated GFR 29 Random Glucose 99 Calcium 8.7 Total Bilirubin 0.8 Direct Bilirubin 0.3 AST 19 ALT 65 H Alkaline Phosphatase 63 Total Protein 6.2 L Albumin 3.7 Crossmatch See Detail Crossmatch (AHG) See Detail Assessment and Plan (1) GI bleeding: Status: Acute (2) Acute liver failure: Status: Acute (3) JANAE (acute kidney injury): Status: Acute Plan 48 year old women admitted with Acute on chronic abdominal pain/acute GI bleed Ongoing rectal bleed and right upper quadrant abdominal pain, no hematemesis ,no nausea, no vomiting. CT abdomen and pelvis 11/07 without contrast showed mild long segment circumferential wall thickening extending from cecum through ascending colon to hepatic flexure with mild pericolonic fat stranding suspicious for infectious versus inflammatory colitis , no evidence of active GI bleed noted. 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 s/p 1 unit of packed RBC on 11/10 ,hct improved Seen by Dr. Harden,plan is colonoscopy/upper endoscopy today NPO on iv protonix,ivf Follow CBC/BMP Acute liver failure unclear etiology at this time diff. includes, other substance, rhabdo, shock liver pt stated she took one fentanyl pill, but pt. not clear with hx s/p mucomyst as per poison control AST normalized/ALT gradually trending down normal INR immunology panel pending JANAE, ATN creat. slowly trending down nephro consult>no indication for renal replacement, outpatient renal follow-up Hypokalemia Likely due to GI loss, replete and monitor HTN on Norvasc 10 mg, labetalol 100 mg b.i.d. and hydralazine 75 mg t.i.d., renal us with doppler showed no renal artery stenosis. Follow BP and adjust blood pressure medications, discussed with Nephrology they recommend renin/Nguyễn Obesity, class III. BMI 45.7 diet and weight loss is encouraged Hx of pulmonary avm s/p ablation in 2019 History of depression on Zoloft 200 mg, trazodone 300 mg at bedtime and bupropion 100 mg twice daily for last 25 years All home medications resumed. Full Code. DVT pptx on compression boots Patient need continued inpatient hospitalization for close monitoring of renal function and electrolytes, and further workup for persistent abdominal pain, and bright red blood per rectum. Quality Stroke Does the patient have a stroke diagnosis?: No VTE Prior VTE?: No VTE Risk Level:: Medical - moderate - high VTE Device Contraindication: N/A - Device Ordered VTE Drug Contraindication: N/A - Med Ordered
--- NOTE | 2023-11-12 14:53 | PC.NURSE ---
left lower arm 20g iv leaking with iv fluids ns d5 20 kcl at 80ml/hour. changed dressing and reattached. no longer leaking at this time. upper 20g iv catheter bent. took down old dressing and straightened out iv. no leaking or pain. hard to flush but flushes patently.
--- NOTE | 2023-11-12 15:33 | PC.NURSE ---
attempted a new iv insertion with no success. 20g right lower arm.
--- NOTE | 2023-11-12 16:18 | HO.ANESPROP2 ---
[facility] Active Problems Active Problems: All Active Problems GI bleeding (Acute) Acute liver failure (Acute) Prolonged QT interval (Acute) Transaminitis (Acute) JANAE (acute kidney injury) (Acute) Nausea vomiting and diarrhea (Acute) Drug overdose (Acute) Abdominal pain (Acute) Nephrolithiasis (Acute) Past Medical History Medical History Morbid obesity IBS (irritable bowel syndrome) Hereditary hemorrhagic telangiectasia ADD (attention deficit disorder) Kidney stone Depression Hypertension Migraines Pulmonary arteriovenous malformation Functional capacity: independent ambulation Patient : No Family History Family history of problems with anesthesia: No Surgical History Surgical History Hx of cystoscopy H/O lithotripsy History of ankle surgery History of appendectomy H/O: hysterectomy History of Problems with Anesthesia: No Social History Social History Household Members: Family Household Members Other:: mother Housing: House Are you a primary gericare aide teacher to a significant other at home: No Do you presently have visiting nurse or other home services: No Alcohol intake: unknown Patient Tobacco Use Status: Never used Tobacco service: No Meds Allergies Allergy/AdvReac Type Severity Reaction Status Date / Time pregabalin [From LYRICA] Allergy Severe Difficulty Verified 11/02/23 15:44 Breathing sumatriptan [From IMITREX] Allergy Severe Chest Pain Verified 11/02/23 15:44 zolmitriptan [From ZOMIG] Allergy Severe Chest Pain Verified 11/02/23 15:44 morphine [MORPHINE] Allergy Intermediate STOMACH Verified 11/02/23 15:44 UPSET From ZELNORM Allergy Severe Palpitation Uncoded 11/01/23 00:47 s Active Medications: Current Medications Amlodipine Besylate (Amlodipine Besylate 10 Mg Tablet) 10 mg PO BEDTIME MARIANGEL; Protocol Last Admin: 11/11/23 20:00 Dose: 10 mg Bupropion HCl (Bupropion Hcl Xl 150 Mg Tab.Er.24h) 150 mg PO DAILY MARIANGEL Last Admin: 11/12/23 07:39 Dose: 150 mg Hydralazine HCl (Hydralazine Hcl 25 Mg Tablet) 75 mg PO TID MARIANGEL; Protocol Last Admin: 11/12/23 14:09 Dose: 75 mg Hydromorphone HCl (Hydromorphone Hcl 0.5 Mg/0.5 Ml Syringe) 0.5 mg IVPUSH Q3H PRN; Protocol PRN Reason: Pain, Severe (Pain Scale 7-10) Last Admin: 11/12/23 14:09 Dose: 0.5 mg Potassium Cl/Dextrose/Lact Ringer's (Kcl 20 Meq In 5 % Dex/Lact Rin) 20 meq in 1,000 mls @ 80 mls/hr IVCONT .[id number] [facility] Last Admin: 11/12/23 07:43 Dose: 80 mls/hr Labetalol HCl (Labetalol Hcl 100 Mg Tablet) 100 mg PO BID [facility]; Protocol Last Admin: 11/12/23 07:40 Dose: 100 mg Lorazepam (Lorazepam 0.5 Mg Tablet) 0.5 mg PO Q8H PRN PRN Reason: anxiety Last Admin: 11/12/23 14:09 Dose: 0.5 mg Melatonin (Melatonin 3 Mg Tablet) 6 mg PO BEDTIME PRN PRN Reason: Insomnia Last Admin: 11/09/23 20:15 Dose: 6 mg Nystatin (Nystatin Ointment 15 Gm Tube) 1 appl TOPICAL BID [facility]; Protocol Last Admin: 11/12/23 07:40 Dose: 1 appl Ondansetron HCl (Ondansetron Hcl 4 Mg/2 Ml Vial) 4 mg IVPUSH Q8H PRN PRN Reason: Nausea and Vomiting Last Admin: 11/04/23 18:35 Dose: 4 mg Oxycodone HCl (Oxycodone Hcl Immed Release 5 Mg Tablet) 5 mg PO Q4H PRN PRN Reason: Pain, Moderate(Pain Scale 4-6) Last Admin: 11/12/23 12:34 Dose: 5 mg Pantoprazole Sodium (Pantoprazole Sodium 40 Mg/10 Ml Vial) 40 mg IVPUSH DAILY@0630 [facility] Last Admin: 11/12/23 05:38 Dose: 40 mg Sertraline HCl (Sertraline Hcl 100 Mg Tablet) 100 mg PO DAILY [facility] Last Admin: 11/12/23 07:39 Dose: 100 mg Sodium Chloride (0.9 % Sodium Chloride Flush 3 Ml Syringe) 3 ml IVFLUSH QSHIFT [facility] Last Admin: 11/12/23 14:10 Dose: 3 ml Trazodone HCl (Trazodone Hcl 100 Mg Tablet) 200 mg PO BEDTIME MARIANGEL Last Admin: 11/11/23 22:02 Dose: 200 mg Home Medications ?Medication ?Instructions ?Recorded ?Confirmed ?Last Taken ?Type sertraline 100 mg tablet 200 mg PO DAILY 04/12/22 11/02/23 10/31/23 History bupropion HCl 100 mg tablet,12 hr 100 mg PO BID 08/02/22 11/02/23 10/31/23 History sustained-release Exam Height,Weight and Vital Signs: Height 5 ft 5 in Weight 124.5 kg Last Vital Signs Temp 99.3 F 11/12/23 14:40 Pulse 92 11/12/23 14:40 Resp 16 11/12/23 14:40 BP 156/83 H 11/12/23 14:40 Pulse Ox 95 11/12/23 14:40 O2 Del Method Room Air 11/12/23 14:40 Pertinent Lab Results Pertinent Lab Results: Laboratory Tests 11/02/23 11/02/23 11/02/23 16:00 19:52 19:58 WBC 14.4 H RBC 4.44 Hgb 13.0 Hct 41.4 MCV 93.2 MCH 29.3 MCHC 31.4 RDW 15.0 Plt Count 222 MPV 10.8 Immature Gran % (Auto) Cancelled Neut % (Auto) Cancelled Lymph % (Auto) Cancelled Patrick % (Auto) Cancelled Eos % (Auto) Cancelled Baso % (Auto) Cancelled Lymph # (Auto) Cancelled Patrick # (Auto) Cancelled Eos # (Auto) Cancelled Baso # (Auto) Cancelled Abs Immat Gran (auto) Cancelled Absolute Neuts (auto) Cancelled Absolute Nucleated RBC 0.000 Nucleated RBC % (auto) 0.0 Neutrophils % (Manual) 82 H Band Neutrophils % 9 H Lymphocytes % (Manual) 2 L Monocytes % (Manual) 5 Metamyelocytes % 2 Abs Neuts (Manual) 13.1 H Lymphocytes # (Manual) 0.3 L Monocytes # (Manual) 0.7 Metamyelocytes # 0.3 Platelet Estimate NORMAL Plt Morphology Comment NORMAL RBC Morphology NOTED Polychromasia 1+ (0-2) Tear Drop Cells 1+ (0-2) [place] Cells 1+ (0-2) Smear Tech's Comments MANUAL DIFF Hold Purple Top PT Cancelled INR Cancelled APTT Cancelled VBG pH 7.25 L VBG pCO2 45 VBG pO2 39 VBG HCO3 20 L VBG O2 Saturation 62.0 VBG Base Excess -6.6 Sodium 140 144 Potassium 5.5 H D 4.8 Chloride 108 111 H Carbon Dioxide 22 22 Anion Gap 16 16 BUN 16 19 H Creatinine 1.72 H 1.50 H Estim Creat Clear Calc 52.4 60.1 Estimated GFR 32 37 Random Glucose 153 H 130 H Lactic Acid 1.2 Calcium 8.9 8.2 L D Magnesium 2.3 Total Bilirubin 1.1 H 0.5 Direct Bilirubin GGT AST 1794 H > 4202 H ALT 1263 H 2582 H Alkaline Phosphatase 94 84 Ammonia 104 H Lactate Dehydrogenase Total Creatine Kinase 66 Total Protein 7.4 7.1 Albumin 4.1 3.9 Lipase 19 Beta HCG, Quant < 2 < 2 Hold Red Top Urine Color Urine Appearance Urine pH Ur Specific [place] Urine Protein Urine Glucose (UA) Urine Ketones Urine Blood Urine Nitrite Ur Leukocyte Esterase Urine RBC Urine WBC Ur Squamous Epith Cells Urine Bacteria Hyaline Casts Ur Random Sodium Ur Random Potassium Ur Random Chloride Stool Leukocytes, Qual Stl C. cayetanensis PCR Stool Rotavirus A PCR Stl Adenov F 40/41 PCR Stool Astrovirus (PCR) Stool Campylobacter PCR Stool Cryptosporidium PCR Stl Sh Tox Pr E STEC PCR Stool E coli O157 PCR Stl Enterotoxigenic E PCR Stool EPEC (PCR) Stool EAEC (PCR) Stl E. histolytica PCR Stool Giardia Lamblia PCR Stl P. shigelloides PCR Stool Salmonella PCR Stool Sapovirus (PCR) Stl Shigella/EIEC PCR St Y.enterocolitica PCR Stool Vibrio (PCR) Stl Vibrio cholerae PCR Stl Norovirus GI/GII PCR Salicylates < 5.0 L Urine Opiates Screen Ur Buprenorphine Scrn Ur Oxycodone Screen Urine Methadone Screen Urine Fentanyl Screen Acetaminophen 6 Ur Barbiturates Screen Ur Phencyclidine Scrn Ur Amphetamines Screen U Benzodiazepines Scrn Urine Cocaine Screen U Marijuana (THC) Screen IgG Total IgA Total IgM SUZE Interpretation Rheumatoid Factor Proteinase 3 (PR3) Ab Myeloperoxidase Ab Complement C3 Complement C4 Hepatitis A IgM Ab Nonreactive Hep Bs Antigen Negative Hep Bs Antibody NONREACTIVE Hep B Core Total Ab Nonreactive Hepatitis C Ab (EIA) Nonreactive Leptospira Source Leptospira DNA (PCR) Blood Type Antibody Screen Antibody Identification Crossmatch Crossmatch (AHG) 11/02/23 11/02/23 11/02/23 21:22 22:56 23:00 WBC RBC Hgb Hct MCV MCH MCHC RDW Plt Count MPV Immature Gran % (Auto) Neut % (Auto) Lymph % (Auto) Patrick % (Auto) Eos % (Auto) Baso % (Auto) Lymph # (Auto) Patrick # (Auto) Eos # (Auto) Baso # (Auto) Abs Immat Gran (auto) Absolute Neuts (auto) Absolute Nucleated RBC Nucleated RBC % (auto) Neutrophils % (Manual) Band Neutrophils % Lymphocytes % (Manual) Monocytes % (Manual) Metamyelocytes % Abs Neuts (Manual) Lymphocytes # (Manual) Monocytes # (Manual) Metamyelocytes # Platelet Estimate Plt Morphology Comment RBC Morphology Polychromasia Tear Drop Cells [place] Cells Smear Tech's Comments Hold Purple Top SEE NOTE PT 15.1 H INR 1.2 H APTT 29.4 VBG pH 7.32 VBG pCO2 36 VBG pO2 63 VBG HCO3 19 L VBG O2 Saturation 89.0 VBG Base Excess -6.3 Sodium Potassium Chloride Carbon Dioxide Anion Gap BUN Creatinine Estim Creat Clear Calc Estimated GFR Random Glucose Lactic Acid Calcium Magnesium Total Bilirubin Direct Bilirubin GGT AST ALT Alkaline Phosphatase Ammonia Lactate Dehydrogenase > 73519 H Total Creatine Kinase 1157 H Total Protein Albumin Lipase Beta HCG, Quant Hold Red Top See Note Urine Color Dark Yellow Urine Appearance Turbid Urine pH 5.5 Ur Specific [place] 1.015 Urine Protein 300 (3+) H Urine Glucose (UA) Negative Urine Ketones Trace Urine Blood Large (3+) H Urine Nitrite Negative Ur Leukocyte Esterase Trace H Urine RBC 6-10 H Urine WBC 11-20 H Ur Squamous Epith Cells >20 Urine Bacteria 2+ Hyaline Casts >20 Ur Random Sodium 75.0 Ur Random Potassium 55.2 Ur Random Chloride 79.0 Stool Leukocytes, Qual Stl C. cayetanensis PCR Stool Rotavirus A PCR Stl Adenov F 40/41 PCR Stool Astrovirus (PCR) Stool Campylobacter PCR Stool Cryptosporidium PCR Stl Sh Tox Pr E STEC PCR Stool E coli O157 PCR Stl Enterotoxigenic E PCR Stool EPEC (PCR) Stool EAEC (PCR) Stl E. histolytica PCR Stool Giardia Lamblia PCR Stl P. shigelloides PCR Stool Salmonella PCR Stool Sapovirus (PCR) Stl Shigella/EIEC PCR St Y.enterocolitica PCR Stool Vibrio (PCR) Stl Vibrio cholerae PCR Stl Norovirus GI/GII PCR Salicylates Urine Opiates Screen Not Detected Ur Buprenorphine Scrn Not Detected Ur Oxycodone Screen Not Detected Urine Methadone Screen Not Detected Urine Fentanyl Screen POSITIVE H Acetaminophen Ur Barbiturates Screen Not Detected Ur Phencyclidine Scrn Not Detected Ur Amphetamines Screen Not Detected U Benzodiazepines Scrn Not Detected Urine Cocaine Screen Not Detected U Marijuana (THC) Screen Not Detected IgG Total IgA Total IgM SUZE Interpretation Rheumatoid Factor Proteinase 3 (PR3) Ab Myeloperoxidase Ab Complement C3 Complement C4 Hepatitis A IgM Ab Hep Bs Antigen Hep Bs Antibody Hep B Core Total Ab Hepatitis C Ab (EIA) Leptospira Source Leptospira DNA (PCR) Blood Type Antibody Screen Antibody Identification Crossmatch Crossmatch (AHG) 11/03/23 11/03/23 11/03/23 01:20 07:54 09:53 WBC 11.7 H RBC 3.99 L Hgb 11.6 L Hct 35.9 L MCV 90.0 MCH 29.1 MCHC 32.3 RDW 14.6 Plt Count 126 L D MPV 11.6 Immature Gran % (Auto) 1.2 H Neut % (Auto) 82.7 H Lymph % (Auto) 9.6 L Patrick % (Auto) 6.1 Eos % (Auto) 0.1 Baso % (Auto) 0.3 Lymph # (Auto) 1.1 L Patrick # (Auto) 0.7 Eos # (Auto) 0.0 Baso # (Auto) 0.0 Abs Immat Gran (auto) 0.14 H Absolute Neuts (auto) 9.6 H Absolute Nucleated RBC 0.000 Nucleated RBC % (auto) 0.0 Neutrophils % (Manual) Band Neutrophils % Lymphocytes % (Manual) Monocytes % (Manual) Metamyelocytes % Abs Neuts (Manual) Lymphocytes # (Manual) Monocytes # (Manual) Metamyelocytes # Platelet Estimate Plt Morphology Comment RBC Morphology Polychromasia Tear Drop Cells [place] Cells Smear Tech's Comments Hold Purple Top PT 13.6 H INR 1.1 APTT VBG pH VBG pCO2 VBG pO2 VBG HCO3 VBG O2 Saturation VBG Base Excess Sodium 139 139 Potassium 4.7 4.0 Chloride 110 H 108 Carbon Dioxide 15 L 17 L Anion Gap 19 18 BUN 25 H 29 H Creatinine 1.89 H 2.24 H Estim Creat Clear Calc 47.7 40.2 Estimated GFR 28 23 Random Glucose 133 H 113 Lactic Acid Calcium 8.4 8.2 L Magnesium Total Bilirubin 0.3 0.4 Direct Bilirubin GGT 102 H AST > 4202 H > 4202 H ALT 2350 H 2100 H Alkaline Phosphatase 87 90 Ammonia Lactate Dehydrogenase Total Creatine Kinase 1399 H Total Protein 6.9 6.6 Albumin 3.6 3.7 Lipase Beta HCG, Quant Hold Red Top Urine Color Urine Appearance Urine pH Ur Specific [place] Urine Protein Urine Glucose (UA) Urine Ketones Urine Blood Urine Nitrite Ur Leukocyte Esterase Urine RBC Urine WBC Ur Squamous Epith Cells Urine Bacteria Hyaline Casts Ur Random Sodium Ur Random Potassium Ur Random Chloride Stool Leukocytes, Qual Stl C. cayetanensis PCR Stool Rotavirus A PCR Stl Adenov F 40/ PCR Stool Astrovirus (PCR) Stool Campylobacter PCR Stool Cryptosporidium PCR Stl Sh Tox Pr E STEC PCR Stool E coli O157 PCR Stl Enterotoxigenic E PCR Stool EPEC (PCR) Stool EAEC (PCR) Stl E. histolytica PCR Stool Giardia Lamblia PCR Stl P. shigelloides PCR Stool Salmonella PCR Stool Sapovirus (PCR) Stl Shigella/EIEC PCR St Y.enterocolitica PCR Stool Vibrio (PCR) Stl Vibrio cholerae PCR Stl Norovirus GI/GII PCR Salicylates Urine Opiates Screen Ur Buprenorphine Scrn Ur Oxycodone Screen Urine Methadone Screen Urine Fentanyl Screen Acetaminophen < 3 < 3 Ur Barbiturates Screen Ur Phencyclidine Scrn Ur Amphetamines Screen U Benzodiazepines Scrn Urine Cocaine Screen U Marijuana (THC) Screen IgG Total IgA Total IgM SUZE Interpretation Rheumatoid Factor Proteinase 3 (PR3) Ab Myeloperoxidase Ab Complement C3 Complement C4 Hepatitis A IgM Ab Hep Bs Antigen Hep Bs Antibody Hep B Core Total Ab Hepatitis C Ab (EIA) Leptospira Source Leptospira DNA (PCR) Blood Type Antibody Screen Antibody Identification Crossmatch Crossmatch (AHG) 11/03/23 11/03/23 11/03/23 14:42 14:45 19:23 WBC 10.6 RBC 3.90 L Hgb 11.3 L Hct 34.3 L MCV 87.9 MCH 29.0 MCHC 32.9 RDW 14.7 Plt Count 135 L MPV 11.6 Immature Gran % (Auto) Neut % (Auto) Lymph % (Auto) Patrick % (Auto) Eos % (Auto) Baso % (Auto) Lymph # (Auto) Patrick # (Auto) Eos # (Auto) Baso # (Auto) Abs Immat Gran (auto) Absolute Neuts (auto) Absolute Nucleated RBC 0.000 Nucleated RBC % (auto) 0.0 Neutrophils % (Manual) Band Neutrophils % Lymphocytes % (Manual) Monocytes % (Manual) Metamyelocytes % Abs Neuts (Manual) Lymphocytes # (Manual) Monocytes # (Manual) Metamyelocytes # Platelet Estimate Plt Morphology Comment RBC Morphology Polychromasia Tear Drop Cells [place] Cells Smear Tech's Comments Hold Purple Top PT 13.2 INR 1.1 APTT VBG pH VBG pCO2 VBG pO2 VBG HCO3 VBG O2 Saturation VBG Base Excess Sodium 140 140 Potassium 3.8 4.2 Chloride 107 110 H Carbon Dioxide 19 L 15 L Anion Gap 18 19 BUN 30 H 32 H Creatinine 2.38 H 2.57 H Estim Creat Clear Calc 37.9 35.1 Estimated GFR 22 20 Random Glucose 97 101 Lactic Acid Calcium 8.8 D 8.4 Magnesium Total Bilirubin 0.4 0.4 Direct Bilirubin GGT AST 3242 H 2409 H ALT 1915 H 1716 H Alkaline Phosphatase 97 93 Ammonia Lactate Dehydrogenase Total Creatine Kinase Total Protein 6.5 6.2 L Albumin 3.7 3.4 L Lipase Beta HCG, Quant Hold Red Top Urine Color Urine Appearance Urine pH Ur Specific [place] Urine Protein Urine Glucose (UA) Urine Ketones Urine Blood Urine Nitrite Ur Leukocyte Esterase Urine RBC Urine WBC Ur Squamous Epith Cells Urine Bacteria Hyaline Casts Ur Random Sodium Ur Random Potassium Ur Random Chloride Stool Leukocytes, Qual Stl C. cayetanensis PCR Stool Rotavirus A PCR Stl Adenov F 40/41 PCR Stool Astrovirus (PCR) Stool Campylobacter PCR Stool Cryptosporidium PCR Stl Sh Tox Pr E STEC PCR Stool E coli O157 PCR Stl Enterotoxigenic E PCR Stool EPEC (PCR) Stool EAEC (PCR) Stl E. histolytica PCR Stool Giardia Lamblia PCR Stl P. shigelloides PCR Stool Salmonella PCR Stool Sapovirus (PCR) Stl Shigella/EIEC PCR St Y.enterocolitica PCR Stool Vibrio (PCR) Stl Vibrio cholerae PCR Stl Norovirus GI/GII PCR Salicylates Urine Opiates Screen Ur Buprenorphine Scrn Ur Oxycodone Screen Urine Methadone Screen Urine Fentanyl Screen Acetaminophen Ur Barbiturates Screen Ur Phencyclidine Scrn Ur Amphetamines Screen U Benzodiazepines Scrn Urine Cocaine Screen U Marijuana (THC) Screen IgG Total IgA Total IgM SUZE Interpretation Rheumatoid Factor Proteinase 3 (PR3) Ab Myeloperoxidase Ab Complement C3 Complement C4 Hepatitis A IgM Ab Hep Bs Antigen Hep Bs Antibody Hep B Core Total Ab Hepatitis C Ab (EIA) Leptospira Source Leptospira DNA (PCR) Blood Type Antibody Screen Antibody Identification Crossmatch Crossmatch (AHG) 11/04/23 11/04/23 11/05/23 06:43 13:09 01:29 WBC 9.1 RBC 3.73 L Hgb 11.1 L Hct 33.0 L MCV 88.5 MCH 29.8 MCHC 33.6 RDW 14.6 Plt Count 123 L MPV 11.6 Immature Gran % (Auto) Neut % (Auto) Lymph % (Auto) Patrick % (Auto) Eos % (Auto) Baso % (Auto) Lymph # (Auto) Patrick # (Auto) Eos # (Auto) Baso # (Auto) Abs Immat Gran (auto) Absolute Neuts (auto) Absolute Nucleated RBC 0.000 Nucleated RBC % (auto) 0.0 Neutrophils % (Manual) Band Neutrophils % Lymphocytes % (Manual) Monocytes % (Manual) Metamyelocytes % Abs Neuts (Manual) Lymphocytes # (Manual) Monocytes # (Manual) Metamyelocytes # Platelet Estimate Plt Morphology Comment RBC Morphology Polychromasia Tear Drop Cells [place] Cells Smear Tech's Comments Hold Purple Top PT 13.9 H INR 1.1 APTT VBG pH VBG pCO2 VBG pO2 VBG HCO3 VBG O2 Saturation VBG Base Excess Sodium 141 141 Potassium 3.6 3.6 Chloride 110 H 110 H Carbon Dioxide 17 L 18 L Anion Gap 18 17 BUN 30 H 29 H Creatinine 2.84 H 2.68 H Estim Creat Clear Calc 31.7 33.7 Estimated GFR 18 19 Random Glucose 111 108 Lactic Acid Calcium 8.6 9.3 D Magnesium Total Bilirubin 0.6 0.7 Direct Bilirubin GGT AST 1405 H 951 H ALT 1466 H 1291 H Alkaline Phosphatase 101 103 Ammonia 84 H Lactate Dehydrogenase Total Creatine Kinase Total Protein 6.4 L 6.3 L Albumin 3.6 3.6 Lipase Beta HCG, Quant Hold Red Top Urine Color Urine Appearance Urine pH Ur Specific [place] Urine Protein Urine Glucose (UA) Urine Ketones Urine Blood Urine Nitrite Ur Leukocyte Esterase Urine RBC Urine WBC Ur Squamous Epith Cells Urine Bacteria Hyaline Casts Ur Random Sodium Ur Random Potassium Ur Random Chloride Stool Leukocytes, Qual Stl C. cayetanensis PCR Not Detected Stool Rotavirus A PCR Not Detected Stl Adenov F 40/41 PCR Not Detected Stool Astrovirus (PCR) Not Detected Stool Campylobacter PCR Not Detected Stool Cryptosporidium PCR Not Detected Stl Sh Tox Pr E STEC PCR Not Detected Stool E coli O157 PCR Not applicable Stl Enterotoxigenic E PCR Not Detected Stool EPEC (PCR) Not Detected Stool EAEC (PCR) Not Detected Stl E. histolytica PCR Not Detected Stool Giardia Lamblia PCR Not Detected Stl P. shigelloides PCR Not Detected Stool Salmonella PCR Not Detected Stool Sapovirus (PCR) Not Detected Stl Shigella/EIEC PCR Not Detected St Y.enterocolitica PCR Not Detected Stool Vibrio (PCR) Not Detected Stl Vibrio cholerae PCR Not Detected Stl Norovirus GI/GII PCR Not Detected Salicylates Urine Opiates Screen Ur Buprenorphine Scrn Ur Oxycodone Screen Urine Methadone Screen Urine Fentanyl Screen Acetaminophen Ur Barbiturates Screen Ur Phencyclidine Scrn Ur Amphetamines Screen U Benzodiazepines Scrn Urine Cocaine Screen U Marijuana (THC) Screen IgG Total IgA Total IgM SUZE Interpretation Rheumatoid Factor Proteinase 3 (PR3) Ab Myeloperoxidase Ab Complement C3 Complement C4 Hepatitis A IgM Ab Hep Bs Antigen Hep Bs Antibody Hep B Core Total Ab Hepatitis C Ab (EIA) Leptospira Source Leptospira DNA (PCR) Blood Type Antibody Screen Antibody Identification Crossmatch Crossmatch (AHG) 11/05/23 11/06/23 11/06/23 06:46 06:29 06:30 WBC 7.2 RBC 3.84 L Hgb 11.3 L Hct 33.4 L MCV 87.0 MCH 29.4 MCHC 33.8 RDW 14.6 Plt Count 153 L MPV 11.3 Immature Gran % (Auto) Neut % (Auto) Lymph % (Auto) Patrick % (Auto) Eos % (Auto) Baso % (Auto) Lymph # (Auto) Patrick # (Auto) Eos # (Auto) Baso # (Auto) Abs Immat Gran (auto) Absolute Neuts (auto) Absolute Nucleated RBC 0.000 Nucleated RBC % (auto) 0.0 Neutrophils % (Manual) Band Neutrophils % Lymphocytes % (Manual) Monocytes % (Manual) Metamyelocytes % Abs Neuts (Manual) Lymphocytes # (Manual) Monocytes # (Manual) Metamyelocytes # Platelet Estimate Plt Morphology Comment RBC Morphology Polychromasia Tear Drop Cells [place] Cells Smear Tech's Comments Hold Purple Top SEE NOTE PT 13.7 H INR 1.1 APTT VBG pH VBG pCO2 VBG pO2 VBG HCO3 VBG O2 Saturation VBG Base Excess Sodium 143 143 Potassium 3.4 3.2 L Chloride 111 H 110 H Carbon Dioxide 20 L 20 L Anion Gap 15 16 BUN 27 H 24 H Creatinine 2.62 H 2.32 H Estim Creat Clear Calc 34.4 38.8 Estimated GFR 19 22 Random Glucose 106 107 Lactic Acid Calcium 9.1 9.1 Magnesium Total Bilirubin 1.0 1.1 H Direct Bilirubin 0.5 GGT AST 326 H 104 H ALT 893 H 606 H Alkaline Phosphatase 99 101 Ammonia Lactate Dehydrogenase Total Creatine Kinase Total Protein 6.2 L 6.5 Albumin 3.5 3.7 Lipase Beta HCG, Quant Hold Red Top Urine Color Urine Appearance Urine pH Ur Specific [place] Urine Protein Urine Glucose (UA) Urine Ketones Urine Blood Urine Nitrite Ur Leukocyte Esterase Urine RBC Urine WBC Ur Squamous Epith Cells Urine Bacteria Hyaline Casts Ur Random Sodium Ur Random Potassium Ur Random Chloride Stool Leukocytes, Qual Stl C. cayetanensis PCR Stool Rotavirus A PCR Stl Adenov F 40/41 PCR Stool Astrovirus (PCR) Stool Campylobacter PCR Stool Cryptosporidium PCR Stl Sh Tox Pr E STEC PCR Stool E coli O157 PCR Stl Enterotoxigenic E PCR Stool EPEC (PCR) Stool EAEC (PCR) Stl E. histolytica PCR Stool Giardia Lamblia PCR Stl P. shigelloides PCR Stool Salmonella PCR Stool Sapovirus (PCR) Stl Shigella/EIEC PCR St Y.enterocolitica PCR Stool Vibrio (PCR) Stl Vibrio cholerae PCR Stl Norovirus GI/GII PCR Salicylates Urine Opiates Screen Ur Buprenorphine Scrn Ur Oxycodone Screen Urine Methadone Screen Urine Fentanyl Screen Acetaminophen Ur Barbiturates Screen Ur Phencyclidine Scrn Ur Amphetamines Screen U Benzodiazepines Scrn Urine Cocaine Screen U Marijuana (THC) Screen IgG Total 854 IgA Total 250 IgM 78 SUZE Interpretation SEE NOTE Rheumatoid Factor < 13.0 Proteinase 3 (PR3) Ab <1.0 Myeloperoxidase Ab <1.0 Complement C3 107 Complement C4 28 Hepatitis A IgM Ab Hep Bs Antigen Hep Bs Antibody Hep B Core Total Ab Hepatitis C Ab (EIA) Leptospira Source Leptospira DNA (PCR) Blood Type Antibody Screen Antibody Identification Crossmatch Crossmatch (AHG) 11/06/23 11/07/23 11/07/23 08:00 06:20 12:34 WBC RBC Hgb Hct MCV MCH MCHC RDW Plt Count MPV Immature Gran % (Auto) Neut % (Auto) Lymph % (Auto) Patrick % (Auto) Eos % (Auto) Baso % (Auto) Lymph # (Auto) Patrick # (Auto) Eos # (Auto) Baso # (Auto) Abs Immat Gran (auto) Absolute Neuts (auto) Absolute Nucleated RBC Nucleated RBC % (auto) Neutrophils % (Manual) Band Neutrophils % Lymphocytes % (Manual) Monocytes % (Manual) Metamyelocytes % Abs Neuts (Manual) Lymphocytes # (Manual) Monocytes # (Manual) Metamyelocytes # Platelet Estimate Plt Morphology Comment RBC Morphology Polychromasia Tear Drop Cells [place] Cells Smear Tech's Comments Hold Purple Top PT INR APTT VBG pH VBG pCO2 VBG pO2 VBG HCO3 VBG O2 Saturation VBG Base Excess Sodium 143 Potassium 3.2 L Chloride 109 H Carbon Dioxide 20 L Anion Gap 17 BUN 21 H Creatinine 2.00 H Estim Creat Clear Calc 45.1 Estimated GFR 26 Random Glucose 103 Lactic Acid Calcium 8.8 Magnesium Total Bilirubin 0.9 Direct Bilirubin 0.4 GGT AST 46 H ALT 384 H Alkaline Phosphatase 92 Ammonia Lactate Dehydrogenase Total Creatine Kinase Total Protein 6.4 L Albumin 3.7 Lipase Beta HCG, Quant Hold Red Top Urine Color Urine Appearance Urine pH Ur Specific [place] Urine Protein Urine Glucose (UA) Urine Ketones Urine Blood Urine Nitrite Ur Leukocyte Esterase Urine RBC Urine WBC Ur Squamous Epith Cells Urine Bacteria Hyaline Casts Ur Random Sodium Ur Random Potassium Ur Random Chloride Stool Leukocytes, Qual NEGATIVE Stl C. cayetanensis PCR Stool Rotavirus A PCR Stl Adenov F 40/41 PCR Stool Astrovirus (PCR) Stool Campylobacter PCR Stool Cryptosporidium PCR Stl Sh Tox Pr E STEC PCR Stool E coli O157 PCR Stl Enterotoxigenic E PCR Stool EPEC (PCR) Stool EAEC (PCR) Stl E. histolytica PCR Stool Giardia Lamblia PCR Stl P. shigelloides PCR Stool Salmonella PCR Stool Sapovirus (PCR) Stl Shigella/EIEC PCR St Y.enterocolitica PCR Stool Vibrio (PCR) Stl Vibrio cholerae PCR Stl Norovirus GI/GII PCR Salicylates Urine Opiates Screen Ur Buprenorphine Scrn Ur Oxycodone Screen Urine Methadone Screen Urine Fentanyl Screen Acetaminophen Ur Barbiturates Screen Ur Phencyclidine Scrn Ur Amphetamines Screen U Benzodiazepines Scrn Urine Cocaine Screen U Marijuana (THC) Screen IgG Total IgA Total IgM SZUE Interpretation Rheumatoid Factor Proteinase 3 (PR3) Ab Myeloperoxidase Ab Complement C3 Complement C4 Hepatitis A IgM Ab Hep Bs Antigen Hep Bs Antibody Hep B Core Total Ab Hepatitis C Ab (EIA) Leptospira Source URINE Leptospira DNA (PCR) NOT DETECTED Blood Type Antibody Screen Antibody Identification Crossmatch Crossmatch (AHG) 11/08/23 11/08/23 11/08/23 05:56 12:46 15:38 WBC 8.9 RBC 3.99 L Hgb 11.6 L Hct 34.1 L MCV 85.5 MCH 29.1 MCHC 34.0 RDW 14.8 Plt Count 169 MPV 11.2 Immature Gran % (Auto) Neut % (Auto) Lymph % (Auto) Patrick % (Auto) Eos % (Auto) Baso % (Auto) Lymph # (Auto) Patrick # (Auto) Eos # (Auto) Baso # (Auto) Abs Immat Gran (auto) Absolute Neuts (auto) Absolute Nucleated RBC 0.000 Nucleated RBC % (auto) 0.0 Neutrophils % (Manual) Band Neutrophils % Lymphocytes % (Manual) Monocytes % (Manual) Metamyelocytes % Abs Neuts (Manual) Lymphocytes # (Manual) Monocytes # (Manual) Metamyelocytes # Platelet Estimate Plt Morphology Comment RBC Morphology Polychromasia Tear Drop Cells [place] Cells Smear Tech's Comments Hold Purple Top PT INR APTT VBG pH VBG pCO2 VBG pO2 VBG HCO3 VBG O2 Saturation VBG Base Excess Sodium 141 141 Potassium 2.8 L* 3.3 Chloride 107 109 H Carbon Dioxide 19 L 17 L Anion Gap 18 18 BUN 20 H 19 H Creatinine 1.91 H 2.07 H Estim Creat Clear Calc 47.2 43.5 Estimated GFR 28 25 Random Glucose 116 H 118 H Lactic Acid Calcium 9.0 8.9 Magnesium Total Bilirubin 0.8 Direct Bilirubin 0.3 GGT AST 31 ALT 258 H Alkaline Phosphatase 86 Ammonia Lactate Dehydrogenase Total Creatine Kinase Total Protein 6.4 L Albumin 3.8 Lipase Beta HCG, Quant Hold Red Top Urine Color Urine Appearance Urine pH Ur Specific [place] Urine Protein Urine Glucose (UA) Urine Ketones Urine Blood Urine Nitrite Ur Leukocyte Esterase Urine RBC Urine WBC Ur Squamous Epith Cells Urine Bacteria Hyaline Casts Ur Random Sodium Ur Random Potassium Ur Random Chloride Stool Leukocytes, Qual Stl C. cayetanensis PCR Stool Rotavirus A PCR Stl Adenov F 40 PCR Stool Astrovirus (PCR) Stool Campylobacter PCR Stool Cryptosporidium PCR Stl Sh Tox Pr E STEC PCR Stool E coli O157 PCR Stl Enterotoxigenic E PCR Stool EPEC (PCR) Stool EAEC (PCR) Stl E. histolytica PCR Stool Giardia Lamblia PCR Stl P. shigelloides PCR Stool Salmonella PCR Stool Sapovirus (PCR) Stl Shigella/EIEC PCR St Y.enterocolitica PCR Stool Vibrio (PCR) Stl Vibrio cholerae PCR Stl Norovirus GI/GII PCR Salicylates Urine Opiates Screen Ur Buprenorphine Scrn Ur Oxycodone Screen Urine Methadone Screen Urine Fentanyl Screen Acetaminophen Ur Barbiturates Screen Ur Phencyclidine Scrn Ur Amphetamines Screen U Benzodiazepines Scrn Urine Cocaine Screen U Marijuana (THC) Screen IgG Total IgA Total IgM SUZE Interpretation Rheumatoid Factor Proteinase 3 (PR3) Ab Myeloperoxidase Ab Complement C3 Complement C4 Hepatitis A IgM Ab Hep Bs Antigen Hep Bs Antibody Hep B Core Total Ab Hepatitis C Ab (EIA) Leptospira Source Leptospira DNA (PCR) Blood Type Antibody Screen Antibody Identification Crossmatch Crossmatch (AHG) 11/09/23 11/09/23 11/09/23 06:25 06:26 13:45 WBC 7.4 RBC 3.57 L Hgb 10.5 L 10.9 L Hct 31.2 L 32.7 L MCV 87.4 MCH 29.4 MCHC 33.7 RDW 15.3 Plt Count 172 MPV 11.2 Immature Gran % (Auto) Neut % (Auto) Lymph % (Auto) Patrick % (Auto) Eos % (Auto) Baso % (Auto) Lymph # (Auto) Patrick # (Auto) Eos # (Auto) Baso # (Auto) Abs Immat Gran (auto) Absolute Neuts (auto) Absolute Nucleated RBC 0.000 Nucleated RBC % (auto) 0.0 Neutrophils % (Manual) Band Neutrophils % Lymphocytes % (Manual) Monocytes % (Manual) Metamyelocytes % Abs Neuts (Manual) Lymphocytes # (Manual) Monocytes # (Manual) Metamyelocytes # Platelet Estimate Plt Morphology Comment RBC Morphology Polychromasia Tear Drop Cells [place] Cells Smear Tech's Comments Hold Purple Top PT 13.2 INR 1.1 APTT VBG pH VBG pCO2 VBG pO2 VBG HCO3 VBG O2 Saturation VBG Base Excess Sodium 144 Potassium 3.4 Chloride 111 H Carbon Dioxide 18 L Anion Gap 18 BUN 18 H Creatinine 1.93 H Estim Creat Clear Calc 46.8 Estimated GFR 28 Random Glucose 125 H Lactic Acid Calcium 8.6 Magnesium Total Bilirubin Direct Bilirubin GGT AST ALT Alkaline Phosphatase Ammonia Lactate Dehydrogenase Total Creatine Kinase Total Protein Albumin Lipase Beta HCG, Quant Hold Red Top Urine Color Urine Appearance Urine pH Ur Specific [place] Urine Protein Urine Glucose (UA) Urine Ketones Urine Blood Urine Nitrite Ur Leukocyte Esterase Urine RBC Urine WBC Ur Squamous Epith Cells Urine Bacteria Hyaline Casts Ur Random Sodium Ur Random Potassium Ur Random Chloride Stool Leukocytes, Qual Stl C. cayetanensis PCR Stool Rotavirus A PCR Stl Adenov F 40/41 PCR Stool Astrovirus (PCR) Stool Campylobacter PCR Stool Cryptosporidium PCR Stl Sh Tox Pr E STEC PCR Stool E coli O157 PCR Stl Enterotoxigenic E PCR Stool EPEC (PCR) Stool EAEC (PCR) Stl E. histolytica PCR Stool Giardia Lamblia PCR Stl P. shigelloides PCR Stool Salmonella PCR Stool Sapovirus (PCR) Stl Shigella/EIEC PCR St Y.enterocolitica PCR Stool Vibrio (PCR) Stl Vibrio cholerae PCR Stl Norovirus GI/GII PCR Salicylates Urine Opiates Screen Ur Buprenorphine Scrn Ur Oxycodone Screen Urine Methadone Screen Urine Fentanyl Screen Acetaminophen Ur Barbiturates Screen Ur Phencyclidine Scrn Ur Amphetamines Screen U Benzodiazepines Scrn Urine Cocaine Screen U Marijuana (THC) Screen IgG Total IgA Total IgM SUZE Interpretation Rheumatoid Factor Proteinase 3 (PR3) Ab Myeloperoxidase Ab Complement C3 Complement C4 Hepatitis A IgM Ab Hep Bs Antigen Hep Bs Antibody Hep B Core Total Ab Hepatitis C Ab (EIA) Leptospira Source Leptospira DNA (PCR) Blood Type Antibody Screen Antibody Identification Crossmatch Crossmatch (AHG) 11/09/23 11/10/23 11/10/23 19:57 05:58 16:03 WBC RBC Hgb 10.3 L 9.8 L 9.3 L Hct 30.2 L 29.2 L 28.4 L MCV MCH MCHC RDW Plt Count MPV Immature Gran % (Auto) Neut % (Auto) Lymph % (Auto) Patrick % (Auto) Eos % (Auto) Baso % (Auto) Lymph # (Auto) Patrick # (Auto) Eos # (Auto) Baso # (Auto) Abs Immat Gran (auto) Absolute Neuts (auto) Absolute Nucleated RBC Nucleated RBC % (auto) Neutrophils % (Manual) Band Neutrophils % Lymphocytes % (Manual) Monocytes % (Manual) Metamyelocytes % Abs Neuts (Manual) Lymphocytes # (Manual) Monocytes # (Manual) Metamyelocytes # Platelet Estimate Plt Morphology Comment RBC Morphology Polychromasia Tear Drop Cells [place] Cells Smear Tech's Comments Hold Purple Top PT INR APTT VBG pH VBG pCO2 VBG pO2 VBG HCO3 VBG O2 Saturation VBG Base Excess Sodium Potassium Chloride Carbon Dioxide Anion Gap BUN Creatinine Estim Creat Clear Calc Estimated GFR Random Glucose Lactic Acid Calcium Magnesium Total Bilirubin Direct Bilirubin GGT AST ALT Alkaline Phosphatase Ammonia Lactate Dehydrogenase Total Creatine Kinase Total Protein Albumin Lipase Beta HCG, Quant Hold Red Top Urine Color Urine Appearance Urine pH Ur Specific [place] Urine Protein Urine Glucose (UA) Urine Ketones Urine Blood Urine Nitrite Ur Leukocyte Esterase Urine RBC Urine WBC Ur Squamous Epith Cells Urine Bacteria Hyaline Casts Ur Random Sodium Ur Random Potassium Ur Random Chloride Stool Leukocytes, Qual Stl C. cayetanensis PCR Stool Rotavirus A PCR Stl Adenov F PCR Stool Astrovirus (PCR) Stool Campylobacter PCR Stool Cryptosporidium PCR Stl Sh Tox Pr E STEC PCR Stool E coli O157 PCR Stl Enterotoxigenic E PCR Stool EPEC (PCR) Stool EAEC (PCR) Stl E. histolytica PCR Stool Giardia Lamblia PCR Stl P. shigelloides PCR Stool Salmonella PCR Stool Sapovirus (PCR) Stl Shigella/EIEC PCR St Y.enterocolitica PCR Stool Vibrio (PCR) Stl Vibrio cholerae PCR Stl Norovirus GI/GII PCR Salicylates Urine Opiates Screen Ur Buprenorphine Scrn Ur Oxycodone Screen Urine Methadone Screen Urine Fentanyl Screen Acetaminophen Ur Barbiturates Screen Ur Phencyclidine Scrn Ur Amphetamines Screen U Benzodiazepines Scrn Urine Cocaine Screen U Marijuana (THC) Screen IgG Total IgA Total IgM SUZE Interpretation Rheumatoid Factor Proteinase 3 (PR3) Ab Myeloperoxidase Ab Complement C3 Complement C4 Hepatitis A IgM Ab Hep Bs Antigen Hep Bs Antibody Hep B Core Total Ab Hepatitis C Ab (EIA) Leptospira Source Leptospira DNA (PCR) Blood Type Antibody Screen Antibody Identification Crossmatch Crossmatch (AHG) 11/11/23 11/11/23 11/12/23 08:03 09:36 07:21 WBC 6.8 RBC 3.35 L Hgb 8.6 L 9.9 L Hct 26.1 L 29.5 L MCV 88.1 MCH 29.6 MCHC 33.6 RDW 14.7 Plt Count 156 L MPV 11.3 Immature Gran % (Auto) Neut % (Auto) Lymph % (Auto) Patrick % (Auto) Eos % (Auto) Baso % (Auto) Lymph # (Auto) Patrick # (Auto) Eos # (Auto) Baso # (Auto) Abs Immat Gran (auto) Absolute Neuts (auto) Absolute Nucleated RBC 0.000 Nucleated RBC % (auto) 0.0 Neutrophils % (Manual) Band Neutrophils % Lymphocytes % (Manual) Monocytes % (Manual) Metamyelocytes % Abs Neuts (Manual) Lymphocytes # (Manual) Monocytes # (Manual) Metamyelocytes # Platelet Estimate Plt Morphology Comment RBC Morphology Polychromasia Tear Drop Cells [place] Cells Smear Tech's Comments Hold Purple Top PT INR APTT VBG pH VBG pCO2 VBG pO2 VBG HCO3 VBG O2 Saturation VBG Base Excess Sodium 144 146 H Potassium 3.1 L 3.2 L Chloride 112 H 111 H Carbon Dioxide 22 22 Anion Gap 13 16 BUN 11 11 Creatinine 1.74 H 1.85 H Estim Creat Clear Calc 51.9 48.7 Estimated GFR 31 29 Random Glucose 111 99 Lactic Acid Calcium 8.4 8.7 Magnesium Total Bilirubin 0.8 Direct Bilirubin 0.3 GGT AST 19 ALT 65 H Alkaline Phosphatase 63 Ammonia Lactate Dehydrogenase Total Creatine Kinase Total Protein 6.2 L Albumin 3.7 Lipase Beta HCG, Quant Hold Red Top Urine Color Urine Appearance Urine pH Ur Specific [place] Urine Protein Urine Glucose (UA) Urine Ketones Urine Blood Urine Nitrite Ur Leukocyte Esterase Urine RBC Urine WBC Ur Squamous Epith Cells Urine Bacteria Hyaline Casts Ur Random Sodium Ur Random Potassium Ur Random Chloride Stool Leukocytes, Qual Stl C. cayetanensis PCR Stool Rotavirus A PCR Stl Adenov F 40/41 PCR Stool Astrovirus (PCR) Stool Campylobacter PCR Stool Cryptosporidium PCR Stl Sh Tox Pr E STEC PCR Stool E coli O157 PCR Stl Enterotoxigenic E PCR Stool EPEC (PCR) Stool EAEC (PCR) Stl E. histolytica PCR Stool Giardia Lamblia PCR Stl P. shigelloides PCR Stool Salmonella PCR Stool Sapovirus (PCR) Stl Shigella/EIEC PCR St Y.enterocolitica PCR Stool Vibrio (PCR) Stl Vibrio cholerae PCR Stl Norovirus GI/GII PCR Salicylates Urine Opiates Screen Ur Buprenorphine Scrn Ur Oxycodone Screen Urine Methadone Screen Urine Fentanyl Screen Acetaminophen Ur Barbiturates Screen Ur Phencyclidine Scrn Ur Amphetamines Screen U Benzodiazepines Scrn Urine Cocaine Screen U Marijuana (THC) Screen IgG Total IgA Total IgM SUZE Interpretation Rheumatoid Factor Proteinase 3 (PR3) Ab Myeloperoxidase Ab Complement C3 Complement C4 Hepatitis A IgM Ab Hep Bs Antigen Hep Bs Antibody Hep B Core Total Ab Hepatitis C Ab (EIA) Leptospira Source Leptospira DNA (PCR) Blood Type O Positive Antibody Screen POSITIVE Antibody Identification Negative Crossmatch See Detail Crossmatch (AHG) See Detail Assessment and Plan Final Anesthetic Review Family History of Problems with Anesthesia: No History of Problems with Anesthesia: No
--- NOTE | 2023-11-12 17:42 | P.CONAN_ITS ---
[facility] Active Problems Active Problems: All Active Problems GI bleeding (Acute) Acute liver failure (Acute) Prolonged QT interval (Acute) Transaminitis (Acute) Nausea vomiting and diarrhea (Acute) Drug overdose (Acute) Abdominal pain (Acute) JANAE (acute kidney injury) (Acute) Nephrolithiasis (Acute) Past Medical History Medical History (Updated 11/12/23 @ 16:34 by Shireen Huitron RN) HHT (hereditary hemorrhagic telangiectasia) Morbid obesity IBS (irritable bowel syndrome) Hereditary hemorrhagic telangiectasia ADD (attention deficit disorder) Kidney stone Depression Hypertension Migraines Pulmonary arteriovenous malformation Functional capacity: independent ambulation Family History Family history of problems with anesthesia: No Surgical History Surgical History Hx of cystoscopy H/O lithotripsy History of ankle surgery History of appendectomy H/O: hysterectomy History of Problems with Anesthesia: No Social History Social History Household Members: Family Household Members Other:: mother Housing: House Are you a primary career representative to a significant other at home: No Do you presently have visiting nurse or other home services: No Alcohol intake: unknown Patient Tobacco Use Status: Never used Tobacco service: No Meds Allergies Allergy/AdvReac Type Severity Reaction Status Date / Time pregabalin [From LYRICA] Allergy Severe Difficulty Verified 11/02/23 15:44 Breathing sumatriptan [From IMITREX] Allergy Severe Chest Pain Verified 11/02/23 15:44 zolmitriptan [From ZOMIG] Allergy Severe Chest Pain Verified 11/02/23 15:44 morphine [MORPHINE] Allergy Intermediate STOMACH Verified 11/02/23 15:44 UPSET From ZELNORM Allergy Severe Palpitation Uncoded 11/01/23 00:47 s Active Medications: Current Medications Amlodipine Besylate (Amlodipine Besylate 10 Mg Tablet) 10 mg PO BEDTIME MARIANGEL; Protocol Last Admin: 11/11/23 20:00 Dose: 10 mg Bupropion HCl (Bupropion Hcl Xl 150 Mg Tab.Er.24h) 150 mg PO DAILY MARIANGEL Last Admin: 11/12/23 07:39 Dose: 150 mg Hydralazine HCl (Hydralazine Hcl 25 Mg Tablet) 75 mg PO TID MARIANGEL; Protocol Last Admin: 11/12/23 14:09 Dose: 75 mg Hydromorphone HCl (Hydromorphone Hcl 0.5 Mg/0.5 Ml Syringe) 0.5 mg IVPUSH Q3H PRN; Protocol PRN Reason: Pain, Severe (Pain Scale 7-10) Last Admin: 11/12/23 14:09 Dose: 0.5 mg Potassium Cl/Dextrose/Lact Ringer's (Kcl 20 Meq In 5 % Dex/Lact Rin) 20 meq in 1,000 mls @ 80 mls/hr IVCONT .[id number] ON LICENSE OF [facility] Last Admin: 11/12/23 07:43 Dose: 80 mls/hr Labetalol HCl (Labetalol Hcl 100 Mg Tablet) 100 mg PO BID ON LICENSE OF [facility]; Protocol Last Admin: 11/12/23 07:40 Dose: 100 mg Lorazepam (Lorazepam 0.5 Mg Tablet) 0.5 mg PO Q8H PRN PRN Reason: anxiety Last Admin: 11/12/23 14:09 Dose: 0.5 mg Melatonin (Melatonin 3 Mg Tablet) 6 mg PO BEDTIME PRN PRN Reason: Insomnia Last Admin: 11/09/23 20:15 Dose: 6 mg Nystatin (Nystatin Ointment 15 Gm Tube) 1 appl TOPICAL BID ON LICENSE OF [facility]; Protocol Last Admin: 11/12/23 07:40 Dose: 1 appl Ondansetron HCl (Ondansetron Hcl 4 Mg/2 Ml Vial) 4 mg IVPUSH Q8H PRN PRN Reason: Nausea and Vomiting Last Admin: 11/04/23 18:35 Dose: 4 mg Oxycodone HCl (Oxycodone Hcl Immed Release 5 Mg Tablet) 5 mg PO Q4H PRN PRN Reason: Pain, Moderate(Pain Scale 4-6) Last Admin: 11/12/23 12:34 Dose: 5 mg Pantoprazole Sodium (Pantoprazole Sodium 40 Mg/10 Ml Vial) 40 mg IVPUSH DAILY@0630 ON LICENSE OF [facility] Last Admin: 11/12/23 05:38 Dose: 40 mg Sertraline HCl (Sertraline Hcl 100 Mg Tablet) 100 mg PO DAILY ON LICENSE OF [facility] Last Admin: 11/12/23 07:39 Dose: 100 mg Sodium Chloride (0.9 % Sodium Chloride Flush 3 Ml Syringe) 3 ml IVFLUSH QSHIFT ON LICENSE OF [facility] Last Admin: 11/12/23 14:10 Dose: 3 ml Trazodone HCl (Trazodone Hcl 100 Mg Tablet) 200 mg PO BEDTIME MARIANGEL Last Admin: 11/11/23 22:02 Dose: 200 mg Home Medications ?Medication ?Instructions ?Recorded ?Confirmed ?Last Taken ?Type sertraline 100 mg tablet 200 mg PO DAILY 04/12/22 11/02/23 10/31/23 History bupropion HCl 100 mg tablet,12 hr 100 mg PO BID 08/02/22 11/02/23 10/31/23 History sustained-release Exam Height,Weight and Vital Signs: Height 5 ft 5 in Weight 124.5 kg Last Vital Signs Temp 99.3 F 11/12/23 14:40 Pulse 92 11/12/23 14:40 Resp 16 11/12/23 14:40 BP 156/83 H 11/12/23 14:40 Pulse Ox 95 11/12/23 14:40 O2 Del Method Room Air 11/12/23 14:40 Pertinent Lab Results Pertinent Lab Results: Laboratory Tests 11/02/23 11/02/23 11/02/23 16:00 19:52 19:58 WBC 14.4 H RBC 4.44 Hgb 13.0 Hct 41.4 MCV 93.2 MCH 29.3 MCHC 31.4 RDW 15.0 Plt Count 222 MPV 10.8 Immature Gran % (Auto) Cancelled Neut % (Auto) Cancelled Lymph % (Auto) Cancelled [place] % (Auto) Cancelled Eos % (Auto) Cancelled Baso % (Auto) Cancelled Lymph # (Auto) Cancelled [place] # (Auto) Cancelled Eos # (Auto) Cancelled Baso # (Auto) Cancelled Abs Immat Gran (auto) Cancelled Absolute Neuts (auto) Cancelled Absolute Nucleated RBC 0.000 Nucleated RBC % (auto) 0.0 Neutrophils % (Manual) 82 H Band Neutrophils % 9 H Lymphocytes % (Manual) 2 L Monocytes % (Manual) 5 Metamyelocytes % 2 Abs Neuts (Manual) 13.1 H Lymphocytes # (Manual) 0.3 L Monocytes # (Manual) 0.7 Metamyelocytes # 0.3 Platelet Estimate NORMAL Plt Morphology Comment NORMAL RBC Morphology NOTED Polychromasia 1+ (0-2) Tear Drop Cells 1+ (0-2) Samara Cells 1+ (0-2) Smear Tech's Comments MANUAL DIFF Hold Purple Top PT Cancelled INR Cancelled APTT Cancelled VBG pH 7.25 L VBG pCO2 45 VBG pO2 39 VBG HCO3 20 L VBG O2 Saturation 62.0 VBG Base Excess -6.6 Sodium 140 144 Potassium 5.5 H D 4.8 Chloride 108 111 H Carbon Dioxide 22 22 Anion Gap 16 16 BUN 16 19 H Creatinine 1.72 H 1.50 H Estim Creat Clear Calc 52.4 60.1 Estimated GFR 32 37 Random Glucose 153 H 130 H Lactic Acid 1.2 Calcium 8.9 8.2 L D Magnesium 2.3 Total Bilirubin 1.1 H 0.5 Direct Bilirubin GGT AST 1794 H > 4202 H ALT 1263 H 2582 H Alkaline Phosphatase 94 84 Ammonia 104 H Lactate Dehydrogenase Total Creatine Kinase 66 Total Protein 7.4 7.1 Albumin 4.1 3.9 Lipase 19 Beta HCG, Quant < 2 < 2 Hold Red Top Urine Color Urine Appearance Urine pH Ur Specific [place] Urine Protein Urine Glucose (UA) Urine Ketones Urine Blood Urine Nitrite Ur Leukocyte Esterase Urine RBC Urine WBC Ur Squamous Epith Cells Urine Bacteria Hyaline Casts Ur Random Sodium Ur Random Potassium Ur Random Chloride Stool Leukocytes, Qual Stl C. cayetanensis PCR Stool Rotavirus A PCR Stl Adenov F 40/41 PCR Stool Astrovirus (PCR) Stool Campylobacter PCR Stool Cryptosporidium PCR Stl Sh Tox Pr E STEC PCR Stool E coli O157 PCR Stl Enterotoxigenic E PCR Stool EPEC (PCR) Stool EAEC (PCR) Stl E. histolytica PCR Stool Giardia Lamblia PCR Stl P. shigelloides PCR Stool Salmonella PCR Stool Sapovirus (PCR) Stl Shigella/EIEC PCR St Y.enterocolitica PCR Stool Vibrio (PCR) Stl Vibrio cholerae PCR Stl Norovirus GI/GII PCR Salicylates < 5.0 L Urine Opiates Screen Ur Buprenorphine Scrn Ur Oxycodone Screen Urine Methadone Screen Urine Fentanyl Screen Acetaminophen 6 Ur Barbiturates Screen Ur Phencyclidine Scrn Ur Amphetamines Screen U Benzodiazepines Scrn Urine Cocaine Screen U Marijuana (THC) Screen IgG Total IgA Total IgM SUZE Interpretation Rheumatoid Factor Proteinase 3 (PR3) Ab Myeloperoxidase Ab Complement C3 Complement C4 Hepatitis A IgM Ab Nonreactive Hep Bs Antigen Negative Hep Bs Antibody NONREACTIVE Hep B Core Total Ab Nonreactive Hepatitis C Ab (EIA) Nonreactive Leptospira Source Leptospira DNA (PCR) Blood Type Antibody Screen Antibody Identification Crossmatch Crossmatch (AHG) 11/02/23 11/02/23 11/02/23 21:22 22:56 23:00 WBC RBC Hgb Hct MCV MCH MCHC RDW Plt Count MPV Immature Gran % (Auto) Neut % (Auto) Lymph % (Auto) [place] % (Auto) Eos % (Auto) Baso % (Auto) Lymph # (Auto) [place] # (Auto) Eos # (Auto) Baso # (Auto) Abs Immat Gran (auto) Absolute Neuts (auto) Absolute Nucleated RBC Nucleated RBC % (auto) Neutrophils % (Manual) Band Neutrophils % Lymphocytes % (Manual) Monocytes % (Manual) Metamyelocytes % Abs Neuts (Manual) Lymphocytes # (Manual) Monocytes # (Manual) Metamyelocytes # Platelet Estimate Plt Morphology Comment RBC Morphology Polychromasia Tear Drop Cells [place] Cells Smear Tech's Comments Hold Purple Top SEE NOTE PT 15.1 H INR 1.2 H APTT 29.4 VBG pH 7.32 VBG pCO2 36 VBG pO2 63 VBG HCO3 19 L VBG O2 Saturation 89.0 VBG Base Excess -6.3 Sodium Potassium Chloride Carbon Dioxide Anion Gap BUN Creatinine Estim Creat Clear Calc Estimated GFR Random Glucose Lactic Acid Calcium Magnesium Total Bilirubin Direct Bilirubin GGT AST ALT Alkaline Phosphatase Ammonia Lactate Dehydrogenase > 20475 H Total Creatine Kinase 1157 H Total Protein Albumin Lipase Beta HCG, Quant Hold Red Top See Note Urine Color Dark Yellow Urine Appearance Turbid Urine pH 5.5 Ur Specific [place] 1.015 Urine Protein 300 (3+) H Urine Glucose (UA) Negative Urine Ketones Trace Urine Blood Large (3+) H Urine Nitrite Negative Ur Leukocyte Esterase Trace H Urine RBC 6-10 H Urine WBC 11-20 H Ur Squamous Epith Cells >20 Urine Bacteria 2+ Hyaline Casts >20 Ur Random Sodium 75.0 Ur Random Potassium 55.2 Ur Random Chloride 79.0 Stool Leukocytes, Qual Stl C. cayetanensis PCR Stool Rotavirus A PCR Stl Adenov F 40/41 PCR Stool Astrovirus (PCR) Stool Campylobacter PCR Stool Cryptosporidium PCR Stl Sh Tox Pr E STEC PCR Stool E coli O157 PCR Stl Enterotoxigenic E PCR Stool EPEC (PCR) Stool EAEC (PCR) Stl E. histolytica PCR Stool Giardia Lamblia PCR Stl P. shigelloides PCR Stool Salmonella PCR Stool Sapovirus (PCR) Stl Shigella/EIEC PCR St Y.enterocolitica PCR Stool Vibrio (PCR) Stl Vibrio cholerae PCR Stl Norovirus GI/GII PCR Salicylates Urine Opiates Screen Not Detected Ur Buprenorphine Scrn Not Detected Ur Oxycodone Screen Not Detected Urine Methadone Screen Not Detected Urine Fentanyl Screen POSITIVE H Acetaminophen Ur Barbiturates Screen Not Detected Ur Phencyclidine Scrn Not Detected Ur Amphetamines Screen Not Detected U Benzodiazepines Scrn Not Detected Urine Cocaine Screen Not Detected U Marijuana (THC) Screen Not Detected IgG Total IgA Total IgM SUZE Interpretation Rheumatoid Factor Proteinase 3 (PR3) Ab Myeloperoxidase Ab Complement C3 Complement C4 Hepatitis A IgM Ab Hep Bs Antigen Hep Bs Antibody Hep B Core Total Ab Hepatitis C Ab (EIA) Leptospira Source Leptospira DNA (PCR) Blood Type Antibody Screen Antibody Identification Crossmatch Crossmatch (AHG) 11/03/23 11/03/23 11/03/23 01:20 07:54 09:53 WBC 11.7 H RBC 3.99 L Hgb 11.6 L Hct 35.9 L MCV 90.0 MCH 29.1 MCHC 32.3 RDW 14.6 Plt Count 126 L D MPV 11.6 Immature Gran % (Auto) 1.2 H Neut % (Auto) 82.7 H Lymph % (Auto) 9.6 L [place] % (Auto) 6.1 Eos % (Auto) 0.1 Baso % (Auto) 0.3 Lymph # (Auto) 1.1 L [place] # (Auto) 0.7 Eos # (Auto) 0.0 Baso # (Auto) 0.0 Abs Immat Gran (auto) 0.14 H Absolute Neuts (auto) 9.6 H Absolute Nucleated RBC 0.000 Nucleated RBC % (auto) 0.0 Neutrophils % (Manual) Band Neutrophils % Lymphocytes % (Manual) Monocytes % (Manual) Metamyelocytes % Abs Neuts (Manual) Lymphocytes # (Manual) Monocytes # (Manual) Metamyelocytes # Platelet Estimate Plt Morphology Comment RBC Morphology Polychromasia Tear Drop Cells [place] Cells Smear Tech's Comments Hold Purple Top PT 13.6 H INR 1.1 APTT VBG pH VBG pCO2 VBG pO2 VBG HCO3 VBG O2 Saturation VBG Base Excess Sodium 139 139 Potassium 4.7 4.0 Chloride 110 H 108 Carbon Dioxide 15 L 17 L Anion Gap 19 18 BUN 25 H 29 H Creatinine 1.89 H 2.24 H Estim Creat Clear Calc 47.7 40.2 Estimated GFR 28 23 Random Glucose 133 H 113 Lactic Acid Calcium 8.4 8.2 L Magnesium Total Bilirubin 0.3 0.4 Direct Bilirubin GGT 102 H AST > 4202 H > 4202 H ALT 2350 H 2100 H Alkaline Phosphatase 87 90 Ammonia Lactate Dehydrogenase Total Creatine Kinase 1399 H Total Protein 6.9 6.6 Albumin 3.6 3.7 Lipase Beta HCG, Quant Hold Red Top Urine Color Urine Appearance Urine pH Ur Specific [place] Urine Protein Urine Glucose (UA) Urine Ketones Urine Blood Urine Nitrite Ur Leukocyte Esterase Urine RBC Urine WBC Ur Squamous Epith Cells Urine Bacteria Hyaline Casts Ur Random Sodium Ur Random Potassium Ur Random Chloride Stool Leukocytes, Qual Stl C. cayetanensis PCR Stool Rotavirus A PCR Stl Adenov F 40/41 PCR Stool Astrovirus (PCR) Stool Campylobacter PCR Stool Cryptosporidium PCR Stl Sh Tox Pr E STEC PCR Stool E coli O157 PCR Stl Enterotoxigenic E PCR Stool EPEC (PCR) Stool EAEC (PCR) Stl E. histolytica PCR Stool Giardia Lamblia PCR Stl P. shigelloides PCR Stool Salmonella PCR Stool Sapovirus (PCR) Stl Shigella/EIEC PCR St Y.enterocolitica PCR Stool Vibrio (PCR) Stl Vibrio cholerae PCR Stl Norovirus GI/GII PCR Salicylates Urine Opiates Screen Ur Buprenorphine Scrn Ur Oxycodone Screen Urine Methadone Screen Urine Fentanyl Screen Acetaminophen < 3 < 3 Ur Barbiturates Screen Ur Phencyclidine Scrn Ur Amphetamines Screen U Benzodiazepines Scrn Urine Cocaine Screen U Marijuana (THC) Screen IgG Total IgA Total IgM SUZE Interpretation Rheumatoid Factor Proteinase 3 (PR3) Ab Myeloperoxidase Ab Complement C3 Complement C4 Hepatitis A IgM Ab Hep Bs Antigen Hep Bs Antibody Hep B Core Total Ab Hepatitis C Ab (EIA) Leptospira Source Leptospira DNA (PCR) Blood Type Antibody Screen Antibody Identification Crossmatch Crossmatch (AHG) 11/03/23 11/03/23 11/03/23 14:42 14:45 19:23 WBC 10.6 RBC 3.90 L Hgb 11.3 L Hct 34.3 L MCV 87.9 MCH 29.0 MCHC 32.9 RDW 14.7 Plt Count 135 L MPV 11.6 Immature Gran % (Auto) Neut % (Auto) Lymph % (Auto) [place] % (Auto) Eos % (Auto) Baso % (Auto) Lymph # (Auto) [place] # (Auto) Eos # (Auto) Baso # (Auto) Abs Immat Gran (auto) Absolute Neuts (auto) Absolute Nucleated RBC 0.000 Nucleated RBC % (auto) 0.0 Neutrophils % (Manual) Band Neutrophils % Lymphocytes % (Manual) Monocytes % (Manual) Metamyelocytes % Abs Neuts (Manual) Lymphocytes # (Manual) Monocytes # (Manual) Metamyelocytes # Platelet Estimate Plt Morphology Comment RBC Morphology Polychromasia Tear Drop Cells Samara Cells Smear Tech's Comments Hold Purple Top PT 13.2 INR 1.1 APTT VBG pH VBG pCO2 VBG pO2 VBG HCO3 VBG O2 Saturation VBG Base Excess Sodium 140 140 Potassium 3.8 4.2 Chloride 107 110 H Carbon Dioxide 19 L 15 L Anion Gap 18 19 BUN 30 H 32 H Creatinine 2.38 H 2.57 H Estim Creat Clear Calc 37.9 35.1 Estimated GFR 22 20 Random Glucose 97 101 Lactic Acid Calcium 8.8 D 8.4 Magnesium Total Bilirubin 0.4 0.4 Direct Bilirubin GGT AST 3242 H 2409 H ALT 1915 H 1716 H Alkaline Phosphatase 97 93 Ammonia Lactate Dehydrogenase Total Creatine Kinase Total Protein 6.5 6.2 L Albumin 3.7 3.4 L Lipase Beta HCG, Quant Hold Red Top Urine Color Urine Appearance Urine pH Ur Specific [place] Urine Protein Urine Glucose (UA) Urine Ketones Urine Blood Urine Nitrite Ur Leukocyte Esterase Urine RBC Urine WBC Ur Squamous Epith Cells Urine Bacteria Hyaline Casts Ur Random Sodium Ur Random Potassium Ur Random Chloride Stool Leukocytes, Qual Stl C. cayetanensis PCR Stool Rotavirus A PCR Stl Adenov F 40/41 PCR Stool Astrovirus (PCR) Stool Campylobacter PCR Stool Cryptosporidium PCR Stl Sh Tox Pr E STEC PCR Stool E coli O157 PCR Stl Enterotoxigenic E PCR Stool EPEC (PCR) Stool EAEC (PCR) Stl E. histolytica PCR Stool Giardia Lamblia PCR Stl P. shigelloides PCR Stool Salmonella PCR Stool Sapovirus (PCR) Stl Shigella/EIEC PCR St Y.enterocolitica PCR Stool Vibrio (PCR) Stl Vibrio cholerae PCR Stl Norovirus GI/GII PCR Salicylates Urine Opiates Screen Ur Buprenorphine Scrn Ur Oxycodone Screen Urine Methadone Screen Urine Fentanyl Screen Acetaminophen Ur Barbiturates Screen Ur Phencyclidine Scrn Ur Amphetamines Screen U Benzodiazepines Scrn Urine Cocaine Screen U Marijuana (THC) Screen IgG Total IgA Total IgM SUZE Interpretation Rheumatoid Factor Proteinase 3 (PR3) Ab Myeloperoxidase Ab Complement C3 Complement C4 Hepatitis A IgM Ab Hep Bs Antigen Hep Bs Antibody Hep B Core Total Ab Hepatitis C Ab (EIA) Leptospira Source Leptospira DNA (PCR) Blood Type Antibody Screen Antibody Identification Crossmatch Crossmatch (AHG) 11/04/23 11/04/23 11/05/23 06:43 13:09 01:29 WBC 9.1 RBC 3.73 L Hgb 11.1 L Hct 33.0 L MCV 88.5 MCH 29.8 MCHC 33.6 RDW 14.6 Plt Count 123 L MPV 11.6 Immature Gran % (Auto) Neut % (Auto) Lymph % (Auto) [place] % (Auto) Eos % (Auto) Baso % (Auto) Lymph # (Auto) [place] # (Auto) Eos # (Auto) Baso # (Auto) Abs Immat Gran (auto) Absolute Neuts (auto) Absolute Nucleated RBC 0.000 Nucleated RBC % (auto) 0.0 Neutrophils % (Manual) Band Neutrophils % Lymphocytes % (Manual) Monocytes % (Manual) Metamyelocytes % Abs Neuts (Manual) Lymphocytes # (Manual) Monocytes # (Manual) Metamyelocytes # Platelet Estimate Plt Morphology Comment RBC Morphology Polychromasia Tear Drop Cells Samara Cells Smear Tech's Comments Hold Purple Top PT 13.9 H INR 1.1 APTT VBG pH VBG pCO2 VBG pO2 VBG HCO3 VBG O2 Saturation VBG Base Excess Sodium 141 141 Potassium 3.6 3.6 Chloride 110 H 110 H Carbon Dioxide 17 L 18 L Anion Gap 18 17 BUN 30 H 29 H Creatinine 2.84 H 2.68 H Estim Creat Clear Calc 31.7 33.7 Estimated GFR 18 19 Random Glucose 111 108 Lactic Acid Calcium 8.6 9.3 D Magnesium Total Bilirubin 0.6 0.7 Direct Bilirubin GGT AST 1405 H 951 H ALT 1466 H 1291 H Alkaline Phosphatase 101 103 Ammonia 84 H Lactate Dehydrogenase Total Creatine Kinase Total Protein 6.4 L 6.3 L Albumin 3.6 3.6 Lipase Beta HCG, Quant Hold Red Top Urine Color Urine Appearance Urine pH Ur Specific [place] Urine Protein Urine Glucose (UA) Urine Ketones Urine Blood Urine Nitrite Ur Leukocyte Esterase Urine RBC Urine WBC Ur Squamous Epith Cells Urine Bacteria Hyaline Casts Ur Random Sodium Ur Random Potassium Ur Random Chloride Stool Leukocytes, Qual Stl C. cayetanensis PCR Not Detected Stool Rotavirus A PCR Not Detected Stl Adenov F 40/41 PCR Not Detected Stool Astrovirus (PCR) Not Detected Stool Campylobacter PCR Not Detected Stool Cryptosporidium PCR Not Detected Stl Sh Tox Pr E STEC PCR Not Detected Stool E coli O157 PCR Not applicable Stl Enterotoxigenic E PCR Not Detected Stool EPEC (PCR) Not Detected Stool EAEC (PCR) Not Detected Stl E. histolytica PCR Not Detected Stool Giardia Lamblia PCR Not Detected Stl P. shigelloides PCR Not Detected Stool Salmonella PCR Not Detected Stool Sapovirus (PCR) Not Detected Stl Shigella/EIEC PCR Not Detected St Y.enterocolitica PCR Not Detected Stool Vibrio (PCR) Not Detected Stl Vibrio cholerae PCR Not Detected Stl Norovirus GI/GII PCR Not Detected Salicylates Urine Opiates Screen Ur Buprenorphine Scrn Ur Oxycodone Screen Urine Methadone Screen Urine Fentanyl Screen Acetaminophen Ur Barbiturates Screen Ur Phencyclidine Scrn Ur Amphetamines Screen U Benzodiazepines Scrn Urine Cocaine Screen U Marijuana (THC) Screen IgG Total IgA Total IgM SUZE Interpretation Rheumatoid Factor Proteinase 3 (PR3) Ab Myeloperoxidase Ab Complement C3 Complement C4 Hepatitis A IgM Ab Hep Bs Antigen Hep Bs Antibody Hep B Core Total Ab Hepatitis C Ab (EIA) Leptospira Source Leptospira DNA (PCR) Blood Type Antibody Screen Antibody Identification Crossmatch Crossmatch (AHG) 11/05/23 11/06/23 11/06/23 06:46 06:29 06:30 WBC 7.2 RBC 3.84 L Hgb 11.3 L Hct 33.4 L MCV 87.0 MCH 29.4 MCHC 33.8 RDW 14.6 Plt Count 153 L MPV 11.3 Immature Gran % (Auto) Neut % (Auto) Lymph % (Auto) [place] % (Auto) Eos % (Auto) Baso % (Auto) Lymph # (Auto) [place] # (Auto) Eos # (Auto) Baso # (Auto) Abs Immat Gran (auto) Absolute Neuts (auto) Absolute Nucleated RBC 0.000 Nucleated RBC % (auto) 0.0 Neutrophils % (Manual) Band Neutrophils % Lymphocytes % (Manual) Monocytes % (Manual) Metamyelocytes % Abs Neuts (Manual) Lymphocytes # (Manual) Monocytes # (Manual) Metamyelocytes # Platelet Estimate Plt Morphology Comment RBC Morphology Polychromasia Tear Drop Cells [place] Cells Smear Tech's Comments Hold Purple Top SEE NOTE PT 13.7 H INR 1.1 APTT VBG pH VBG pCO2 VBG pO2 VBG HCO3 VBG O2 Saturation VBG Base Excess Sodium 143 143 Potassium 3.4 3.2 L Chloride 111 H 110 H Carbon Dioxide 20 L 20 L Anion Gap 15 16 BUN 27 H 24 H Creatinine 2.62 H 2.32 H Estim Creat Clear Calc 34.4 38.8 Estimated GFR 19 22 Random Glucose 106 107 Lactic Acid Calcium 9.1 9.1 Magnesium Total Bilirubin 1.0 1.1 H Direct Bilirubin 0.5 GGT AST 326 H 104 H ALT 893 H 606 H Alkaline Phosphatase 99 101 Ammonia Lactate Dehydrogenase Total Creatine Kinase Total Protein 6.2 L 6.5 Albumin 3.5 3.7 Lipase Beta HCG, Quant Hold Red Top Urine Color Urine Appearance Urine pH Ur Specific [place] Urine Protein Urine Glucose (UA) Urine Ketones Urine Blood Urine Nitrite Ur Leukocyte Esterase Urine RBC Urine WBC Ur Squamous Epith Cells Urine Bacteria Hyaline Casts Ur Random Sodium Ur Random Potassium Ur Random Chloride Stool Leukocytes, Qual Stl C. cayetanensis PCR Stool Rotavirus A PCR Stl Adenov F 40/41 PCR Stool Astrovirus (PCR) Stool Campylobacter PCR Stool Cryptosporidium PCR Stl Sh Tox Pr E STEC PCR Stool E coli O157 PCR Stl Enterotoxigenic E PCR Stool EPEC (PCR) Stool EAEC (PCR) Stl E. histolytica PCR Stool Giardia Lamblia PCR Stl P. shigelloides PCR Stool Salmonella PCR Stool Sapovirus (PCR) Stl Shigella/EIEC PCR St Y.enterocolitica PCR Stool Vibrio (PCR) Stl Vibrio cholerae PCR Stl Norovirus GI/GII PCR Salicylates Urine Opiates Screen Ur Buprenorphine Scrn Ur Oxycodone Screen Urine Methadone Screen Urine Fentanyl Screen Acetaminophen Ur Barbiturates Screen Ur Phencyclidine Scrn Ur Amphetamines Screen U Benzodiazepines Scrn Urine Cocaine Screen U Marijuana (THC) Screen IgG Total 854 IgA Total 250 IgM 78 SUZE Interpretation SEE NOTE Rheumatoid Factor < 13.0 Proteinase 3 (PR3) Ab <1.0 Myeloperoxidase Ab <1.0 Complement C3 107 Complement C4 28 Hepatitis A IgM Ab Hep Bs Antigen Hep Bs Antibody Hep B Core Total Ab Hepatitis C Ab (EIA) Leptospira Source Leptospira DNA (PCR) Blood Type Antibody Screen Antibody Identification Crossmatch Crossmatch (AHG) 11/06/23 11/07/23 11/07/23 08:00 06:20 12:34 WBC RBC Hgb Hct MCV MCH MCHC RDW Plt Count MPV Immature Gran % (Auto) Neut % (Auto) Lymph % (Auto) [place] % (Auto) Eos % (Auto) Baso % (Auto) Lymph # (Auto) [place] # (Auto) Eos # (Auto) Baso # (Auto) Abs Immat Gran (auto) Absolute Neuts (auto) Absolute Nucleated RBC Nucleated RBC % (auto) Neutrophils % (Manual) Band Neutrophils % Lymphocytes % (Manual) Monocytes % (Manual) Metamyelocytes % Abs Neuts (Manual) Lymphocytes # (Manual) Monocytes # (Manual) Metamyelocytes # Platelet Estimate Plt Morphology Comment RBC Morphology Polychromasia Tear Drop Cells Samara Cells Smear Tech's Comments Hold Purple Top PT INR APTT VBG pH VBG pCO2 VBG pO2 VBG HCO3 VBG O2 Saturation VBG Base Excess Sodium 143 Potassium 3.2 L Chloride 109 H Carbon Dioxide 20 L Anion Gap 17 BUN 21 H Creatinine 2.00 H Estim Creat Clear Calc 45.1 Estimated GFR 26 Random Glucose 103 Lactic Acid Calcium 8.8 Magnesium Total Bilirubin 0.9 Direct Bilirubin 0.4 GGT AST 46 H ALT 384 H Alkaline Phosphatase 92 Ammonia Lactate Dehydrogenase Total Creatine Kinase Total Protein 6.4 L Albumin 3.7 Lipase Beta HCG, Quant Hold Red Top Urine Color Urine Appearance Urine pH Ur Specific [place] Urine Protein Urine Glucose (UA) Urine Ketones Urine Blood Urine Nitrite Ur Leukocyte Esterase Urine RBC Urine WBC Ur Squamous Epith Cells Urine Bacteria Hyaline Casts Ur Random Sodium Ur Random Potassium Ur Random Chloride Stool Leukocytes, Qual NEGATIVE Stl C. cayetanensis PCR Stool Rotavirus A PCR Stl Adenov F 40/41 PCR Stool Astrovirus (PCR) Stool Campylobacter PCR Stool Cryptosporidium PCR Stl Sh Tox Pr E STEC PCR Stool E coli O157 PCR Stl Enterotoxigenic E PCR Stool EPEC (PCR) Stool EAEC (PCR) Stl E. histolytica PCR Stool Giardia Lamblia PCR Stl P. shigelloides PCR Stool Salmonella PCR Stool Sapovirus (PCR) Stl Shigella/EIEC PCR St Y.enterocolitica PCR Stool Vibrio (PCR) Stl Vibrio cholerae PCR Stl Norovirus GI/GII PCR Salicylates Urine Opiates Screen Ur Buprenorphine Scrn Ur Oxycodone Screen Urine Methadone Screen Urine Fentanyl Screen Acetaminophen Ur Barbiturates Screen Ur Phencyclidine Scrn Ur Amphetamines Screen U Benzodiazepines Scrn Urine Cocaine Screen U Marijuana (THC) Screen IgG Total IgA Total IgM SUZE Interpretation Rheumatoid Factor Proteinase 3 (PR3) Ab Myeloperoxidase Ab Complement C3 Complement C4 Hepatitis A IgM Ab Hep Bs Antigen Hep Bs Antibody Hep B Core Total Ab Hepatitis C Ab (EIA) Leptospira Source URINE Leptospira DNA (PCR) NOT DETECTED Blood Type Antibody Screen Antibody Identification Crossmatch Crossmatch (AHG) 11/08/23 11/08/23 11/08/23 05:56 12:46 15:38 WBC 8.9 RBC 3.99 L Hgb 11.6 L Hct 34.1 L MCV 85.5 MCH 29.1 MCHC 34.0 RDW 14.8 Plt Count 169 MPV 11.2 Immature Gran % (Auto) Neut % (Auto) Lymph % (Auto) [place] % (Auto) Eos % (Auto) Baso % (Auto) Lymph # (Auto) [place] # (Auto) Eos # (Auto) Baso # (Auto) Abs Immat Gran (auto) Absolute Neuts (auto) Absolute Nucleated RBC 0.000 Nucleated RBC % (auto) 0.0 Neutrophils % (Manual) Band Neutrophils % Lymphocytes % (Manual) Monocytes % (Manual) Metamyelocytes % Abs Neuts (Manual) Lymphocytes # (Manual) Monocytes # (Manual) Metamyelocytes # Platelet Estimate Plt Morphology Comment RBC Morphology Polychromasia Tear Drop Cells [place] Cells Smear Tech's Comments Hold Purple Top PT INR APTT VBG pH VBG pCO2 VBG pO2 VBG HCO3 VBG O2 Saturation VBG Base Excess Sodium 141 141 Potassium 2.8 L* 3.3 Chloride 107 109 H Carbon Dioxide 19 L 17 L Anion Gap 18 18 BUN 20 H 19 H Creatinine 1.91 H 2.07 H Estim Creat Clear Calc 47.2 43.5 Estimated GFR 28 25 Random Glucose 116 H 118 H Lactic Acid Calcium 9.0 8.9 Magnesium Total Bilirubin 0.8 Direct Bilirubin 0.3 GGT AST 31 ALT 258 H Alkaline Phosphatase 86 Ammonia Lactate Dehydrogenase Total Creatine Kinase Total Protein 6.4 L Albumin 3.8 Lipase Beta HCG, Quant Hold Red Top Urine Color Urine Appearance Urine pH Ur Specific [place] Urine Protein Urine Glucose (UA) Urine Ketones Urine Blood Urine Nitrite Ur Leukocyte Esterase Urine RBC Urine WBC Ur Squamous Epith Cells Urine Bacteria Hyaline Casts Ur Random Sodium Ur Random Potassium Ur Random Chloride Stool Leukocytes, Qual Stl C. cayetanensis PCR Stool Rotavirus A PCR Stl Adenov F 40 PCR Stool Astrovirus (PCR) Stool Campylobacter PCR Stool Cryptosporidium PCR Stl Sh Tox Pr E STEC PCR Stool E coli O157 PCR Stl Enterotoxigenic E PCR Stool EPEC (PCR) Stool EAEC (PCR) Stl E. histolytica PCR Stool Giardia Lamblia PCR Stl P. shigelloides PCR Stool Salmonella PCR Stool Sapovirus (PCR) Stl Shigella/EIEC PCR St Y.enterocolitica PCR Stool Vibrio (PCR) Stl Vibrio cholerae PCR Stl Norovirus GI/GII PCR Salicylates Urine Opiates Screen Ur Buprenorphine Scrn Ur Oxycodone Screen Urine Methadone Screen Urine Fentanyl Screen Acetaminophen Ur Barbiturates Screen Ur Phencyclidine Scrn Ur Amphetamines Screen U Benzodiazepines Scrn Urine Cocaine Screen U Marijuana (THC) Screen IgG Total IgA Total IgM SUZE Interpretation Rheumatoid Factor Proteinase 3 (PR3) Ab Myeloperoxidase Ab Complement C3 Complement C4 Hepatitis A IgM Ab Hep Bs Antigen Hep Bs Antibody Hep B Core Total Ab Hepatitis C Ab (EIA) Leptospira Source Leptospira DNA (PCR) Blood Type Antibody Screen Antibody Identification Crossmatch Crossmatch (AHG) 11/09/23 11/09/23 11/09/23 06:25 06:26 13:45 WBC 7.4 RBC 3.57 L Hgb 10.5 L 10.9 L Hct 31.2 L 32.7 L MCV 87.4 MCH 29.4 MCHC 33.7 RDW 15.3 Plt Count 172 MPV 11.2 Immature Gran % (Auto) Neut % (Auto) Lymph % (Auto) [place] % (Auto) Eos % (Auto) Baso % (Auto) Lymph # (Auto) [place] # (Auto) Eos # (Auto) Baso # (Auto) Abs Immat Gran (auto) Absolute Neuts (auto) Absolute Nucleated RBC 0.000 Nucleated RBC % (auto) 0.0 Neutrophils % (Manual) Band Neutrophils % Lymphocytes % (Manual) Monocytes % (Manual) Metamyelocytes % Abs Neuts (Manual) Lymphocytes # (Manual) Monocytes # (Manual) Metamyelocytes # Platelet Estimate Plt Morphology Comment RBC Morphology Polychromasia Tear Drop Cells [place] Cells Smear Tech's Comments Hold Purple Top PT 13.2 INR 1.1 APTT VBG pH VBG pCO2 VBG pO2 VBG HCO3 VBG O2 Saturation VBG Base Excess Sodium 144 Potassium 3.4 Chloride 111 H Carbon Dioxide 18 L Anion Gap 18 BUN 18 H Creatinine 1.93 H Estim Creat Clear Calc 46.8 Estimated GFR 28 Random Glucose 125 H Lactic Acid Calcium 8.6 Magnesium Total Bilirubin Direct Bilirubin GGT AST ALT Alkaline Phosphatase Ammonia Lactate Dehydrogenase Total Creatine Kinase Total Protein Albumin Lipase Beta HCG, Quant Hold Red Top Urine Color Urine Appearance Urine pH Ur Specific [place] Urine Protein Urine Glucose (UA) Urine Ketones Urine Blood Urine Nitrite Ur Leukocyte Esterase Urine RBC Urine WBC Ur Squamous Epith Cells Urine Bacteria Hyaline Casts Ur Random Sodium Ur Random Potassium Ur Random Chloride Stool Leukocytes, Qual Stl C. cayetanensis PCR Stool Rotavirus A PCR Stl Adenov F 40/ PCR Stool Astrovirus (PCR) Stool Campylobacter PCR Stool Cryptosporidium PCR Stl Sh Tox Pr E STEC PCR Stool E coli O157 PCR Stl Enterotoxigenic E PCR Stool EPEC (PCR) Stool EAEC (PCR) Stl E. histolytica PCR Stool Giardia Lamblia PCR Stl P. shigelloides PCR Stool Salmonella PCR Stool Sapovirus (PCR) Stl Shigella/EIEC PCR St Y.enterocolitica PCR Stool Vibrio (PCR) Stl Vibrio cholerae PCR Stl Norovirus GI/GII PCR Salicylates Urine Opiates Screen Ur Buprenorphine Scrn Ur Oxycodone Screen Urine Methadone Screen Urine Fentanyl Screen Acetaminophen Ur Barbiturates Screen Ur Phencyclidine Scrn Ur Amphetamines Screen U Benzodiazepines Scrn Urine Cocaine Screen U Marijuana (THC) Screen IgG Total IgA Total IgM SUZE Interpretation Rheumatoid Factor Proteinase 3 (PR3) Ab Myeloperoxidase Ab Complement C3 Complement C4 Hepatitis A IgM Ab Hep Bs Antigen Hep Bs Antibody Hep B Core Total Ab Hepatitis C Ab (EIA) Leptospira Source Leptospira DNA (PCR) Blood Type Antibody Screen Antibody Identification Crossmatch Crossmatch (AHG) 11/09/23 11/10/23 11/10/23 19:57 05:58 16:03 WBC RBC Hgb 10.3 L 9.8 L 9.3 L Hct 30.2 L 29.2 L 28.4 L MCV MCH MCHC RDW Plt Count MPV Immature Gran % (Auto) Neut % (Auto) Lymph % (Auto) [place] % (Auto) Eos % (Auto) Baso % (Auto) Lymph # (Auto) [place] # (Auto) Eos # (Auto) Baso # (Auto) Abs Immat Gran (auto) Absolute Neuts (auto) Absolute Nucleated RBC Nucleated RBC % (auto) Neutrophils % (Manual) Band Neutrophils % Lymphocytes % (Manual) Monocytes % (Manual) Metamyelocytes % Abs Neuts (Manual) Lymphocytes # (Manual) Monocytes # (Manual) Metamyelocytes # Platelet Estimate Plt Morphology Comment RBC Morphology Polychromasia Tear Drop Cells [place] Cells Smear Tech's Comments Hold Purple Top PT INR APTT VBG pH VBG pCO2 VBG pO2 VBG HCO3 VBG O2 Saturation VBG Base Excess Sodium Potassium Chloride Carbon Dioxide Anion Gap BUN Creatinine Estim Creat Clear Calc Estimated GFR Random Glucose Lactic Acid Calcium Magnesium Total Bilirubin Direct Bilirubin GGT AST ALT Alkaline Phosphatase Ammonia Lactate Dehydrogenase Total Creatine Kinase Total Protein Albumin Lipase Beta HCG, Quant Hold Red Top Urine Color Urine Appearance Urine pH Ur Specific [place] Urine Protein Urine Glucose (UA) Urine Ketones Urine Blood Urine Nitrite Ur Leukocyte Esterase Urine RBC Urine WBC Ur Squamous Epith Cells Urine Bacteria Hyaline Casts Ur Random Sodium Ur Random Potassium Ur Random Chloride Stool Leukocytes, Qual Stl C. cayetanensis PCR Stool Rotavirus A PCR Stl Adenov F 40/41 PCR Stool Astrovirus (PCR) Stool Campylobacter PCR Stool Cryptosporidium PCR Stl Sh Tox Pr E STEC PCR Stool E coli O157 PCR Stl Enterotoxigenic E PCR Stool EPEC (PCR) Stool EAEC (PCR) Stl E. histolytica PCR Stool Giardia Lamblia PCR Stl P. shigelloides PCR Stool Salmonella PCR Stool Sapovirus (PCR) Stl Shigella/EIEC PCR St Y.enterocolitica PCR Stool Vibrio (PCR) Stl Vibrio cholerae PCR Stl Norovirus GI/GII PCR Salicylates Urine Opiates Screen Ur Buprenorphine Scrn Ur Oxycodone Screen Urine Methadone Screen Urine Fentanyl Screen Acetaminophen Ur Barbiturates Screen Ur Phencyclidine Scrn Ur Amphetamines Screen U Benzodiazepines Scrn Urine Cocaine Screen U Marijuana (THC) Screen IgG Total IgA Total IgM SUZE Interpretation Rheumatoid Factor Proteinase 3 (PR3) Ab Myeloperoxidase Ab Complement C3 Complement C4 Hepatitis A IgM Ab Hep Bs Antigen Hep Bs Antibody Hep B Core Total Ab Hepatitis C Ab (EIA) Leptospira Source Leptospira DNA (PCR) Blood Type Antibody Screen Antibody Identification Crossmatch Crossmatch (AHG) 11/11/23 11/11/23 11/12/23 08:03 09:36 07:21 WBC 6.8 RBC 3.35 L Hgb 8.6 L 9.9 L Hct 26.1 L 29.5 L MCV 88.1 MCH 29.6 MCHC 33.6 RDW 14.7 Plt Count 156 L MPV 11.3 Immature Gran % (Auto) Neut % (Auto) Lymph % (Auto) [place] % (Auto) Eos % (Auto) Baso % (Auto) Lymph # (Auto) [place] # (Auto) Eos # (Auto) Baso # (Auto) Abs Immat Gran (auto) Absolute Neuts (auto) Absolute Nucleated RBC 0.000 Nucleated RBC % (auto) 0.0 Neutrophils % (Manual) Band Neutrophils % Lymphocytes % (Manual) Monocytes % (Manual) Metamyelocytes % Abs Neuts (Manual) Lymphocytes # (Manual) Monocytes # (Manual) Metamyelocytes # Platelet Estimate Plt Morphology Comment RBC Morphology Polychromasia Tear Drop Cells [place] Cells Smear Tech's Comments Hold Purple Top PT INR APTT VBG pH VBG pCO2 VBG pO2 VBG HCO3 VBG O2 Saturation VBG Base Excess Sodium 144 146 H Potassium 3.1 L 3.2 L Chloride 112 H 111 H Carbon Dioxide 22 22 Anion Gap 13 16 BUN 11 11 Creatinine 1.74 H 1.85 H Estim Creat Clear Calc 51.9 48.7 Estimated GFR 31 29 Random Glucose 111 99 Lactic Acid Calcium 8.4 8.7 Magnesium Total Bilirubin 0.8 Direct Bilirubin 0.3 GGT AST 19 ALT 65 H Alkaline Phosphatase 63 Ammonia Lactate Dehydrogenase Total Creatine Kinase Total Protein 6.2 L Albumin 3.7 Lipase Beta HCG, Quant Hold Red Top Urine Color Urine Appearance Urine pH Ur Specific [place] Urine Protein Urine Glucose (UA) Urine Ketones Urine Blood Urine Nitrite Ur Leukocyte Esterase Urine RBC Urine WBC Ur Squamous Epith Cells Urine Bacteria Hyaline Casts Ur Random Sodium Ur Random Potassium Ur Random Chloride Stool Leukocytes, Qual Stl C. cayetanensis PCR Stool Rotavirus A PCR Stl Adenov F 40/41 PCR Stool Astrovirus (PCR) Stool Campylobacter PCR Stool Cryptosporidium PCR Stl Sh Tox Pr E STEC PCR Stool E coli O157 PCR Stl Enterotoxigenic E PCR Stool EPEC (PCR) Stool EAEC (PCR) Stl E. histolytica PCR Stool Giardia Lamblia PCR Stl P. shigelloides PCR Stool Salmonella PCR Stool Sapovirus (PCR) Stl Shigella/EIEC PCR St Y.enterocolitica PCR Stool Vibrio (PCR) Stl Vibrio cholerae PCR Stl Norovirus GI/GII PCR Salicylates Urine Opiates Screen Ur Buprenorphine Scrn Ur Oxycodone Screen Urine Methadone Screen Urine Fentanyl Screen Acetaminophen Ur Barbiturates Screen Ur Phencyclidine Scrn Ur Amphetamines Screen U Benzodiazepines Scrn Urine Cocaine Screen U Marijuana (THC) Screen IgG Total IgA Total IgM SUZE Interpretation Rheumatoid Factor Proteinase 3 (PR3) Ab Myeloperoxidase Ab Complement C3 Complement C4 Hepatitis A IgM Ab Hep Bs Antigen Hep Bs Antibody Hep B Core Total Ab Hepatitis C Ab (EIA) Leptospira Source Leptospira DNA (PCR) Blood Type O Positive Antibody Screen POSITIVE Antibody Identification Negative Crossmatch See Detail Crossmatch (AHG) See Detail Assessment and Plan Assessment Anesthesia Assessment: Anesthesia Plan Discussed Final Anesthetic Review Family History of Problems with Anesthesia: No History of Problems with Anesthesia: No NPO: Yes ASA Class: IV Final Preanesthetic Review: Meds/Allgs Chart Reviewed, Consent Obtained/Reviewed and Anes Risks/Benef Reviewed Patient Risk: Intermediate Procedure Risk: Low Anesthetic Plan Anesthetic Plan: GA Disposition: Standard PACU
--- NOTE | 2023-11-12 18:28 | P.BOP_ITS ---
Brief Operative Note Date of Service: 11/12/23 Pre-op diagnosis: GI Bleeding Post-op diagnosis: other (Erosive antral gastritis, Ulcerated lesion in proximal Ascending Colon--? ischemia vs neoplasm) Procedure: EGD with biopsies, Colonoscopy to the cecum with biopsies Surgeon: Billy Blake MD Anesthesia: GETA Was an Subassembly Supervisor used for this Procedure?: No Estimated blood loss (mL): 2.0 Pathology: other (A. Gastric antrum B. Proximal ascending colon--ischemic colitis vs. neoplasm) Condition: stable Disposition: PACU
--- NOTE | 2023-11-12 18:30 | PM.EVENT ---
Event Note Date of Service: 11/12/23 Event Note: GI-Full note dictated EGD with biospies 1. Erosive antral gastritis-biopsied x 3 2. Small hiatal hernia Colonoscopy to the cecum with biopsies 1. Ulcerated area involving proximal ascending colon just outside the cecum--seemed more c/w an area of acute ischemic colitis as opposed to a neoplasm--biopsies taken 2. Remainder of colon WNL, although prep was somewhat limited, especially in the descending colon, sigmoid colon, and rectum 3. Internal hemorrhoids Rec: Change to po PPI. Advance diet. F/U labs in AM. Avoid all NSAIDS, aspirin, and other blood thinners. Check path. She most likely will need a F/U colonoscopy as an outpatient with a better prep to assess healing of ascending colon area and to rule out other abnormalities, assuming there is no malignancy on today's colon biopsies. D/W patient's mother. D/W patient. Thanks Time Spent With Patient Time: Total time managing care of this patient today ____ minutes.
[2023-11-12] MEDS: Omeprazole 20 MG CAPSULE.DR PO (20:33)
[2023-11-12] MEDS: amLODIPine Besylate 10 MG TABLET PO (20:33)
[2023-11-12] MEDS: traZODone HCL 100 MG TABLET 200 MG PO (20:39)
[2023-11-13] VITALS (11 sets, daily range): BP systolic 135–172; BP diastolic 70–85; PULSE 83–92; RESP 18–22; TEMP 36.1–36.9; O2SAT 92–96
--- NOTE | 2023-11-13 01:25 | OP_ITS ---
DATE OF SERVICE: 11/12/2023 SURGEON: Billy Blake MD INDICATIONS: Patient presents for evaluation of GI bleeding. Full consent has been obtained from her for both procedures, including risks of bleeding and perforation. PREOPERATIVE DIAGNOSIS: Gastrointestinal bleeding. POSTOPERATIVE DIAGNOSIS: PROCEDURE PERFORMED: Esophagogastroduodenoscopy with biopsies, colonoscopy to the cecum with biopsies. ESTIMATED BLOOD LOSS: COMPLICATIONS: ANESTHESIA: Medication used, general anesthesia. ASSISTANTS: SPECIMENS: POSTOPERATIVE DIAGNOSES: Gastrointestinal bleeding, erosive gastritis, probable ischemic colitis involving proximal ascending colon, internal hemorrhoids, small hiatal hernia. DESCRIPTION OF PROCEDURE: Patient was placed in the supine position. The Olympus video gastroscope was passed in the posterior oropharynx and upper esophagus under direct vision. The scope was passed slowly into the distal esophagus. The gastroesophageal junction appeared normal at 38 cm. There was no sign of any esophagitis. The scope entered the stomach. There was a small hiatal hernia. There was minimal amount of coffee-grounds in the proximal stomach. The scope was advanced to pylorus and the duodenum was cannulated to the descending portion. The duodenum including the bulb appeared normal without mass or ulceration. The scope was withdrawn back to the stomach. The gastric antrum, particularly in the prepyloric area had some areas of edema and small erosions, but no discrete ulceration nor mass. There was good peristalsis. There was no bleeding. Biopsies were obtained from the prepyloric antrum. The scope was retroflexed, visualizing the proximal stomach carefully, which appeared normal, without any sign of mass or ulceration. Scope was straightened and withdrawn back to the esophagus. The esophageal mucosa appeared normal. The scope was withdrawn from the patient. She was turned around for the colonoscopy and placed in the left lateral decubitus position. The digital rectal exam revealed no abnormalities. The Olympus video pediatric colonoscope was entered into the rectum and advanced to the cecum. Advancement did require abdominal wall pressure. Preparation throughout the colon, particularly in the descending colon, sigmoid colon, and rectum was poor. Once I was in the cecum, I did identify normal-appearing cecal pouch with appendiceal orifice and a normal-appearing ileocecal valve. There was no mass or ulceration in the cecum. The scope was then slowly withdrawn assessing all mucosal surfaces carefully. Preparation in the ascending colon and transverse colon became good after a lot of irrigation and suctioning. In the proximal ascending colon, just outside the cecum, encompassing approximately 2 folds in a semicircumferential manner, was an ulcerated area that I felt was consistent with a probable acute colitis as opposed to a mass. There was one area that had a rather deep ulcerated area. However, there was no bleeding and no visible vessel. I did obtain some biopsies from the margins of the area to rule out any type of neoplasm. The scope was then slowly withdrawn assessing the remainder of the colon. Again, the prep in the remainder of the ascending colon and transverse colon was fairly good after a lot of irrigation and suctioning. Preparation in the descending colon, sigmoid colon, and rectum was poor. However, I did not visualize any sign of other areas of ulceration, polyps, nor any angiodysplasias. Again, prep was limiting our visualization quite a bit, particularly in the left colon and rectum. In the rectum, scope was retroflexed visualizing internal hemorrhoids, but no other pathology. The scope was straightened and withdrawn from the patient. She tolerated both procedures well and was returned to the recovery area in stable condition. IMPRESSION: 1. Ulcerated area in proximal ascending colon. I suspect it is probably ischemic in nature, but biopsies taken to rule out any type of neoplasm. 2. Erosive gastritis. 3. Small hiatal hernia. 4. Internal hemorrhoids. PLAN: The results of the biopsies will be checked. If H pylori is present in the gastric biopsies, I would recommend treating that. At this point, she is still complaining of pain in the recovery area, although this seems to be similar to the pain that she has been having throughout the course of her illness here. Presently, her abdominal exam is soft and nondistended. She is passing flatus. There is no rebound. She does have some tenderness along the right side. For now, I shall start her on clear liquids. She will have followup laboratories in the morning including lactic acid level, CBC, LFTs, chemistries, and pancreatic enzymes. Given my concern about ischemia as the cause of those findings in the ascending colon, I shall order an MRI of the abdomen with angiography. Given her renal insufficiency, it would probably be best to avoid contrast dye from a CT scan or actual angiography. She should avoid all aspirin and NSAIDs long-term. Assuming today's biopsies are negative for any neoplasm and she otherwise remained stable, I would recommend an eventual outpatient colonoscopy with a better prep to assess healing of the ascending colon area and to rule out any other abnormalities. However, first, it will be important to rule out any other process such as ischemic bowel or neoplasm. This has been discussed with the patient and her mother. MD MONICA Sanchez/NOLBERTO / [id number]
[2023-11-13] MEDS: HYDROmorphone HCl 0.5 MG/0.5 ML SYRINGE IVPUSH ×5 (02:17→19:23)
[2023-11-13] MEDS: KCl 20 mEq in 5 % Dex/Lact Rin 20 MEQ/1,000 ML IV.SOLN 80 MEQ IVCONT ×2 (02:23→16:23)
[2023-11-13] MEDS: oxyCODONE HCl Immed Release 5 MG TABLET PO ×3 (03:16→16:22)
[2023-11-13] MEDS: Omeprazole 20 MG CAPSULE.DR PO (05:12)
[2023-11-13 05:59] LABS: MANUAL DIFF FLAG NO
[2023-11-13 06:16] LABS: Lactic Acid 0.8 mmol/L (0.5-2.0)
[2023-11-13 06:29] LABS: Alanine Aminotransferase 51 U/L (0-31); Albumin Level 3.7 g/dL (3.5-5.0); Alkaline Phosphatase 64 U/L (39-117); Anion Gap 16 (12-20); Aspartate Amino Transferase 18 U/L (5-31); Bilirubin Direct 0.2 mg/dL (0.0-0.5); Bilirubin Total 0.7 mg/dL (0.0-1.0); Blood Urea Nitrogen 10 mg/dL (9-16); Calcium 8.6 mg/dL (8.4-10.2); Carbon Dioxide 22 mmol/L (22-29); Chloride 108 mmol/L (96-108); Creatinine Clr Calc Pharmacy 48.7; Estimated Glomerular Filt Rate 29; Glucose Fasting 103 mg/dL (60-99); Lipase 17 U/L (8-78); Potassium 3.3 mmol/L (3.3-5.1); Sodium 143 mmol/L (135-145); Total Protein 6.3 g/dL (6.5-8.0)
[2023-11-13 06:31] LABS: Amylase 42 U/L (28-100)
[2023-11-13 08:38] LABS: Basophils Percent Auto 0.3 % (0-2); Eosinophils Absolute Auto 0.4 X10*3/uL (0.0-0.4); Eosinophils Percent Auto 5.2 % (0-4); Hematocrit 30.7 % (37.0-47.0); Hemoglobin 10.3 g/dl (12.0-16.0); Imm Gran Abs Auto 0.03 X10*3/uL (0.00-0.03); Imm Gran Pct Auto 0.4 % (0.0-0.4); Lymphocytes Absolute Auto 1.5 X10*3/uL (1.2-4.9); Lymphocytes Percent Auto 18.8 % (20-40); Mean Corpuscular HGB Conc 33.6 g/dl (31.0-35.0); Mean Corpuscular Hemoglobin 30.1 pg (27.0-33.0); Mean Corpuscular Volume 89.8 fL (80.0-98.0); Mean Platelet Volume 11.2 fL (9.4-12.3); Monocytes Absolute Auto 0.7 X10*3/uL (0.1-1.2); Monocytes Percent Auto 8.9 % (2-11); Neutrophils Absolute Auto 5.3 x10*3/uL (2.0-8.3); Neutrophils Percent Auto 66.4 % (45-73); Platelet Count 170 X10*3/uL (160-400); Red Blood Count 3.42 X10*6/uL (4.20-5.50); Red Cell Distribution Width 14.9 % (11.0-16.0); White Blood Count 7.9 X10*3/uL (4.8-10.8)
[2023-11-13] MEDS: Labetalol HCL 100 MG TABLET PO ×2 (09:15→21:05)
[2023-11-13] MEDS: buPROPion HCl XL 150 MG TAB.ER.24H PO (09:15)
[2023-11-13] MEDS: hydrALAZINE HCl 25 MG TABLET 75 MG PO ×3 (09:16→21:06)
[2023-11-13] MEDS: LORazepam 0.5 MG TABLET PO (09:16)
[2023-11-13] MEDS: 0.9 % Sodium Chloride Flush 3 ML SYRINGE IVFLUSH ×2 (09:16→14:39)
[2023-11-13] MEDS: Nystatin Ointment 15 GM TUBE 1 APPL TOPICAL ×2 (09:17→21:07)
--- NOTE | 2023-11-13 12:01 | HO.PM.IMPN ---
Subjective Subjective Date of Service: 11/13/23 Interval History: Being followed for diarrhea/bloody stools in persistent right sided abdominal pain. Complaining of persistent right-sided abdominal pain now also right midback, complaining of persistent loose stool. No headache, no dizziness, no fevers, no chills has been ambulating to bathroom unsteady gait. NPO on IV fluids. Review of Systems All other system reviewed and are negative Physical Exam Vital Signs: Vital Signs: Last Vital Signs Temp 97.3 F 11/13/23 10:52 Pulse 91 11/13/23 10:52 Resp 18 11/13/23 10:52 BP 142/71 H 11/13/23 10:52 Pulse Ox 95 11/13/23 10:52 O2 Del Method Room Air 11/13/23 10:52 BMI result Body Mass Index 45.7 Const: Other: General awake alert x3, in no acute distress. Anicteric sclera Neck no JVD. CVS regular rate rhythm, Respiratory lungs clear to auscultation, no respiratory distress, no wheeze, no rhonchi. Gastrointestinal abdomen soft,tenderness RUQ and RLQ, no masses, bowel sounds audible, no guarding , no rigidity. Extremities no edema. Neuro non focal Skin no rash Psych appropriate affect Objective Data Active Medications Amlodipine Besylate (Amlodipine Besylate 10 Mg Tablet) 10 mg PO BEDTIME [facility]; Protocol Last Admin: 11/12/23 20:33 Dose: 10 mg Documented By: JOSE MANUEL Bupropion HCl (Bupropion Hcl Xl 150 Mg Tab.Er.24h) 150 mg PO DAILY [facility] Last Admin: 11/13/23 09:15 Dose: 150 mg Documented By: EULOGIO Hydralazine HCl (Hydralazine Hcl 25 Mg Tablet) 75 mg PO TID [facility]; Protocol Last Admin: 11/13/23 09:16 Dose: 75 mg Documented By: EULOGIO Hydromorphone HCl (Hydromorphone Hcl 0.5 Mg/0.5 Ml Syringe) 0.5 mg IVPUSH Q3H PRN; Protocol PRN Reason: Pain, Severe (Pain Scale 7-10) Last Admin: 11/13/23 09:16 Dose: 0.5 mg Documented By: EULOGIO Potassium Cl/Dextrose/Lact Ringer's (Kcl 20 Meq In 5 % Dex/Lact Rin) 20 meq in 1,000 mls @ 100 mls/hr IVCONT .Q10H [facility] Last Admin: 11/13/23 02:23 Dose: 80 mls/hr Documented By: JOSE MANUEL Labetalol HCl (Labetalol Hcl 100 Mg Tablet) 100 mg PO BID [facility]; Protocol Last Admin: 11/13/23 09:15 Dose: 100 mg Documented By: EULOGIO Lorazepam (Lorazepam 0.5 Mg Tablet) 0.5 mg PO Q8H PRN PRN Reason: anxiety Last Admin: 11/13/23 09:16 Dose: 0.5 mg Documented By: EULOGIO Melatonin (Melatonin 3 Mg Tablet) 6 mg PO BEDTIME PRN PRN Reason: Insomnia Last Admin: 11/09/23 20:15 Dose: 6 mg Documented By: LIZETH-RYAN Nystatin (Nystatin Ointment 15 Gm Tube) 1 appl TOPICAL BID [facility]; Protocol Last Admin: 11/13/23 09:17 Dose: 1 appl Documented By: EULOGIO Omeprazole (Omeprazole 20 Mg Capsule.Dr) 20 mg PO DAILY@0630 [facility] Last Admin: 11/13/23 05:12 Dose: 20 mg Documented By: JOSE MANUEL Ondansetron HCl (Ondansetron Hcl 4 Mg/2 Ml Vial) 4 mg IVPUSH Q8H PRN PRN Reason: Nausea and Vomiting Last Admin: 11/04/23 18:35 Dose: 4 mg Documented By: MICHELLE Oxycodone HCl (Oxycodone Hcl Immed Release 5 Mg Tablet) 5 mg PO Q4H PRN PRN Reason: Pain, Moderate(Pain Scale 4-6) Last Admin: 11/13/23 11:31 Dose: 5 mg Documented By: EULOGIO Sertraline HCl (Sertraline Hcl 100 Mg Tablet) 200 mg PO DAILY [facility] Sodium Chloride (0.9 % Sodium Chloride Flush 3 Ml Syringe) 3 ml IVFLUSH QSHIFT [facility] Last Admin: 11/13/23 09:16 Dose: 3 ml Documented By: EULOGIO Trazodone HCl (Trazodone Hcl 100 Mg Tablet) 200 mg PO BEDTIME [facility] Last Admin: 11/12/23 20:39 Dose: 200 mg Documented By: JOSE MANUEL Labs 11/13/23 05:46 11/13/23 05:45 Labs: Laboratory Results - last 24 hr 11/13/23 11/13/23 05:45 05:46 MCV 89.8 MCH 30.1 MCHC 33.6 RDW 14.9 Plt Count 170 MPV 11.2 Immature Gran % (Auto) 0.4 Neut % (Auto) 66.4 Lymph % (Auto) 18.8 L [place] % (Auto) 8.9 Eos % (Auto) 5.2 H Baso % (Auto) 0.3 Lymph # (Auto) 1.5 [place] # (Auto) 0.7 Eos # (Auto) 0.4 Baso # (Auto) 0.0 Abs Immat Gran (auto) 0.03 Absolute Neuts (auto) 5.3 Absolute Nucleated RBC 0.000 Nucleated RBC % (auto) 0.0 Anion Gap 16 Estim Creat Clear Calc 48.7 Estimated GFR 29 Fasting Glucose 103 H Lactic Acid 0.8 Calcium 8.6 Total Bilirubin 0.7 Direct Bilirubin 0.2 AST 18 ALT 51 H Alkaline Phosphatase 64 Total Protein 6.3 L Albumin 3.7 Amylase 42 Lipase 17 Assessment and Plan (1) GI bleeding: Status: Acute (2) Acute liver failure: Status: Acute (3) Transaminitis: Status: Acute (4) Abdominal pain: Status: Acute (5) JANAE (acute kidney injury): Status: Acute Plan 48 year old women admitted with Acute on chronic abdominal pain/acute GI bleed Persistent right-sided abdominal pain, and diarrhea, no hematemesis ,no nausea, no vomiting. CT abdomen and pelvis 11/07 without contrast showed mild long segment circumferential wall thickening extending from cecum through ascending colon to hepatic flexure with mild pericolonic fat stranding suspicious for infectious versus inflammatory colitis , no evidence of active GI bleed noted. 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 s/p 1 unit of packed RBC on 11/10 ,hct improved Underwent upper endoscopy that showed erosive antral gastritis and colonoscopy showed ulcerated lesion in proximal ascending colon question ischemia versus neoplasm Case discussed with Dr. Blake he recommended MRA of abdomen to assess her Celiac artery and SMA re: ? of ischemia. However radiologist recommended CT with contrast since it is better study Case discussed with Nephrology regarding use of contrast due to renal insufficiency Dr Athreya recommend to wait and follow biopsy report if nonconclusive then decide about imaging study Will hold MRI study till pathologies back Continue iv protonix,ivf Follow CBC/BMP Acute liver failure unclear etiology at this time diff. includes, other substance, rhabdo, shock liver pt stated she took one fentanyl pill, but pt. not clear with hx s/p mucomyst as per poison control AST normalized/ALT gradually trending down normal INR immunology panel pending JANAE, ATN creat. slowly trending down , continue IV fluid question baseline nephro consult>no indication for renal replacement, outpatient renal follow-up Hypokalemia Likely due to GI loss, replete and monitor HTN on Norvasc 10 mg, labetalol 100 mg b.i.d. and hydralazine 75 mg t.i.d., renal us with doppler showed no renal artery stenosis. Follow BP and adjust blood pressure medications, discussed with Nephrology they recommend renin/Nguyễn result pending Obesity, class III. BMI 45.7 diet and weight loss is encouraged Hx of pulmonary avm s/p ablation in 2019 History of depression on Zoloft 200 mg, trazodone 300 mg at bedtime and bupropion 100 mg twice daily for last 25 years All home medications resumed. Full Code. DVT pptx on compression boots Patient need continued inpatient hospitalization for close monitoring of renal function and electrolytes, and further workup for persistent abdominal pain, and bright red blood per rectum. Quality Stroke Does the patient have a stroke diagnosis?: No VTE Prior VTE?: No VTE Risk Level:: Medical - moderate - high VTE Device Contraindication: N/A - Device Ordered VTE Drug Contraindication: N/A - Med Ordered
--- NOTE | 2023-11-13 12:43 | PM.PNNEP ---
Subjective Subjective Date of Service: 11/13/23 Interval history: Events noted D/w CT and [facility] reviewed Physical Exam Vital Signs: Vital Signs: Last Vital Signs Temp 97.3 F 11/13/23 10:52 Pulse 91 11/13/23 10:52 Resp 18 11/13/23 10:52 BP 142/71 H 11/13/23 10:52 Pulse Ox 95 11/13/23 10:52 O2 Del Method Room Air 11/13/23 10:52 BMI result Body Mass Index 45.7 Objective Data Labs 11/13/23 05:46 11/13/23 05:45 Labs: Laboratory Results - last 24 hr 11/13/23 11/13/23 05:45 05:46 WBC 7.9 RBC 3.42 L Hgb 10.3 L Hct 30.7 L MCV 89.8 MCH 30.1 MCHC 33.6 RDW 14.9 Plt Count 170 MPV 11.2 Immature Gran % (Auto) 0.4 Neut % (Auto) 66.4 Lymph % (Auto) 18.8 L [place] % (Auto) 8.9 Eos % (Auto) 5.2 H Baso % (Auto) 0.3 Lymph # (Auto) 1.5 [place] # (Auto) 0.7 Eos # (Auto) 0.4 Baso # (Auto) 0.0 Abs Immat Gran (auto) 0.03 Absolute Neuts (auto) 5.3 Absolute Nucleated RBC 0.000 Nucleated RBC % (auto) 0.0 Sodium 143 Potassium 3.3 Chloride 108 Carbon Dioxide 22 Anion Gap 16 BUN 10 Creatinine 1.85 H Estim Creat Clear Calc 48.7 Estimated GFR 29 Fasting Glucose 103 H Lactic Acid 0.8 Calcium 8.6 Total Bilirubin 0.7 Direct Bilirubin 0.2 AST 18 ALT 51 H Alkaline Phosphatase 64 Total Protein 6.3 L Albumin 3.7 Amylase 42 Lipase 17 Microbiology Microbiology Results: Microbiology 11/02/23 Unknown Urine clean catch - Clean Catch Midstream Urine Culture - Final Procedures Date of Service Date of Service: 11/13/23 Assessment & Plan Assessment and plan (1) JANAE (acute kidney injury): Status: Acute Plan JANAE likely due to tubular injury Serum creatinine is back to baseline Still has mild to moderate risk for contrast nephropathy No indication for renal replacement C/W current supportive care s/p Colonoscopy Await biopsy results Time Spent With Patient Time: Total time managing care of this patient today ____ minutes. Progress Note: Quality Stroke Does the patient have a stroke diagnosis?: No
--- NOTE | 2023-11-13 13:06 | HO.POSTANES ---
Post Anesthesia Evaluation Post Anesthesia Evaluation Date of Service: 11/13/23 Vital Signs: Vital Signs Temp Pulse Resp BP Pulse Ox O2 Del Method 11/13/23 10:52 97.3 F 91 18 142/71 H 95 Room Air 11/13/23 09:16 18 11/13/23 07:03 97.6 F 85 18 168/85 H 96 Room Air 11/13/23 05:06 20 11/13/23 04:52 96.9 F 83 20 136/77 96 Room Air 11/13/23 02:17 18 Anesthesia: General Endotracheal-GETA Mental Status: Awake Pain Control: Satisfactory Nausea/Vomiting: None Hydration: Adequate Anesthesia-Related Issues: No Anes. Related Issues
--- NOTE | 2023-11-13 14:00 | P.PNGI_ITS ---
Subjective Subjective Date of Service: 11/13/23 Interval History: c/o r side abd pain no rectal bleeding Critical Care Time (minutes): 0 Physical Exam 2 Vital Signs: Vital Signs: Last Vital Signs Temp 97.3 F 11/13/23 10:52 Pulse 91 11/13/23 10:52 Resp 18 11/13/23 10:52 BP 142/71 H 11/13/23 10:52 Pulse Ox 95 11/13/23 10:52 O2 Del Method Room Air 11/13/23 10:52 BMI result Body Mass Index 45.7 GI: Other: abdomen is soft without focal tenderness Objective Data Labs 11/13/23 05:46 11/13/23 05:45 Microbiology Microbiology Results: Microbiology 11/02/23 Unknown Urine clean catch - Clean Catch Midstream Urine Culture - Final Procedures Date of Service Date of Service: 11/13/23 Progress Note: A&P Assessment and plan (1) GI bleeding: Status: Acute Assessment and Plan: reviewed findings at EGD and colonoscopy with patient biopsy results pending continue supportive care advance diet as tolerated. Time Spent With Patient Time: Total time managing care of this patient today ____ minutes. Quality Stroke Does the patient have a stroke diagnosis?: No VTE Prior VTE?: No VTE Risk Level:: Medical - moderate - high VTE Device Contraindication: N/A - Device Ordered VTE Drug Contraindication: N/A - Med Ordered
[2023-11-13] MEDS: amLODIPine Besylate 10 MG TABLET PO (21:05)
[2023-11-13] MEDS: traZODone HCL 100 MG TABLET 200 MG PO (21:06)
[2023-11-14] VITALS (7 sets, daily range): BP systolic 140–170; BP diastolic 73–90; PULSE 85–96; RESP 18–20; TEMP 36.1–36.3; O2SAT 93–96
[2023-11-14] MEDS: oxyCODONE HCl Immed Release 5 MG TABLET PO (03:19)
[2023-11-14] MEDS: KCl 20 mEq in 5 % Dex/Lact Rin 20 MEQ/1,000 ML IV.SOLN 80 MEQ IVCONT (04:59)
[2023-11-14 06:37] LABS: Anion Gap 14 (12-20); Blood Urea Nitrogen 8 mg/dL (9-16); Calcium 8.7 mg/dL (8.4-10.2); Carbon Dioxide 24 mmol/L (22-29); Chloride 109 mmol/L (96-108); Creatinine Clr Calc Pharmacy 44.9; Estimated Glomerular Filt Rate 26; Glucose Random 101 mg/dL (60-115); Potassium 3.4 mmol/L (3.3-5.1); Sodium 144 mmol/L (135-145)
[2023-11-14 06:38] LABS: Hematocrit 31.2 % (37.0-47.0); Hemoglobin 10.3 g/dl (12.0-16.0); Mean Corpuscular Hemoglobin 29.7 pg (27.0-33.0); Mean Corpuscular Volume 89.9 fL (80.0-98.0); Platelet Count 183 X10*3/uL (160-400); Red Blood Count 3.47 X10*6/uL (4.20-5.50); Red Cell Distribution Width 14.8 % (11.0-16.0); White Blood Count 7.4 X10*3/uL (4.8-10.8)
[2023-11-14] MEDS: Omeprazole 20 MG CAPSULE.DR PO (06:39)
[2023-11-14] MEDS: LORazepam 0.5 MG TABLET PO (06:41)
[2023-11-14] MEDS: hydrALAZINE HCl 25 MG TABLET 75 MG PO ×3 (08:45→21:25)
[2023-11-14] MEDS: 0.9 % Sodium Chloride Flush 3 ML SYRINGE IVFLUSH ×3 (08:45→21:26)
[2023-11-14] MEDS: buPROPion HCl XL 150 MG TAB.ER.24H PO (08:45)
[2023-11-14] MEDS: Labetalol HCL 100 MG TABLET PO ×2 (08:45→21:26)
[2023-11-14] MEDS: Sertraline HCL 100 MG TABLET 200 MG PO (08:45)
--- NOTE | 2023-11-14 10:50 | MHC.CM.PN ---
Per ROUNDS discussion, Patient is not yet medically cleared for d/c(persistent abdominal pain and loose stools); home is the goal and CM will continue to follow.
[2023-11-14] MEDS: Nystatin Ointment 15 GM TUBE 1 APPL TOPICAL (13:48)
--- NOTE | 2023-11-14 13:54 | P.PNNP_ITS ---
Subjective Subjective Date of Service: 11/14/23 Interval history: Events noted. All recent data reviewed. Serum creatinine fluctuant. Physical Exam 2 Vital Signs: Vital Signs: Last Vital Signs Temp 97.3 F 11/14/23 06:57 Pulse 89 11/14/23 06:57 Resp 20 11/14/23 06:57 BP 170/90 H 11/14/23 06:57 Pulse Ox 93 11/14/23 06:57 O2 Del Method Room Air 11/14/23 06:57 BMI result Body Mass Index 45.7 Const: General: no acute distress Eyes: EOM: EOMs intact bilaterally Neck: Neck: Yes supple Resp: Auscultation: diminished lung sounds Cardio: Rate: regular rate GI: Palpation (GI): Soft to palpation Neuro: General: moves all extremities Objective Data Labs 11/14/23 06:04 11/14/23 06:04 Labs: Laboratory Results - last 24 hr 11/14/23 06:04 WBC 7.4 RBC 3.47 L Hgb 10.3 L Hct 31.2 L MCV 89.9 MCH 29.7 MCHC 33.0 RDW 14.8 Plt Count 183 MPV 11.0 Absolute Nucleated RBC 0.000 Nucleated RBC % (auto) 0.0 Sodium 144 Potassium 3.4 Chloride 109 H Carbon Dioxide 24 Anion Gap 14 BUN 8 L Creatinine 2.01 H Estim Creat Clear Calc 44.9 Estimated GFR 26 Random Glucose 101 Calcium 8.7 Microbiology Microbiology Results: Microbiology 11/02/23 Unknown Urine clean catch - Clean Catch Midstream Urine Culture - Final Procedures Date of Service Date of Service: 11/14/23 Assessment & Plan Assessment and plan (1) JANAE (acute kidney injury): Status: Acute Plan JANAE likely due to tubular injury Serum creatinine fluctuant No indication for renal replacement C/W current supportive renal care for now Shall closely follow up in the office when D/Jovan Progress Note: Quality Stroke Does the patient have a stroke diagnosis?: No
--- NOTE | 2023-11-14 14:25 | HO.PM.IMPN ---
Subjective Subjective Date of Service: 11/14/23 Interval History: Abdominal pain slowly improving. No acute issues overnight Review of Systems Denies chest pain Denies shortness of breath Denies nausea vomiting diarrhea Denies fever chills Physical Exam Vital Signs: Vital Signs: Last Vital Signs Temp 97.3 F 11/14/23 06:57 Pulse 89 11/14/23 06:57 Resp 20 11/14/23 06:57 BP 170/90 H 11/14/23 06:57 Pulse Ox 93 11/14/23 06:57 O2 Del Method Room Air 11/14/23 06:57 BMI result Body Mass Index 45.7 Const: Other: Awake alert no acute distress Resp: Other: Clear to auscultation bilaterally no rales rhonchi or wheezes Cardio: Other: No S4; positive S1-S2; no S3 murmurs rubs or gallops GI: Other: Soft with minimal tenderness across lower abdomen. No rebound Extrem: Other: No edema bilaterally Objective Data Active Medications Amlodipine Besylate (Amlodipine Besylate 10 Mg Tablet) 10 mg PO BEDTIME REPLACED BY [facility]; Protocol Last Admin: 11/13/23 21:05 Dose: 10 mg Documented By: JIGNA Bupropion HCl (Bupropion Hcl Xl 150 Mg Tab.Er.24h) 150 mg PO DAILY [facility] Last Admin: 11/14/23 08:45 Dose: 150 mg Documented By: BLAIR Hydralazine HCl (Hydralazine Hcl 25 Mg Tablet) 75 mg PO TID [facility]PL[facility]; Protocol Last Admin: 11/14/23 08:45 Dose: 75 mg Documented By: BLAIR Hydromorphone HCl (Hydromorphone Hcl 0.5 Mg/0.5 Ml Syringe) 0.5 mg IVPUSH Q3H PRN; Protocol PRN Reason: Pain, Severe (Pain Scale 7-10) Last Admin: 11/13/23 19:23 Dose: 0.5 mg Documented By: JIGNA Labetalol HCl (Labetalol Hcl 100 Mg Tablet) 100 mg PO BID [facility]; Protocol Last Admin: 11/14/23 08:45 Dose: 100 mg Documented By: BLAIR Lorazepam (Lorazepam 0.5 Mg Tablet) 0.5 mg PO Q8H PRN PRN Reason: anxiety Last Admin: 11/14/23 06:41 Dose: 0.5 mg Documented By: JIGNA Melatonin (Melatonin 3 Mg Tablet) 6 mg PO BEDTIME PRN PRN Reason: Insomnia Last Admin: 11/09/23 20:15 Dose: 6 mg Documented By: HIRAL Nystatin (Nystatin Ointment 15 Gm Tube) 1 appl TOPICAL BID [facility]PL[facility]; Protocol Last Admin: 11/14/23 13:48 Dose: 1 appl Documented By: BLAIR Omeprazole (Omeprazole 20 Mg Capsule.) 20 mg PO DAILY@0630 REPLACED BY [facility] Last Admin: 11/14/23 06:39 Dose: 20 mg Documented By: JIGNA Ondansetron HCl (Ondansetron Hcl 4 Mg/2 Ml Vial) 4 mg IVPUSH Q8H PRN PRN Reason: Nausea and Vomiting Last Admin: 11/04/23 18:35 Dose: 4 mg Documented By: MICHELLE Oxycodone HCl (Oxycodone Hcl Immed Release 5 Mg Tablet) 10 mg PO Q4H PRN PRN Reason: Pain, Moderate(Pain Scale 4-6) Sertraline HCl (Sertraline Hcl 100 Mg Tablet) 200 mg PO DAILY REPLACED BY [facility] Last Admin: 11/14/23 08:45 Dose: 200 mg Documented By: BLAIR Sodium Chloride (0.9 % Sodium Chloride Flush 3 Ml Syringe) 3 ml IVFLUSH QSHIFT REPLACED BY [facility] Last Admin: 11/14/23 08:45 Dose: 3 ml Documented By: BLAIR Trazodone HCl (Trazodone Hcl 100 Mg Tablet) 200 mg PO BEDTIME REPLACED BY [facility] Last Admin: 11/13/23 21:06 Dose: 200 mg Documented By: JIGNA Labs 11/14/23 06:04 11/14/23 06:04 Labs: Laboratory Results - last 24 hr 11/14/23 06:04 MCV 89.9 MCH 29.7 MCHC 33.0 RDW 14.8 Plt Count 183 MPV 11.0 Absolute Nucleated RBC 0.000 Nucleated RBC % (auto) 0.0 Anion Gap 14 Estim Creat Clear Calc 44.9 Estimated GFR 26 Random Glucose 101 Calcium 8.7 Assessment and Plan (1) GI bleeding: Status: Acute (2) Acute liver failure: Status: Acute Plan 48 year old women admitted with 1.Acute on chronic abdominal pain/acute GI bleed -erosive antral gastritis;colonoscopy..ulcerated lesion in proximal ascending colon Bxs pending -further imaging/workup based on biopsy results -advance diet as tolerated 2.Acute liver failure -slowly normalizing -follow LFTs -advance diet and monitor clinical course 3.JANAE secondary to ATN -plateaued at present -follow renals/divalents -appreciate renal input 4.HTN -acceptable control on current therapies -adjust as indicated Full Code. compression boots Patient need continued inpatient hospitalization for close monitoring of renal function and electrolytes, and further workup for persistent abdominal pain, and bright red blood per rectum. Quality Stroke Does the patient have a stroke diagnosis?: No VTE Prior VTE?: No VTE Risk Level:: Medical - moderate - high VTE Device Contraindication: N/A - Device Ordered VTE Drug Contraindication: N/A - Med Ordered
[2023-11-14] MEDS: oxyCODONE HCl Immed Release 5 MG TABLET 10 MG PO (14:43)
[2023-11-14] MEDS: traZODone HCL 100 MG TABLET 200 MG PO (21:20)
[2023-11-14] MEDS: HYDROmorphone HCl 0.5 MG/0.5 ML SYRINGE IVPUSH (21:21)
[2023-11-14] MEDS: amLODIPine Besylate 10 MG TABLET PO (21:24)
[2023-11-15] VITALS (11 sets, daily range): BP systolic 117–155; BP diastolic 61–88; PULSE 81–94; RESP 16–20; TEMP 36.1–36.8; O2SAT 93–96
[2023-11-15] MEDS: HYDROmorphone HCl 0.5 MG/0.5 ML SYRINGE IVPUSH ×4 (04:07→17:17)
[2023-11-15] MEDS: oxyCODONE HCl Immed Release 5 MG TABLET 10 MG PO ×2 (05:49→11:41)
[2023-11-15] MEDS: Omeprazole 20 MG CAPSULE.DR PO (05:49)
[2023-11-15 06:19] LABS: Anti Nuclear Antibody Screen NEGATIVE (NEGATIVE)
[2023-11-15] MEDS: Labetalol HCL 100 MG TABLET PO ×2 (08:00→21:02)
[2023-11-15] MEDS: 0.9 % Sodium Chloride Flush 3 ML SYRINGE IVFLUSH ×2 (08:00→17:17)
[2023-11-15] MEDS: buPROPion HCl XL 150 MG TAB.ER.24H PO (08:01)
[2023-11-15] MEDS: Sertraline HCL 100 MG TABLET 200 MG PO (08:01)
[2023-11-15] MEDS: hydrALAZINE HCl 25 MG TABLET 75 MG PO ×3 (08:01→21:03)
[2023-11-15] MEDS: Nystatin Ointment 15 GM TUBE 1 APPL TOPICAL ×2 (08:06→21:04)
--- NOTE | 2023-11-15 10:25 | P.PNNP_ITS ---
Subjective Subjective Date of Service: 11/15/23 Interval history: Abdominal pain slowly improving. No acute issues overnight Nauseous today Physical Exam 2 Vital Signs: Vital Signs: Last Vital Signs Temp 97.1 F 11/15/23 06:53 Pulse 84 11/15/23 08:00 Resp 18 11/15/23 06:53 BP 154/84 H 11/15/23 08:01 Pulse Ox 93 11/15/23 06:53 O2 Del Method Room Air 11/15/23 06:53 BMI result Body Mass Index 45.7 Const: General: comfortable and no acute distress O rientation/consciousness: patient oriented x3 HEENT: Head: Yes normocephalic Mouth: Normal oral and palatal mucosa present Eyes: EOM: EOMs intact bilaterally Neck: Neck: Yes supple Resp: Auscultation: clear to auscultation bilaterally and diminished lung sounds Cardio: Jugular venous distension: no JVD Rate: regular rate GI: Palpation (GI): Soft to palpation Auscultation: normal bowel sounds : General: Yes no CVA tenderness Back/Spine/Pelvis: Back: no CVA tenderness Skin: General skin exam: no rashes or lesions noted Neuro: General: patient oriented x3 and moves all extremities Extrem: General: Yes no pedal edema Objective Data Labs 11/14/23 06:04 11/14/23 06:04 Labs: Laboratory Results - last 24 hr 11/06/23 06:30 ALEXANDRA Screen NEGATIVE Microbiology Microbiology Results: Microbiology 11/02/23 Unknown Urine clean catch - Clean Catch Midstream Urine Culture - Final Procedures Date of Service Date of Service: 11/15/23 Assessment & Plan Assessment and plan (1) JANAE (acute kidney injury): Status: Acute Plan JANAE likely due to tubular injury Serum creatinine essentially unchanged Still has mild to moderate risk for contrast nephropathy No indication for renal replacement C/W current supportive care s/p Colonoscopy Await biopsy results Time Spent With Patient Time: Total time managing care of this patient today ____ minutes. Progress Note: Quality Stroke Does the patient have a stroke diagnosis?: No
[2023-11-15] MEDS: ondansetron HCL 4 MG/2 ML VIAL IVPUSH (11:44)
--- NOTE | 2023-11-15 14:33 | HO.PM.IMPN ---
Subjective Subjective Date of Service: 11/15/23 Interval History: Essentially no change. Pain control adequate Review of Systems Denies chest pain Denies shortness of breath Denies nausea vomiting diarrhea Denies fever chills Physical Exam Vital Signs: Vital Signs: Last Vital Signs Temp 96.9 F 11/15/23 10:55 Pulse 81 11/15/23 10:55 Resp 18 11/15/23 10:55 BP 155/77 H 11/15/23 10:55 Pulse Ox 93 11/15/23 10:55 O2 Del Method Room Air 11/15/23 10:55 BMI result Body Mass Index 45.7 Const: Other: Awake alert no acute distress Resp: Other: Clear to auscultation bilaterally no rales rhonchi or wheezes Cardio: Other: No S4; positive S1-S2; no S3 murmurs rubs or gallops GI: Other: Soft with minimal tenderness across lower abdomen. No rebound Extrem: Other: No edema bilaterally Objective Data Active Medications Amlodipine Besylate (Amlodipine Besylate 10 Mg Tablet) 10 mg PO BEDTIME [facility]; Protocol Last Admin: 11/14/23 21:24 Dose: 10 mg Documented By: PRABHU Bupropion HCl (Bupropion Hcl Xl 150 Mg Tab.Er.24h) 150 mg PO DAILY [facility] Last Admin: 11/15/23 08:01 Dose: 150 mg Documented By: FRANTZ Hydralazine HCl (Hydralazine Hcl 25 Mg Tablet) 75 mg PO TID [facility]; Protocol Last Admin: 11/15/23 08:01 Dose: 75 mg Documented By: FRANTZ Hydromorphone HCl (Hydromorphone Hcl 0.5 Mg/0.5 Ml Syringe) 0.5 mg IVPUSH Q3H PRN; Protocol PRN Reason: Pain, Severe (Pain Scale 7-10) Last Admin: 11/15/23 12:56 Dose: 0.5 mg Documented By: FRANTZ Labetalol HCl (Labetalol Hcl 100 Mg Tablet) 100 mg PO BID [facility]; Protocol Last Admin: 11/15/23 08:00 Dose: 100 mg Documented By: FRANTZ Lorazepam (Lorazepam 0.5 Mg Tablet) 0.5 mg PO Q8H PRN PRN Reason: anxiety Last Admin: 11/14/23 06:41 Dose: 0.5 mg Documented By: JIGNA Melatonin (Melatonin 3 Mg Tablet) 6 mg PO BEDTIME PRN PRN Reason: Insomnia Last Admin: 11/09/23 20:15 Dose: 6 mg Documented By: HIRAL Nystatin (Nystatin Ointment 15 Gm Tube) 1 appl TOPICAL BID [facility]; Protocol Last Admin: 11/15/23 08:06 Dose: 1 appl Documented By: FRANTZ Omeprazole (Omeprazole 20 Mg Capsule.Dr) 20 mg PO DAILY@0630 [facility] Last Admin: 11/15/23 05:49 Dose: 20 mg Documented By: PRABHU Ondansetron HCl (Ondansetron Hcl 4 Mg/2 Ml Vial) 4 mg IVPUSH Q8H PRN PRN Reason: Nausea and Vomiting Last Admin: 11/15/23 11:44 Dose: 4 mg Documented By: FRANTZ Oxycodone HCl (Oxycodone Hcl Immed Release 5 Mg Tablet) 10 mg PO Q4H PRN PRN Reason: Pain, Moderate(Pain Scale 4-6) Last Admin: 11/15/23 11:41 Dose: 10 mg Documented By: FRANTZ Sertraline HCl (Sertraline Hcl 100 Mg Tablet) 200 mg PO DAILY [facility] Last Admin: 11/15/23 08:01 Dose: 200 mg Documented By: FRANTZ Sodium Chloride (0.9 % Sodium Chloride Flush 3 Ml Syringe) 3 ml IVFLUSH QSHIFT [facility] Last Admin: 11/15/23 08:00 Dose: 3 ml Documented By: FRANTZ Trazodone HCl (Trazodone Hcl 100 Mg Tablet) 200 mg PO BEDTIME [facility] Last Admin: 11/14/23 21:20 Dose: 200 mg Documented By: PRABHU Labs 11/14/23 06:04 11/14/23 06:04 Labs: Laboratory Results - last 24 hr 11/06/23 06:30 ALEXANDRA Screen NEGATIVE ALEXANDRA Titer TNP ALEXANDRA Titer 2 TNP ALEXANDRA Titer 3 TNP ALEXANDRA Pattern TNP ALEXANDRA Pattern 2 TNP ALEXANDRA Pattern 3 TNP Assessment and Plan (1) GI bleeding: Status: Acute (2) Acute liver failure: Status: Acute Plan 48 year old women admitted with 1.Acute on chronic abdominal pain/acute GI bleed -erosive antral gastritis;colonoscopy..ulcerated lesion in proximal ascending colon Bxs benign -discussed with Renal. . . MRA of abdomen with and without contrast at their request -advance diet as tolerated 2.Acute liver failure -slowly normalizing -follow LFTs -advance diet and monitor clinical course 3.JANAE secondary to ATN -plateaued at present -follow renals/divalents -appreciate renal input 4.HTN -acceptable control on current therapies -adjust as indicated Full Code. compression boots Patient need continued inpatient hospitalization for close monitoring of renal function and electrolytes, and further workup for persistent abdominal pain, and bright red blood per rectum. Quality Stroke Does the patient have a stroke diagnosis?: No VTE Prior VTE?: No VTE Risk Level:: Medical - moderate - high VTE Device Contraindication: N/A - Device Ordered VTE Drug Contraindication: N/A - Med Ordered
[2023-11-15] MEDS: LORazepam 0.5 MG TABLET PO (15:33)
--- NOTE | 2023-11-15 18:47 | PM.EVENT ---
Event Note Date of Service: 11/15/23 Event Note: GI Followup-course noted Path from her colonoscopy is negative for neoplasm. It is c/w a colitis but not definitive for ischemic. Crohn's could be another possibility. Scheduled for MRA of the abdomen and will hopefully get it done by tomorrow, 11/15. Thanks Time Spent With Patient Time: Total time managing care of this patient today ____ minutes.
[2023-11-15] MEDS: amLODIPine Besylate 10 MG TABLET PO (21:02)
[2023-11-15] MEDS: traZODone HCL 100 MG TABLET 200 MG PO (21:03)
[2023-11-16] VITALS (7 sets, daily range): BP systolic 125–152; BP diastolic 65–83; PULSE 81–91; RESP 17–20; TEMP 36.2–37.1; O2SAT 92–96
[2023-11-16 06:26] LABS: MANUAL DIFF FLAG NO
[2023-11-16 06:37] LABS: Basophils Percent Auto 0.5 % (0-2); Eosinophils Absolute Auto 0.5 X10*3/uL (0.0-0.4); Eosinophils Percent Auto 8.3 % (0-4); Hematocrit 30.5 % (37.0-47.0); Hemoglobin 10.1 g/dl (12.0-16.0); Imm Gran Abs Auto 0.02 X10*3/uL (0.00-0.03); Imm Gran Pct Auto 0.3 % (0.0-0.4); Lymphocytes Absolute Auto 1.3 X10*3/uL (1.2-4.9); Lymphocytes Percent Auto 20.2 % (20-40); Mean Corpuscular HGB Conc 33.1 g/dl (31.0-35.0); Mean Corpuscular Hemoglobin 29.4 pg (27.0-33.0); Mean Corpuscular Volume 88.9 fL (80.0-98.0); Monocytes Absolute Auto 0.6 X10*3/uL (0.1-1.2); Monocytes Percent Auto 9.6 % (2-11); Neutrophils Absolute Auto 3.8 x10*3/uL (2.0-8.3); Neutrophils Percent Auto 61.1 % (45-73); Platelet Count 194 X10*3/uL (160-400); Red Blood Count 3.43 X10*6/uL (4.20-5.50); Red Cell Distribution Width 14.6 % (11.0-16.0); White Blood Count 6.2 X10*3/uL (4.8-10.8)
[2023-11-16] MEDS: Omeprazole 20 MG CAPSULE.DR PO (06:42)
[2023-11-16] MEDS: HYDROmorphone HCl 0.5 MG/0.5 ML SYRINGE IVPUSH ×5 (06:43→20:43)
[2023-11-16] MEDS: 0.9 % Sodium Chloride Flush 3 ML SYRINGE IVFLUSH ×4 (06:45→20:43)
[2023-11-16 06:56] LABS: Alanine Aminotransferase 26 U/L (0-31); Albumin Level 3.9 g/dL (3.5-5.0); Alkaline Phosphatase 65 U/L (39-117); Anion Gap 15 (12-20); Aspartate Amino Transferase 21 U/L (5-31); Bilirubin Total 0.5 mg/dL (0.0-1.0); Blood Urea Nitrogen 12 mg/dL (9-16); Carbon Dioxide 23 mmol/L (22-29); Chloride 110 mmol/L (96-108); Creatinine Clr Calc Pharmacy 42.2; Estimated Glomerular Filt Rate 24; Glucose Fasting 102 mg/dL (60-99); Potassium 3.6 mmol/L (3.3-5.1); Sodium 144 mmol/L (135-145); Total Protein 6.4 g/dL (6.5-8.0)
[2023-11-16] MEDS: oxyCODONE HCl Immed Release 5 MG TABLET 10 MG PO ×2 (07:47→18:08)
[2023-11-16] MEDS: Sertraline HCL 100 MG TABLET 200 MG PO (07:47)
[2023-11-16] MEDS: hydrALAZINE HCl 25 MG TABLET 75 MG PO ×3 (07:47→20:41)
[2023-11-16] MEDS: Labetalol HCL 100 MG TABLET PO ×2 (07:47→20:41)
[2023-11-16] MEDS: buPROPion HCl XL 150 MG TAB.ER.24H PO (07:47)
[2023-11-16] MEDS: Nystatin Ointment 15 GM TUBE 1 APPL TOPICAL ×2 (07:48→20:42)
[2023-11-16] MEDS: ondansetron HCL 4 MG/2 ML VIAL IVPUSH (07:49)
--- NOTE | 2023-11-16 10:31 | MHC.CM.PN ---
Per ROUNDS discussion, Patient is having a MRI today and may be ready for dc soon; home is the goal and CM will continue to follow.
--- NOTE | 2023-11-16 12:35 | P.PNIM_ITS ---
Subjective Subjective Date of Service: 11/16/23 Interval History: Still complains of mild abdominal discomfort. Pain control with p.r.n. oxycodone Review of Systems Denies chest pain Denies shortness of breath Denies nausea vomiting diarrhea Denies fever chills Physical Exam 2 Vital Signs: Vital Signs: Last Vital Signs Temp 98.7 F 11/16/23 11:35 Pulse 84 11/16/23 11:35 Resp 20 11/16/23 11:35 BP 130/68 11/16/23 11:35 Pulse Ox 96 11/16/23 11:35 O2 Del Method Room Air 11/16/23 11:35 BMI result Body Mass Index 45.7 Const: Other: Awake alert no acute distress Resp: Other: Clear to auscultation bilaterally no rales rhonchi or wheezes Cardio: Other: No S4; positive S1-S2; no S3 murmurs rubs or gallops GI: Other: Soft with minimal tenderness across lower abdomen. No rebound Extrem: Other: No edema bilaterally Objective Data Active Medications Amlodipine Besylate (Amlodipine Besylate 10 Mg Tablet) 10 mg PO BEDTIME [facility]; Protocol Last Admin: 11/15/23 21:02 Dose: 10 mg Documented By: MANUEL Bupropion HCl (Bupropion Hcl Xl 150 Mg Tab.Er.24h) 150 mg PO DAILY [facility] Last Admin: 11/16/23 07:47 Dose: 150 mg Documented By: FRANTZ Hydralazine HCl (Hydralazine Hcl 25 Mg Tablet) 75 mg PO TID [facility]; Protocol Last Admin: 11/16/23 07:47 Dose: 75 mg Documented By: FRANTZ Hydromorphone HCl (Hydromorphone Hcl 0.5 Mg/0.5 Ml Syringe) 0.5 mg IVPUSH Q3H PRN; Protocol PRN Reason: Pain, Severe (Pain Scale 7-10) Last Admin: 11/16/23 09:46 Dose: 0.5 mg Documented By: FRANTZ Labetalol HCl (Labetalol Hcl 100 Mg Tablet) 100 mg PO BID [facility]; Protocol Last Admin: 11/16/23 07:47 Dose: 100 mg Documented By: FRANTZ Lorazepam (Lorazepam 0.5 Mg Tablet) 0.5 mg PO Q8H PRN PRN Reason: anxiety Last Admin: 11/15/23 15:33 Dose: 0.5 mg Documented By: FRANTZ Melatonin (Melatonin 3 Mg Tablet) 6 mg PO BEDTIME PRN PRN Reason: Insomnia Last Admin: 11/09/23 20:15 Dose: 6 mg Documented By: HIRAL Nystatin (Nystatin Ointment 15 Gm Tube) 1 appl TOPICAL BID [facility]; Protocol Last Admin: 11/16/23 07:48 Dose: 1 appl Documented By: FRANTZ Omeprazole (Omeprazole 20 Mg Capsule.Dr) 20 mg PO DAILY@0630 [facility] Last Admin: 11/16/23 06:42 Dose: 20 mg Documented By: MANUEL Ondansetron HCl (Ondansetron Hcl 4 Mg/2 Ml Vial) 4 mg IVPUSH Q8H PRN PRN Reason: Nausea and Vomiting Last Admin: 11/16/23 07:49 Dose: 4 mg Documented By: FRANTZ Oxycodone HCl (Oxycodone Hcl Immed Release 5 Mg Tablet) 10 mg PO Q4H PRN PRN Reason: Pain, Moderate(Pain Scale 4-6) Last Admin: 11/16/23 07:47 Dose: 10 mg Documented By: FRANTZ Sertraline HCl (Sertraline Hcl 100 Mg Tablet) 200 mg PO DAILY [facility] Last Admin: 11/16/23 07:47 Dose: 200 mg Documented By: FRANTZ Sodium Chloride (0.9 % Sodium Chloride Flush 3 Ml Syringe) 3 ml IVFLUSH QSHIFT [facility] Last Admin: 11/16/23 07:47 Dose: 3 ml Documented By: FRANTZ Trazodone HCl (Trazodone Hcl 100 Mg Tablet) 200 mg PO BEDTIME [facility] Last Admin: 11/15/23 21:03 Dose: 200 mg Documented By: MANUEL Labs 11/16/23 06:16 11/16/23 06:16 Labs: Laboratory Results - last 24 hr 11/16/23 06:16 MCV 88.9 MCH 29.4 MCHC 33.1 RDW 14.6 Plt Count 194 MPV 11.0 Immature Gran % (Auto) 0.3 Neut % (Auto) 61.1 Lymph % (Auto) 20.2 [place] % (Auto) 9.6 Eos % (Auto) 8.3 H Baso % (Auto) 0.5 Lymph # (Auto) 1.3 [place] # (Auto) 0.6 Eos # (Auto) 0.5 H Baso # (Auto) 0.0 Abs Immat Gran (auto) 0.02 Absolute Neuts (auto) 3.8 Absolute Nucleated RBC 0.000 Nucleated RBC % (auto) 0.0 Anion Gap 15 Estim Creat Clear Calc 42.2 Estimated GFR 24 Fasting Glucose 102 H Calcium 9.0 Total Bilirubin 0.5 AST 21 ALT 26 Alkaline Phosphatase 65 Total Protein 6.4 L Albumin 3.9 Assessment and Plan (1) GI bleeding: Status: Acute (2) Transaminitis: Status: Acute (3) JANAE (acute kidney injury): Status: Acute Plan 48 year old women admitted with 1.Acute on chronic abdominal pain/acute GI bleed -erosive antral gastritis;colonoscopy..ulcerated lesion in proximal ascending colon Bxs benign -discussed with Renal. . . MRA of abdomen with and without contrast pending -advance diet as tolerated 2.Acute liver failure -normalized -follow LFTs -advance diet and monitor clinical course 3.JANAE secondary to ATN -plateaued at present -follow renals/divalents -appreciate renal input 4.HTN -acceptable control on current therapies -adjust as indicated Full Code. compression boots Patient need continued inpatient hospitalization for close monitoring of renal function and electrolytes, and further workup for persistent abdominal pain, and bright red blood per rectum. Quality Stroke Does the patient have a stroke diagnosis?: No VTE Prior VTE?: No VTE Risk Level:: Medical - moderate - high VTE Device Contraindication: N/A - Device Ordered VTE Drug Contraindication: N/A - Med Ordered
--- NOTE | 2023-11-16 13:01 | P.PNNP_ITS ---
Subjective Subjective Date of Service: 11/16/23 Interval history: Still complains of mild abdominal discomfort. All recent data reviewed Physical Exam 2 Vital Signs: Vital Signs: Last Vital Signs Temp 98.7 F 11/16/23 11:35 Pulse 84 11/16/23 11:35 Resp 20 11/16/23 11:35 BP 130/68 11/16/23 11:35 Pulse Ox 96 11/16/23 11:35 O2 Del Method Room Air 11/16/23 11:35 BMI result Body Mass Index 45.7 Const: General: comfortable and no acute distress O rientation/consciousness: patient oriented x3 HEENT: Head: Yes normocephalic Mouth: Normal oral and palatal mucosa present Eyes: EOM: EOMs intact bilaterally Neck: Neck: Yes supple Resp: Auscultation: clear to auscultation bilaterally Cardio: Jugular venous distension: no JVD Rate: regular rate GI: Palpation (GI): Soft to palpation Auscultation: normal bowel sounds : General: Yes no CVA tenderness Back/Spine/Pelvis: Back: no CVA tenderness Skin: General skin exam: no rashes or lesions noted Neuro: General: patient oriented x3 and moves all extremities Extrem: General: Yes no pedal edema Objective Data Labs 11/16/23 06:16 11/16/23 06:16 Labs: Laboratory Results - last 24 hr 11/16/23 06:16 WBC 6.2 RBC 3.43 L Hgb 10.1 L Hct 30.5 L MCV 88.9 MCH 29.4 MCHC 33.1 RDW 14.6 Plt Count 194 MPV 11.0 Immature Gran % (Auto) 0.3 Neut % (Auto) 61.1 Lymph % (Auto) 20.2 [place] % (Auto) 9.6 Eos % (Auto) 8.3 H Baso % (Auto) 0.5 Lymph # (Auto) 1.3 [place] # (Auto) 0.6 Eos # (Auto) 0.5 H Baso # (Auto) 0.0 Abs Immat Gran (auto) 0.02 Absolute Neuts (auto) 3.8 Absolute Nucleated RBC 0.000 Nucleated RBC % (auto) 0.0 Sodium 144 Potassium 3.6 Chloride 110 H Carbon Dioxide 23 Anion Gap 15 BUN 12 Creatinine 2.14 H Estim Creat Clear Calc 42.2 Estimated GFR 24 Fasting Glucose 102 H Calcium 9.0 Total Bilirubin 0.5 AST 21 ALT 26 Alkaline Phosphatase 65 Total Protein 6.4 L Albumin 3.9 Microbiology Microbiology Results: Microbiology 11/02/23 Unknown Urine clean catch - Clean Catch Midstream Urine Culture - Final Procedures Date of Service Date of Service: 11/16/23 Assessment & Plan Assessment and plan (1) JANAE (acute kidney injury): Status: Acute Plan JANAE likely due to tubular injury Serum creatinine fluctuant; UO OK W/U so far negative No indication for renal replacement C/W current supportive renal care for now Time Spent With Patient Time: . Progress Note: Quality Stroke Does the patient have a stroke diagnosis?: No
[2023-11-16] MEDS: LORazepam 2 MG/ML VIAL 1 MG IVPUSH (15:01)
[2023-11-16] MEDS: LORazepam 0.5 MG TABLET PO (18:08)
[2023-11-16] MEDS: gadobutroL 10 ML VIAL IVPUSH ×2 (19:01→19:11)
[2023-11-16] MEDS: amLODIPine Besylate 10 MG TABLET PO (20:41)
[2023-11-16] MEDS: traZODone HCL 100 MG TABLET 200 MG PO (20:41)
[2023-11-16] MEDS: 0.9 % Sodium Chloride 500 ML 250 ML IV (21:54)
[2023-11-17 03:22] VITALS: BP 130/78; PULSE 84; RESP 19; TEMP 36.5; O2SAT 93
[2023-11-17] MEDS: Omeprazole 20 MG CAPSULE.DR PO (06:07)
[2023-11-17 06:28] LABS: MANUAL DIFF FLAG NO
[2023-11-17 06:34] LABS: Basophils Percent Auto 0.5 % (0-2); Eosinophils Absolute Auto 0.4 X10*3/uL (0.0-0.4); Eosinophils Percent Auto 7.6 % (0-4); Hematocrit 28.8 % (37.0-47.0); Hemoglobin 9.4 g/dl (12.0-16.0); Imm Gran Abs Auto 0.02 X10*3/uL (0.00-0.03); Imm Gran Pct Auto 0.4 % (0.0-0.4); Lymphocytes Absolute Auto 1.2 X10*3/uL (1.2-4.9); Lymphocytes Percent Auto 21.3 % (20-40); Mean Corpuscular HGB Conc 32.6 g/dl (31.0-35.0); Mean Corpuscular Hemoglobin 29.6 pg (27.0-33.0); Mean Corpuscular Volume 90.6 fL (80.0-98.0); Monocytes Absolute Auto 0.6 X10*3/uL (0.1-1.2); Monocytes Percent Auto 10.5 % (2-11); Neutrophils Absolute Auto 3.4 x10*3/uL (2.0-8.3); Neutrophils Percent Auto 59.7 % (45-73); Platelet Count 186 X10*3/uL (160-400); Red Blood Count 3.18 X10*6/uL (4.20-5.50); Red Cell Distribution Width 14.5 % (11.0-16.0); White Blood Count 5.7 X10*3/uL (4.8-10.8)
[2023-11-17 06:51] LABS: Alanine Aminotransferase 21 U/L (0-31); Albumin Level 3.8 g/dL (3.5-5.0); Alkaline Phosphatase 63 U/L (39-117); Anion Gap 14 (12-20); Aspartate Amino Transferase 16 U/L (5-31); Bilirubin Total 0.3 mg/dL (0.0-1.0); Blood Urea Nitrogen 14 mg/dL (9-16); Calcium 8.9 mg/dL (8.4-10.2); Carbon Dioxide 24 mmol/L (22-29); Chloride 110 mmol/L (96-108); Creatinine Clr Calc Pharmacy 43.4; Estimated Glomerular Filt Rate 25; Glucose Fasting 98 mg/dL (60-99); Potassium 3.7 mmol/L (3.3-5.1); Sodium 144 mmol/L (135-145); Total Protein 6.2 g/dL (6.5-8.0)
[2023-11-17 07:40] VITALS: BP 145/73; PULSE 90; RESP 16; TEMP 36.4; O2SAT 94
[2023-11-17] MEDS: Labetalol HCL 100 MG TABLET PO (08:35)
[2023-11-17] MEDS: Sertraline HCL 100 MG TABLET 200 MG PO (08:36)
[2023-11-17] MEDS: HYDROmorphone HCl 0.5 MG/0.5 ML SYRINGE IVPUSH (08:36)
[2023-11-17] MEDS: 0.9 % Sodium Chloride Flush 3 ML SYRINGE IVFLUSH (08:36)
[2023-11-17] MEDS: buPROPion HCl XL 150 MG TAB.ER.24H PO (08:36)
[2023-11-17] MEDS: hydrALAZINE HCl 25 MG TABLET 75 MG PO (08:36)
[2023-11-17] MEDS: oxyCODONE HCl Immed Release 5 MG TABLET 10 MG PO (11:19)
[2023-11-17 11:46] VITALS: BP 162/80; PULSE 84; RESP 16; TEMP 36.6; O2SAT 96
--- NOTE | 2023-11-17 11:59 | PM.DS ---
DS: Providers Provider Date of Service: 11/17/23 Date of admission: 11/02/23 21:54 Date of discharge: 11/17/23 Primary care physician: Oscar Davison MD Consults: 11/02/23 15:31 Consult to Care Team Stat Comment: Reason for consultation: sude 11/02/23 22:12 Consult to Gastroenterology Routine Consulting Provider: Roberto Harden Reason for consultation: Elevated transaminases Has provider been notified: Yes 11/04/23 07:29 Consult to Nephrology Routine Consulting Provider: [facility] Reason for consultation: worsening renal function Has provider been notified: Yes 11/05/23 10:45 Addiction Medicine Routine Consulting Provider: Addiction Covering Reason for consultation: substance use 11/06/23 09:21 Consult to Gastroenterology Routine Consulting Provider: Roberto Harden Reason for consultation: continued ruq pain DS: Diagnosis Discharge Diagnosis (1) Erosive gastritis with hemorrhage: Status: Acute (2) JANAE (acute kidney injury): Status: Acute DS: Summary Hospital Course Hospital Course: 48 years old woman with past medical history significant for obesity, hypertension, nephrolithiasis, hysterectomy, left oophorectomy, pulmonary AVM and mood disorder presents to the emergency department for 2nd time for persistent right upper quadrant pain over the last few days associated with watery diarrhea that has been going on since Sunday. She also have nausea and vomiting. Patient mentioned that she attended a libertarian on Sunday. People who also attended the libertarian also has been having diarrhea. She reported suggestive fever. Yesterday at the emergency department she had an extensive GI evaluation including HIDA scan, abdominal CT scan and pelvic ultrasound. These studies were remarkable for cholelithiasis without cholecystitis and right ovary cyst. Her blood workup was unremarkable including LFTs. The patient was subsequently discharged home with a prescription for oxycodone. Patient denied alcohol abuse, illicit drug use or tobacco smoking. Today, around 3 PM, patient was found by her mother unconscious in her recliner. Mother noted foamy saliva, and coming out of the patient's mouth. No seizure-like activity was reported. Mother called EMS for assistance who treated her with Narcan with good response. Patient denied overdose with oxycodone or any suicide attempt. She also denied taking an overdose of acetaminophen but is not quite sure. She believes she only took 4 tablets in the last 24 hours. In the ED today, she was found stable vital signs. Her blood workup was remarkable for marked transaminitis, minimal evaluation of bilirubin and normal alk-phos. There is also leukocytosis of 14.4. Hemoglobin and platelets remain normal. Venous gas: pH of 7.24, pCO2 45 and bicarb 20. Her creatinine is 1.72 (yesterday it was 2.06) and BUN 19. AST is > 4,202, ALT 2,582, bilirubin 1.1 --> 0.5 and alk-phos of 84. Ammonia is 104. Total CK, lipase and albumin are normal. His urine drug screen is positive for fentanyl. Acetaminophen level 6. Abdominal ultrasound showed cholelithiasis without cholecystitis, no CBD dilatation and hepatic steatosis changes. ECG showed normal rate and rhythm, heart rate 83 bpm, prolonged QT 486 milliseconds no acute ischemic changes. Hospital course Patient admitted to telemetry unit where monitor failed to demonstrate any acute dysrhythmias. Admitting physician had discussion with patient about a positive urine screen for fentanyl and patient admitted to taking ?fentanyl? pills from a friend. Nephrology was consulted and felt renal presentation was due to acute tubular injury. Creatinine plateaued at 2.08 and she will be followed as outpatient with Nephrology. She was seen in consultation by GI and underwent upper endoscopy/colonoscopy on 11/12/23; ulcerated area in the proximal ascending colon just outside the cecum and erosive antral gastritis. Biopsies were sent and all resulted negative. Given the initial CT scan changes and MRA of the abdomen was obtained. This demonstrated wall thickening of ascending colon and possibly distal descending colon. No evidence of hemodynamically significant stenosis of the abdominal aorta are proximal mesenteric vessels. Patient's kidney function remained stable after administration of contrast material. Case was discussed with GI; at this point she is suitable for discharge home and will follow up with GI and Nephrology as an outpatient Time Attestation Discharge Coordination Time (in mins): 35 Quality: Safe Use of Opioids Does Pt have an Active Cancer Diagnosis on the Problem List?: No Quality: Stroke Does the patient have a stroke diagnosis?: No Physical Exam Vital Signs: Vital Signs: Last Vital Signs Temp 97.8 F 11/17/23 11:46 Pulse 84 11/17/23 11:46 Resp 16 11/17/23 11:46 BP 162/80 H 11/17/23 11:46 Pulse Ox 96 11/17/23 11:46 O2 Del Method Room Air 11/17/23 11:46 BMI result Body Mass Index 45.7 Const: Other: Awake alert no acute distress Resp: Other: Clear to auscultation bilaterally no rales rhonchi or wheezes Cardio: Other: No S4; positive S1-S2; no S3 murmurs rubs or gallops GI: Other: Soft with minimal tenderness across lower abdomen. No rebound Extrem: Other: No edema bilaterally DS: Data Data Completed and Pending Completed studies during hospitalization [Text1]: Pending at discharge 11/12/23 17:40 Surgical [PTH] Routine Labs on day of discharge: Laboratory Results - last 24 hr 11/17/23 06:18 WBC 5.7 RBC 3.18 L Hgb 9.4 L Hct 28.8 L MCV 90.6 MCH 29.6 MCHC 32.6 RDW 14.5 Plt Count 186 MPV 11.0 Immature Gran % (Auto) 0.4 Neut % (Auto) 59.7 Lymph % (Auto) 21.3 [place] % (Auto) 10.5 Eos % (Auto) 7.6 H Baso % (Auto) 0.5 Lymph # (Auto) 1.2 [place] # (Auto) 0.6 Eos # (Auto) 0.4 Baso # (Auto) 0.0 Abs Immat Gran (auto) 0.02 Absolute Neuts (auto) 3.4 Absolute Nucleated RBC 0.000 Nucleated RBC % (auto) 0.0 Sodium 144 Potassium 3.7 Chloride 110 H Carbon Dioxide 24 Anion Gap 14 BUN 14 Creatinine 2.08 H Estim Creat Clear Calc 43.4 Estimated GFR 25 Fasting Glucose 98 Calcium 8.9 Total Bilirubin 0.3 AST 16 ALT 21 Alkaline Phosphatase 63 Total Protein 6.2 L Albumin 3.8 Discharge Plan Discharge Anticipated Discharge Date/Time: 11/17/23 11:46 Patient Disposition: Home, Self-Care Discharge Diagnosis: Erosive antral gastritis causing GI bleeding Referrals: Oscar Davison MD [Primary Care Provider] - 1 Week Discharge Medications: New sertraline 100 mg Tablet 200 mg PO DAILY Qty: 30 0RF hydralazine 25 mg Tablet 75 mg PO TID Qty: 270 0RF Protocol: Hold for SBP< HOLD for SBP < : 90 amlodipine 10 mg Tablet 10 mg PO BEDTIME Qty: 30 0RF Protocol: Hold for SBP< HOLD for SBP < : 90 omeprazole 20 mg Capsule,Delayed Release(Dr/Ec) 20 mg PO DAILY@0630 Qty: 30 0RF labetalol 100 mg Tablet 100 mg PO BID Qty: 60 0RF Protocol: Hold for SBP/HR < HOLD for SBP < : 90 HOLD for HR < : 60 oxycodone 5 mg Tablet 10 mg PO Q4H PRN (Reason: Pain, Moderate(Pain Scale 4-6)) Qty: 20 0RF Rx Instructions: Partial Fill upon patient request. Continued trazodone 300 mg tablet 300 mg PO BEDTIME Qty: 14 0RF bupropion HCl 100 mg tablet sustained-release 12 hr 100 mg PO BID Discontinued sertraline 100 mg tablet 200 mg PO DAILY oxycodone 5 mg tablet 5 mg PO Q6H PRN (Reason: severe pain (scale score 7-10)) Qty: 12 0RF Rx Instructions: Partial Fill upon patient request. Discharge Orders: Discharge Order (Routine); Ordered 11/17/23 Ordered By: Robel Balderrama Diet: Advance to usual diet Activity on Discharge: As tolerated Stand Alone Forms: Patient Portal Discharge page Print Language: [place] Care Plan Goals: Multiple blood pressure medicines were added to your regimen by Nephrology. They are listed on your discharge sheet. Please take as indicated. Health Concerns: Both Nephrology and Gastroenterology offices will call you with an appointment for follow-up. As above continue all discharge medicine until seen by them and told otherwise Plan of Treatment: Resume all other pre-hospital medications Assessment: See discharge home
--- NOTE | 2023-11-17 12:49 | MHC.CM.PN ---
PT WILL DC HOME TODAY WITH NO SERVICES VIA PRIVATE TRANSPORT
[2023-11-19 13:04] LABS: Aldosterone/Renin Ratio 4.9 Ratio (0.9-28.9); Plasma Renin Activity 0.41 ng/mL/h (0.25-5.82)
== END 2023-11-17 13:10 | disposition home or self-care (01) | DRG 812 ==
LOC: HO.ED 21:44 → HO.EDOVER 22:10 → HO.IMC 11-03 11:46
PROVIDERS: Family Medicine; Hospitalist; Internal Medicine; Internal Medicine Gastroenterology; Internal Medicine Nephrology; Nurse Practitioner Acute Care; Physician Assistant; Admitting Provider Internal Medicine; Emergency Provider Student in an Organized Health Care Education/Training Program; PCP Internal Medicine; Visit Provider Hospitalist
PROC: 0DB78ZX Excision of Stomach, Pylorus, Via Natural or Artificial Opening Endoscopic, Diagnostic (ICD-10-PCS; principal; 2023-11-12 15:40)
DX: T40.411A Poisoning by fentanyl or fentanyl analogs, accidental (unintentional), initial encounter (principal); N17.0 Acute kidney failure with tubular necrosis; K71.10 Toxic liver disease with hepatic necrosis, without coma; K29.71 Gastritis, unspecified, with bleeding; E87.6 Hypokalemia; K44.9 Diaphragmatic hernia without obstruction or gangrene; N83.201 Unspecified ovarian cyst, right side; F32.A Depression, unspecified; K52.9 Noninfective gastroenteritis and colitis, unspecified; T39.1X1A Poisoning by 4-Aminophenol derivatives, accidental (unintentional), initial encounter; I12.9 Hypertensive chronic kidney disease with stage 1 through stage 4 chronic kidney disease, or unspecified chronic kidney disease; K64.8 Other hemorrhoids; N18.9 Chronic kidney disease, unspecified; R94.31 Abnormal electrocardiogram [ECG] [EKG]; E66.01 Morbid (severe) obesity due to excess calories; Z68.42 Body mass index [BMI] 45.0-49.9, adult; Z87.74 Personal history of (corrected) congenital malformations of heart and circulatory system; Z79.899 Other long term (current) drug therapy
CPT/HCPCS: 36415; 73502; 74176; 74185; 76705; 76775; 80048; 80053; 80076; 80143; 80179; 80307; 81001; 82088; 82140; 82150; 82436; 82550; 82784; 82803; 82977; 83605; 83615; 83690; 83735; 84133; 84300; 84702; 85007; 85014; 85018; 85025; 85027; 85610; 85730; 86021; 86038; 86160; 86334; 86431; 86704; 86706; 86709; 86803; 86850; 86870; 86900; 86901; 86920; 86922; 87086; 87340; 87507; 87798; 88305; 88313; 88342; 89055; 93005; 93975; 99285; A9585; J0132; J0360; J1170; J1200; J1644; J1650; J1885; J1920; J2060; J2250; J2270; J2405; J2470; J2704; J3480; J7120; P9016

== ENCOUNTER → 2023-11-02 16:53 | Outpatient (BNV) | payer OTHER, SELFPAY | PROVIDERS: Admitting Provider Internal Medicine; Emergency Provider Student in an Organized Health Care Education/Training Program; Visit Provider Internal Medicine Cardiovascular Disease | DX: R94.31 Abnormal electrocardiogram [ECG] [EKG] (principal) | CPT/HCPCS: 93010 ==

== ENCOUNTER → 2023-11-02 21:54 | Outpatient (BNV) | payer OTHER, SELFPAY | PROVIDERS: Admitting Provider Internal Medicine; Emergency Provider Student in an Organized Health Care Education/Training Program; Visit Provider Internal Medicine | DX: K92.2 Gastrointestinal hemorrhage, unspecified (principal); K72.00 Acute and subacute hepatic failure without coma; R74.01 Elevation of levels of liver transaminase levels; R10.11 Right upper quadrant pain; N17.9 Acute kidney failure, unspecified | CPT/HCPCS: 99223; 99232; 99233; 99239 ==

== ENCOUNTER → 2023-11-02 21:54 | Outpatient (BNV) | payer OTHER, SELFPAY | PROVIDERS: Admitting Provider Internal Medicine; Emergency Provider Student in an Organized Health Care Education/Training Program; Visit Provider Internal Medicine Hypertension Specialist | DX: N17.9 Acute kidney failure, unspecified (principal) | CPT/HCPCS: 99223; 99231; 99232; 99499 ==

== ENCOUNTER 2023-11-30 13:43 | Outpatient (AMB) | payer OTHER, SELFPAY ==
--- NOTE | 2023-11-30 13:53 | HO.NEPHOV_ITS ---
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: No Accompanied by: Mother Allergies pregabalin [From LYRICA] Allergy (Severe, Verified 11/30/23 13:57) Difficulty Breathing sumatriptan [From IMITREX] Allergy (Severe, Verified 11/30/23 13:57) Chest Pain zolmitriptan [From ZOMIG] Allergy (Severe, Verified 11/30/23 13:57) Chest Pain morphine [MORPHINE] Allergy (Intermediate, Verified 11/30/23 13:57) STOMACH UPSET From ZELNORM Allergy (Severe, Uncoded 11/01/23 00:47) Palpitations HPI Comments Details: 48 years old woman with obesity, hypertension, nephrolithiasis, pulmonary AVM and mood disorder recently presented to the [facility] [place] emergency department for 2nd time for persistent right upper quadrant pain over the last few days associated with watery diarrhea. She also have nausea and vomiting. She is known to have H HT. In the emergency department she had an extensive GI evaluation including HIDA scan, abdominal CT scan and pelvic ultrasound. These studies were remarkable for cholelithiasis without cholecystitis and right ovary cyst. Her blood workup was unremarkable including LFTs. The patient was subsequently discharged home with a prescription for oxycodone. Patient denied alcohol abuse, illicit drug use or tobacco smoking. On the second presentation , around 3 PM, patient was found by her mother unconscious in her recliner. Mother noted foamy saliva, and coming out of the patient's mouth. No seizure-like activity was reported. Mother called EMS for assistance who treated her with Narcan with good response. Patient denied overdose with oxycodone or any suicide attempt. She also denied taking an overdose of acetaminophen but is not quite sure. She believes she only took 4 tablets in the last 24 hours. In the ED today, she was found stable vital signs. Her blood workup was remarkable for marked transaminitis, minimal evaluation of bilirubin and normal alk-phos. There is also leukocytosis of 14.4. Hemoglobin and platelets remain normal. Her creatinine was 1.72 (yesterday it was 2.06) and BUN 19. AST is > 4,202, ALT 2,582, bilirubin 1.1 --> 0.5 and alk-phos of 84. Ammonia is 104. Total CK, lipase and albumin are normal. His urine drug screen is positive for fentanyl. Acetaminophen level 6. Abdominal ultrasound showed cholelithiasis without cholecystitis, no CBD dilatation and hepatic steatosis changes. ECG showed normal rate and rhythm, heart rate 83 bpm, prolonged QT 486 milliseconds no acute ischemic changes. Patient was admitted to telemetry unit where monitor failed to demonstrate any acute dysrhythmias. Admitting physician had discussion with patient about a positive urine screen for fentanyl and patient admitted to taking ?fentanyl? pills from a friend. Her JANAE was thought to be due to acute tubular injury. Creatinine plateaued at 2.08 . She was seen in consultation by GI and underwent upper endoscopy/colonoscopy on 11/12/23; ulcerated area in the proximal ascending colon just outside the cecum and erosive antral gastritis. Biopsies were sent and all resulted negative. Given the initial CT scan changes and MRA of the abdomen was obtained. This demonstrated wall thickening of ascending colon and possibly distal descending colon. No evidence of hemodynamically significant stenosis of the abdominal aorta are proximal mesenteric vessels. Patient's kidney function remained stable. She was discharged and is here inl follow up as an outpatient. She was accompanied by her mother. She feels improved. Her serum creatinine has improved to 1.49 [facility] Medical History (Updated 11/25/23 @ 00:00 by Background Daemon) HHT (hereditary hemorrhagic telangiectasia) Morbid obesity IBS (irritable bowel syndrome) Hereditary hemorrhagic telangiectasia ADD (attention deficit disorder) Kidney stone Depression Hypertension Migraines Pulmonary arteriovenous malformation Surgical History Hx of cystoscopy H/O lithotripsy History of ankle surgery History of appendectomy H/O: hysterectomy Social History Household Members: Family Household Members Other:: mother Housing: House Are you a primary healthcare economics manager to a significant other at home: No Do you presently have visiting nurse or other home services: No Alcohol intake: unknown Patient Tobacco Use Status: Never used Tobacco service: No Review of Systems Const All systems reviewed & are unremarkable except as noted in HPI and below Physical Exam Vital Signs: Last Vital Signs Pulse 95 11/30/23 13:54 BP 110/70 11/30/23 13:54 Pulse Ox 98 11/30/23 13:54 Oxygen Delivery Method Room Air 11/30/23 13:54 Const General: comfortable and no acute distress Orientation/consciousness: patient oriented x3 HEENT Head: Yes normocephalic Mouth: Normal oral and palatal mucosa present Eyes EOM: EOMs intact bilaterally Neck Neck: Yes supple Resp Auscultation: clear to auscultation bilaterally Cardio Jugular venous distension: no JVD Rate: regular rate GI Palpation (GI): Soft to palpation Auscultation: normal bowel sounds General: Yes no CVA tenderness Back/Spine/Pelvis Back: no CVA tenderness Skin General skin exam: no rashes or lesions noted Neuro General: patient oriented x3 and moves all extremities Extrem General: Yes no pedal edema Assessment & Plan Assessment & Plan (1) JANAE (acute kidney injury): Code(s): N17.9 - Acute kidney failure, unspecified Category: Medical Plan JANAE likely due to tubular injury- improving Serum creatinine improving; UO OK W/U so far negative; Didnt change any medn C/W current supportive renal care for now; No indn for renal biopsy now Follow up blood ordered. Answered all her& her moms questions Orders: Orders Electrolytes Today N17.9 - Acute kidney failure, unspecified Calcium Today N17.9 - Acute kidney failure, unspecified Protein Creatinine Ratio, Ur Today N17.9 - Acute kidney failure, unspecified Creatinine Today N17.9 - Acute kidney failure, unspecified Blood Urea Nitrogen Today N17.9 - Acute kidney failure, unspecified Coding Level of Care Code Est Pt Level 4 (78921) Diagnoses JANAE (acute kidney injury) N17.9
[2023-11-30 13:54] VITALS: BP 110/70; PULSE 95; O2SAT 98
== END 2023-11-30 14:20 | disposition home or self-care (01) ==
PROVIDERS: PCP Internal Medicine; Visit Provider Internal Medicine Nephrology
DX: N17.9 Acute kidney failure, unspecified (principal)
CPT/HCPCS: 99214

== ENCOUNTER → 2023-11-30 13:43 | Outpatient (BNVA) | payer OTHER, SELFPAY | PROVIDERS: PCP Internal Medicine; Visit Provider Internal Medicine Nephrology ==

== ENCOUNTER 2024-02-29 09:37 | Emergency (ER) | payer OTHER, SELFPAY ==
--- NOTE | ~2024-02-29 | CT_ITS ---
EXAMINATION: CT ABDOMEN AND PELVIS WITH CONTRAST CLINICAL INFORMATION: Epigastric pain. Right upper quadrant pain. COMPARISON: CT dated November 08, 2023. TECHNIQUE: Multidetector volumetric images were obtained from the superior aspect of the liver through the pubic symphysis following administration 85 mL of Omnipaque 350 intravenous contrast without reported immediate complications. Sagittal and coronal reformatted images were obtained on the technologist's workstation. Oral contrast: No This CT examination was performed using dose optimization techniques as appropriate, variously including the following: *Automated exposure control *Adjustment of mA and/or kV according to patient size (this includes techniques or standardized protocols for targeted exams where dose is matched to indication/reason for exam; i.e. extremities or head) *Use of iterative reconstruction technique DLP: 1083 mGy-cm FINDINGS: LUNG BASES: Cylindrical shaped attenuation abnormality in the right lung base. LIVER, GALLBLADDER, AND BILIARY TREE: Liver measures 18 cm. No focal mass. Less than 3 mm hypodensities too small to be fully characterized. Main portal vein, hepatic veins and intrahepatic portion of the IVC are grossly patent. No pericholecystic fluid collection or gallbladder wall thickening. Common bile duct measures 5 mm. PANCREAS: No focal pancreatic mass. No main pancreatic ductal dilatation. No peripancreatic fluid collection. SPLEEN: Measures 11 cm. No focal mass. ADRENAL GLANDS: No nodular lesion. KIDNEYS AND URETERS: 3.5 mm nonobstructing calculus in the right pelvicalyceal system. No gross renal mass. No hydronephrosis. Renal cortical irregularity, bilaterally. BLADDER: Fluid-filled. GASTROINTESTINAL TRACT: No intestinal obstruction pattern. No ascites. No pneumoperitoneum. No pneumatosis intestinalis. I do not see the appendix, though no pericecal edema pattern. Abundant stool within the large intestine. Gas and fluid-filled mildly prominent proximal small bowel loops. ABDOMINAL WALL: Small fat-containing umbilical hernia. LYMPH NODES: No gross lymphadenopathy, mesenteric or retroperitoneal. VASCULAR: Calcified plaques abdominal aorta wall without aneurysm or dissection. Calcified plaques in the origin of the main renal arteries. PELVIC VISCERA: I do not see the uterus. Small right ovary/adnexa. OSSEOUS STRUCTURES: Spondylosis, L5-S1 resulting in bilateral neuroforamina narrowing. No acute fracture or listhesis. CT/CT abdomen pelvis w IV con IMPRESSION: No abnormal gallbladder by CT evaluation. Small fat-containing umbilical hernia. Nonobstructing nephrolithiasis, right kidney. Spondylosis, L5-S1. Fleischner guidelines were followed. Electronically signed by: Garth Mckeon MD 02/29/2024 11:54 AM WEN
[2024-02-29 09:41] VITALS: BP 152/93; PULSE 90; RESP 18; TEMP 36.8; O2SAT 94; BMI 40.1
--- NOTE | 2024-02-29 09:51 | ED_ITS ---
HPI - Abdominal Pain General Chief Complaint: Abdominal Pain Stated Complaint: upper abd pain Time Seen by Provider: 02/29/24 09:51 Source: patient and old records reviewed Mode of arrival: ambulatory Limitations: no limitations History of Present Illness ED Provider: JESSA ROWE narrative: 48 yo female with PMH of kidney stones, HTN, obesity, depression, pulmonary AVM s/p emobolization at [facility] [place] in 2019, IBS, ADD - fentanyl overdose requiring narcan in October 2023 with resultant JANAE and ATN. She presents today with c/o upper abdominal pain and RUQ pain since 1215am with nausea - took zofran. No fevers, diarrhea, normal BMs. She also notes she took her usual trazodone but then felt like she was hallucinating last night - denies any other medications besides taking tylenol and leftover x 2 oxycodone. She denies food exposures or sick contacts. Pain is normally chronic RLQ now in RUQ MD elicited complaint: abdominal pain Pertinent past history: other Onset (ago): hour(s) (1215am) Pain Consistency: constant Location: epigastric and RUQ Severity: moderate Quality: aching Radiation: none Migration to: no migration Exacerbating factors: movement Relieving factors: nothing Context: history of similar episodes Associated symptoms: nausea Treatments prior to arrival: other Related Data Home Medications ?Medication ?Instructions ?Recorded ?Confirmed bupropion HCl 100 mg tablet,12 hr 200 mg PO DAILY 11/30/23 sustained-release Previous Rx's ?Medication ?Instructions ?Recorded trazodone 300 mg tablet 300 mg PO BEDTIME #14 tabs 09/16/21 amlodipine 10 mg tablet 10 mg PO BEDTIME #30 tabs 11/17/23 hydralazine 25 mg tablet 75 mg PO TID #270 tabs 11/17/23 labetalol 100 mg tablet 100 mg PO BID #60 tabs 11/17/23 omeprazole 20 mg capsule,delayed 20 mg PO DAILY@0630 #30 caps 11/17/23 release sertraline 100 mg tablet 200 mg (2 x 100 mg) PO DAILY #30 11/17/23 tabs Allergies Allergy/AdvReac Type Severity Reaction Status Date / Time pregabalin [From LYRICA] Allergy Severe Difficulty Verified 02/29/24 09:44 Breathing sumatriptan [From IMITREX] Allergy Severe Chest Pain Verified 02/29/24 09:44 zolmitriptan [From ZOMIG] Allergy Severe Chest Pain Verified 02/29/24 09:44 From ZELNORM Allergy Severe Palpitation Uncoded 11/01/23 00:47 s Review of Systems Review of Systems Constitutional : No Weight loss, No Fever, No Chills ENT/Mouth : No sore throat, No Rhinorrhea Eyes: No Swelling, No Redness Cardiovascular : No Chest Pain, No SOB, NoEdema Respiratory : No Cough, No Sputum, No Wheezing Gastrointestinal : Positive Nausea, no Vomiting, no Diarrhea, positive abdominal Pain, No Hematochezia, No Melena, no constipation Genitourinary : No Dysuria, No Urinary Frequency, No Hematuria, No Urgency Musculoskeletal : No joint pain, No Myalgias, No Joint Swelling Skin : No Skin Lesions, No rash Neuro : No Weakness, No Numbness, No Dizziness, No Headache Psych : No Anxiety/Panic, No Depression All other systems reviewed and are negative. [facility] Past Medical History Attestation statement: The following information was validated with the patient. Source: old records reviewed Medical History HHT (hereditary hemorrhagic telangiectasia) Morbid obesity IBS (irritable bowel syndrome) Hereditary hemorrhagic telangiectasia ADD (attention deficit disorder) Kidney stone Depression Hypertension Migraines Pulmonary arteriovenous malformation Surgical History Hx of cystoscopy H/O lithotripsy History of ankle surgery History of appendectomy H/O: hysterectomy Social History Social History Household Members: Family Household Members Other:: mother Housing: House Are you a primary day care director to a significant other at home: No Do you presently have visiting nurse or other home services: No Alcohol intake: unknown Patient Tobacco Use Status: Never used Tobacco Smoked in Last 30 Days: No Use of substances other than those prescribed or required for medical reasons: No Advance Directives: No Advance Directives Information Provided: Yes Do you have a plan to hurt others: No Plan Patient : No service: No Physical Exam ED Vital Signs: Vital Signs - 24 hr 02/29/24 09:41 Temperature 98.2 F Pulse Rate 90 Respiratory Rate 18 Blood Pressure 152/93 H Pulse Oximetry 94 Oxygen Delivery Method Room Air BMI result Body Mass Index 40.1 Appearance: Alert. Oriented X3. No acute distress. Eyes: Pupils equal, round and reactive to light. ENT: Pharynx normal. Neck: Normal inspection. Neck supple. CVS: Normal heart rate and rhythm. Pulses normal. Respiratory: No respiratory distress. Breath sounds normal. Abdomen: Soft and moderate epigastric and RUQ pain no rebound or guarding Skin: Skin warm and dry. Normal skin color. Normal skin turgor. Extremities: No lower extremity edema. No calf ttp Neuro: Oriented X 3. No motor deficit. No sensory deficit. Medical Decision Making Medical Decision Making [facility] Narrative: 48 yo female with PMH of kidney stones, HTN, obesity, depression, pulmonary AVM s/p emobolization at [facility] [place] in 2019, IBS, ADD here with c/o RUQ pain and epigastric pain with nausea. At this time will need labs and drug screen - CT scan for renal colic, pancreatitis, colitis ordered. She reports compliance with all of her medications. She is overall not toxic. Did use percocet which is concerning given overdose in October. She hallucinated last night per her reports but she has normal neuro exam and mentation now. Could be med related. Differential Diagnosis Differential Diagnoses: The differential diagnosis associated with the presentation includes gastritis, pancreatitis, chronic abdominal pain prior work up for biliary colic in past per patient that was negative Admission/Observation Consideration of admission/observation: Escalation of care including admission/observation considered feels much better no acute findings stable for DC Lab Data [facility] Lab Attestation statement: I reviewed the patient's lab results. 02/29/24 10:13 02/29/24 10:13 Labs: Lab Results 02/29/24 Range/Units 10:13 WBC 5.1 (4.8-10.8) X10*3/uL RBC 3.80 L (4.20-5.50) X10*6/uL Hgb 10.9 L (12.0-16.0) g/dl Hct 32.4 L (37.0-47.0) % MCV 85.3 (80.0-98.0) fL MCH 28.7 (27.0-33.0) pg MCHC 33.6 (31.0-35.0) g/dl RDW 16.3 H (11.0-16.0) % Plt Count 180 (160-400) X10*3/uL MPV 10.6 (9.4-12.3) fL Immature Gran % (Auto) 0.2 (0.0-0.4) % Neut % (Auto) 58.6 (45-73) % Lymph % (Auto) 25.5 (20-40) % [place] % (Auto) 8.6 (2-11) % Eos % (Auto) 6.5 H (0-4) % Baso % (Auto) 0.6 (0-2) % Lymph # (Auto) 1.3 (1.2-4.9) X10*3/uL [place] # (Auto) 0.4 (0.1-1.2) X10*3/uL Eos # (Auto) 0.3 (0.0-0.4) X10*3/uL Baso # (Auto) 0.0 (0.0-0.2) X10*3/uL Abs Immat Gran (auto) 0.01 (0.00-0.03) X10*3/uL Absolute Neuts (auto) 3.0 (2.0-8.3) x10*3/uL Absolute Nucleated RBC 0.000 (0.0-0.012) X10*3/uL Nucleated RBC % (auto) 0.0 (0.0-0.2) /100WBC Sodium 143 (135-145) mmol/L Potassium 4.2 (3.3-5.1) mmol/L Chloride 111 H (96-108) mmol/L Carbon Dioxide 21 L (22-29) mmol/L Anion Gap 15 (12-20) BUN 16 (9-16) mg/dL Creatinine 1.01 (0.5-1.4) mg/dL Estim Creat Clear Calc 82.9 Estimated GFR 58 Random Glucose 91 (60-115) mg/dL Calcium 9.6 D (8.4-10.2) mg/dL Magnesium 1.7 (1.6-2.6) mg/dL Total Bilirubin 0.3 (0.0-1.0) mg/dL Direct Bilirubin 0.1 (0.0-0.5) mg/dL AST 19 (5-31) U/L ALT 11 (0-31) U/L Alkaline Phosphatase 60 (39-117) U/L Total Protein 7.2 (6.5-8.0) g/dL Albumin 4.4 (3.5-5.0) g/dL Lipase 27 (8-78) U/L Urine Color Yellow Urine Appearance Clear Urine pH 5.5 (5.0-9.0) Ur Specific [place] 1.020 (1.005-1.025) Urine Protein Negative (Neg-Trace) mg/dL Urine Glucose (UA) Negative (Negative) mg/dL Urine Ketones Negative (Negative) mg/dL Urine Blood Negative (Negative) Urine Nitrite Negative (Negative) Ur Leukocyte Esterase Negative (Negative) Urine Opiates Screen POSITIVE H (Not Detect) Ur Buprenorphine Scrn Not Detected (Not Detect) ng/mL Ur Oxycodone Screen Positive H (Not Detect) ng/mL Urine Methadone Screen Not Detected (Not Detect) ng/mL Urine Fentanyl Screen Not Detected (Not Detect) Ur Barbiturates Screen Not Detected (Not Detect) Ur Phencyclidine Scrn Not Detected (Not Detect) Ur Amphetamines Screen Not Detected (Not Detect) U Benzodiazepines Scrn Not Detected (Not Detect) Urine Cocaine Screen Not Detected (Not Detect) U Marijuana (THC) Screen Not Detected (Not Detect) Ethyl Alcohol < 10 mg/dL Independent Interpretation I performed an independent interpretation of an: CT Scan (no acute cause of pain) Radiology Impression Discussion of test interpretation with radiology: I have reviewed the radiologist's reading. External Record Review External record reviewed: Inpatient record and Outpatient record Prescription Management I considered prescription management with: Other Medications Administered Discontinued Medications Generic Name Dose Route Start Last Admin Trade Name Fidel PRN Reason Stop Dose Admin Iohexol 100 ml 02/29/24 11:02/29/24 11:02 Iohexol 350 Mg/Ml 100 Ml Infus..Btl IV 02/29/24 11:02 85 ml ONCE ONE Administration Morphine Sulfate 6 mg 02/29/24 10:01 02/29/24 10:17 Morphine Sulfate 10 Mg/Ml Cartridge IVPUSH 02/29/24 10:02 6 mg ONCE ONE Administration Protocol Ondansetron HCl 4 mg 02/29/24 10:25 02/29/24 10:26 Ondansetron Hcl 4 Mg/2 Ml Vial IVPUSH 02/29/24 10:26 4 mg ONCE ONE Administration Discharge Plan Discharge Clinical Impression: Abdominal pain Qualifiers: Abdominal location: upper abdomen, unspecified Qualified Code(s): R10.10 - Upper abdominal pain, unspecified Patient Disposition: Home, Self-Care Instructions: Abdominal Pain (ED) Additional Instructions: no UTI, labs reassuring, no acute cause of pain on CT scan - at this time rest and stay hydrated, follow up with your GI doctor return for fevers, worsening pain, black of bloody stools, unable to eat or drink CT/CT abdomen pelvis w IV con IMPRESSION: No abnormal gallbladder by CT evaluation. Small fat-containing umbilical hernia. Nonobstructing nephrolithiasis, right kidney. Spondylosis, L5-S1. Fleischner guidelines were followed. Prescriptions: No Action trazodone 300 mg tablet 300 mg PO BEDTIME Qty: 14 0RF sertraline 100 mg Tablet 200 mg PO DAILY Qty: 30 0RF hydralazine 25 mg Tablet 75 mg PO TID Qty: 270 0RF Protocol: Hold for SBP< HOLD for SBP < : 90 amlodipine 10 mg Tablet 10 mg PO BEDTIME Qty: 30 0RF Protocol: Hold for SBP< HOLD for SBP < : 90 omeprazole 20 mg Capsule,Delayed Release(Dr/Ec) 20 mg PO DAILY@0630 Qty: 30 0RF labetalol 100 mg Tablet 100 mg PO BID Qty: 60 0RF Protocol: Hold for SBP/HR < HOLD for SBP < : 90 HOLD for HR < : 60 bupropion HCl 100 mg tablet sustained-release 12 hr 200 mg PO DAILY Print Language: Peruvian
[2024-02-29] MEDS: Morphine Sulfate 10 MG/ML CARTRIDGE 6 MG IVPUSH (10:17)
[2024-02-29] MEDS: ondansetron HCL 4 MG/2 ML VIAL IVPUSH (10:26)
[2024-02-29 10:29] LABS: Basophils Percent Auto 0.6 % (0-2); Eosinophils Absolute Auto 0.3 X10*3/uL (0.0-0.4); Eosinophils Percent Auto 6.5 % (0-4); Hematocrit 32.4 % (37.0-47.0); Hemoglobin 10.9 g/dl (12.0-16.0); Imm Gran Abs Auto 0.01 X10*3/uL (0.00-0.03); Imm Gran Pct Auto 0.2 % (0.0-0.4); Lymphocytes Absolute Auto 1.3 X10*3/uL (1.2-4.9); Lymphocytes Percent Auto 25.5 % (20-40); MANUAL DIFF FLAG NO; Mean Corpuscular HGB Conc 33.6 g/dl (31.0-35.0); Mean Corpuscular Hemoglobin 28.7 pg (27.0-33.0); Mean Corpuscular Volume 85.3 fL (80.0-98.0); Mean Platelet Volume 10.6 fL (9.4-12.3); Monocytes Absolute Auto 0.4 X10*3/uL (0.1-1.2); Monocytes Percent Auto 8.6 % (2-11); Neutrophils Percent Auto 58.6 % (45-73); Platelet Count 180 X10*3/uL (160-400); Red Cell Distribution Width 16.3 % (11.0-16.0); White Blood Count 5.1 X10*3/uL (4.8-10.8)
[2024-02-29 10:30] LABS: Appearance Urine Clear; Color Urine Yellow; Glucose Urine UA Negative (Negative); Leukocyte Esterase Urine Negative (Negative); Nitrite Urine Negative (Negative); PH 5.5 (5.0-9.0); Urine Blood Negative (Negative); Urine Ketones Negative (Negative); Urine Protein Negative (Neg-Trace)
[2024-02-29 10:51] LABS: Alanine Aminotransferase 11 U/L (0-31); Albumin Level 4.4 g/dL (3.5-5.0); Alkaline Phosphatase 60 U/L (39-117); Anion Gap 15 (12-20); Aspartate Amino Transferase 19 U/L (5-31); Bilirubin Direct 0.1 mg/dL (0.0-0.5); Bilirubin Total 0.3 mg/dL (0.0-1.0); Blood Urea Nitrogen 16 mg/dL (9-16); Calcium 9.6 mg/dL (8.4-10.2); Carbon Dioxide 21 mmol/L (22-29); Chloride 111 mmol/L (96-108); Creatinine Clr Calc Pharmacy 82.9; Estimated Glomerular Filt Rate 58; Ethanol < 10 mg/dL; Glucose Random 91 mg/dL (60-115); Lipase 27 U/L (8-78); Magnesium 1.7 mg/dL (1.6-2.6); Potassium 4.2 mmol/L (3.3-5.1); Sodium 143 mmol/L (135-145); Total Protein 7.2 g/dL (6.5-8.0)
[2024-02-29 10:53] LABS: Amphetamine Screen Urine Not Detected (Not Detect); Barbiturates, Urine Not Detected (Not Detect); Benzodiazepines Screen Urine Not Detected (Not Detect); Buprenorphine Scr Not Detected (Not Detect); Cannabinoid Screen Urine Not Detected (Not Detect); Cocaine Screen Urine Not Detected (Not Detect); Fentanyl, urine Not Detected (Not Detect); Methadone Screen, Urine Not Detected (Not Detect); Opiate Screen Urine POSITIVE (Not Detect); Oxycodone Screen Urine Positive (Not Detect); Phencyclidine Screen Urine Not Detected (Not Detect)
[2024-02-29] MEDS: iohexoL 350 MG/ML 100 ML INFUS..BTL IV (11:02)
--- NOTE | 2024-02-29 11:02 | PC.NURSE ---
a&ox4. vss and up to date. pt presents to the ED c/o sudden onset sharp epigastric pain w/ associated nausea. pt reports pain radiates to RLQ/LLQ. woke her up from her sleep. pt reports self administered zofran, 10mg oxycodone and tylenol w/ no relief. upon ED arrival - pt reports 8/10 abd pain. 20gIV placed in the left upper bicep - labs obtained/sent to lab. no sob/wob noted. respirations even/unlabored. pt waiting to go to CT at this time. plan of care ongoing. call pérez placed within reach.
--- NOTE | 2024-02-29 11:13 | PC.NURSE ---
pt reports no effectiveness from medication administration - requesting hot pack. hot pack applied to epigastric region. CT results pending at this time.
[2024-02-29 12:49] VITALS: BP 142/85; PULSE 85; RESP 16; TEMP 36.7; O2SAT 93
== END 2024-02-29 12:50 | disposition home or self-care (01) ==
PROVIDERS: Emergency Provider Emergency Medicine; PCP Internal Medicine
DX: R10.11 Right upper quadrant pain (principal); I10 Essential (primary) hypertension; Z79.899 Other long term (current) drug therapy
CPT/HCPCS: 36415; 74177; 80048; 80076; 80307; 81003; 83690; 83735; 85025; 96374; 96375; 99284; J2270; J2405; Q9967

== ENCOUNTER → 2024-02-29 10:01 | Outpatient (BNV) | payer OTHER, SELFPAY | PROVIDERS: Emergency Provider Emergency Medicine; PCP Internal Medicine; Visit Provider Radiology Diagnostic Radiology | DX: R10.13 Epigastric pain (principal); R10.11 Right upper quadrant pain | CPT/HCPCS: 74177 ==

== ENCOUNTER 2024-03-04 08:28 | Outpatient (REF) | payer OTHER, SELFPAY ==
[2024-03-04 09:50] LABS: Anion Gap 13 (12-20); Blood Urea Nitrogen 12 mg/dL (9-16); Calcium 9.3 mg/dL (8.4-10.2); Carbon Dioxide 21 mmol/L (22-29); Chloride 111 mmol/L (96-108); Estimated Glomerular Filt Rate > 60; Potassium 3.8 mmol/L (3.3-5.1); Sodium 141 mmol/L (135-145)
[2024-03-04 10:21] LABS: Creatinine Urine 160.35 mg/dL; Protein/Creatinine Ratio, Ur 0.14 (<0.2); Total Protein Urine Random 23 mg/dL (<12)
== END 2024-03-04 08:29 | disposition home or self-care (01) ==
LOC: HO.LAB 08:28
PROVIDERS: PCP Internal Medicine; Visit Provider Internal Medicine Nephrology
DX: N17.9 Acute kidney failure, unspecified (principal)
CPT/HCPCS: 36415; 80051; 82310; 82565; 82570; 84156; 84520

== ENCOUNTER 2024-03-05 09:46 | Outpatient (AMB) | payer OTHER, SELFPAY ==
--- NOTE | 2024-03-05 10:01 | HO.NEPHOV ---
Vital Signs 03/05/24 10:02 Height 5 ft 5 in Weight 235 lb 4 oz BMI 39.1 BP 142/90 H Blood Pressure Location Lt brachial Position Sitting Pulse 98 Pulse Source Pulse Oximeter Pulse Oximetry (%) 94 Oxygen Delivery Method Room Air Intake Visit Reasons: JANAE-Conf Recruit Instructor Required: No Accompanied by: Mother Allergies pregabalin [From LYRICA] Allergy (Severe, Verified 03/05/24 10:02) Difficulty Breathing sumatriptan [From IMITREX] Allergy (Severe, Verified 03/05/24 10:02) Chest Pain zolmitriptan [From ZOMIG] Allergy (Severe, Verified 03/05/24 10:02) Chest Pain From ZELNORM Allergy (Severe, Uncoded 11/01/23 00:47) Palpitations HPI Comments Details: 48 years old woman with obesity, hypertension, nephrolithiasis, pulmonary AVM and mood disorder recently presented to the [facility] emergency department for 2nd time for persistent right upper quadrant pain over the last few days associated with watery diarrhea. She also have nausea and vomiting. She is known to have HHT. In the emergency department she had an extensive GI evaluation including HIDA scan, abdominal CT scan and pelvic ultrasound. These studies were remarkable for cholelithiasis without cholecystitis and right ovary cyst. Her blood workup was unremarkable including LFTs. The patient was subsequently discharged home with a prescription for oxycodone. Patient denied alcohol abuse, illicit drug use or tobacco smoking. On the second presentation , around 3 PM, patient was found by her mother unconscious in her recliner. Mother noted foamy saliva, and coming out of the patient's mouth. No seizure-like activity was reported. Mother called EMS for assistance who treated her with Narcan with good response. Patient denied overdose with oxycodone or any suicide attempt. She also denied taking an overdose of acetaminophen but is not quite sure. She believes she only took 4 tablets in the last 24 hours. In the ED today, she was found stable vital signs. Her blood workup was remarkable for marked transaminitis, minimal evaluation of bilirubin and normal alk-phos. There is also leukocytosis of 14.4. Hemoglobin and platelets remain normal. Her creatinine was 1.72 (yesterday it was 2.06) and BUN 19. AST is > 4,202, ALT 2,582, bilirubin 1.1 --> 0.5 and alk-phos of 84. Ammonia is 104. Total CK, lipase and albumin are normal. His urine drug screen is positive for fentanyl. Acetaminophen level 6. Abdominal ultrasound showed cholelithiasis without cholecystitis, no CBD dilatation and hepatic steatosis changes. ECG showed normal rate and rhythm, heart rate 83 bpm, prolonged QT 486 milliseconds no acute ischemic changes. Patient was admitted to telemetry unit where monitor failed to demonstrate any acute dysrhythmias. Admitting physician had discussion with patient about a positive urine screen for fentanyl and patient admitted to taking ?fentanyl? pills from a friend. Her JANAE was thought to be due to acute tubular injury. Creatinine plateaued at 2.08 . She was seen in consultation by GI and underwent upper endoscopy/colonoscopy on 11/12/23; ulcerated area in the proximal ascending colon just outside the cecum and erosive antral gastritis. Biopsies were sent and all resulted negative. Given the initial CT scan changes and MRA of the abdomen was obtained. This demonstrated wall thickening of ascending colon and possibly distal descending colon. No evidence of hemodynamically significant stenosis of the abdominal aorta are proximal mesenteric vessels. Patient's kidney function remained stable. She was discharged and is here inl follow up as an outpatient. She was accompanied by her mother. She feels improved. Her serum creatinine has improved to 0.91 [facility] Medical History (Updated 03/05/24 @ 10:13 by Candelario Cerda MD) HHT (hereditary hemorrhagic telangiectasia) Morbid obesity IBS (irritable bowel syndrome) Hereditary hemorrhagic telangiectasia ADD (attention deficit disorder) Kidney stone Depression Hypertension Migraines Pulmonary arteriovenous malformation Surgical History Hx of cystoscopy H/O lithotripsy History of ankle surgery History of appendectomy H/O: hysterectomy Social History Household Members: Family Household Members Other:: mother Housing: House Are you a primary healthcare market consultant to a significant other at home: No Do you presently have visiting nurse or other home services: No Alcohol intake: unknown Patient Tobacco Use Status: Never used Tobacco service: No Physical Exam Vital Signs: Last Vital Signs Pulse 98 03/05/24 10:02 BP 142/90 H 03/05/24 10:02 Pulse Ox 94 03/05/24 10:02 Oxygen Delivery Method Room Air 03/05/24 10:02 BMI result Body Mass Index 39.1 Const General: comfortable and no acute distress Orientation/consciousness: patient oriented x3 HEENT Head: Yes normocephalic Mouth: Normal oral and palatal mucosa present Eyes EOM: EOMs intact bilaterally Neck Neck: Yes supple Resp Auscultation: clear to auscultation bilaterally Cardio Jugular venous distension: no JVD Rate: regular rate GI Palpation (GI): Soft to palpation Auscultation: normal bowel sounds General: Yes no CVA tenderness Back/Spine/Pelvis Back: no CVA tenderness Skin General skin exam: no rashes or lesions noted Neuro General: patient oriented x3 and moves all extremities Extrem General: Yes no pedal edema Results Reviewed Nephrology Results: Hgb 10.9 g/dl (12.0-16.0) L 02/29/24 WBC 5.1 X10*3/uL (4.8-10.8) 02/29/24 Plt Count 180 X10*3/uL (160-400) 02/29/24 Sodium 141 mmol/L (135-145) 03/04/24 Potassium 3.8 mmol/L (3.3-5.1) 03/04/24 Chloride 111 mmol/L (96-108) H 03/04/24 Carbon Dioxide 21 mmol/L (22-29) L 03/04/24 BUN 12 mg/dL (9-16) 03/04/24 Creatinine 0.91 mg/dL (0.5-1.4) 03/04/24 Calcium 9.3 mg/dL (8.4-10.2) 03/04/24 Urine Protein Negative mg/dL (Neg-Trace) 02/29/24 Urine Creatinine 160.35 mg/dL 03/04/24 Protein/Creatinin Ratio 0.14 (<0.2) 03/04/24 Renal US 11/05/23 Assessment & Plan Assessment & Plan (1) Nephrolithiasis: Code(s): N20.0 - Calculus of kidney Category: Medical (2) Hypertension: Code(s): I10 - Essential (primary) hypertension Category: Medical Qualifiers: Hypertension type: primary hypertension Qualified Code(s): I10 - Essential (primary) hypertension Plan JANAE likely due to tubular injury- resolved Serum creatinine back to baseline ; UO OK W/U so far negative; Didnt change any medn C/W current supportive renal care for now Will optimize BP medications with time( ? HCTZ-given stones) Follow up blood ordered. Answered all her& her moms questions Orders: Orders Creatinine 6 Months I10 - Essential (primary) hypertension, N20.0 - Calculus of kidney Blood Urea Nitrogen 6 Months I10 - Essential (primary) hypertension, N20.0 - Calculus of kidney Electrolytes 6 Months I10 - Essential (primary) hypertension, N20.0 - Calculus of kidney Coding Level of Care Code Est Pt Level 4 (32288) Diagnoses Nephrolithiasis N20.0 Primary hypertension I10 Hypertension type: primary hypertension
[2024-03-05 10:02] VITALS: BP 142/90; PULSE 98; O2SAT 94; BMI 39.1
== END 2024-03-05 10:22 | disposition home or self-care (01) ==
PROVIDERS: PCP Internal Medicine; Visit Provider Internal Medicine Nephrology
DX: N20.0 Calculus of kidney (principal); I10 Essential (primary) hypertension
CPT/HCPCS: 99214

== ENCOUNTER 2024-06-13 09:48 | Day surgery (SDC) | payer OTHER, SELFPAY ==
[2024-06-13 06:09] VITALS: BMI 39.1
[2024-06-13 10:08] VITALS: BP 134/88; PULSE 91; RESP 20; TEMP 36.5; O2SAT 97; BMI 39.3
[2024-06-13] MEDS: Lactated Ringers 1,000 ML 50 ML IVCONT (10:37)
--- NOTE | 2024-06-13 11:03 | P.CONAN_ITS ---
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) Kidney stone Depression Hypertension Migraines Pulmonary arteriovenous malformation Family History Family history of problems with anesthesia: No Surgical History Surgical History History of esophagogastroduodenoscopy (EGD) H/O colonoscopy Hx of cystoscopy H/O lithotripsy History of ankle surgery History of appendectomy H/O: hysterectomy History of Problems with Anesthesia: No Social History Social History Household Members: Family Household Members Other:: mother Housing: House Are you a primary coronary care unit nurse to a significant other at home: No Do you presently have visiting nurse or other home services: No Alcohol intake: unknown Patient Tobacco Use Status: Never used Tobacco Have you been hit, kicked, punched, or otherwise hurt by someone within the past year? If so, by whom?: No Are you DNR?: No Advance Directives: No Advance Directives Information Provided: Yes Patient : No service: No Meds Allergies Allergy/AdvReac Type Severity Reaction Status Date / Time pregabalin [From LYRICA] Allergy Severe Difficulty Verified 03/05/24 10:02 Breathing sumatriptan [From IMITREX] Allergy Severe Chest Pain Verified 03/05/24 10:02 tegaserod Allergy Severe Palpitations Verified 06/11/24 12:49 (brand name Zelnorm) zolmitriptan [From ZOMIG] Allergy Severe Chest Pain Verified 03/05/24 10:02 Active Medications: Current Medications Lactated Ringer's (Lr) 1,000 mls @ 50 mls/hr IVCONT .Q20H MARIANGEL Last Admin: 06/13/24 10:37 Dose: 50 mls/hr Home Medications ?Medication ?Instructions ?Recorded ?Confirmed ?Last Taken ?Type bupropion HCl 100 mg tablet,12 hr 200 mg PO DAILY 11/30/23 06/11/24 Unknown History sustained-release Exam Height,Weight and Vital Signs: Height 5 ft 5 in Weight 107.23 kg Last Vital Signs Temp 97.7 F 06/13/24 10:08 Pulse 91 06/13/24 10:08 Resp 20 06/13/24 10:08 BP 134/88 06/13/24 10:08 Pulse Ox 97 06/13/24 10:08 O2 Del Method Room Air 06/13/24 10:08 Airway Mallampati Class: II TM Dist: >3cm Neck ROM: Full Loose/Missing/Broken Teeth: No Heart: RRR Lungs: CTA Assessment and Plan Assessment Anesthesia Assessment: Anesthesia Plan Discussed and Chart Reviewed Final Anesthetic Review Family History of Problems with Anesthesia: No History of Problems with Anesthesia: No NPO: Yes ASA Class: III Final Preanesthetic Review: Meds/Allgs Chart Reviewed, Consent Obtained/Reviewed and Anes Risks/Benef Reviewed Patient Risk: Intermediate Procedure Risk: Low Anesthetic Plan Anesthetic Plan: MAC: Disposition: Standard PACU
--- NOTE | 2024-06-13 11:24 | MHC.SHP ---
Pre-Procedural Eval Section A - 24 Hr Update-Section A only Date of Service: 06/13/24 The patient is an INPATIENT: No The patient has been examined within 24 hours of the surgical procedure. The History & Physical has been completed within 30 days and I have reviewed it.: Yes Section B - Complete if H&P > 30 days Chief Complaint: Vascular disorder of intestine,pain Allergies: Allergies Allergy/AdvReac Type Severity Reaction Status Date / Time pregabalin [From LYRICA] Allergy Severe Difficulty Verified 03/05/24 10:02 Breathing sumatriptan [From IMITREX] Allergy Severe Chest Pain Verified 03/05/24 10:02 tegaserod Allergy Severe Palpitations Verified 06/11/24 12:49 (brand name Zelnorm) zolmitriptan [From ZOMIG] Allergy Severe Chest Pain Verified 03/05/24 10:02 Plan I have reviewed the history and physical and performed a pertinent physical examination on my patient. No changes have occurred unless specified. Time Spent With Patient Time: Total time managing care of this patient today ____ minutes.
[2024-06-13 11:48] VITALS: BP 105/66; PULSE 79; RESP 18; TEMP 36.2; O2SAT 98
[2024-06-13 12:00] VITALS: BP 117/73; PULSE 82; RESP 18; O2SAT 98
--- NOTE | 2024-06-13 12:28 | OP_ITS ---
DATE OF SERVICE: 06/13/2024 SURGEON: Roberto Harden MD INDICATIONS: Colitis and abdominal pain. PREOPERATIVE DIAGNOSIS: POSTOPERATIVE DIAGNOSIS: PROCEDURE PERFORMED: Colonoscopy to the terminal ileum with biopsy. ESTIMATED BLOOD LOSS: COMPLICATIONS: ANESTHESIA: Medications: Monitored anesthesia care. ASSISTANTS: SPECIMENS: PROCEDURE DESCRIPTION: History and physical performed. The risks and benefits of the procedure were explained to the patient. Informed consent was obtained. The patient was placed in the left lateral decubitus position. A digital rectal exam was performed and was found to be normal. The Olympus pediatric video colonoscope was introduced into the rectum and advanced to the cecum. The cecum was identified by transillumination, palpation, and identification of ileocecal valve. Examination was performed. The scope was removed. She tolerated the procedure well, returned to recovery area in stable condition. FINDINGS: The terminal ileum was examined and appeared normal. The visualized colonic mucosa was normal. There was no evidence of colitis. The mucosa was normal. No polyps were identified. There was some liquid stool coating the mucosa which was washed and suctioned. Retroflexed examination showed internal hemorrhoids that were small to moderate in size. Biopsies were obtained from the terminal ileum and throughout the colon. IMPRESSION: Normal colonoscopy. RECOMMENDATION: Follow up the biopsy results. MD ELIZABETH Paulino/DEDRAL / [phone]
== END 2024-06-13 12:30 | disposition home or self-care (01) ==
PROVIDERS: PCP Internal Medicine; Visit Provider Internal Medicine Gastroenterology
PROC: 0DJD8ZZ Inspection of Lower Intestinal Tract, Via Natural or Artificial Opening Endoscopic (ICD-10-PCS; CPT 45378; principal; 2024-06-13 12:20)
DX: R10.9 Unspecified abdominal pain (principal); K55.9 Vascular disorder of intestine, unspecified; K64.8 Other hemorrhoids; K59.00 Constipation, unspecified; K21.9 Gastro-esophageal reflux disease without esophagitis; I10 Essential (primary) hypertension; F32.A Depression, unspecified; Z79.899 Other long term (current) drug therapy; Z88.8 Allergy status to other drugs, medicaments and biological substances; Z87.442 Personal history of urinary calculi; Z98.890 Other specified postprocedural states
CPT/HCPCS: 45380; 88305

== ENCOUNTER 2024-06-23 08:19 | Outpatient (REF) | payer OTHER, SELFPAY ==
--- NOTE | ~2024-06-23 | US_ITS ---
CLINICAL HISTORY: RIGHT SIDED ABDOMINAL PAIN US abdomen complete Comparison: 11/02/2023 Findings: Cholelithiasis without wall thickening. Common duct measures 3.9 mm. No sonographic Sanderson sign. Fatty infiltration of the liver without focal abnormality. Main portal vein patent with normal direction of flow. Pancreas is unremarkable. Aorta and IVC patent and normal in caliber. The right kidney is normal, 11.1 cm in length. No focal abnormality or hydronephrosis. 5 mm lower pole cyst noted. The left kidney is normal, 12.8 cm in length. No focal abnormality or hydronephrosis. The spleen is normal, 13.9 cm in length. No focal abnormality. Impression: Fatty infiltration of the liver Cholelithiasis without wall thickening or ductal dilation This document has been electronically signed by: Leighton Malloy MD on 06/23/2024 21:47:47
--- OUTSIDE RECORDS SUMMARY | 2024-06-23 08:32 | XMS_ITS ---
Author Organization [facility] Address [address] [place] [address] Care Team Providers Care Metalizer Name Role Phone Oscar Davison MD Primary Care Provider Roberto Gray Jr [phone] REASON FOR VISIT ischemic colitis,rt sided abdominal pain Encounters Encounter Location Date Provider Diagnosis [facility] [address] [place] [id number] 06/13/2024 Roberto Harden Jr Ischemic colitis K55.9 and Abdominal pain R10.9 ASSESSMENTS Encounter Date Diagnosis Assessment Notes Treatment Notes Treatment Clinical Notes 06/13/2024 Ischemic colitis (ICD-10 - K55.9) 06/13/2024 Abdominal pain (ICD-10 - R10.9) PLAN OF TREATMENT No Information
--- OUTSIDE RECORDS SUMMARY | 2024-06-23 08:32 | XMS_ITS ---
Author Organization [facility] Address [address] [place] [address] Care Team Providers Care Director Hematology Name Role Phone Oscar Davison MD Primary Care Provider Roberto Gray Jr [phone] REASON FOR VISIT Please lock ov note Encounters Encounter Location Date Provider Diagnosis [facility] [address] [place] [phone] 06/12/2024 Roberto Harden Jr PLAN OF TREATMENT No Information
--- OUTSIDE RECORDS SUMMARY | 2024-06-23 08:32 | XMS_ITS | Clinical Summary ---
Author Organization [facility] Address [address] [address] Care Team Providers Care Finding Fastener Name Role Phone Unavailable Primary Care Provider Unavailabl e Allergies Active Allergy Reactions Criticality Noted Date Comments Hydromorphone Other (see comments) 02/02/2012 Metaxalone Other (see comments) Medium 07/15/2011 Morphine Nausea 12/10/2019 Morphine Sulfate-Nacl Other (see comments) 06/21 Pregabalin Other (see comments) 07/09/2008 Other reaction(s): difficulty breathing Sumatriptan 09/13/2010 Other reaction(s): chest pain Tegaserod Other (see comments) 07/09/2008 Other reaction(s): heart palpitations Heart problems Zolmitriptan 05/16/2022 Other reaction(s): chest pain Medications sertraline (ZOLOFT) 100 MG tablet Take 100 mg by mouth 1 (one) time each day Active amLODIPine (NORVASC) 10 MG tablet Take 10 mg by mouth 1 (one) time each day Active buPROPion (WELLBUTRIN) 100 MG tablet Take 100 mg by mouth in the morning and 100 mg in the evening. Active lisinopril (PRINIVIL,ZESTR IL) 30 MG tablet Take 30 mg by mouth 1 (one) time each day Active traZODone (DESYREL) 100 MG tablet Take 100 mg by mouth every night Active clonazePAM (KlonoPIN) 0.5 MG tablet Take 0.5 mg by mouth in the morning and 0.5 mg in the evening. Active Active Problems Problem Noted Date Diagnosed Date Attention-deficit hyperactiv ity disorder predominantly inattentive type 05/16/2022 History of calculus of kidney 05/16/2022 Depressive disorder 12/10/2019 Renal stone 12/10/2019 Overview (05/16/2022): resolved Hyperlipidemia 02/09/2017 Herpes zoster 12/14/2012 Osler hemorrhagic telangiectasia syndrome 2011 Hypertension 07/14/2011 Resolved Problems Problem Noted Date Diagnosed Date Resolved Date Chloasma 05/16/2022 05/16/2022 H/O: depression 05/16/2022 05/16/2022 Insomnia 05/16/2022 05/16/2022 Irritable bowel syndrome 05/16/2022 Menorrhagia 05/16/2022 05/16/2022 Seasonal allergic rhinitis 05/16/2022 0 05/16/2022 Anxiety 12/10/2019 05/16/2022 Migraine 12/10/2019 05/16/2022 Recurrent major depressive episodes, mild 11/17/2015 05/16/2022 Pulmonary arteriovenous malformation 08/15/2011 05/16/2022 Immunizations Name Administration Dates Next Due Tdap 01/15/2012 Social History Tobacco Use Types Packs/Day Years Used Date Smoking Tobacco: Never Smokeless Tobacco: Never Tobacco Cessation:Counseling Given: Not Answered Alcohol Use Standard Drinks/Week Comments Yes 0 (1 standard drink = 0.6 oz pur e alcohol) Comments Unknown Sex and Gender Information Value Date Recorded Sex Assigned at Not on file Legal Sex Female 11:09 AM EDT Gender Identity Not on file Sexual Orientation Not on file Plan of Treatment Health Maintenance Due Date Last Done Comments Hepatitis B Vaccine (1 of 3 - 19+ 3-dose series) 1993 Colorectal Cancer Screening: Annual FOBT 10/26/2023 Colorectal Cancer Screening: Colonoscopy 10/26/2023 Colorectal Cancer Screening: Sigmoidoscopy 10/26/2023 Influenza Vaccine (#1) 2023 Pneumococcal Vaccine: Pediat rics (0 to 5 Years) and At-Risk Patients (6 to 64 Years) Aged Out No longer eligible b ased on patient's age to complete this topic Insurance [facility]
--- OUTSIDE RECORDS SUMMARY | 2024-06-23 08:32 | XMS_ITS | Patient Health Record ---
Author Organization [facility] Address [address] [place] [address] Care Team Providers Care Administrative Assistant Front Desk Name Role Phone Cinthia Davison MD Primary Care Provider Roberto Gray Jr [phone] ALLERGIES Allergen (clinical drug ingredient) Drug/Non Drug Allergy documented on EMR Reaction Allergy Type Onset Date Status Zelnorm Unknown Drug Allergy Active RESULTS Component Value Reference Range Notes Leukocytes Stool Qualitative Reviewed date:11/08/2023 08:29:40 AM Interpretation: Performing Lab:[facility], [address] [place] [phone] Notes/Report: Leukocytes Stool Qualitative NEGATIVE NEGATIVE Pathology Reviewed date:11/16/2023 06:56:39 PM Interpretation: Performing Lab:[facility], [address] [place] [phone] Notes/Report: Complete Blood Count Auto Di ff Reviewed date:11/13/2023 08:47:28 AM Interpretation: Performing Lab:[facility], [address] [place] [phone] Notes/Report: White Blood Count 7.9 4.8-10.8 X10*3/uL Red Blood Count 3.42 4.20-5.50 X10*6/uL Hemoglobin 10.3 12.0-16.0 g/dl Hematocrit 30.7 37.0-47.0 % Mean Corpuscular Volume 89.8 80.0-98.0 fL Mean Corpuscular Hemoglobin 30.1 27.0-33.0 pg Mean Corpuscular HGB Conc 33.6 31.0-35.0 g/dl Red Cell Distribution Width 14.9 11.0-16.0 % Platelet Count 170 160-400 X10*3/uL Mean Platelet Volume 11.2 9.4-12.3 fL Neutrophils Percent Auto 66.4 45-73 % Imm Gran Pct Auto 0.4 0.0-0.4 % Lymphocytes Percent Auto 18.8 20-40 % Monocytes Percent Auto 8.9 2-11 % Eosinophils Percent Auto 5.2 0-4 % Basophils Percent Auto 0.3 0-2 % NRBC Pct Auto 0.0 0.0-0.2 /100WBC Neutrophils Absolute Auto 5.3 2.0-8.3 x10*3/u L Imm Gran Abs Auto 0.03 0.00-0.03 X10*3/uL Lymphocytes Absolute Auto 1.5 1.2-4.9 X10*3/u L Monocytes Absolute Auto 0.7 0.1-1.2 X10*3/uL Eosinophils Absolute Auto 0.4 0.0-0.4 X10*3/u L Basophils Absolute Auto 0.0 0.0-0.2 X10*3/uL NRBC Abs Auto 0.000 0.0-0.012 X10*3/uL Liver Panel Reviewed date:11/13/2023 08:48:45 AM Interpretation: Performing Lab:[address] [address] Notes/Report: Bilirubin Total 0.7 0.0-1.0 mg/dL Bilirubin Direct 0.2 0.0-0.5 mg/dL Aspartate Amino Transferase 18 5-31 U/L Alanine Aminotransferase 51 0-31 U/L Total Protein 6.3 6.5-8.0 g/dL Albumin Level 3.7 3.5-5.0 g/dL Alkaline Phosphatase 64 39-117 U/L Basic Metabolic Panel Fastin g Reviewed date:11/13/2023 08:49:43 AM Interpretation: Performing Lab:[address] [phone] Notes/Report: Sodium 143 135-145 mmol/L Potassium 3.3 3.3-5.1 mmol/L Chloride 108 96-108 mmol/L Carbon Dioxide 22 22-29 mmol/L Anion Gap 16 12-20 Blood Urea Nitrogen 10 9-16 mg/dL Creatinine 1.85 0.5-1.4 mg/dL Creatinine [facility] 48.7 Provided height and weight: 165.1 cm, 124.5 kg. eGFR (calculated from the MDRD study equation) and eCrCl (calculated from the Cockcroft-Gault equation) are based on different parameters and may not yield comparable results. If eCrCl result is absurd, please check patient's height/weight. Estimated Glomerular Filt Rate 29 NOTE: For -Mongolian individuals, multiply the result by 1.210. Chronic Kidney Disease: Estimated GFR < 60 mL/min/1.73m2 Severe Kidney Disease: Estimated GFR < 15 mL/min/1.73m2 Glucose Fasting 103 60-99 mg/dL A fasting glucose from 100-125 mg/dl is considered impaired (pre-diabetes). Calcium 8.6 8.4-10.2 mg/dL Lactic Acid Reviewed date:11/13/2023 08:48:37 AM Interpretation: Performing Lab:[facility], [address] [place] [phone] Notes/Report: Lactic Acid 0.8 0.5-2.0 mmol/L Amylase Reviewed date:11/13/2023 08:49:50 AM Interpretation: Performing Lab:[address] [phone] Notes/Report: Amylase 42 28-100 U/L Lipase Reviewed date:11/13/2023 08:49:57 AM Interpretation: Performing Lab:[address] [phone] Notes/Report: Lipase 17 8-78 U/L MR angio abdomen wo/w con Reviewed date:11/16/2023 11:46:11 PM Interpretation: Performing Lab: Notes/Report: [address] [address] Magnetic Resonance Report Signed Patient: Lizabeth Cardenas MR#: [id number] : 1975 Acct:[id number] Age/Sex: 48 / F ADM Date: 11/02/23 Loc: [facility] 450-[address]: Robel Balderrama DO Ordering Physician: Billy Blake MD Date of Service: 11/15/23 Procedure(s): MR angio abdomen wo/w con Accession Number(s): [id number] cc: CINTHIA DAVISON MD; Billy Blake MD EXAMINATION: MR ANGIOGRAPHY ABDOMEN WITHOUT AND WITH CONTRAST CLINICAL INFORMATION: Evaluate for ischemic colitis. COMPARISON: CT abdomen and pelvis on 11/08/2023. TECHNIQUE: MR angiography of the abdomen following the administration of 20 mL Gadavist. FINDINGS: Limited evaluation of the abdominal solid organs demonstrates wall thickening of the ascending colon and possibly the distal descending colon, though this area is not completely imaged. The aorta is normal in caliber. No evidence of atherosclerotic disease. Patient motion limits evaluation of patency aside from the aorta and proximal mesenteric vessels which are all patent. MR/MR angio abdomen wo/w con IMPRESSION: 1. Limited evaluation of the abdomen demonstrates wall thickening of the ascending colon and possibly the distal descending colon, though this area is not completely imaged. 2. No evidence of hemodynamically significant stenosis of the abdominal aorta or proximal mesenteric vessels. Dictated By: Shivani Ashford MD Signed By: <Electronically signed by Shivani Ashford MD in OV> 11/16/232125 DD/ 99 TD/TT: Senior Oracle Database Administrator: NASIM Pathology Reviewed date:06/17/2024 09:37:56 PM Interpretation: Performing Lab:[facility], [address] [place] [phone] Notes/Report: REASON FOR REFERRAL No Information MEDICATIONS Medication SIG (Take, Route, Frequency, Duration) Notes Start Date End Date Status Omeprazole 20 MG 1 Orally Twice daily for 30 days 12/20/2023 Active Sertraline HCl 100 MG Oral for 90 Active buPROPion HCl ER (SR) 100 MG Oral for 30 Active Sutab 1523-846-794 MG [address] dose the evening before and second dose the morning of colonoscopy Orally Twice a day for 1 day(s) 05/22/2024 Active amLODIPine Besylate 10 MG TAKE 1 TABLET BY MOUTH DAILY TAKE AT BEDTIME Oral for 30 Active Labetalol HCl 100 MG TAKE 1 TABLET BY MO UT TWICE DAILY Oral for 30 Active traZODone HCl 100 MG TAKE 2 - 3 TABLETS BY MOUTH EVERY NIGHT AT BEDTIME Oral for 30 Active Omeprazole 20 MG TAKE 1 CAPSULE BY MO UT DAILY Oral for 30 Active hydrALAZINE HCl 25 MG TAKE 3 TABLETS BY MOUTH THREE TIMES DAILY Oral for 30 Active IMMUNIZATIONS Vaccine Route Administration Date Status Comme nts Influenza Unknown 02/13/2023 Administered SOCIAL HISTORY Tobacco Use: Social History Observation Description Date Details (start date - stop date) Never Smoker NA - NA Sex Assigned At : Social History Observation Description Sex Assigned At Unknown Tobacco Use/Smoking Question Answer Notes Patient is a nonsmoker Alcohol Screen Question Answer Notes Did you have a drink contain ing alcohol in the past year? Yes How often did you have a dri nk containing alcohol in the past year? Monthly or less (1 point) How many drinks did you have on a typical day when you were drinking in the past year? 1 or 2 drinks (0 point) How often did you have 6 or more drinks on one occasion in the past year? Never (0 point) Points 1 Interpretation Negative PROBLEMS Problem Type ICD Code Onset Dates Problem Status W/U Status Risk SNOMED Code Notes Problem Ischemic colitis (K55.9) Active confirmed 79425479 Problem Erosive gastritis (K29.60) Active confirmed [id number] Problem Right sided abdominal pain (R10.9) Active confirmed [id number] Problem Gastroesophageal reflux disease, unspecified whether esophagitis present (K21.9) Active confirmed 330568988 Problem Gastritis, erosive (K29.60) Active confirmed Erosive gastrit is ([id number]) VITAL SIGNS Temperature 98.2 degrees Fahrenheit 12/20/2023 Blood pressure diastolic 00 mm Hg 05/22/2024 Height 5 ft 5 in in 05/22/2024 Blood pressure systolic 00 mm Hg 05/22/2024 Weight 264 lbs 05/22/2024 BMI 43.93 kg/m2 05/22/2024 Encounters Encounter Location Date Provider Diagnosis [facility] [address] [place], [place] [phone] 06/13/2024 Roberto Harden Jr Ischemic colitis K55.9 and Abdominal pain R10.9 [facility] [address] [place] [phone] 12/20/2023 Roberto Harden Jr Erosive gastritis K29.60 and Ischemic colitis K55.9 [facility] [address] [place] [phone] 05/22/2024 Roberto Harden Jr Right sided abdominal pain R10.9 ; Ischemic colitis K55.9 and Gastroesophageal reflux disease, unspecified whether esophagitis present K21.9 [facility] [address] [place] [address] 11/27/2023 Roberto Harden Jr [facility] [address] [place] [phone] 01/21/2024 Roberto Harden Jr Epigastric pain R10.13 [facility] [address] [place] [address] 02/29/2024 Roberto Harden Jr [facility] [address] [place] [phone] 06/11/2024 Roberto Harden Jr [facility] [address] [place] [phone] 06/12/2024 Roberto Harden Jr [facility] [address] [place] [phone] 06/17/2024 Roberto aHrden Jr ASSESSMENTS Encounter Date Diagnosis Assessment Notes Treatment Notes Treatment Clinical Notes 06/13/2024 Abdominal pain (ICD- 10 - R10.9) 06/13/2024 Ischemic colitis (ICD-10 - K55.9) 12/20/2023 Ischemic colitis (ICD-10 - K55.9) 12/20/2023 Erosive gastritis (ICD-10 - K29.60) 05/22/2024 Ischemic colitis (ICD-10 - K55.9) 05/22/2024 Right sided abdomina l pain (ICD-10 - R10.9) 01/21/2024 Epigastric pain (ICD -10 - R10.13) 05/22/2024 Gastroesophageal ref lux disease, unspecified whether esophagitis present (ICD-10 - K21.9) PLAN OF TREATMENT Pending Test Test Name Order Date LIVER PROFILE 01/21/2024 LIVER PROFILE 05/22/2024 LIPASE 01/21/2024 LIPASE 05/22/2024 CBC w/o DIFF 01/21/2024 CBC w/o DIFF 05/22/2024 CT ABD & PELVIS WITH CONTRAST 01/21/2024 US ABD 05/22/2024 Future Test Test Name Order Date COLONOSCOPY 05/22/2024 Insurance Providers Payer Name Payer Address Payer Phone Subscriber Number Group Number Insured Name Patient Relationship to Insured Coverage Start Date Coverage End Date [facility] [address] [facility] [place] [phone] [id number] LIZABETH CARDENAS Self - patient is the insured MEDICAL (GENERAL) HISTORY Medical History History ICD Code Hypertension Urinary incontinence Ischemic colitis 11/13, colonoscopy negat karli for malignancy, poor prep Upper endoscopy 11/13, erosive gastritis and small hiatal hernia Mood disorder/depression 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
--- OUTSIDE RECORDS SUMMARY | 2024-06-23 08:32 | XMS_ITS | Continuity of Care Document ---
Author Organization [facility] Address [address] [place] [address]- Care Team Providers Care Development Consultant Name Role Phone Oscar Davison MD Primary Care Physician [id number] Date(s): 05/20/24 - 06/19/24 [facility] [address] [place] [id number]- Encounter Type: Triage Allergies, Adverse Reactions, Alerts Substance Criticality Severity Reaction Reaction Severity Status morphine n/v Active Zomig chest pain Active Lyrica difficulty breathing Active Imitrex chest pain Active Zelnorm heart palpitations A ctive Immunizations Given and Recorded Vaccine Date Status Refusal Reason pneumococcal 23-valent vaccine 11/29/22 Given tetanus/diphtheria/pertussis, acel(Tdap) 11/29/22 Given tetanus/diphtheria/pertussis, acel(Tdap) 01/15/12 Recorded SARS-CoV-2 (COVID-19) mRNA-1273 vaccine 07/04/20 R ecorded SARS-CoV-2 (COVID-19) mRNA-1273 vaccine 06/06/20 R ecorded influenza virus vaccine, inactivated 01/15/12 Mundo rded tetanus-diphtheria toxoids (Td) 04/23/07 Recorded Medications amLODIPine 10 mg oral tablet 10 mg, 1, tablet, By Mouth, Daily, take at bedtime, # 30 tablet, Refills 5, Tot. Refills 5, Maintenance, 02/13/24 12:50:00 PM EDT, Route to Pharmacy Electronically, [facility] #[id number], Partial fill upon patient request if the prescription is for a schedule II opioid drug., 165, cm, 12/12/23 10:55:00 EDT, Height Start Date: 02/13/24 Status: Ordered Quantity: 30.0 Unit: tablet Repeat number: 6 amLODIPine 10 mg oral tablet 1 tablet, By Mouth, Daily, # 90 tablet, 3 Refills, Maintenance, 11/29/22 1:32:00 PM EDT, [facility] #[id number], 165, cm, 11/29/22 13:14:00 EDT, Height Start Date: 11/29/22 Status: Ordered Quantity: 90.0 Unit: tablet Repeat number: 4 buPROPion 100 mg/12 hours (SR) oral tablet, extended release 1 tablet, By Mouth, 2 times a day, # 60 tablet, 11 Refills, Maintenance, 01/16/24 10:22:00 PM EDT, [facility] #[id number], 165, cm, 12/12/23 10:55:00 EDT, Height Start Date: 01/16/24 Status: Ordered Quantity: 60.0 Unit: tablet Repeat number: 12 clonazePAM 0.5 mg oral tablet 1 tablet = 0.5 mg, By Mouth, Daily at bedtime, PRN Anxiety, 0 Refills, Maintenance, 04/13/15 11:12:29 AM EST Start Date: 04/13/15 Status: Ordered Repeat number: 1 hydrALAZINE 25 mg oral tablet 75 mg, 3, tablet, By Mouth, 3 times a day, take 75 mg three times per day, # 270 tablet, Refills 1,Tot. Refills 1, Maintenance, 05/20/24 2:12:00 PM EST, Route to Pharmacy Electronically, [facility] #[id number], Partial fill upon patient request if the prescription is for a schedule II opioid drug., 165, cm, 12/12/23 10:55:00 EDT, Height Start Date: 05/20/24 Stop Date: 07/19/24 Status: Ordered Quantity: 270.0 Unit: tablet Repeat number: 2 labetalol 100 mg oral tablet 1 tablet = 100 mg, By Mouth, 2 times a day, # 60 tablet, 5 Refills, Maintenance, 02/13/24 12:50:00 PM EDT, Tablet, [facility] #[id number], Partial fill upon patient request if the prescription is for a schedule II opioid drug., 165, cm, 12/12/23 10:55:00 EDT, Height Start Date: 02/13/24 Status: Ordered Quantity: 60.0 Unit: tablet Repeat number: 6 lisinopril 40 mg oral tablet 1 tablet = 40 mg, By Mouth, Daily, # 90 tablet, 3 Refills, Maintenance, 11/29/22 1:34:00 PM EDT, Tablet, [facility] #[id number], Partial fill upon patient request if the prescription is for a schedule II opioid drug., 165, cm, 11/29/22 13:14:00 EDT, Height Start Date: 11/29/22 Status: Ordered Quantity: 90.0 Unit: tablet Repeat number: 4 omeprazole 20 mg oral enteric coated capsule 1 capsule = 20 mg, By Mouth, Daily, # 30 capsule, 1 Refills, Maintenance, 11/26/23 11:24:00 AM EDT, EC Capsule, [facility] #[id number], Partial fill upon patient request if the prescription is fora schedule II opioid drug., 165, cm, 11/26/23 10:38:00 EDT, Height Start Date: 11/26/23 Status: Ordered Quantity: 30.0 Unit: capsule Repeat number: 2 ondansetron 4 mg oral tablet 1 tablet = 4 mg, By Mouth, Every 8 hours, PRN Nausea & Vomiting, # 10 tablet, 1 Refills, Acute 12/12/24 10:27:00 AM EDT, 12/13/23 10:27:00 AM EDT, Tablet, [facility] #[id number], Partial fill upon patient request if the prescription is for a schedule II opioid drug., 165, cm, 12/12/23 10:55:00 EDT, Height Start Date: 12/13/23 Stop Date: 12/12/24 Status: Ordered Quantity: 10.0 Unit: tablet Repeat number: 2 sertraline 100 mg oral tablet 2 tablet, By Mouth, Daily, # 180 tablet, 0 Refills, Maintenance, 08/31/23 6:47:00 AM EDT, [facility] #[id number], 165, cm, 11/29/22 13:14:00 EDT, Height Start Date: 08/31/23 Status: Ordered Quantity: 180.0 Unit: tablet Repeat number: 1 sertraline 100 mg oral tablet See Instructions, TAKE 2 TABLETS BY MOUTH DAILY. FOLLOW-UP WITH PRACTICE BEFORE REFILLS, # 60 tablet, 11 Refills, Maintenance, 01/16/24 10:19:00 PM EDT, [facility] #[id number], 165, cm, 12/12/23 10:55:00 EDT, Height Start Date: 01/16/24 Status: Ordered Quantity: 60.0 Unit: tablet Repeat number: 12 Shingrix intramuscular injection = 0.5 mL, Intramuscular, Once, repeat dose in 2 to 6 months NB Pt had shingles at 36 y/o., # 2 each, 0 Refills, Soft Stop, 11/29/22 1:49:00 PM EDT, Powder, Partial fill upon patient request if the prescription is for a schedule II opioid drug. Start Date: 11/29/22 Status: Ordered Quantity: 2.0 Unit: each Repeat number: 1 traZODone 100 mg oral tablet 2- 3 TABLETS, By Mouth, Daily at bedtime, # 90 tablet, Refills 5, Maintenance, 01/22/24 5:37:00 PM EDT, Route to Pharmacy Electronically, [facility] #[id number], 165, cm, 12/12/23 10:55:00 EDT, Height Start Date: 01/22/24 Status: Ordered Quantity: 90.0 Unit: tablet Repeat number: 1 Problem List Condition Confirmation Course Effective Dates Status H ealth Status Informant ADD - Attention deficit disorder Confirmed Active Anxiety disorder Confirmed Active History of depression Confirmed Active 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 History of kidney stones Confirmed Active Elevated cholesterol Confirmed Active Hypertension Confirmed Active IBS - Irritable bowel syndrome Confirmed Active Insomnia Confirmed Active Melasma Confirmed Active Menorrhagia Confirmed Active Migraine Confirmed Active Pulmonary arteriovenous aneurysm Confirmed Active Seasonal allergic rhinitis Confirmed Active Severe obesity Confirmed Active Arteriovenous malformation Confirmed Active Social History Social History Type Response Smoking Status Never smoker entered on: 03/15/15 Sex Sex Representation Female (finding) Patient Care team information Care Team Personnel Name: Oscar Davison MD Position: S Physician - Primary Care Member Role: PCP Address: [address] [place] [address]- Telecom: Care Team Related Persons Name: ELLIOTT MCCOY Name: VLAD ALMODOVAR Insurance Providers Guarantor name: PATRIC MCCOY Health Plan Information #: 1 Payer: [employer] Member Number: NA Policy Number: NA Group Number: NA
--- OUTSIDE RECORDS SUMMARY | 2024-06-23 08:32 | XMS_ITS ---
Author Organization [facility] Address [address] [place] [phone] Care Team Providers Care Manager Department Name Role Phone Oscar Davison MD Primary Care Provider Roberto Gray Jr [phone] REASON FOR VISIT path/ waiting on pt call back Encounters Encounter Location Date Provider Diagnosis [facility] [address] [place] [phone] 06/17/2024 Roberto Harden Jr PLAN OF TREATMENT No Information
== END 2024-06-23 08:20 | disposition home or self-care (01) ==
LOC: HO.US 08:19
PROVIDERS: PCP Internal Medicine; Visit Provider Internal Medicine Gastroenterology
DX: R10.9 Unspecified abdominal pain (principal); K55.9 Vascular disorder of intestine, unspecified
CPT/HCPCS: 76700

== ENCOUNTER → 2024-06-23 08:21 | Outpatient (BNV) | payer OTHER, SELFPAY | PROVIDERS: PCP Internal Medicine; Visit Provider Radiology Diagnostic Radiology | DX: R10.31 Right lower quadrant pain (principal) | CPT/HCPCS: 76700 ==

== ENCOUNTER 2024-09-11 14:57 | Outpatient (REF) | payer OTHER, SELFPAY ==
--- OUTSIDE RECORDS SUMMARY | 2024-09-11 14:59 | XMS_ITS | Clinical Summary ---
Author Organization [facility] Facility Address [address] [address] Care Team Providers Care Spanish Professor Name Role Phone Unavailable Primary Care Provider [...] 05/16/2022 Pulmonary arteriovenous malformation 08/15/2011 05/16/2022 Immunizations Immunization Administration Dates Next Due Tdap 01/15/2012 Social [...] Colorectal Cancer Screening: Sigmoidoscopy 10/26/2023 Influenza Vaccine (Season Ended) 2024 Pneumococcal Vaccine: Peds ( 0 to 5 Years) and At-Risk Patients (6 to 49 Years) Aged Out No longer eligible b ased on patient's age to complete this topic Insurance [facility]
[2024-09-11 16:39] LABS: Anion Gap 12 (12-20); Blood Urea Nitrogen 21 mg/dL (9-16); Carbon Dioxide 22 mmol/L (22-29); Chloride 112 mmol/L (96-108); Estimated Glomerular Filt Rate > 60; Potassium 4.4 mmol/L (3.3-5.1); Sodium 142 mmol/L (135-145)
== END 2024-09-11 14:58 | disposition home or self-care (01) ==
LOC: HO.LAB 14:57
PROVIDERS: PCP Internal Medicine; Visit Provider Internal Medicine Nephrology
DX: I10 Essential (primary) hypertension (principal); N20.0 Calculus of kidney
CPT/HCPCS: 36415; 80051; 82565; 84520

== ENCOUNTER 2024-09-12 15:23 | Outpatient (AMB) | payer OTHER, SELFPAY ==
--- OUTSIDE RECORDS SUMMARY | 2024-09-12 15:25 | XMS_ITS | Clinical Summary ---
Author Organization [facility] Facility Address [address] [address] Care Team Providers Care Shell Reprint Operator Name Role Phone Unavailable Primary Care Provider [...] patient's age to complete this topic Insurance [facility]
--- NOTE | 2024-09-12 15:45 | HO.NEPHOV_ITS ---
Vital Signs 09/12/24 15:46 Height 5 ft 5 in BP 130/80 Blood Pressure Location Rt brachial Position Sitting Pulse 99 Pulse Source Pulse Oximeter Pulse Oximetry (%) 94 Oxygen Delivery Method Room Air Intake Visit Reasons: 6mon follow up- Conf Farm Operations Technical Director Required: No Accompanied by: Self / Same As Patient Allergies pregabalin [From LYRICA] Allergy (Severe, Verified 09/12/24 15:46) Difficulty Breathing sumatriptan [From IMITREX] Allergy (Severe, Verified 09/12/24 15:46) Chest Pain tegaserod Allergy (Severe, Verified 09/12/24 15:46) Palpitations (brand name Zelnorm) zolmitriptan [From ZOMIG] Allergy (Severe, Verified 09/12/24 15:46) Chest Pain HPI Comments Details: 48 years old woman with obesity, hypertension. She had JANAE last year & was thought to be due to acute tubular injury. Creatinine plateaued at 2.08 and improved to baseline. She intermittently gets some abdominal pain and follows with Dr Harden. She is known to have fatty liver. She denies edema, SOB, PND, orthopnea or urinary symptoms. She is on multiple anti hypertensive medications and they are keeping her BP at goal. She does not take any NSAID's and maintain good hydration [facility] History HHT (hereditary hemorrhagic telangiectasia) Morbid obesity IBS (irritable bowel syndrome) Hereditary hemorrhagic telangiectasia ADD (attention deficit disorder) Kidney stone Depression Hypertension Migraines Pulmonary arteriovenous malformation Surgical History History of esophagogastroduodenoscopy (EGD) H/O colonoscopy Hx of cystoscopy H/O lithotripsy History of ankle surgery History of appendectomy H/O: hysterectomy Social History Household Members: Family Household Members Other:: mother Housing: House Are you a primary ambulatory care coordinator to a significant other at home: No Do you presently have visiting nurse or other home services: No Alcohol intake: unknown Patient Tobacco Use Status: Never used Tobacco service: No Review of Systems Const All systems reviewed & are unremarkable except as noted in HPI and below Physical Exam Vital Signs: Last Vital Signs Pulse 99 09/12/24 15:46 BP 136/80 09/12/24 15:46 Pulse Ox 94 09/12/24 15:46 Oxygen Delivery Method Room Air 09/12/24 15:46 Const General: comfortable and no acute distress Orientation/consciousness: patient oriented x3 HEENT Head: Yes normocephalic Mouth: Normal oral and palatal mucosa present Eyes EOM: EOMs intact bilaterally Neck Neck: Yes supple Resp Auscultation: clear to auscultation bilaterally Cardio Jugular venous distension: no JVD Rate: regular rate Heart sounds: Murmur heart sound present GI Palpation (GI): Soft to palpation Auscultation: normal bowel sounds General: Yes no CVA tenderness Back/Spine/Pelvis Back: no CVA tenderness Skin General skin exam: no rashes or lesions noted Neuro General: patient oriented x3 and moves all extremities Extrem General: Yes no pedal edema Results Reviewed Nephrology Results: Hgb 10.9 g/dl (12.0-16.0) L 02/29/24 WBC 5.1 X10*3/uL (4.8-10.8) 02/29/24 Plt Count 180 X10*3/uL (160-400) 02/29/24 Sodium 142 mmol/L (135-145) 09/11/24 Potassium 4.4 mmol/L (3.3-5.1) 09/11/24 Chloride 112 mmol/L (96-108) H 09/11/24 Carbon Dioxide 22 mmol/L (22-29) 09/11/24 BUN 21 mg/dL (9-16) H 09/11/24 Creatinine 0.88 mg/dL (0.5-1.4) 09/11/24 Calcium 9.3 mg/dL (8.4-10.2) 03/04/24 Urine Protein Negative mg/dL (Neg-Trace) 02/29/24 Urine Creatinine 160.35 mg/dL 03/04/24 Protein/Creatinin Ratio 0.14 (<0.2) 03/04/24 Assessment & Plan Assessment & Plan (1) Hypertension: Code(s): I10 - Essential (primary) hypertension Category: Medical Qualifiers: Hypertension type: primary hypertension Qualified Code(s): I10 - Essential (primary) hypertension Plan JANAE likely due to tubular injury- resolved Serum creatinine back to baseline ; UO OK Will optimize BP medications with time( ? HCTZ-given stones & avoid polypharmacy) Follow up blood ordered. Answered all her questions & F/U given Orders: Orders Creatinine 6 Months I10 - Essential (primary) hypertension Blood Urea Nitrogen 6 Months I10 - Essential (primary) hypertension Electrolytes 6 Months I10 - Essential (primary) hypertension Protein Creatinine Ratio, Ur 6 Months I10 - Essential (primary) hypertension Coding Level of Care Code Est Pt Level 4 (90465) Diagnoses Primary hypertension I10 Hypertension type: primary hypertension
[2024-09-12 15:46] VITALS: BP 130/80; PULSE 99; O2SAT 94
== END 2024-09-12 16:06 | disposition home or self-care (01) ==
LOC: HO.HKA 15:23
PROVIDERS: PCP Internal Medicine; Visit Provider Internal Medicine Nephrology
DX: I10 Essential (primary) hypertension (principal)
CPT/HCPCS: 99214

== ENCOUNTER → 2024-09-12 15:23 | Outpatient (BNVA) | payer OTHER, SELFPAY | PROVIDERS: PCP Internal Medicine; Visit Provider Internal Medicine Nephrology ==

== ENCOUNTER 2025-04-21 11:12 | Outpatient (REF) | payer OTHER, SELFPAY ==
--- OUTSIDE RECORDS SUMMARY | 2024-06-13 07:20 | XMS_ITS ---
Author Organization [facility] Address [address] [place] [id number] Care Team Providers Care Supervisor [employer] Name Role Phone Oscar Davison MD Primary Care Provider Roberto Gray Jr REASON FOR VISIT ischemic colitis,rt sided abdominal pain Encounters Encounter Location Date Provider Diagnosis [facility] [address] [place] [id number] 06/13/2024 Roberto Harden Jr Ischemic colitis K55.9 and Abdominal pain R10.9 Assessments Encounter Date Diagnosis (ICD Code) Assessment Notes Treatment Notes Treatment Clinical Notes Section Notes 06/13/2024 Ischemic colitis (ICD-10 - K55.9) 06/13/2024 Abdominal pain (ICD-10 - R10.9) Plan Of Treatment No Information Progress Notes * PATRIC MCCOYDOB:1975 ( 49 yo F)Acc No.[id number]:06/13/2024 COLON WITH MAC 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 I schemic colitis - K55.9 (Primary) 2 . A bdominal pain - R10.9 ? Plan: * Procedure Codes: 4 5380 COLONOSCOPY AND [id number] INTRVL 3+YRS PTS CLNSCP DOCD, Modifiers: 1P Billing Information: * Procedure Codes: 31127 COLONOSCOPY AND BIOPSY. 0529F INTRVL 3+YRS PTS CLNSCP DOCD. Modifiers: 1P * The named appointment provid er may or may not be the originator of this progress note, and it is not deemed complete until electronically signed by the appointment provider. Sign off status: Pending * Provider: Piotr Harden MD Date: 0 06/13/2024 Generated for Laura martinez/Adrian/Mariaelenaitting on: 1 03:13 PM EST
[2025-04-21 12:51] LABS: Anion Gap 14 (12-20); Blood Urea Nitrogen 15 mg/dL (9-16); Carbon Dioxide 25 mmol/L (22-29); Chloride 105 mmol/L (96-108); Estimated Glomerular Filt Rate 56; Potassium 4.2 mmol/L (3.3-5.1); Sodium 140 mmol/L (135-145)
[2025-04-21 13:02] LABS: Protein/Creatinine Ratio, Ur 0.22 (<0.2); Total Protein Urine Random 60 mg/dL (<12)
--- OUTSIDE RECORDS SUMMARY | 2025-04-21 15:14 | XMS_ITS | Clinical Summary ---
Author Organization [facility] Facility Address [address] [address] Care Team Providers Care Remote Operations Producer Name Role Phone Unavailable Primary Care Provider [...] Health Maintenance Due Date Last Done Comments Breast Cancer Screening 1975 Hepatitis B Vaccine (1 of 3 - 19+ 3-dose series) 10/25 Colorectal Cancer Screening: Annual FOBT 10/26/2023 Colorectal Cancer Screening: Colonoscopy 10/26/2023 Colorectal Cancer Screening: Sigmoidoscopy 10/26/2023 Pneumococcal Vaccine: 50+ Years (1 of 1 - PCV) 025 Influenza Vaccine (#1) 2024 Insurance [facility]
--- OUTSIDE RECORDS SUMMARY | 2025-04-21 15:14 | XMS_ITS | Encounter Summary ---
Author Organization [facility] Address [address] [place] [phone] Phone Care Team Providers Care Supervisor Order Takers Name Role Phone Shahab Pruett MD Primary Care Provider + Ghulam Hough MD Unavailable Dottie Miranda LINK AND LINK KNITTING MACHINE OPERATOR Unavailable Alysia Maher RDCS Unavailable [email or web address] Shahab Pruett MD Unavailable [phone] Sudheer Jimenes MD Unavailable [phone] Anahi Booker LINK AND LINK KNITTING MACHINE OPERATOR Unavailable Encounter Details Date Type Department Care Team (Late st Contact Info) Description 12/12/2019 Procedure Pass [facility], Ct Scan - [facility] [address] [place] [address] Social History Tobacco Use Types Packs/Day Years Used Date Smoking Tobacco: Never Assessed Comments Unknown Sex and Gender Information Value Date Recorded Sex Assigned at Female 12/12/2019 7:00 PM EDT Legal Sex Female 7:04 PM EST Gender Identity Female 12/12/2019 7:00 PM EDT Sexual Orientation Not on file documented as of this encounter Plan of Treatment Not on file documented as of this encounter Visit Diagnoses Not on filedocumented in this encounter Care Teams Supervisor Order Takers Relationship Specialty Start Date End Date Shahab Pruett MD [address] [place] [address] PCP - General 10/21/13 Ghulam Hough MD [address] [facility], [address] [place] [address] maria de Historical LMR Provider 02/06/17 04/30/21 Dottie Miranda NP [address] [place] [address] [email or web address] Historical LMR Provider 02/06/17 2 Alysia Maher, RDCS Historical LMR Provider 02/06/17 04/30/21 Shahab Pruett MD [address] [place] [address] Historical LMR Provider 02/06/17 2 Sudheer Jimenes MD [address] [place] [address] Historical LMR Provider 02/06/17 2 Anahi Booker NP [address] [place] [address] Historical LMR Provider 02/06/17 2 documented as of this encounter Additional Source Comments The information contained in this document represents components of the legal health record. It is not the complete legal health record.[facility]
--- OUTSIDE RECORDS SUMMARY | 2025-04-21 15:14 | XMS_ITS | Encounter Summary ---
Author Organization [facility] Address [address] [place] [phone] Phone Care Team Providers Care Information Architect Name Role Phone Shahab Pruett MD Primary Care Provider + Ghulam Hough MD Unavailable Dottie Miranda CAN RECONDITIONER Unavailable Alysia Maher RDCS Unavailable [email or web address] Shahab Pruett MD Unavailable Sudheer Jimenes MD Unavailable [phone] Anahi Booker CAN RECONDITIONER Unavailable Encounter Details Date Type Department Care Team (Late st Contact Info) Description 02/13/2020 Procedure Pass [facility] - RF/IR [address] [facility] [place] [address] Social History Tobacco Use Types Packs/Day Years Used Date Smoking Tobacco: Former Smokeless Tobacco: Never Comments Unknown Sex and Gender Information Value Date Recorded Sex Assigned at Female 12/12/2019 7:00 PM EDT Legal Sex Female 7:04 PM EST Gender Identity Female 12/12/2019 7:00 PM EDT Sexual Orientation Not on file documented as of this encounter Plan of Treatment Not on file documented as of this encounter Visit Diagnoses Not on filedocumented in this encounter Care Teams Information Architect Relationship Specialty Start Date End Date Shahab Pruett MD [address] [place] [address] PCP - General 10/21/13 Ghulam Hough MD [address] [facility], [address] [place] [address] maria de Historical LMR Provider 02/06/17 04/30/21 Dottie Miranda CAN RECONDITIONER [address] [place] [address] [email or web address] Historical LMR Provider 02/06/17 2 Alysia Maher, [facility] Historical LMR Provider 02/06/17 04/30/21 Shahab Pruett MD [address] [place] [address] Historical LMR Provider 02/06/17 2 Sudheer Jimenes MD [address] [place] [address] Historical LMR Provider 02/06/17 2 Anahi Booker NP [address] [place] [address] Historical LMR Provider 02/06/17 2 documented as of this encounter Additional Source Comments The information contained in this document represents components of the legal health record. It is not the complete legal health record.[facility]
--- OUTSIDE RECORDS SUMMARY | 2025-04-21 15:14 | XMS_ITS | Encounter Summary ---
Author Organization [facility] Address [address] [place] [address] Phone Care Team Providers Care Pizza Cook Name Role Phone Shahab Pruett MD Primary Care Provider + Ghulam Hough MD Unavailable Dottie Miranda PINION POLISHER Unavailable Alysia Maher RDCS Unavailable [email or web address] Shahab Pruett MD Unavailable Sudheer Jimenes MD Unavailable [phone] Anahi Booker PINION POLISHER Unavailable Encounter Details Date Type Department Care Team (Late st Contact Info) Description 06/22/2020 Procedure Pass [facility] [address] [place] [address] Social History Tobacco Use Types Packs/Day Years Used Date Smoking Tobacco: Former Smokeless Tobacco: Never Comments No Sex and Gender Information Value Date Recorded Sex Assigned at Female 12/12/2019 7:00 PM EDT Legal Sex Female 7:04 PM EST Gender Identity Female 12/12/2019 7:00 PM EDT Sexual Orientation Not on file documented as of this encounter Plan of Treatment Not on file documented as of this encounter Visit Diagnoses Not on filedocumented in this encounter Care Teams Pizza Cook Relationship Specialty Start Date End Date Shahab Pruett MD [address] [place] [address] PCP - General 10/21/13 Ghulam Hough MD [address] [facility], [address] [place] [address] maria de Historical LMR Provider 02/06/17 04/30/21 Dottie Miranda NP [address] [place] [address] [email or web address] Historical LMR Provider 02/06/17 2 Alysia Maher, RDCS Historical LMR Provider 02/06/17 04/30/21 Shahab Pruett MD [address] [place] [address] Historical LMR Provider 02/06/17 2 Sudheer Jimenes MD [address] [place] [address] Historical LMR Provider 02/06/17 2 Anahi Booker NP [address] [place] [address] Historical LMR Provider 02/06/17 2 documented as of this encounter Additional Source Comments The information contained in this document represents components of the legal health record. It is not the complete legal health record.[facility]
--- OUTSIDE RECORDS SUMMARY | 2025-04-21 15:14 | XMS_ITS | Clinical Summary ---
Author Organization [facility] Address [address] [place] [address] Phone Care Team Providers Care Progress Man Name Role Phone Shahab Pruett MD Primary Care Provider + Allergies Active Allergy Reactions Criticality Noted Date Comments Hydromorphone Hcl Headaches 02/02/2012 Metaxalone Wheezing Medium 07/15/2011 Morphine 12/10/2019 Pregabalin Wheezing 07/09/2008 Sumatriptan Succinate 09/13/2010 Medications traZODone (DESYREL) 100 MG tablet Take 100 mg by mouth daily. Active amLODIPine (NORVASC) 10 MG tablet as directed Active clonazePAM (KLONOPIN) 0.5 MG tablet 1 tablet Active sertraline (ZOLOFT) 20 mg/mL concentrated solution 1 tablet Active buPROPion (WELLBUTRIN) 100 MG immediate release tabletIndication s:anxiety with depression Take 100 mg by mouth 2 (two) times a day. 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 Epistaxis 12/23/2019 Hypertension 12/10/2019 Anxiety 12/10/2019 Depression 12/10/2019 Kidney stone 12/10/2019 Overview (12/10/2019): resolved Migraine 12/10/2019 Family History Medical History Relation Comments Cancer Maternal Aunt 3 Diabetes mellitus Maternal Aunt 3 Stroke Maternal Grandmother 2 Hypertension Mother 2 CV disease Paternal Grandmother 2 Cancer Paternal Grandmother 2 Relation Status Comments Maternal Aunt 1 Maternal Aunt 2 Maternal Aunt 3 Maternal Grandmother 1 Maternal Grandmother 2 Mother 1 Alive Mother 2 Paternal Grandmother 1 Paternal Grandmother 2 Social History Tobacco Use Types Packs/Day Years Used Date Smoking Tobacco: Former Smokeless Tobacco: Never Education Answer Date Recorded Are you interested in more education? Not on aristeo e 09/02/2022 Are you concerned about learning? Not on file 09/02/2022 No 09/02/2022 No 09/02/2022 Digital Access Answer Date Recorded No 09/18/2022 No 09/18/2022 Reliable internet access at home? Not on file 09/18/2022 Device with a working camera? Not on file Comments No Sex and Gender Information Value Date Recorded Sex Assigned at Female 12/12/2019 7:00 PM EDT Legal Sex Female 7:04 PM EST Gender Identity Female 12/12/2019 7:00 PM EDT Sexual Orientation Not on file Last Filed Vital Signs Vital Sign Reading Time Taken Comments Blood Pressure 128/68 02/13/2020 5:21 PM EDT Pulse 77 02/13/2020 4:45 PM EDT Temperature 36.6 C (97.9 F) 02/13/2020 3:40 PM EDT Respiratory Rate 16 02/13/2020 5:21 PM EDT Oxygen Saturation 95% 02/13/2020 5:21 PM EDT Inhaled Oxygen Concentration - - Weight 108.9 kg (240 lb) 02/09/2020 1:56 PM EDT Height 165.1 cm (5' 5 ) 02/09/2020 1:56 PM EDT Body Mass Index 39.94 02/09/2020 1:56 PM EDT Plan of Treatment Health Maintenance Due Date Last Done Comments BLOOD PRESSURE 1974 LIPID PANEL 1974 DEPRESSION SCREENING 1986 SMOKING Hx and SMOKELESS TOBACCO SCREENING 10/26/1987 HEPATITIS C SCREENING 1992 HIV ONE-TIME SCREENING (18-6 5 YEARS) 1992 PAP SMEAR 10/26/1995 MAMMOGRAM 2014 COLOGUARD 10/26/2019 COLONOSCOPY 10/26/2019 COLORECTAL CANCER SCREENING 10/26/2019 FIT TEST 10/26/2019 FOBT 10/26/2019 SIGMOIDOSCOPY 10/26/2019 VIRTUAL COLONOSCOPY 10/26/2019 Adult Td,Tdap Booster 01/14/2022 01/15/2012 , 04/23/2007 PNEUMOCOCCAL VACCINES (50+ years) (1 of 1 - PCV) 2024 ZOSTER VACCINES (1 of 2) 2024 INFLUENZA VACCINE (#1) 2024 01/15/2012 COVID-19 VACCINE (3 - 2024-2 6 season) 2024 07/04/2020, 06/06/2020 RSV VACCINE (1 - 1-dose 75+ series) 2049 HEPATITIS A VACCINES Aged Out No long er eligible based on patient's age to complete this topic HIB VACCINES Aged Out No longer eligi ble based on patient's age to complete this topic MENINGOCOCCAL VACCINES (ACWY) Aged Out No longer eligible based on patient's age to complete this topic MENINGOCOCCAL VACCINES (B) Aged Out N o longer eligible based on patient's age to complete this topic Medical Devices Implanted Type Area Clay Caster Device Identifier Shelf Expiration Date Model / Serial / Lot Plug Vascular .038in 8x13.5mm Amplatzer Mesh Nitinol Flexible Self Expanding Device Occlusion Cable Embolization - [id number] Implanted:Qty: 1 on 01/21/2020 at [facility] Closure Device A G A MED[employer] 10/21/2023 [id number] / / [id number] Description:Pulmonary a Coil Concerto 5mm 20cm .021in Nylon Detachable Speedwell Embolization - [id number] Implanted:Qty: 1 on 01/21/2020 at [facility] Coil [employer] 11/26/2022 NV-5- 20- HELIX / / [id number] Plug Vascular 5fr 18mm 180cm 7-9mm .021in Lf Nitinol Micro Ptfe Mechanical - [id number] Implanted:Qty: 1 on 01/21/2020 at [facility] [employer] 01/18/2021 MVP-9 Q / / [id number] Description:Pulmonary a Plug Vascular 5fr 18mm 180cm 7-9mm .021in Lf Nitinol Micro Ptfe Mechanical - [id number] Implanted:Qty: 1 on 01/21/2020 at [facility] [employer] 08/18/2020 MVP-9 Q / / [id number] Description:Pulmonary a Plug Vascular 5fr 18mm 180cm 7-9mm .021in Lf Nitinol Micro Ptfe Mechanical - [id number] Implanted:Qty: 1 on 01/21/2020 at [facility] [employer] 08/18/2020 MVP-9 Q / / [id number] Description:Pulmonary a Plug Vascular 12mm 180cm 3-5mm .027in Lf Nitinol Micro Ptfe Mechanical - [id number] Implanted:Qty: 1 on 01/21/2020 at [facility] [employer] 07/18/2021 MVP-5 Q / / [id number] Description:Pulmonary a Plug Vascular 12mm 180cm 3-5mm .027in Lf Nitinol Micro Ptfe Mechanical - [id number] Implanted:Qty: 1 on 02/13/2020 by Enedelia España MBBS at [facility] Right: Arterial [employer] 07/18/2021 MVP-5Q / / [id number] Description:Branch of right pulmonary Insurance O O O O O HMO O O Member Subscriber Plan / Payer (Ef fective 2018-Present) Name:Diana Cardenasah Relation to Subscriber:Self Name:RonaldLizabeth Payer ID:Not on file Type:HMO Address: [place] [id number] HMO Advance Directives For more information, please contact: [phone] (9AM - 5PM [facility], Sunday-Sunday) * Full Code (Presumed) (Latest Code Status on File) Date Activated Date Inactivated Comments 01/21/2020 7:55 AM Care Teams Progress Man Relationship Specialty Start Date End Date Shahab Pruett MD [address] [place] [id number] PCP - General 10/21/13 Additional Source Comments The information contained in this document represents components of the legal health record. It is not the complete legal health record.[facility]
--- OUTSIDE RECORDS SUMMARY | 2025-04-21 15:14 | XMS_ITS ---
Author Name [facility] Organization Unknown Care Team Organization Name Specialty Phone Email Start Date End Da te [facility] ROBEL JAKE Primary Care 02/28/2022 4
--- OUTSIDE RECORDS SUMMARY | 2025-04-21 15:14 | XMS_ITS | Encounter Summary ---
Author Organization [facility] Address [address] [place] [address] Phone Care Team Providers Care Vine Fruit Farming Supervisor Name Role Phone Shahab Pruett MD Primary Care Provider + Ghulam Hough MD Unavailable Dottie Miranda MENTAL HEALTH CONSULTANT Unavailable Alysia Maher RDCS Unavailable [email or web address] Shahab Pruett MD Unavailable Sudheer Jimenes MD Unavailable [phone] Anahi Booker MENTAL HEALTH CONSULTANT Unavailable Encounter Details Date Type Department Care Team (Late st Contact Info) Description 12/23/2019 [facility], [address] [address] Social History Tobacco Use Types Packs/Day Years [...] on filedocumented in this encounter Care Teams Vine Fruit Farming Supervisor Relationship Specialty Start Date End Date Shahab Pruett MD [address] [place] [address] PCP - General 10/21/13 Ghulam Hough MD [address] [facility], [address] [place] [address] maria de Historical LMR Provider 02/06/17 04/30/21 Dottie Miranda NP [address] [place] [address] [email or web address] Historical LMR Provider 02/06/17 2 Alysia Maher, [facility] Historical LMR Provider 02/06/17 04/30/21 Shahab Pruett MD [address] [place] [address] Historical LMR Provider 02/06/17 2 Sudheer Jimenes MD [address] [place] [address] Historical LMR Provider 02/06/17 2 Anahi Booker NP [address] [place] [address] Historical LMR Provider 02/06/17 2 documented as of this encounter Additional Source Comments The information contained in this document represents components of the legal health record. It is not the complete legal health record.[facility]
--- OUTSIDE RECORDS SUMMARY | 2025-04-21 15:14 | XMS_ITS | Encounter Summary ---
Author Organization [facility] Address [address] [place] [address] Phone Care Team Providers Care Block Breaker Operator Name Role Phone Shahab Pruett MD Primary Care Provider + Ghulam Hough MD Unavailable Dottie Miranda NATURAL DEVELOPER Unavailable Alysia Maher RDCS Unavailable [email or web address] Shahab Pruett MD Unavailable Sudheer Jimenes MD Unavailable [phone] Anahi Booker NATURAL DEVELOPER Unavailable Encounter Details Date Type Department Care Team (Late st Contact Info) Description 12/23/2019 Procedure [facility], [address] [address] Social History Tobacco Use Types Packs/Day Years [...] on filedocumented in this encounter Care Teams Block Breaker Operator Relationship Specialty Start Date End Date Shahab Pruett MD [address] [place] [address] PCP - General 10/21/13 Ghulam Hough MD [address] [facility], [address] [place] [address] maria de Historical LMR Provider 02/06/17 04/30/21 Dottie Miranda NP [address] [place] [address] [email or web address] Historical LMR Provider 02/06/17 2 Alysia Maher, [facility] Historical LMR Provider 02/06/17 04/30/21 Shahab Pruett MD [address] [place] [address] Historical LMR Provider 02/06/17 2 Sudheer Jimenes MD [address] [place] [address] Historical LMR Provider 02/06/17 2 Anahi Booker NP [address] [place] [address] Historical LMR Provider 02/06/17 2 documented as of this encounter Additional Source Comments The information contained in this document represents components of the legal health record. It is not the complete legal health record.[facility]
--- OUTSIDE RECORDS SUMMARY | 2025-04-21 15:14 | XMS_ITS | Encounter Summary ---
Author Organization [facility] Address [address] [place] [address] Phone Care Team Providers Care Credit Specialist Name Role Phone Shahab Pruett MD Primary Care Provider + Ghulam Hough MD Unavailable Dottie Miranda DRUG ABUSE PROGRAM COORDINATOR Unavailable Alysia Maher RDCS Unavailable [email or web address] Shahab Pruett MD Unavailable Sudheer Jimenes MD Unavailable [phone] Anahi Booker DRUG ABUSE PROGRAM COORDINATOR Unavailable Encounter Details Date Type Department Care Team (Late st Contact Info) Description 09/27/2020 Procedure Pass [facility], [facility] Scan - [address] [address] Social History Tobacco Use Types Packs/Day Years [...] on filedocumented in this encounter Care Teams Credit Specialist Relationship Specialty Start Date End Date Shahab Pruett MD [address] [place] [address] PCP - General 10/21/13 Ghulam Hough MD [address] [facility], [address] [place] [address] maria de Historical LMR Provider 02/06/17 04/30/21 Dottie Miranda NP [address] [place] [address] [email or web address] Historical LMR Provider 02/06/17 2 Alysia Maher, [facility] Historical LMR Provider 02/06/17 04/30/21 Shahab Pruett MD [address] [place] [address] Historical LMR Provider 02/06/17 2 Sudheer Jimenes MD [address] [place] [address] Historical LMR Provider 02/06/17 2 Anahi Booker NP [address] [place] [address] Historical LMR Provider 02/06/17 2 documented as of this encounter Additional Source Comments The information contained in this document represents components of the legal health record. It is not the complete legal health record.[facility]
--- OUTSIDE RECORDS SUMMARY | 2025-04-21 15:14 | XMS_ITS | Encounter Summary ---
Author Organization Located Within [facility] Address [address] [place] [address] Phone Care Team Providers Care Terminal Operator Name Role Phone Shahab Pruett MD Primary Care Provider + Ghulam Hough MD Unavailable Dottie Miranda TABLE GAMES DEALER Unavailable Alysia Maher RDCS Unavailable [email or web address] Shahab Pruett MD Unavailable Sudheer Jimenes MD Unavailable [phone] Anahi Booker TABLE GAMES DEALER Unavailable Reason for Referral * Outpatient Procedure - Closed Specialty Diagnoses / Procedures Referred By Jorge t Referred To Contact Radiology Diagnoses Pulmonary arteriovenous malformation Procedures [place] Arteriovenous Malformation (AVM) Embolization/Sclerotherapy MA PLACE CATH IN LT/RT PULM ART MA PLACE CATH IN SUBSEGMT PULM ART MA VASCULAR EMBOLIZATION OR OCCLUSION ARTERIAL RS&I MA VASCULAR EMBOLIZE/OCCLUDE ORGAN TUMOR INFARCT CHG ANGIO PULMON UNILAT SELECT CHG ANGIO PULMON BILAT NONSELEC Enedelia España MBBS Phone: tel: fax: [email or web address] Referral ID Status Reason Start Date Expiration Date Visits Re quested Visits Authorized [id number] Closed 02/13/2020 02/13/2020 1 1 Encounter Details Date Type Department Care Team (Latest Contact Info) Description 02/13/2020 Ancillary Orders Located Within [facility] [address] 7[address], [address] [place] [address] Enedelia España MBBS [address] [facility] [id number] [place] [address] Pulmonary arteriovenous malformation Social History Tobacco Use Types Packs/Day Years [...] on file documented as of this encounter Results * [place] Arteriovenous Malformation (AVM) Embolization/Sclerotherapy (02/13/2020 3:18 PM EDT) Anatomical Region Laterality Modality Radio Fluoroscop y 02/13/2020 4:27 PM EDT Impressions 02/14/2020 8:30 AM EDT Successful embolization of residual feeding pulmonary artery to right upper lobe pulmonary arteriovenous malformations ATTESTATION: I, Dr. Enedelia España as teaching physician, have reviewed the images for this case and if necessary edited the report originally created by Dr. Chip Segal. Narrative 02/14/2020 8:30 AM EDT PROCEDURE: PULMONARY ANGIOGRAM ARTERIOVENOUS MALFORMATION (AVM) EMBOLIZATION/SCLEROTHERAPY INDICATION: 44 F PMH HHT (4/4 curacao criteria) with symptomatic pulmonary AVM, including hypoxemia. s/p embolization of large RUL pulmonary AVM feeding branches with persistent communication to the pulmonary vein. Returns to IR for repeat angiogram/embolization with anesthesia due discomfort related to previous procedure (plan for jet ventilation) OPERATORS: Chip Segal MD ATTENDING: Dr. Enedelia España was present for the entire procedure CONSENT: The patient was informed of the nature of the proposed procedure. The purposes, alternatives, risks, and benefits were explained and discussed. All questions were answered and written consent was obtained. Radiation Exposure: Fluoroscopy Time: 14.7 min, Dose: 1023 mGy, Dose Area Product (DAP): 85266.72 uGy.m2, Number of Spot films: ANESTHESIA: General anesthesia (Jet ventilation). Continuous hemodynamic and respiratory monitoring was performed, including the use of pulse oximetry. MEDICATION: Heparin IV 5000 U TECHNIQUE: Informed consent was obtained and the patient was brought to the interventional radiology suite and placed on the procedure table in supine position. Preliminary sonographic examination of the right groin was demonstrated a patent and compressible right femoral vein. The right groin was prepped and draped in the standard sterile fashion. All elements of maximal sterile barrier technique were followed including cap and mask, sterile gown, sterile gloves, large sterile sheet, hand hygiene, and 2% chlorhexidine for cutaneous antisepsis. 1% lidocaine was infiltrated into the subcutaneous soft tissues of the right groin for local anesthesia. A small incision was made using a number 11 blade. Under continuous ultrasound guidance, a 21-gauge needle was advanced into the right femoral vein. A 0.018 microwire was advanced through the needle to the inferior vena cava which was confirmed under fluoroscopy. The needle was removed, after which an accessory sheath was placed over the wire. The microwire was then exchanged for a 0.035 J-wire, and the accessory sheath was exchanged for a 8-Maltese vascular sheath that was advanced over the wire to secure the access. The patient was subsequently heparinized with 5000 units heparin intravenously by nursing staff present. A 6-Maltese angled pigtail flush catheter was then advanced through the sheath over a J-wire and subsequently negotiated into the right pulmonary artery where a digital subtraction angiogram was performed. The angled pigtail flush catheter was removed over an exchange length Augustine wire and a 8 Maltese Lumax sheath and angled catheter were advanced into the right pulmonary artery. The right upper lobar artery was then selected where a digital subtraction angiogram was performed, which showed a residual feeder vessel to the right upper lobe pulmonary AVM arising from a segmental right upper lobe pulmonary artery. The angled catheter was then used to select this segmental branch of the right upper lobe artery where an angiogram was performed to confirm positioning. The residual feeder vessel was cannulated with a 2.8 Fr Progreat microcatheter and 0.021 GT glidewire. This feeder vessel was then embolized using a microvascular plug (MVP-5). Repeat angiogram via the microcatheter and angled pigtail catheter showed complete occlusion of feeding vessel and resolution of pulmonary AVM. The flush catheter was removed from the patient over a J-wire. The side arm of the 8-Maltese vascular sheath was aspirated and flushed, then removed. Hemostasis was achieved via manual pressure. Sterile dressing was applied. There were no immediate complications. FINDINGS: 1. Patent right pulmonary artery with residual feeding pulmonary artery to the previously treated right upper lobe pulmonary AVM. 2. Successful embolization of residual feeding pulmonary artery with a microvascular plug (MVP-5) 3. Completion digital subtraction angiogram demonstrating complete occlusion of the right upper lobe pulmonary AVM. Procedure Note Enedelia España MD, [facility] - 02/14/2020 PROCEDURE: PULMONARY ANGIOGRAM ARTERIOVENOUS MALFORMATION (AVM) EMBOLIZATION/SCLEROTHERAPY INDICATION: 44 F PMH HHT (4/4 curacao criteria) with symptomatic pulmonary AVM,including hypoxemia. s/p embolization of large RUL pulmonary AVM feedingbranches with persistent communication to the pulmonary vein. Returns toIR for repeat angiogram/embolization with anesthesia due discomfortrelated to previous procedure (plan for jet ventilation) OPERATORS: Chip Segal MD ATTENDING: Dr. Enedelia España was present for the entire procedure CONSENT: The patient was informed of the nature of the proposed procedure. Thepurposes, alternatives, risks, and benefits were explained and discussed.All questions were answered and written consent was obtained. Radiation Exposure: Fluoroscopy Time: 14.7 min, Dose: 1023 mGy, Dose Area Product (DAP): 23252.72 uGy.m2, Number of Spot films: ANESTHESIA: General anesthesia (Jet ventilation). Continuous hemodynamicand respiratory monitoring was performed, including the use of pulseoximetry. MEDICATION: Heparin IV 5000 U TECHNIQUE: Informed consent was obtained and the patient was brought to theinterventional radiology suite and placed on the procedure table in supineposition. Preliminary sonographic examination of the right groin was demonstrated apatent and compressible right femoral vein. The right groin was prepped and draped in the standard sterile fashion.All elements of maximal sterile barrier technique were followed includingcap and mask, sterile gown, sterile gloves, large sterile sheet, handhygiene, and 2% chlorhexidine for cutaneous antisepsis. 1% lidocaine was infiltrated into the subcutaneous soft tissues of theright groin for local anesthesia. A small incision was made using a [id number] blade. Under continuous ultrasound guidance, a 21-gauge needle wasadvanced into the right femoral vein. A 0.018 microwire was advancedthrough the needle to the inferior vena cava which was confirmed underfluoroscopy. The needle was removed, after which an accessory sheath wasplaced over the wire. The microwire was then exchanged for a 0.035 J-wire, and the accessory sheath was exchanged for a 8-Maltese vascularsheath that was advanced over the wire to secure the access. The patientwas subsequently heparinized with 5000 units heparin intravenously bynursing staff present. A 6-Maltese angled pigtail flush catheter was then advanced through thesheath over a J-wire and subsequently negotiated into the right pulmonaryartery where a digital subtraction angiogram was performed. The angled pigtail flush catheter was removed over an exchange lengthRosen wire and a 8 Maltese Lumax sheath and angled catheter were advancedinto the right pulmonary artery. The right upper lobar artery was thenselected where a digital subtraction angiogram was performed, which showeda residual feeder vessel to the right upper lobe pulmonary AVM arisingfrom a segmental right upper lobe pulmonary artery. The angled catheter was then used to select this segmental branch of theright upper lobe artery where an angiogram was performed to confirmpositioning. The residual feeder vessel was cannulated with a 2.8 FrProgreat microcatheter and 0.021 GT glidewire. This feeder vessel wasthen embolized using a microvascular plug (MVP- 5). Repeat angiogram viathe microcatheter and angled pigtail catheter showed complete occlusion offeeding vessel and resolution of pulmonary AVM. The flush catheter was removed from the patient over a J-wire. The sidearm of the 8-Maltese vascular sheath was aspirated and flushed, thenremoved. Hemostasis was achieved via manual pressure. Sterile dressing wasapplied. There were no immediate complications. FINDINGS: 1. Patent right pulmonary artery with residual feeding pulmonary artery tothe previously treated right upper lobe pulmonary AVM. 2. Successful embolization of residual feeding pulmonary artery with amicrovascular plug (MVP-5) 3. Completion digital subtraction angiogram demonstrating completeocclusion of the right upper lobe pulmonary AVM. IMPRESSION: Successful embolization of residual feeding pulmonary artery to rightupper lobe pulmonary arteriovenous malformations ATTESTATION: I, Dr. Enedelia España as teaching physician, have reviewedthe images for this case and if necessary edited the report originallycreated by Dr. Chip Segal. 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 documented in this encounter Care Teams Terminal Operator Relationship Specialty Start Date End Date Shahab Pruett MD [address] [place] [phone] PCP - General 10/21/13 Ghulam Hough MD [address] [place] [address] maria de Historical LMR Provider 02/06/17 04/30/21 Dottie Miranda NP [address] [place] [address] [email or web address] Historical LMR Provider 02/06/17 2 Alysia Maher, ROSHAN Historical LMR Provider 02/06/17 04/30/21 Shahab Pruett MD [address] [place] [address] Historical LMR Provider 02/06/17 2 Sudheer Jimenes MD [address] [place] [address] Historical LMR Provider 02/06/17 2 Anahi Booker NP [address] [place] [address] Historical LMR Provider 02/06/17 2 documented as of this encounter Additional Source Comments The information contained in this document represents components of the legal health record. It is not the complete legal health record.Located Within [facility]
--- OUTSIDE RECORDS SUMMARY | 2025-04-21 15:14 | XMS_ITS | Encounter Summary ---
Author Organization [facility] Address [address] [place] [address] Phone Care Team Providers Care Editorial Specialist Name Role Phone Shahab Pruett MD Primary Care Provider + Ghulam Hough MD Unavailable Dottie Miranda TRAIN GATE ATTENDANT Unavailable Alysia Maher RDCS Unavailable [email or web address] Shahab Pruett MD Unavailable Sudheer Jimenes MD Unavailable [phone] Anahi Booker TRAIN GATE ATTENDANT Unavailable Encounter Details Date Type Department Care Team (Late st Contact Info) Description 01/21/2020 Procedure Pass [facility] [place] [address] [facility]nd [place] [address] Social History Tobacco Use Types Packs/Day Years [...] on filedocumented in this encounter Care Teams Editorial Specialist Relationship Specialty Start Date End Date Shahab Pruett MD [address] [place] [address] PCP - General 10/21/13 Ghulam Hough MD [address] [facility] [place] [address] maria de Historical LMR Provider 02/06/17 04/30/21 Dottie Miranda TRAIN GATE ATTENDANT [address] [place] [address] [email or web address] Historical LMR Provider 02/06/17 2 Alysia Maher, [facility] Historical LMR Provider 02/06/17 04/30/21 Shahab Pruett MD [address] [place] [address] Historical LMR Provider 02/06/17 2 Sudheer Jimenes MD [address] [place] [address] Historical LMR Provider 02/06/17 2 Anahi Booker NP [address] [place] [address] Historical LMR Provider 02/06/17 2 documented as of this encounter Additional Source Comments The information contained in this document represents components of the legal health record. It is not the complete legal health record.[facility]
--- OUTSIDE RECORDS SUMMARY | 2025-04-21 15:14 | XMS_ITS | Patient Health Record ---
Author Organization [facility] Address [address] [place] [address] Care Team Providers Care Drupal Php Developer Name Role Phone Cinthia Davison MD Primary Care Provider Roberto Gray Jr [phone] Allergies Allergen (clinical drug ingredient) Drug/Non Drug Allergy documented on EMR Reaction Allergy Type Onset Date Status Zelnorm Unknown Drug Allergy Active Results Component Value Reference Range Notes Pathology Reviewed date:06/17/2024 09:37:56 PM Interpretation: Performing Lab:[facility], [address] [place] [phone] Notes/Report: US abdomen complete Reviewed date:07/03/2024 08:11:46 AM Interpretation: Performing Lab: Notes/Report: [address] [address] Ultrasound Report Signed Patient: Lizabeth Cardenas MR#: [id number] : 1975 Acct:[id number] Age/Sex: 48 / F ADM Date: 06/23/24 Loc: HO.US Attending Dr: Roberto Harden MD Ordering Physician: Roberto Harden MD Date of Service: 06/23/24 Procedure(s): US abdomen complete Accession Number(s): [id number] cc: CINTHIA DAVISON MD; Roberto Harden MD CLINICAL HISTORY: RIGHT SIDED ABDOMINAL PAIN US abdomen complete Comparison: 11/02/2023 Findings: Cholelithiasis without wall thickening. Common duct measures 3.9 mm. No sonographic Sanderson sign. Fatty infiltration of the liver without focal abnormality. Main portal vein patent with normal direction of flow. Pancreas is unremarkable. Aorta and IVC patent and normal in caliber. The right kidney is normal, 11.1 cm in length. No focal abnormality or hydronephrosis. 5 mm lower pole cyst noted. The left kidney is normal, 12.8 cm in length. No focal abnormality or hydronephrosis. The spleen is normal, 13.9 cm in length. No focal abnormality. Impression: Fatty infiltration of the liver Cholelithiasis without wall thickening or ductal dilation This document has been electronically signed by: Leighton Malloy MD on 06/23/2024 21:47:47 Dictated By: Leighton Malloy MD Signed By: <Electronically signed by Leighton Malloy MD in OV> 06/23/242147 DD/ 46 TD/TT: 06/23/242146 Oil Field Rig Builder: Reason For Referral No Information Medications Medication SIG (Take, Route, Frequency, Duration) Notes Start Date End Date Status Omeprazole 20 MG Capsule Delayed Release 1 Orally Twice daily; Duration: 30 days 12/20/2023 Active Sertraline HCl 100 MG Tablet Oral; Duration: 90 Active buPROPion HCl ER (SR) 100 MG Tablet Extended Release 12 Hour Oral; Duration: 30 Active Sutab 0942-526-248 MG Tablet 12 tablets the first dose the evening before and second dose the morning of colonoscopy Orally Twice a day; Duration: 1 day(s) 05/22/2024 Active amLODIPine Besylate 10 MG Tablet TAKE 1 TABLET BY MOUTH DAILY TAKE AT BEDTIME Oral; Duration: 30 Active Labetalol HCl 100 MG Tablet TAKE 1 TABLET BY MOUTH TWICE DAILY Oral; Duration: 30 Active traZODone HCl 100 MG Tablet TAKE 2 - 3 TABLETS BY MOUTH EVERY NIGHT AT BEDTIME Oral; Duration: 30 Activ e Omeprazole 20 MG Capsule Delayed Release TAKE 1 CAPSULE BY MOUTH DAILY Oral; Duration: 30 Active hydrALAZINE HCl 25 MG Tablet TAKE 3 TABLETS BY MOUTH THREE TIMES DAILY Oral; Duration: 30 Active Immunizations Vaccine Route Administration Date Status Comme nts Influenza Unknown 02/13/2023 Administered Social History Tobacco Use: Social History Observation Description Date Details (start date - stop date) Never Smoker NA - NA Social History Drugs/Alcohol: Social Info Question Answer Notes Alcohol Screen Did you have a drink containing alcohol in the past year? Yes How often did you have a drink containing alcohol in the past year? Monthly or less (1 point) How many drinks did you have on a typical day when you were drinking in the past year? 1 or 2 drinks (0 point) How often did you have 6 or more drinks on one occasion in the past year? 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 Problems Problem Type SNOMED Code ICD Code Onset Dates Problem Status W/U Status Risk Notes Problem Ischemic colitis (30228533) Ischemic colitis (K55.9) Active confirmed Problem Erosive gastritis (6926579884436188) Erosive gastritis (K29.60) Active confirmed Problem Right sided abdominal pain (798610435) Right sided abdominal pain (R10.9) Active confirmed Problem Gastroesophageal reflux disease (008084907) Gastroesophageal reflux disease, unspecified whether esophagitis present (K21.9) Active confirmed Problem Erosive gastritis (2553695719384875) Gastritis, erosive (K29.60) Active confirmed Vital Signs Blood pressure diastolic 00 mm Hg 05/22/2024 Height 5 ft 5 in in 05/22/2024 Blood pressure systolic 00 mm Hg 05/22/2024 Weight 264 lbs 05/22/2024 BMI 43.93 kg/m2 05/22/2024 Encounters Encounter Location Date Provider Diagnosis [facility] Outpatient [address] [place] [phone] 06/13/2024 Roberto Harden Jr Ischemic colitis K55.9 and Abdominal pain R10.9 [facility] [address] [place] [phone] 05/22/2024 Roberto Harden Jr Right sided abdominal pain R10.9 ; Ischemic colitis K55.9 and Gastroesophageal reflux disease, unspecified whether esophagitis present K21.9 [facility] [address] [place] [phone] 06/11/2024 Roberto Harden Jr [facility] [address] [place] [phone] 06/12/2024 Roberto Harden Jr [facility] [address] [place] [phone] 06/17/2024 Roberto Harden Jr [facility] [address] [place] [phone] 07/03/2024 Roberto Harden Jr [facility] [address] [place] [phone] 10/07/2024 Roberto Harden Jr Assessments Encounter Date Diagnosis (ICD Code) Assessment Notes Treatment Notes Treatment Clinical Notes Section Notes 06/13/2024 Abdominal pain (ICD-10 - R10.9) 06/13/2024 Ischemic colitis (ICD-10 - K55.9) 05/22/2024 Ischemic colitis (ICD-10 - K55.9) We discussed her symptoms today. She will have further evaluation with laboratory studies and colonoscopy will be arranged because of her history of ischemic colitis and a poor prep. Ultrasound imaging for further evaluation of her right sided abdominal discomfort is ordered. She understands risks and benefits of the procedure and agrees to proceed. She will continue omeprazole for her reflux. We discussed diet, lifestyle modifications, and weight management regarding the treatment of reflux. Today's visit was 30 minutes. 05/22/2024 Right sided abdominal pain (ICD-10 - R10.9) We discussed her symptoms today. She will have further evaluation with laboratory studies and colonoscopy will be arranged because of her history of ischemic colitis and a poor prep. Ultrasound imaging for further evaluation of her right sided abdominal discomfort is ordered. She understands risks and benefits of the procedure and agrees to proceed. She will continue omeprazole for her reflux. We discussed diet, lifestyle modifications, and weight management regarding the treatment of reflux. Today's visit was 30 minutes. 05/22/2024 Gastroesophageal reflux disease, unspecified whether esophagitis present (ICD-10 - K21.9) We discussed her symptoms today. She will have further evaluation with laboratory studies and colonoscopy will be arranged because of her history of ischemic colitis and a poor prep. Ultrasound imaging for further evaluation of her right sided abdominal discomfort is ordered. She understands risks and benefits of the procedure and agrees to proceed. She will continue omeprazole for her reflux. We discussed diet, lifestyle modifications, and weight management regarding the treatment of reflux. Today's visit was 30 minutes. Plan Of Treatment Pending Test Test Name Order Date LIVER PROFILE 05/22/2024 LIVER PROFILE 01/21/2024 LIPASE 05/22/2024 LIPASE 01/21/2024 CBC w/o DIFF 01/21/2024 CBC w/o DIFF 05/22/2024 CT ABD & PELVIS WITH CONTRAST 01/21/2024 US ABD 05/22/2024 Future Test Test Name Order Date COLONOSCOPY 05/22/2024 Insurance Providers Payer Name Payer Address Payer Phone Subscriber Number Group Number Insured Name Patient Relationship to Insured Coverage Start Date Coverage End Date [facility] [address] [place], [place] [phone] [id number] LIZABETH CARDENAS Self - patient is the insured Medical (General) History Medical History History ICD Code Hypertension Urinary [...]
--- OUTSIDE RECORDS SUMMARY | 2025-04-21 15:14 | XMS_ITS | Encounter Summary ---
Author Organization [facility] Address [address] [place] [address] Phone Care Team Providers Care Cattle Dipper Name Role Phone Shahab Pruett MD Primary Care Provider + Ghulam Hough MD Unavailable Dottie Miranda FABRIC DESIGNER Unavailable Alysia Maher RDCS Unavailable [email or web address] Shahab Pruett MD Unavailable Sudheer Jimenes MD Unavailable [phone] Anahi Booker FABRIC DESIGNER Unavailable Encounter Details Date Type Department Care Team (Late st Contact Info) Description 01/13/2020 Procedure [place] [facility] [place] [address] [facility], 2nd [place] [address] Social History Tobacco Use Types Packs/Day Years [...] on filedocumented in this encounter Care Teams Cattle Dipper Relationship Specialty Start Date End Date Shahab Pruett MD [address] [place] [address] PCP - General 10/21/13 Ghulam Hough MD [address] [facility], [address] [place] [address] maria de Historical LMR Provider 02/06/17 04/30/21 Dottie Miranda FABRIC DESIGNER [address] [place] [address] [email or web address] Historical LMR Provider 02/06/17 2 Alysia Maher, [facility] Historical LMR Provider 02/06/17 04/30/21 Shahab Pruett MD [address] [place] [address] Historical LMR Provider 02/06/17 2 Sudheer Jimenes MD [address] [place] [address] Historical LMR Provider 02/06/17 2 Anahi Booker NP [address] [place] [id number] Historical LMR Provider 02/06/17 2 documented as of this encounter Additional Source Comments The information contained in this document represents components of the legal health record. It is not the complete legal health record.[facility]
--- OUTSIDE RECORDS SUMMARY | 2025-04-21 15:14 | XMS_ITS | Encounter Summary ---
Author Organization [facility] Address [address] [place] [phone] Phone Care Team Providers Care Skiver Machine Name Role Phone Shahab Pruett MD Primary Care Provider + Ghulam Hough MD Unavailable Dottie Miranda SURVEY PROJECT MANAGER Unavailable Alysia Maher RDCS Unavailable [email or web address] Shahab Pruett MD Unavailable Sudheer Jimenes MD Unavailable [phone] Anahi Booker SURVEY PROJECT MANAGER Unavailable Reason for Referral * Outpatient Procedure - Closed Specialty Diagnoses / Procedures Referred By Jorge moreno Referred To Contact Radiology Diagnoses Pulmonary arteriovenous malformation Procedures [place] Arteriovenous Malformation (AVM) Embolization/Sclerotherapy LA VASCULAR EMBOLIZATION OR OCCLUSION ARTERIAL RS&I LA VASCULAR EMBOLIZE/OCCLUDE ORGAN TUMOR INFARCT LA PLACE CATH IN LT/RT PULM ART LA PLACE CATH IN SUBSEGMT PULM ART CHG ANGIO PULMON UNILAT SELECT CHG ANGIO PULMON BILAT NONSELEC Enedelia España MBBS Phone: tel: fax: mailto: Referral ID Status Reason Start Date Expiration Date Visits Re quested Visits Authorized [id number] Closed 01/21/2020 01/21/2020 1 1 Encounter Details Date Type Department Care Team (Latest Contact Info) Description 12/10/2019 Ancillary Orders [facility] [place] Inter[facility] [address] [facility], 7th Floor, [address] [place] [address] Enedelia España MBBS [address] [facility] [address] [place] [address] Pulmonary arteriovenous malformation Social History Tobacco Use [...] Results * [place] Arteriovenous Malformation (AVM) Embolization/Sclerotherapy (01/21/2020 9:40 AM EDT) Anatomical Region Laterality Modality Radio Fluoroscop y 01/21/2020 11:5 8 AM EDT Impressions 01/21/2020 10:09 PM EDT Technically successful right middle lobe pulmonary arteriovenous malformation embolization. Additional embolization to be performed in a staged fashion. PLAN: Right lower extremity straight for 2 hours. Further intervention to be arranged, ideally within 1 week. ATTESTATION: I, Dr. Enedelia España as teaching physician, have reviewed the images for this case and if necessary edited the report originally created by Dr. Neil Ely. Narrative 01/21/2020 10:09 PM EDT FL ARTERIOVENOUS MALFORMATION (AVM) EMBOLIZATION/SCLEROTHERAPY Comparison: Outside institution chest CT. OPERATORS: Dr. Neil España was present for the entire procedure. CONSENT: The patient was informed of the nature of the proposed procedure. The purposes, alternatives, risks, and benefits were explained and discussed. All questions were answered and written consent was obtained. Radiation Exposure: Fluoroscopy Time: 49.1 min, Dose: 1505 mGy, Dose Area Product (DAP): 2960.23 uGy.m2, ANESTHESIA/MEDICATIONS: See nursing notes. TECHNIQUE: Informed consent was obtained and the patient was brought to the interventional radiology suite and placed on the procedure table in supine position. Preliminary sonographic examination of the right groin demonstrated a patent and compressible right femoral vein. The groins were prepped and draped in the standard sterile fashion. All elements of maximal sterile barrier technique were followed including cap and mask, sterile gown, sterile gloves, large sterile sheet, hand hygiene, and 2% chlorhexidine for cutaneous antisepsis. A safety timeout was performed adherent to universal protocol verifying the patient's identification and planned procedure. 1% lidocaine was infiltrated into the subcutaneous soft tissues of the right groin for local anesthesia. Under continuous ultrasound guidance, a 21-gauge needle was advanced into the right femoral vein. A 0.018 microwire was advanced through the needle centrally which was confirmed under fluoroscopy. The needle was removed, after which an accessory sheath was placed over the wire. The microwire was then exchanged for a 0.035 J-wire, and the accessory sheath was exchanged for a 8-Albanian vascular sheath that was advanced over the wire to secure the access. The right pulmonary artery was selected using an angled flush catheter in combination with a tip deflecting wire. Digital subtraction angiogram of the right pulmonary arterial system was performed with technical account representative fluoroscopic images saved to the permanent electronic medical record. Given the findings noted below, the decision was made to proceed with intervention. The patient was heparinized with a starting dose of 7000 units then with an additional aliquot of 1000 units later in the procedure. The flush catheter was exchanged for a LuMax system over a Augustine wire. The system was then used in combination with a hydrophilic wire to select the right middle lobar pulmonary artery. Multiple feeding branches of the arteriovenous malformation were embolized with a total of three 9 mm MVP's and an 8 mm Amplatzer plug. Intermittent digital subtraction angiograms were performed. A postembolization digital subtraction angiogram demonstrated residual fistulous connection to the pulmonary venous system and a small feeder branch was identified. The branch was selected using a 2.8- Albanian Progreat microcatheter in combination with a Transend wire. Embolization of the smaller feeder branch was performed with a 5 mm MVP plug. An additional digital subtraction angiogram was performed which again demonstrated persistent communication to the pulmonary venous system. An attempt was made to perform additional coil embolization however secondary to challenging coil positioning and patient intolerance to positioning, the decision was made to conclude the procedure. Whilst recapturing the coil, it was noticed the coil detached. The microcatheter and angle LuMax catheter were removed and the coil was snared inside of the sheath using a 6 mm ENsnare which was externalized in its entirety. All wires and catheters were removed from the patient. Hemostasis was achieved via manual pressure. Lastly, sterile dressing was applied. There are no immediate complications. 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 POSTINTERVENTION FINDINGS: Embolization of a right middle lobar pulmonary arteriovenous malformation though with persistent fistulous connection of the pulmonary venous system. The procedure was concluded secondary to patient intolerance to position and challenging coil positioning. Procedure Note Enedelia España MBBS - 01/21/2020 [place] ARTERIOVENOUS MALFORMATION (AVM) EMBOLIZATION/SCLEROTHERAPY Comparison: Outside institution chest CT. OPERATORS: Dr. Neil España was present for the entire procedure. CONSENT: The patient was informed of the nature of the proposed procedure. Thepurposes, alternatives, risks, and benefits were explained and discussed.All questions were answered and written consent was obtained. Radiation Exposure: Fluoroscopy Time: 49.1 min, Dose: 1505 mGy, Dose Area Product (DAP): 2960.23 uGy.m2, ANESTHESIA/MEDICATIONS: See nursing notes. TECHNIQUE: Informed consent was obtained and the patient was brought to theinterventional radiology suite and placed on the procedure table in supineposition. Preliminary sonographic examination of the right groin demonstrated apatent and compressible right femoral vein. The groins were prepped and draped in the standard sterile fashion. Allelements of maximal sterile barrier technique were followed including capand mask, sterile gown, sterile gloves, large sterile sheet, hand hygiene,and 2% chlorhexidine for cutaneous antisepsis. A safety timeout was performed adherent to universal protocol verifyingthe patient's identification and planned procedure. 1% lidocaine was infiltrated into the subcutaneous soft tissues of theright groin for local anesthesia. Under continuous ultrasound guidance, r61-rybfm needle was advanced into the right femoral vein. A 0.018 microwire was advanced through the needle centrally which was confirmedunder fluoroscopy. The needle was removed, after which an accessory sheathwas placed over the wire. The microwire was then exchanged for a 0.035 J-wire, and the accessory sheath was exchanged for a 8-Albanian vascularsheath that was advanced over the wire to secure the access. The right pulmonary artery was selected using an angled flush catheter incombination with a tip deflecting wire. Digital subtraction angiogram ofthe right pulmonary arterial system was performed with representativefluoroscopic images saved to the permanent electronic medical record.Given the findings noted below, the decision was made to proceed withintervention. The patient was heparinized with a starting dose of 7000 units then withan additional aliquot of 1000 units later in the procedure. The flush catheter was exchanged for a LuMax system over a Augustine wire. Thesystem was then used in combination with a hydrophilic wire to select theright middle lobar pulmonary artery. Multiple feeding branches of thearteriovenous malformation were embolized with a total of three 9 mm MVP'sand an 8 mm Amplatzer plug. Intermittent digital subtraction angiogramswere performed. A postembolization digital subtraction angiogramdemonstrated residual fistulous connection to the pulmonary venous systemand a small feeder branch was identified. The branch was selected using a2.8-Albanian Progreat microcatheter in combination with a Transend wire.Embolization of the smaller feeder branch was performed with a 5 mm MVPplug. An additional digital subtraction angiogram was performed which againdemonstrated persistent communication to the pulmonary venous system. Anattempt was made to perform additional coil embolization however secondaryto challenging coil positioning and patient intolerance to positioning,the decision was made to conclude the procedure. Whilst recapturing thecoil, it was noticed the coil detached. The microcatheter and angle LuMaxcatheter were removed and the coil was snared inside of the sheath using a6 mm ENsnare which was externalized in its entirety. All wires and catheters were removed from the patient. Hemostasis wasachieved via manual pressure. Lastly, sterile dressing was applied. There are no immediate complications. PREINTERVENTION FINDINGS: Large right pulmonary arterial venous malformation with multiple feederbranches arising from the right middle lobar branch. POSTINTERVENTION FINDINGS: Embolization of a right middle lobar pulmonary arteriovenous malformationthough with persistent fistulous connection of the pulmonary venoussystem. The procedure was concluded secondary to patient intolerance to positionand challenging coil positioning. IMPRESSION: Technically successful right middle lobe pulmonary arteriovenousmalformation embolization. Additional embolization to be performed in a staged fashion. PLAN: Right lower extremity straight for 2 hours. Further intervention to be arranged, ideally within 1 week. ATTESTATION: I, Dr. Enedelia España as teaching physician, have reviewedthe images for this case and if necessary edited the report originallycreated by Dr. Neil Ely. 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 documented in this encounter Care Teams Skiver Machine Relationship Specialty Start Date End Date Shahab Pruett MD [address] [place] [address] PCP - General 10/21/13 Ghulam Hough MD [address] [place] [phone] maria de Historical LMR Provider 02/06/17 04/30/21 Dottie Miranda NP [address] [place] [address] [email or web address] Historical LMR Provider 02/06/17 2 Alysia Maher RDCS Historical LMR Provider 02/06/17 04/30/21 Shahab Pruett MD [address] [place] [address] Historical LMR Provider 02/06/172 2 Sudheer Jimenes MD [address] [place] [address] Historical LMR Provider 02/06/172 2 Anahi Booker NP [address] [place] [address] Historical LMR Provider 02/06/17 2 documented as of this encounter Additional Source Comments The information contained in this document represents components of the legal health record. It is not the complete legal health record.[facility]
== END 2025-04-21 11:13 ==
LOC: HO.LAB 11:12
PROVIDERS: PCP Internal Medicine; Visit Provider Internal Medicine Nephrology
DX: I10 Essential (primary) hypertension (principal)
CPT/HCPCS: 36415; 80051; 82565; 82570; 84156; 84520

== ENCOUNTER 2025-04-22 13:28 | Outpatient (AMB) | payer OTHER, SELFPAY ==
--- OUTSIDE RECORDS SUMMARY | 2024-06-13 07:20 | XMS_ITS ---
Author Organization [facility] Address [address] [place] [address] Care Team Providers Care Bolt Threader Name Role Phone Oscar Davison MD Primary Care Provider Roberto Gray Jr [phone] REASON FOR VISIT ischemic colitis,rt sided abdominal pain Encounters Encounter Location Date Provider Diagnosis [facility] [address] [place] [id number] 06/13/2024 Roberto Harden Jr Ischemic colitis K55.9 and Abdominal pain R10.9 Assessments Encounter Date Diagnosis (ICD Code) Assessment Notes Treatment Notes Treatment Clinical Notes Section Notes 06/13/2024 Ischemic colitis (ICD-10 - K55.9) 06/13/2024 Abdominal pain (ICD-10 - R10.9) Plan Of Treatment No Information Progress Notes * PATRIC MCCOYDOB:1975 ( 49 yo F)Acc No.[id number]:06/13/2024 COLON WITH MAC Patient: PATRIC WRIGHT Provider: Piotr Harden MD :1975 A ge:48 Y S ex:Female Date:06/13/2024 Address:[address] [place], [place] [id number] Pcp:Oscar Davison MD Subjective: * Chief Complaints: * I schemic colitis,rt sided abdominal pain Assessment: * Assessment: 1. I schemic colitis - K55.9 (Primary) 2 . A bdominal pain - R10.9 ? Plan: * Procedure Codes: 4 5380 COLONOSCOPY AND [id number] INTRVL 3+YRS PTS CLNSCP DOCD, Modifiers: 1P Billing Information: * Procedure Codes: 20526 COLONOSCOPY AND BIOPSY. 0529F INTRVL 3+YRS PTS CLNSCP DOCD. Modifiers: 1P * The named appointment provid er may or may not be the originator of this progress note, and it is not deemed complete until electronically signed by the appointment provider. Sign off status: Pending * Provider: Piotr Harden MD Date: 0 06/13/2024 Generated for Laura martinez/Adrian/Mariaelenaitting on: 1 02:51 PM EST
[2025-04-22 13:30] VITALS: BP 144/90; PULSE 100; O2SAT 94
--- NOTE | 2025-04-22 13:30 | HO.NEPHOV_ITS ---
Vital Signs 04/22/25 13:30 Height 5 ft 5 in BP 144/90 H Blood Pressure Location Lt brachial Position Sitting Pulse 100 Pulse Source Pulse Oximeter Pulse Oximetry (%) 94 Oxygen Delivery Method Room Air Intake Visit Reasons: 6mon follow-up w/labs-Conf [employer] Required: No Accompanied by: Self / Same As Patient Allergies pregabalin (From LYRICA) Allergy (Severe, Verified 04/22/25 13:32) Difficulty Breathing sumatriptan (From IMITREX) Allergy (Severe, Verified 04/22/25 13:32) Chest Pain tegaserod Allergy (Severe, Verified 04/22/25 13:32) Palpitations (brand name Zelnorm) zolmitriptan (From ZOMIG) Allergy (Severe, Verified 04/22/25 13:32) Chest Pain HPI Comments Details: 49 years old woman with obesity, hypertension. She had JANAE last year & was thought to be due to acute tubular injury which has resolved. Her serum creatinine is at baseline. She intermittently gets some abdominal pain and follows with Dr Harden. She is known to have fatty liver. She denies edema, SOB, PND, orthopnea or urinary symptoms. She is on multiple anti hypertensive medications and they are keeping her BP at goal. She does not take any NSAID's and maintain good hydration [facility] Medical History HHT (hereditary hemorrhagic telangiectasia) Morbid obesity IBS (irritable bowel syndrome) Hereditary hemorrhagic telangiectasia ADD (attention deficit disorder) Kidney stone Depression Hypertension Migraines Pulmonary arteriovenous malformation Surgical History History of esophagogastroduodenoscopy (EGD) H/O colonoscopy Hx of cystoscopy H/O lithotripsy History of ankle surgery History of appendectomy H/O: hysterectomy Social History Household Members: Family Household Members Other:: mother Housing: House Are you a primary vp care management to a significant other at home: No Do you presently have visiting nurse or other home services: No Alcohol intake: unknown Patient Tobacco Use Status: Never used Tobacco service: No Review of Systems Const All systems reviewed & are unremarkable except as noted in HPI and below Physical Exam Vital Signs: Last Vital Signs Pulse 100 04/22/25 13:30 BP 144/90 H 04/22/25 13:30 Pulse Ox 94 04/22/25 13:30 Oxygen Delivery Method Room Air 04/22/25 13:30 Const General: comfortable and no acute distress Orientation/consciousness: patient oriented x3 HEENT Head: Yes normocephalic Mouth: Normal oral and palatal mucosa present Eyes EOM: EOMs intact bilaterally Neck Neck: Yes supple Resp Auscultation: clear to auscultation bilaterally Cardio Jugular venous distension: no JVD Rate: regular rate GI Palpation (GI): Soft to palpation Auscultation: normal bowel sounds General: Yes no CVA tenderness Back/Spine/Pelvis Back: no CVA tenderness Skin General skin exam: no rashes or lesions noted Neuro General: patient oriented x3 and moves all extremities Extrem General: Yes no pedal edema Results Reviewed Nephrology Results: Hgb, (12.0-16.0) 10.9 g/dl L 02/29/24 WBC, (4.8-10.8) 5.1 X10*3/uL 02/29/24 Plt Count, (160-400) 180 X10*3/uL 02/29/24 Sodium, (135-145) 140 mmol/L 04/21/25 Potassium, (3.3-5.1) 4.2 mmol/L 04/21/25 Chloride, (96-108) 105 mmol/L 04/21/25 Carbon Dioxide, (22-29) 25 mmol/L 04/21/25 BUN, (9-16) 15 mg/dL 04/21/25 Creatinine, (0.5-1.4) 1.04 mg/dL 04/21/25 Calcium, (8.4-10.2) 9.3 mg/dL 03/04/24 Urine Protein, (Neg-Trace) Negative mg/dL 02/29/24 Urine Creatinine 275.52 mg/dL 04/21/25 Protein/Creatinin Ratio, (<0.2) 0.22 H 04/21/25 Renal US 11/05/23 Assessment & Plan Assessment & Plan (1) Hypertension: Code(s): I10 - Essential (primary) hypertension Category: Medical Qualifiers: Hypertension type: primary hypertension Qualified Code(s): I10 - Essential (primary) hypertension (2) Obesity: Code(s): E66.9 - Obesity, unspecified Category: Medical Qualifiers: Obesity type: due to excess calories Obesity classification: unspecified obesity classification Serious obesity comorbidity presence: without serious comorbidity Qualified Code(s): E66.09 - Other obesity due to excess calories (3) Nephrolithiasis: Code(s): N20.0 - Calculus of kidney Category: Medical Plan H/O JANAE likely due to tubular injury- resolved Serum creatinine back to baseline ; UO OK; Needs weight loss( referred) Will optimize BP medications with time( ? HCTZ-given stones & avoid polypharmacy) Follow up blood ordered. Answered all her questions & F/U given Orders: Orders Creatinine 6 Months I10 - Essential (primary) hypertension Blood Urea Nitrogen 6 Months I10 - Essential (primary) hypertension Electrolytes 6 Months I10 - Essential (primary) hypertension Protein Creatinine Ratio, Ur 6 Months I10 - Essential (primary) hypertension, N20.0 - Calculus of kidney Referrals Medical Weight Management Referral E66.9 - Obesity, unspecified, I10 - Essential (primary) hypertension Medications: Changed From hydralazine 75 mg See Protocol PO TID 270 tabs 0RF To hydralazine 75 mg (3 x 25 mg) PO TID 270 tabs 11RF 30 days Refilled amlodipine 10 mg PO BEDTIME 30 tabs 11RF labetalol 100 mg PO BID 60 tabs 11RF Coding Level of Care Code Est Pt Level 4 (72852) Diagnoses Primary hypertension I10 Hypertension type: primary hypertension Obesity due to excess calories without serious comorbidity, unspecified class E66.09 Obesity type: due to excess calories Obesity classification: unspecified obesity classification Serious obesity comorbidity presence: without serious comorbidity Nephrolithiasis N20.0
--- OUTSIDE RECORDS SUMMARY | 2025-04-22 14:52 | XMS_ITS | Encounter Summary ---
Author Organization [facility] Address [address] [place] [address] Phone Care Team Providers Care Manager Residential Name Role Phone Shahab Pruett MD Primary Care Provider + Ghulam Hough MD Unavailable Dottie Miranda LEGAL CONSULTANT Unavailable Alysia Maher RDCS Unavailable [email or web address] Shahab Pruett MD Unavailable Sudheer Jimenes MD Unavailable Anahi Booker LEGAL CONSULTANT Unavailable Reason for Referral * Outpatient Procedure - Closed Specialty Diagnoses / Procedures Referred By Jorge t Referred To Contact Radiology Diagnoses Pulmonary arteriovenous malformation Procedures [place] Arteriovenous Malformation (AVM) Embolization/Sclerotherapy GA PLACE CATH IN LT/RT PULM ART GA PLACE CATH IN SUBSEGMT PULM ART GA VASCULAR EMBOLIZATION OR OCCLUSION ARTERIAL RS&I GA VASCULAR EMBOLIZE/OCCLUDE ORGAN TUMOR INFARCT CHG ANGIO PULMON UNILAT SELECT CHG ANGIO PULMON BILAT NONSELEC Enedelia España MBBS Phone: tel: fax: [email or web address] Referral ID Status Reason Start Date Expiration Date Visits Re quested Visits Authorized [id number] Closed 02/13/2020 02/13/2020 1 1 Encounter Details Date Type Department Care Team (Latest Contact Info) Description 02/13/2020 Ancillary Orders [facility] [place] Interventional Radiology [facility]iliary [facility] [address] [facility], 7th Floor, [address] [place] [address] Enedelia España MBBS [address] [facility] [address] [place] [address] Pulmonary arteriovenous malformation Social History Tobacco Use [...] Dose: 1023 mGy, Dose Area Product (DAP): 48895.72 uGy.m2, Number of Spot films: ANESTHESIA: General [...] the accessory sheath was exchanged for a 8-Bermudian vascular sheath that was advanced over the wire to secure the access. The patient was subsequently heparinized with 5000 units heparin intravenously by nursing staff present. A 6-Bermudian angled pigtail flush catheter was then advanced through the sheath over a J-wire and subsequently negotiated into the right pulmonary artery where a digital subtraction angiogram was performed. The angled pigtail flush catheter was removed over an exchange length Augustine wire and a 8 Bermudian Lumax sheath and angled catheter were advanced [...] a J-wire. The side arm of the 8-Bermudian vascular sheath was aspirated and flushed, then [...] pulmonary AVM. Procedure Note Enedelia España MD, [facility] - 02/14/2020 PROCEDURE: PULMONARY ANGIOGRAM ARTERIOVENOUS MALFORMATION [...] Dose: 1023 mGy, Dose Area Product (DAP): 14477.72 uGy.m2, Number of Spot films: ANESTHESIA: General [...] A small incision was made using a pfafrk65 blade. Under continuous ultrasound guidance, a 21-gauge needle wasadvanced into the right femoral vein. A 0.018 microwire was advancedthrough the needle to the inferior vena cava which was confirmed underfluoroscopy. The needle was removed, after which an accessory sheath wasplaced over the wire. The microwire was then exchanged for a 0.035 J-wire, and the accessory sheath was exchanged for a 8-Bermudian vascularsheath that was advanced over the wire to secure the access. The patientwas subsequently heparinized with 5000 units heparin intravenously bynursing staff present. A 6-Bermudian angled pigtail flush catheter was then advanced through thesheath over a J-wire and subsequently negotiated into the right pulmonaryartery where a digital subtraction angiogram was performed. The angled pigtail flush catheter was removed over an exchange lengthRosen wire and a 8 Bermudian Lumax sheath and angled catheter were advancedinto [...] over a J-wire. The sidearm of the 8-Bermudian vascular sheath was aspirated and flushed, thenremoved. [...] malformation documented in this encounter Care Teams Manager Residential Relationship Specialty Start Date End Date Shahab Pruett MD [address] [place] [phone] PCP - General 10/21/13 Ghulam Hough MD [address] [place] [address] maria de Historical LMR Provider 02/06/17 04/30/21 Dottie Miranda NP [address] [place] [address] [email or web address] Historical LMR Provider 02/06/17 2 Alysia Maher, ROSHAN Historical LMR Provider 02/06/17 04/30/21 Shahab Pruett MD [address] [place] [address] Historical LMR Provider 02/06/17 2 Sudheer Jimenes MD [address] [place] [address] Historical LMR Provider 02/06/17 2 Anahi Booker NP [address] [place] [address] Historical LMR Provider 02/06/17 2 documented as of this encounter Additional Source Comments The information contained in this document represents components of the legal health record. It is not the complete legal health record.[facility]
--- OUTSIDE RECORDS SUMMARY | 2025-04-22 14:52 | XMS_ITS | Encounter Summary ---
Author Organization [facility] Address [address] [place] [address] Phone Care Team Providers Care Direct Care Specialist Name Role Phone Shahab Pruett MD Primary Care Provider + Ghulam Hough MD Unavailable Dottie Miranda BOAT TESTER Unavailable Alysia Maher RDCS Unavailable [email or web address] Shahab Pruett MD Unavailable [phone] Sudheer Jimenes MD Unavailable [phone] Anahi Booker BOAT TESTER Unavailable Encounter Details Date Type Department Care Team (Late st Contact Info) Description 01/21/2020 Procedure Pass [facility] [place] - RF[place]IR 55 [facility], 2nd [place] [address] Social History Tobacco Use Types Packs/Day Years [...] on filedocumented in this encounter Care Teams Direct Care Specialist Relationship Specialty Start Date End Date Shahab Pruett MD [address] [place] [address] PCP - General 10/21/13 Ghulam Hough MD [address] [facility], [address] [place] [address] maria de Historical LMR Provider 02/06/17 04/30/21 Dottie Miranda BOAT TESTER [address] [place] [address] [email or web address] Historical LMR Provider 02/06/17 2 Alysia Maher, [facility] Historical LMR Provider 02/06/17 04/30/21 Shahab Pruett MD [address] [place] [address] Historical LMR Provider 02/06/17 2 Sudheer Jimenes MD [address] [place] [address] Historical LMR Provider 02/06/17 2 Anahi Booker NP [address] [place] [address] Historical LMR Provider 02/06/17 2 documented as of this encounter Additional Source Comments The information contained in this document represents components of the legal health record. It is not the complete legal health record.[facility]
--- OUTSIDE RECORDS SUMMARY | 2025-04-22 14:52 | XMS_ITS | Encounter Summary ---
Author Organization [facility] Address [address] [place] [address] Phone Care Team Providers Care Board Hammer Operator Name Role Phone Shahab Pruett MD Primary Care Provider + Ghulam Hough MD Unavailable Dottie Miranda BUSINESS QUALITY ASSURANCE ANALYST Unavailable Alysia Maher RDCS Unavailable [email or web address] Shahab Pruett MD Unavailable Sudheer Jimenes MD Unavailable [phone] Anahi Booker BUSINESS QUALITY ASSURANCE ANALYST Unavailable Reason for Referral * Outpatient Procedure - Closed Specialty Diagnoses / Procedures Referred By Jorge moreno Referred To Contact Radiology Diagnoses Pulmonary arteriovenous malformation Procedures [place] Arteriovenous Malformation (AVM) Embolization/Sclerotherapy [place] VASCULAR EMBOLIZATION OR OCCLUSION ARTERIAL RS&I VA VASCULAR EMBOLIZE/OCCLUDE ORGAN TUMOR INFARCT VA PLACE CATH IN LT/RT PULM ART VA PLACE CATH IN SUBSEGMT PULM ART CHG ANGIO PULMON UNILAT SELECT CHG ANGIO PULMON BILAT NONSELEC Enedelia España MBBS Phone: tel: fax: mailto:[email or web address] Referral ID Status Reason Start Date Expiration Date Visits Re quested Visits Authorized [id number] Closed 01/21/2020 01/21/2020 1 1 Encounter Details Date Type Department Care Team (Latest Contact Info) Description 12/10/2019 Ancillary Orders [facility] General [facility] Cancer [place] Interventional Radiology Hepatobiliary Clinic [address] [facility], 7th Floor, [address] [place] [address] Enedelia España MBBS [address] [facility] [address] [place] [address] [email or web address] Pulmonary arteriovenous malformation Social History Tobacco Use [...] right pulmonary arterial system was performed with loss control representative fluoroscopic images saved to the permanent [...] for local anesthesia. Under continuous ultrasound guidance, z01-gfsfe needle was advanced into the right femoral [...] malformation documented in this encounter Care Teams Board Hammer Operator Relationship Specialty Start Date End Date Shahab Pruett MD [address] [place] [address] PCP - General 10/21/13 Ghulam Hough MD [address] [place] [address] maria de Historical LMR Provider 02/06/17 04/30/21 Dottie Miranda NP [address] [place] [address] [email or web address] Historical LMR Provider 02/06/17 2 Alysia Maher RDCS Historical LMR Provider 02/06/17 04/30/21 Shahab Pruett MD [address] [place] [address] Historical LMR Provider 02/06/172 2 Sudheer Jimenes MD [address] [place] [address] Historical LMR Provider 02/06/172 2 Anahi Booker NP [address] [place] [address] Historical LMR Provider 02/06/17 2 documented as of this encounter Additional Source Comments The information contained in this document represents components of the legal health record. It is not the complete legal health record.[facility]
--- OUTSIDE RECORDS SUMMARY | 2025-04-22 14:52 | XMS_ITS | Encounter Summary ---
Author Organization [facility] Address [address] [place] [address] Phone Care Team Providers Care Gritting Machine Operator Name Role Phone Shahab Pruett MD Primary Care Provider + Ghulam Hough MD Unavailable Dottie Miranda FAMILY PSYCHOLOGIST Unavailable Alysia Maher RDCS Unavailable [email or web address] Shahab Pruett MD Unavailable Sudheer Jimenes MD Unavailable [phone] Anahi Booker FAMILY PSYCHOLOGIST Unavailable Encounter Details Date Type Department Care Team (Late st Contact Info) Description 12/12/2019 Procedure Pass [facility], Ct Scan - [facility] [place] [facility] [address] [place] [address] Social History Tobacco Use Types Packs/Day Years [...] on filedocumented in this encounter Care Teams Gritting Machine Operator Relationship Specialty Start Date End Date Shahab Pruett MD [address] [place] [address] PCP - General 10/21/13 Ghulam Hough MD [address] [facility], [address] [place] [address] maria de Historical LMR Provider 02/06/17 04/30/21 Dottie Miranda NP 21 [place] [address] [email or web address] Historical LMR Provider 02/06/17 2 Alysia Maher, RDCS Historical LMR Provider 02/06/17 04/30/21 Shahab Pruett MD [address] [place] [address] Historical LMR Provider 02/06/17 2 Sudheer Jimenes MD [address] [place] [address] Historical LMR Provider 02/06/17 2 Anahi Booker NP [address] [place] [address] Historical LMR Provider 02/06/17 2 documented as of this encounter Additional Source Comments The information contained in this document represents components of the legal health record. It is not the complete legal health record.[facility]
--- OUTSIDE RECORDS SUMMARY | 2025-04-22 14:52 | XMS_ITS | Clinical Summary ---
Author Organization [facility] Address [address] [place] [address] Phone Care Team Providers Care Stadium Manager Name Role Phone Shahab Pruett MD Primary [...] this topic Medical Devices Implanted Type Area Truck Driver Device Identifier Shelf Expiration Date Model / Serial / Lot Plug Vascular .038in 8x13.5mm Amplatzer Mesh Nitinol Flexible Self Expanding Device Occlusion Cable Embolization - [id number] Implanted:Qty: 1 on 01/21/2020 at [facility] Closure Device A G A MED[employer] 10/21/2023 [id number] / / [id number] Description:Pulmonary a Coil Concerto 5mm 20cm .021in Nylon Detachable Rudolph Embolization - [id number] Implanted:Qty: 1 on 01/21/2020 at [facility] Coil [employer] 11/26/2022 NV-5- 20- HELIX / / [id number] Plug Vascular 5fr 18mm 180cm 7-9mm .021in Lf Nitinol Micro Ptfe Mechanical - [id number] Implanted:Qty: 1 on 01/21/2020 at [facility] [employer] 01/18/2021 MVP-9 Q / / [id number] Description:Pulmonary a Plug Vascular 5fr 18mm 180cm 7-9mm .021in Lf Nitinol Micro Ptfe Mechanical - [id number] Implanted:Qty: 1 on 01/21/2020 at [facility] [employer] 08/18/2020 MVP-9 Q / / [id number] Description:Pulmonary a Plug Vascular 5fr 18mm 180cm 7-9mm .021in Lf Nitinol Micro Ptfe Mechanical - [id number] Implanted:Qty: 1 on 01/21/2020 at [facility] [employer] 08/18/2020 MVP-9 Q / / [id number] Description:Pulmonary a Plug Vascular 12mm 180cm 3-5mm .027in Lf Nitinol Micro Ptfe Mechanical - [id number] Implanted:Qty: 1 on 01/21/2020 at [facility] [employer] 07/18/2021 MVP-5 Q / / [id number] Description:Pulmonary a Plug Vascular 12mm 180cm 3-5mm .027in Lf Nitinol Micro Ptfe Mechanical - [id number] Implanted:Qty: 1 on 02/13/2020 by Enedelia España MBBS at [facility] Right: Arterial [employer] 07/18/2021 MVP-5Q / / [id number] Description:Branch of right pulmonary Insurance O O O O O HMO O O Member Subscriber Plan / Payer (Ef fective 2018-Present) Name:Diana Cardenasah Relation to Subscriber:Self Name:RonaldLizabeth Payer ID:Not on file Type:HMO Address: [place] [id number] HMO Advance Directives For more information, please contact: [phone] (9AM - 5PM [facility], Sunday-Sunday) * Full Code (Presumed) (Latest Code Status on File) Date Activated Date Inactivated Comments 01/21/2020 7:55 AM Care Teams Stadium Manager Relationship Specialty Start Date End Date Shahab Pruett MD [address] [place] [phone] PCP - General 10/21/13 Additional Source Comments The information contained in this document represents components of the legal health record. It is not the complete legal health record.[facility]
--- OUTSIDE RECORDS SUMMARY | 2025-04-22 14:52 | XMS_ITS | Clinical Summary ---
Author Organization [facility] Address [address] [address] Care Team Providers Care Livestock Trucker Name Role Phone Unavailable Primary Care Provider [...] PCV) 025 Influenza Vaccine (#1) 2024 Insurance [facility]
--- OUTSIDE RECORDS SUMMARY | 2025-04-22 14:52 | XMS_ITS | Encounter Summary ---
Author Organization [facility] Address [address] [place] [address] Phone Care Team Providers Care District Medical Examiner Name Role Phone Shahab Pruett MD Primary Care Provider + Ghulam Hough MD Unavailable Dottie Miranda A AND P TECHNICIAN Unavailable Alysia Maher RDCS Unavailable [email or web address] Shahab Pruett MD Unavailable [phone] Sudheer Jimenes MD Unavailable [phone] Anahi Booker A AND P TECHNICIAN Unavailable Encounter Details Date Type Department Care Team (Late st Contact Info) Description 12/23/2019 Procedure Pass [facility], [address] [address] Social History Tobacco Use Types Packs/Day Years [...] on filedocumented in this encounter Care Teams District Medical Examiner Relationship Specialty Start Date End Date Shahab Pruett MD [address] [place] [address] PCP - General 10/21/13 Ghulam Hough MD [address] [facility], [address] [place] [address] maria de Historical LMR Provider 02/06/17 04/30/21 Dottie Miranda NP [address] [place] [address] [email or web address] Historical LMR Provider 02/06/17 2 Alysia Maher, [facility] Historical LMR Provider 02/06/17 04/30/21 Shahab Pruett MD [address] [place] [address] Historical LMR Provider 02/06/17 2 Sudheer Jimenes MD [address] [place] [address] Historical LMR Provider 02/06/17 2 Anahi Booker NP [address] [place] [address] Historical LMR Provider 02/06/17 2 documented as of this encounter Additional Source Comments The information contained in this document represents components of the legal health record. It is not the complete legal health record.[facility]
--- OUTSIDE RECORDS SUMMARY | 2025-04-22 14:52 | XMS_ITS | Patient Health Record ---
Author Organization [facility] Address [address] [place] [address] Care Team Providers Care Dredge Deckhand Name Role Phone Cinthia Davison MD Primary Care Provider Roberto Gray Jr Allergies Allergen (clinical drug ingredient) Drug/Non Drug Allergy documented on EMR Reaction Allergy Type Onset Date Status Zelnorm Unknown Drug Allergy Active Results Component Value Reference Range Notes Pathology Reviewed date:06/17/2024 09:37:56 PM Interpretation: Performing Lab:[facility], [address] [place] [id number] Notes/Report: US abdomen complete Reviewed date:07/03/2024 08:11:46 AM Interpretation: Performing Lab: Notes/Report: [address] [address] Ultrasound Report Signed Patient: Lizabeth Cardenas MR#: [id number] : 1975 Acct:[id number] Age/Sex: 48 / F ADM Date: 06/23/24 Loc: HO.US Attending Dr: Roberto Harden MD Ordering Physician: Roberto Harden MD Date of Service: 06/23/24 Procedure(s): US abdomen complete Accession Number(s): [id number] cc: CINTHIA DAVISON MD; Roberto Harden MD [...] in OV> 06/23/242147 DD/ 46 TD/TT: 06/23/242146 Phlebotomy Program Coordinator: Reason For Referral No Information Medications Medication SIG (Take, Route, Frequency, Duration) Notes Start Date End Date Status Omeprazole 20 MG Capsule Delayed Release 1 Orally Twice daily; Duration: 30 days 12/20/2023 Active Sertraline HCl 100 MG Tablet Oral; Duration: 90 Active buPROPion HCl ER (SR) 100 MG Tablet Extended Release 12 Hour Oral; Duration: 30 Active Sutab 7077-438-048 MG Tablet 12 tablets the first dose [...] Miscellaneous: Marital status: single 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 Problems Problem Type SNOMED Code ICD Code Onset Dates Problem Status W/U Status Risk Notes Problem Ischemic colitis (06747118) Ischemic colitis (K55.9) Active confirmed Problem Erosive gastritis (1881902551329081) Erosive gastritis (K29.60) Active confirmed Problem Right sided abdominal pain (030322224) Right sided abdominal pain (R10.9) Active confirmed Problem Gastroesophageal reflux disease (851951705) Gastroesophageal reflux disease, unspecified whether esophagitis present (K21.9) Active confirmed Problem Erosive gastritis (8030437941368626) Gastritis, erosive (K29.60) Active confirmed Vital Signs Blood pressure diastolic 00 mm Hg 05/22/2024 Height 5 ft 5 in in 05/22/2024 Blood pressure systolic 00 mm Hg 05/22/2024 Weight 264 lbs 05/22/2024 BMI 43.93 kg/m2 05/22/2024 Encounters Encounter Location Date Provider Diagnosis [facility] Outpatient [address] [place] [id number] 06/13/2024 Roberto Harden Jr Ischemic colitis K55.9 and Abdominal pain R10.9 [facility] [address] [place] [phone] 05/22/2024 Roberto Harden Jr Right sided abdominal pain R10.9 ; Ischemic colitis K55.9 and Gastroesophageal reflux disease, unspecified whether esophagitis present K21.9 [facility] [address] [place] [phone] 06/11/2024 Roberto Harden Jr [facility] [address] [place] [phone] 06/12/2024 Roberto Harden Jr [facility] [address] [place] [phone] 06/17/2024 Roberto Harden Jr [facility] [address] [place] [phone] 07/03/2024 Roberto Harden Jr [facility] [address] [place] [phone] 10/07/2024 Roberto Harden Jr Assessments Encounter Date [...] Insured Coverage Start Date Coverage End Date [facility] [address] [address] [place], [place] [phone] [id number] LIZABETH CARDENAS Self - patient is the [...]
--- OUTSIDE RECORDS SUMMARY | 2025-04-22 14:52 | XMS_ITS | Encounter Summary ---
Author Organization [facility] Address [address] [place] [address] Phone Care Team Providers Care Pillowcase Sewer Name Role Phone Shahab Pruett MD Primary Care Provider + Ghulam Hough MD Unavailable Dottie Miranda PROGRAM COUNSELOR Unavailable Alysia Maher RDCS Unavailable [email or web address] Shahab Pruett MD Unavailable Sudheer Jimenes MD Unavailable [phone] Anahi Booker PROGRAM COUNSELOR Unavailable Encounter Details Date Type Department Care Team (Late st Contact Info) Description 02/13/2020 Procedure Pass [facility] [place] - RF/IR 55 [facility], 2nd [place] [address] Social History Tobacco Use Types Packs/Day Years [...] on filedocumented in this encounter Care Teams Pillowcase Sewer Relationship Specialty Start Date End Date Shahab Pruett MD [address] [place] [address] PCP - General 10/21/13 Ghulam Hough MD [address] [facility], [address] [place] [address] maria de Historical LMR Provider 02/06/17 04/30/21 Dottie Miranda PROGRAM COUNSELOR [address] [place] [address] [email or web address] Historical LMR Provider 02/06/17 2 Alysia Maher, [facility] Historical LMR Provider 02/06/17 04/30/21 Shahab Pruett MD [address] [place] [address] Historical LMR Provider 02/06/17 2 Sudheer Jimenes MD [address] [place] [address] Historical LMR Provider 02/06/17 2 Anahi Booker NP [address] [place] [address] Historical LMR Provider 02/06/17 2 documented as of this encounter Additional Source Comments The information contained in this document represents components of the legal health record. It is not the complete legal health record.[facility]
--- OUTSIDE RECORDS SUMMARY | 2025-04-22 14:52 | XMS_ITS | Encounter Summary ---
Author Organization [facility] Address [address] [place] [address] Phone Care Team Providers Care Fire Extinguisher Repairer Inspector Name Role Phone Shahab Pruett MD Primary Care Provider + Ghulam Hough MD Unavailable Dottie Miranda DEVELOPMENT ADVISOR Unavailable Alysia Maher RDCS Unavailable [email or web address] Shahab Pruett MD Unavailable Sudheer Jimenes MD Unavailable [phone] Anahi Booker DEVELOPMENT ADVISOR Unavailable Encounter Details Date Type Department Care Team (Late st Contact Info) Description 01/13/2020 Procedure [place] [facility] [place] [address] [facility], [address] [place] [address] Social History Tobacco Use Types Packs/Day Years [...] on filedocumented in this encounter Care Teams Fire Extinguisher Repairer Inspector Relationship Specialty Start Date End Date Shahab Pruett MD [address] [place] [address] PCP - General 10/21/13 Ghulam Hough MD [address] [facility], [address] [place] [address] maria de Historical LMR Provider 02/06/17 04/30/21 Dottie Miranda DEVELOPMENT ADVISOR [address] [place] [address] [email or web address] Historical LMR Provider 02/06/17 2 Alysia Maher, [facility] Historical LMR Provider 02/06/17 04/30/21 Shahab Pruett MD [address] [place] [address] Historical LMR Provider 02/06/17 2 Sudheer Jimenes MD [address] [place] [address] Historical LMR Provider 02/06/17 2 Anahi Booker NP [address] [place] [address] Historical LMR Provider 02/06/17 2 documented as of this encounter Additional Source Comments The information contained in this document represents components of the legal health record. It is not the complete legal health record.[facility]
--- OUTSIDE RECORDS SUMMARY | 2025-04-22 14:52 | XMS_ITS | Encounter Summary ---
Author Organization [facility] Address [address] [place] [address] Phone Care Team Providers Care Canvas Worker Name Role Phone Shahab Pruett MD Primary Care Provider + Ghulam Hough MD Unavailable Dottie Miranda KITCHEN FOOD SERVER Unavailable Alysia Maher RDCS Unavailable [email or web address] Shahab Pruett MD Unavailable Sudheer Jimenes MD Unavailable [phone] Anahi Booker KITCHEN FOOD SERVER Unavailable Encounter Details Date Type Department Care Team (Late st Contact Info) Description 12/23/2019 Procedure Pass [facility], [address] [address] Social History Tobacco Use Types Packs/Day Years [...] on filedocumented in this encounter Care Teams Canvas Worker Relationship Specialty Start Date End Date Shahab Pruett MD [address] [place] [address] PCP - General 10/21/13 Ghulam Hough MD [address] [facility], [address] [place] [address] maria de Historical LMR Provider 02/06/17 04/30/21 Dottie Miranda NP [address] [place] [address] [email or web address] Historical LMR Provider 02/06/17 2 Alysia Maher, [facility] Historical LMR Provider 02/06/17 04/30/21 Shahab Pruett MD [address] [place] [address] Historical LMR Provider 02/06/17 2 Sudheer Jimenes MD [address] [place] [address] Historical LMR Provider 02/06/17 2 Anahi Booker NP [address] [place] [address] Historical LMR Provider 02/06/17 2 documented as of this encounter Additional Source Comments The information contained in this document represents components of the legal health record. It is not the complete legal health record.[facility]
--- OUTSIDE RECORDS SUMMARY | 2025-04-22 14:52 | XMS_ITS | Encounter Summary ---
Author Organization [facility] Address [address] [place] [address] Phone Care Team Providers Care Pest Management Supervisor Name Role Phone Shahab Pruett MD Primary Care Provider + Ghulam Hough MD Unavailable Dottie Miranda MEDICAL COORDINATOR PESTICIDE USE Unavailable Alysia Maher RDCS Unavailable [email or web address] Shahab Pruett MD Unavailable Sudheer Jimenes MD Unavailable [phone] Anahi Booker MEDICAL COORDINATOR PESTICIDE USE Unavailable Encounter Details Date Type Department Care Team (Late st Contact Info) Description 09/27/2020 Procedure Pass [facility], Ct Scan - [address] [address] Social History Tobacco Use Types Packs/Day Years [...] on filedocumented in this encounter Care Teams Pest Management Supervisor Relationship Specialty Start Date End Date Shahab Pruett MD [address] [place] [address] PCP - General 10/21/13 Ghulam Hough MD [address] [facility], [address] [place] [address] maria de Historical LMR Provider 02/06/17 04/30/21 Dottie Miranda NP [address] [place] [address] [email or web address] Historical LMR Provider 02/06/17 2 Alysia Maher, [facility] Historical LMR Provider 02/06/17 04/30/21 Shahab Pruett MD [address] [place] [address] Historical LMR Provider 02/06/17 2 Sudheer Jimenes MD [address] [place] [address] Historical LMR Provider 02/06/17 2 Anahi Booker NP [address] [place] [address] Historical LMR Provider 02/06/17 2 documented as of this encounter Additional Source Comments The information contained in this document represents components of the legal health record. It is not the complete legal health record.[facility]
--- OUTSIDE RECORDS SUMMARY | 2025-04-22 14:52 | XMS_ITS | Encounter Summary ---
Author Organization [facility] Address [address] [place] [address] Phone Care Team Providers Care Owner Spa Director Name Role Phone Shahab Pruett MD Primary Care Provider + Ghulam Hough MD Unavailable Dottie Miranda ENDOSCOPY SUPPORT SPECIALIST Unavailable Alysia Maher RDCS Unavailable [email or web address] Shahab Pruett MD Unavailable Sudheer Jimenes MD Unavailable [phone] Anahi Booker ENDOSCOPY SUPPORT SPECIALIST Unavailable Encounter Details Date Type Department Care Team (Late st Contact Info) Description 06/22/2020 Procedure Pass [facility] [address] [place] [address] Social History Tobacco Use Types Packs/Day Years [...] on filedocumented in this encounter Care Teams Owner Spa Director Relationship Specialty Start Date End Date Shahab Pruett MD [address] [place] [address] PCP - General 10/21/13 Ghulam Hough MD 22 [facility], [address] [place] [address] maria de Historical LMR Provider 02/06/17 04/30/21 Dottie Miranda NP [address] [place] [address] [email or web address] Historical LMR Provider 02/06/17 2 Alysia Maher, RDCS Historical LMR Provider 02/06/17 04/30/21 Shahab Pruett MD [address] [place] [address] Historical LMR Provider 02/06/17 2 Sudheer Jimenes MD [address] [place] [address] Historical LMR Provider 02/06/17 2 Anahi Booker NP [address] [place] [address] Historical LMR Provider 02/06/17 2 documented as of this encounter Additional Source Comments The information contained in this document represents components of the legal health record. It is not the complete legal health record.[facility]
== END 2025-04-22 13:56 | disposition home or self-care (01) ==
LOC: HO.HKA 13:28
PROVIDERS: PCP Internal Medicine; Visit Provider Internal Medicine Nephrology
DX: I10 Essential (primary) hypertension (principal); E66.09 Other obesity due to excess calories; N20.0 Calculus of kidney
CPT/HCPCS: 99214